=== PATIENT | male | born 1990 | race Caucasian/White ===

== ENCOUNTER 2020-01-12 17:22 | Emergency (ER) | payer BC, SELFPAY ==
--- NOTE | 2020-01-12 17:37 | ED.GENADULT ---
HPI - General Adult General Chief complaint: Upper Respiratory Infection Stated complaint: Shortness of breath/Sore throat Time Seen by Provider: 01/12/20 17:37 Source: patient Mode of arrival: ambulatory Limitations: no limitations History of Present Illness HPI narrative: 29-year-old male patient presents to the [facility] with complaints of sore throat and shortness of breath for the past 3 days. Patient denies any fevers that he is aware of. Patient denies getting a flu shot this year. Patient states that he noticed that his shortness of breath was increasing today when he was hanging some drywall. Patient denies any chest pain. Patient states he did have a cough but that has since resolved and no cough today. Patient denies any runny nose, stuffy nose or ear pain. Denies any abdominal pain, nausea, vomiting or diarrhea. Patient states he did just follow-up with his primary doctor about a month ago and states that he did not have any high blood pressure at that time and denies any history of high blood pressure. Patient denies being a smoker. Patient denies any history of lung diseases such as emphysema, asthma or COPD. Related Data Home Medications Medication Instructions Recorded Confirmed allopurinol 300 mg PO DAILY 01/12/20 01/12/20 Allergies Allergy/AdvReac Type Severity Reaction Status Date / Time No Known Allergies Allergy Unverified 12/07/16 20:02 Review of Systems Review of Systems: Narrative: CONSTITUTIONAL: Denies fever, chills, or sweats. EYES: Denies visual changes, redness, or discharge. ENT: Denies rhinorrhea, congestion, positive sore throat, denies otalgia. CARDIOVASCULAR: Denies chest pain, palpitations, or edema. RESPIRATORY: Denies cough, positive dyspnea. GASTROINTESTINAL: Denies abdominal pain, nausea, vomiting, or diarrhea. GENITOURINARY: Denies dysuria or hematuria. SKIN: Denies rash or itching. MUSCULOSKELETAL: Denies back pain, joint pain, or myalgia. NEUROLOGIC: Denies headache, numbness, or weakness. PSYCHIATRIC: Denies anxiety or depression. PMFSH Comments At the time of my signature I agree with nursing past medical history, surgical, social, and family history. There is no relevant family history pertinent to the presenting complaint. Exam Narrative: Exam Narrative: GENERAL: Well-appearing, well-nourished, and in no acute distress. HEAD: Normocephalic, atraumatic. EYES: PERRLA and EOMI. ENT: Nares with erythema and edema noted bilaterally, no rhinorrhea or epistaxis. Mucous membranes moist. Posterior pharynx with erythema and tonsillar enlargement noted on bilateral sides. Bilateral TMs are clear no erythema or foreign bodies in the canal. NECK: Supple. No lymphadenopathy CHEST: Clear to auscultation. No respiratory distress. Patient does have slight labored breathing noted during exam. No tripoding noted. HEART: Regular rate and rhythm. No murmur heard. Normal peripheral pulses. ABDOMEN: Soft, nontender, nondistended, normal active bowel sounds. EXTREMITIES: Normal range of motion. No edema. SKIN: Warm, dry, no rash. NEURO: No focal deficits. Alert and oriented x3. Course Reevaluation(s) Reevaluation #1: Reevaluated patient after his DuoNeb was completed. Patient states he is feeling much better. Patient states that shortness of breath is gone and actually states that his soreness to the throat is much better 2. Patient's lung sounds continue to be clear bilaterally to the upper lower lobes. Discussed with patient that I am concerned that this could have been some type of allergic reaction as well since patient does mention that he was doing some drywall today. Discussed with him that the powder from the drywall could have caused a reaction calling causing swelling to the throat as well as the shortness of breath. Discussed with patient plan to discharge him home today with an albuterol inhaler and if he has shortness of breath, wheezing or coughing I want him to use the in
[2020-01-12 17:40] VITALS: BP 134/100; PULSE 82; RESP 98; TEMP 36.6
--- NOTE | 2020-01-12 17:55 | ECG_ITS ---
Measurements Intervals [place] Rate: 82 P: 19 UT: 148 QRS: 39 QRSD: 92 T: 23 QT: 370 QTc: 433 Interpretive Statements SINUS RHYTHM INCOMPLETE RIGHT BUNDLE BRANCH BLOCK BORDERLINE ECG Electronically Signed On 01-13-2020 7:00:30 PERSONAL INJURY ATTORNEY by King Ontiveros D.O.
[2020-01-12] MEDS: ALBUTEROL SULFATE NEB 2.5 MG/3 ML INH INHALATION (18:11)
[2020-01-12] MEDS: IPRATROPIUM BR 0.02% INH SOLN 0.5 MG/2.5 ML VIAL INHALATION (18:11)
[2020-01-12 18:35] VITALS: PULSE 84; RESP 16; O2SAT 97
== END 2020-01-12 18:48 | disposition home or self-care (01) ==
PROVIDERS: Emergency Provider Nurse Practitioner Family
DX: J06.9 Acute upper respiratory infection, unspecified (principal); R05 Cough; J02.9 Acute pharyngitis, unspecified; R06.02 Shortness of breath; T78.40XA Allergy, unspecified, initial encounter; I45.10 Unspecified right bundle-branch block
CPT/HCPCS: 87081; 87880; 93005; 94640; 99203; G0463

== ENCOUNTER 2020-08-19 10:24 | Emergency (ER) | payer BC, SELFPAY ==
[2020-08-19 10:28] VITALS: BP 148/87; PULSE 86; RESP 26; TEMP 36.4; O2SAT 97
--- NOTE | 2020-08-19 10:56 | ED.URI ---
HPI - URI/Sore Throat General Chief Complaint: Upper Respiratory Infection Stated Complaint: sinus congestion/cough Time Seen by Provider: 08/19/20 10:56 Source: patient and RN notes reviewed Mode of arrival: ambulatory Limitations: no limitations History of Present Illness HPI Narrative: 30-year-old male who presents to [facility] care with one week duration of cough, sore throat, nasal congestion and drainage, headache and green mucous production. Patient states that he has felt a little short of breath due to cough and congestion, denies any acute dyspnea with SAO2 97%.Patient states that he has increased sore throat with swallowing, no trismus noted and patient can control oral secretions. Patient has clear lungs on auscultation with SAO2 97% on room air,patient is morbidly obese with mild tachypnea noted. Patient denies any loss of sense of taste or smell no known exposure to anyone else who is ill. MD elicited complaint: cough, sore throat, rhinorrhea, nasal congestion and sinus pain Pertinent past history: other (morbid obesity) Onset (ago): week(s) (1) Consistency: progressively worsening Severity: moderate Pain scale (0-10): 4 Description of mucous: green Able to tolerate fluids by mouth: Yes Exacerbating factors: swallowing and exertion Relieving factors: OTC cold medicine Associated symptoms: headache, rhinorrhea, nasal congestion, sore throat, cough and shortness of breath Treatments prior to arrival: cold medicine Related Data Home Medications Medication Instructions Recorded Confirmed allopurinol 300 mg PO DAILY 01/12/20 08/19/20 Allergies Allergy/AdvReac Type Severity Reaction Status Date / Time No Known Allergies Allergy Verified 08/19/20 10:42 Review of Systems Review of Systems: Narrative: CONSTITUTIONAL: Denies fever, chills, or sweats. EYES: Denies visual changes, redness, or discharge. ENT: Positive rhinorrhea, congestion, sore throat, no otalgia. CARDIOVASCULAR: Denies chest pain, palpitations, or edema. RESPIRATORY: positive cough and some exertional dyspnea. GASTROINTESTINAL: Denies abdominal pain, nausea, vomiting, or diarrhea. GENITOURINARY: Denies dysuria or hematuria. SKIN: Denies rash or itching. MUSCULOSKELETAL: Denies back pain, joint pain, or myalgia. NEUROLOGIC: positive headache,no numbness, or weakness. PSYCHIATRIC: Denies anxiety or depression. All systems reviewed & are unremarkable except as noted in HPI and below PMFSH Past Medical History Medical History (Updated 08/19/20 @ 11:47 by Leia Garsia NP) Gout Hyperlipidemia Surgical History Surgical History (Updated 08/19/20 @ 11:47 by Leia Garsia NP) No pertinent past surgical history Social History Social History (Updated 08/19/20 @ 11:13 by Leia Garsia NP) Smoking status: Never smoker Living arrangements: with family Gender identity (if verbalized by the patient): Male Comments At time of signature, agree with nursing past medical, surgical, social history. There is no relevant family history pertinent to the presenting complaint Exam Narrative: Exam Narrative: GENERAL: Well-appearing, well-nourished,morbidly obese, and in no acute distress. HEAD: Normocephalic, atraumatic. EYES: PERRLA and EOMI. ENT: Nares patent with turbinates red, clear to light greenish rhinorrhea no epistaxis. Mucous membranes moist.TM's normal with good light reflex, throat red swollen with tonsils enlarged, no lesions or exudates NECK: Supple.some tenderness on palpation, no enlarged lymph nodes noted. CHEST: Clear to auscultation. No respiratory distress.cough and some ZUNIGA stated, SAO2 97% HEART: Regular rate and rhythm. No murmur heard. Normal peripheral pulses. ABDOMEN: Soft, nontender, nondistended, normal active bowel sounds. EXTREMITIES: Normal range of motion. No edema. SKIN: Warm, dry, no rash. NEURO: No focal deficits. Alert and oriented x3. Course Vital Signs Vital signs: Vital Signs Temperature 36.4
== END 2020-08-19 11:22 | disposition home or self-care (01) ==
PROVIDERS: Emergency Provider Registered Nurse; PCP Internal Medicine
DX: J02.0 Streptococcal pharyngitis (principal); M10.9 Gout, unspecified; E78.5 Hyperlipidemia, unspecified
CPT/HCPCS: 87880; 99213; G0463

== ENCOUNTER 2021-06-26 09:58 | Emergency (ER) | payer BC, SELFPAY ==
[2021-06-26 10:02] VITALS: BP 139/80; PULSE 78; RESP 20; TEMP 36.6; O2SAT 98
--- NOTE | 2021-06-26 10:02 | ED.EAR ---
HPI - Ear Problem General Chief complaint: Ear Stated complaint: Ear pain Time Seen by Provider: 06/26/21 10:02 Source: patient and RN notes reviewed History of Present Illness HPI Narrative: Patient is a 31-year-old male who presents the urgent care with complaints of right ear pain. Patient states is been ongoing for approximately 1-1/2 days and he has not taken anything [id number] for his pain. Patient states that it feels heavy and has been popping . Patient states he was [place] in [place] 2 days ago. No other acute complaints. Denies of any fever. Denies of any other upper respiratory complaints. No acute distress noted. Patient aware of the plan of care. Some parts of this dictation were generated by voice recognition software and may contain typographical and/or grammatical inaccuracies. Related Data Allergies Allergy/AdvReac Type Severity Reaction Status Date / Time No Known Allergies Allergy Verified 08/19/20 10:42 Review of Systems Review of Systems: CONSTITUTIONAL: Denies fever, chills, or sweats. EYES: Denies visual changes, redness, or discharge. ENT: Denies rhinorrhea, congestion, sore throat. reports of right otalgia CARDIOVASCULAR: Denies chest pain, palpitations, or edema. RESPIRATORY: Denies cough or dyspnea. GASTROINTESTINAL: Denies abdominal pain, nausea, vomiting, or diarrhea. GENITOURINARY: Denies dysuria or hematuria. SKIN: Denies rash or itching. MUSCULOSKELETAL: Denies back pain, joint pain, or myalgia. NEUROLOGIC: Denies headache, numbness, or weakness. All other systems reviewed are negative, except as documented in HPI. PMFSH Past Medical History Medical History (Updated 06/26/21 @ 10:17 by BECKI Masterson) Gout Hyperlipidemia Surgical History Surgical History (Updated 08/19/20 @ 11:47 by Leia Garsia NP) No pertinent past surgical history Social History Social History (Updated 08/19/20 @ 11:13 by Leia Garsia NP) Smoking status: Never smoker Gender identity (if verbalized by the patient): Male Comments At the time of my signature, I reviewed and agree with the nursing past medical, surgical, social, and family history. There is no relevant family history pertinent to the patient complaint. Exam Narrative: GENERAL: This is a well-nourished, well-developed patient, in no apparent distress. HEAD: normocephalic, atraumatic. EYES: PERRL. Sclera clear/white. Vision is grossly intact. EARS: External ears normal, moderate erythema and edema noted to the right auditory canal with moderate drainage. Unable to visualize right TM due to drainage. Pain on assessment of the right. Left auditory canal clear and without drainage, left TM normal without perforation. Hearing grossly intact. NOSE: External nose normal with no obvious nasal discharge, nares without redness, no rhinorrhea. THROAT: Mucous membranes moist NECK: Neck supple CARDIOVASCULAR: Regular rate and rhythm without murmurs, gallops, or rubs. RESPIRATORY: Clear to auscultation. Breath sounds equal bilaterally. No wheezes, rales, or rhonchi. SKIN: warm, intact with no suspicious lesions or rash, good texture and turgor. NEURO: awake, alert, and oriented to person, place and time. There were no obvious focal neurologic abnormalities. EXTREMITIES: No clubbing, cyanosis, or edema. Course Vital Signs Vital signs: Vital Signs Temperature 97.9 F 06/26/21 10:02 Pulse Rate 78 06/26/21 10:02 Respiratory Rate 20 06/26/21 10:02 Blood Pressure 139/80 06/26/21 10:02 Pulse Oximetry 98 06/26/21 10:02 Temperature 97.9 F 06/26/21 10:11 Pulse Rate 78 06/26/21 10:11 Respiratory Rate 20 06/26/21 10:11 Blood Pressure 139/80 06/26/21 10:11 Pulse Oximetry 98 06/26/21 10:11 Reviewed Medical Decision Making MDM Narrative Medical decision making narrative: Advised the patient to use the eardrops to the affected ear as directed. Use a warm compress for comfort as wel
[2021-06-26 10:11] VITALS: BP 139/80; PULSE 78; RESP 20; TEMP 36.6; O2SAT 98
== END 2021-06-26 10:22 | disposition home or self-care (01) ==
PROVIDERS: Emergency Provider Nurse Practitioner Family; PCP Physician Assistant
DX: H60.91 Unspecified otitis externa, right ear (principal); M10.9 Gout, unspecified; E78.5 Hyperlipidemia, unspecified
CPT/HCPCS: 99213; G0463

== ENCOUNTER 2021-07-22 17:31 | Emergency (ER) | payer BC, SELFPAY ==
[2021-07-22 17:38] VITALS: BP 136/75; PULSE 91; RESP 20; TEMP 36.8; O2SAT 98
--- NOTE | 2021-07-22 17:39 | ED.NAVMDI ---
HPI - Nausea/Vomiting/Diarrhea General Chief complaint: Nausea/Vomiting/Diarrhea Stated complaint: Diarrhea, vomitting Time Seen by Provider: 07/22/21 17:39 Source: patient and RN notes reviewed Mode of arrival: ambulatory Limitations: no limitations History of Present Illness HPI Narrative: 31-year-old male presents to the [facility] with complaints of nausea and diarrhea. Patient states I just want the diarrhea to stop. Patient reports that he has had 2 days of diarrhea. States multiple diarrheal episodes per day. Denies nausea but states he has had vomited one time. Denies any abdominal pain or chest pain. Denies any fevers. Reports generalized body aches after coming in from outside mowing the grass on . Related Data Home Medications Medication Instructions Recorded Confirmed No Home Medications 07/22/21 07/22/21 Allergies Allergy/AdvReac Type Severity Reaction Status Date / Time No Known Allergies Allergy Verified 07/22/21 17:46 Review of Systems Review of Systems: All systems reviewed & are unremarkable except as noted in HPI and below Constitutional: Constitutional: Reports no additional constitutional complaints, Denies chills and Denies fever(s) Eyes: Eyes: Reports no additional eye complaints ENT: Reports system reviewed and no additional complaints, except as documented Cardiovascular: Cardiovascular: Reports no additional cardiovascular complaints Respiratory: Respiratory: Reports no additional respiratory complaints, Denies chest congestion, Denies cough, Denies dyspnea and Denies wheezing Gastrointestinal: Gastrointestinal: Reports as per HPI, Denies abdominal pain, Reports diarrhea, Reports nausea and Reports vomiting Genitourinary: Genitourinary: Reports no additional male genitourinary complaints Musculoskeletal: Musculoskeletal: Reports as per HPI, Denies back pain, Reports myalgias (), Denies arthralgias and Denies joint swelling Integumentary/Breasts: Skin/Breast: Reports system reviewed and no additional complaints, except as docu Neurologic: Reports system reviewed and no additional complaints, except as documented Psychiatric: Psychiatric: Reports no additional psychiatric complaints Allergic/Immunologic: Allergic/Immunologic: Reports no additional allergic/immunologic complaints PMFSH Past Medical History Medical History (Updated 07/23/21 @ 00:01 by Rajesh Russo) Gout Hyperlipidemia Surgical History Surgical History No pertinent past surgical history Social History Social History (Reviewed 07/22/21 @ 17:51 by Kathryn Estrada Smoking status: Never smoker Gender identity (if verbalized by the patient): Male Comments At the time of my signature, I reviewed and agree with the nursing past medical, surgical, social, and family history. There is no relevant family history pertinent to the patient complaint. Exam Const: General: healthy appearing, no acute distress, alert and ill appearing Nutritional Appearance: well nourished and obese morbidly obese Orientation/consciousness: patient oriented x3 HENMT: Head: normal to inspection Ears: external ears normal, TM's normal bilaterally and EAC's normal Eyes: Pupils: Equal, round and reactive pupils present Neck: Neck: normal visual inspection, no lymphadenopathy and no meningeal signs Chest: Chest palpation & inspection: normal inspection of the chest Resp: Effort & Inspection: normal respiratory effort and no use of accessory muscles Auscultation: clear to auscultation bilaterally, no crackles, no rales, no rhonchi and no wheezes Cardio: Rate: regular rate Rhythm: regular rhythm GI: GI Palp: Yes Soft to palpation, No Tenderness to palpation present (GI), No Palpable mass present and No Rebound tenderness present Auscultation: normal bowel sounds : General: Yes no CVA tenderness Testes: Testes normal Back/Spine/Pelvis: Back: no CVA t
== END 2021-07-22 17:50 | disposition home or self-care (01) ==
PROVIDERS: Emergency Provider Nurse Practitioner; PCP Physician Assistant
DX: K52.9 Noninfective gastroenteritis and colitis, unspecified (principal); E78.5 Hyperlipidemia, unspecified; M10.9 Gout, unspecified
CPT/HCPCS: 99211; G0463

== ENCOUNTER 2022-05-07 08:20 | Emergency (ER) | payer BC, SELFPAY ==
[2022-05-07 08:26] VITALS: BP 132/73; PULSE 89; RESP 20; TEMP 37.1; O2SAT 95
--- NOTE | 2022-05-07 09:02 | ED.GENADULT ---
HPI - General Adult General Chief complaint: Upper Respiratory Infection Stated complaint: Diarrhea/Vomiting/Cough Time Seen by Provider: 05/07/22 08:50 Source: patient, RN notes reviewed and old records reviewed Mode of arrival: ambulatory Limitations: no limitations History of Present Illness HPI narrative: 32-year-old male who presents to [facility] care with complaints of having upper respiratory congestion about 2 weeks ago and he called his PCP and his doctor ordered Amoxicillin for him but he was not tested for COVID at that time. Patient reports for the past few day he has had cough, some shortness of breath, sore throat with throat feeling swollen. Patient admits that he only took 3 days worth of the antibiotic and he has been on float trip from to Saturday. He states that his symptoms became worse on Saturday and he had one episode of emesis and he has had diarrhea stools and also diarrhea this morning. Patient reports no known fevers but reports feelings of fatigue, body aches and weakness. Patient reports that he has had COVID vaccinations. MD complaint: sore throat, fatigue, body aches,weakness, vomiting and diarrhea Treatments prior to arrival: none Related Data Home Medications Medication Instructions Recorded Confirmed allopurinol 300 mg tablet tablet 05/07/22 Allergies Allergy/AdvReac Type Severity Reaction Status Date / Time No Known Allergies Allergy Verified 05/07/22 08:48 Review of Systems Review of Systems: CONSTITUTIONAL: Denies fever, chills, or sweats. EYES: Denies visual changes, redness, or discharge. ENT: Positive for rhinorrhea, congestion,positive sore throat, no otalgia. CARDIOVASCULAR: Denies chest pain, palpitations, or edema. RESPIRATORY:Possible for cough or dyspnea with exertion GASTROINTESTINAL: Denies abdominal pain, nausea, vomiting, or diarrhea. GENITOURINARY: Denies dysuria or hematuria. SKIN: Denies rash or itching. MUSCULOSKELETAL: Denies back pain, joint pain, some body aches NEUROLOGIC: Denies headache, numbness, or weakness. PSYCHIATRIC: Denies anxiety or depression. All systems reviewed & are unremarkable except as noted in HPI and below PMFSH Past Medical History Medical History (Updated 05/07/22 @ 10:40 by Leia Garsia NP) Gout Hyperlipidemia Surgical History Surgical History (Updated 05/07/22 @ 10:40 by Leia Garsia NP) Hx of hand surgery left Social History Social History (Updated 05/07/22 @ 09:15 by Leia Garsia NP) Smoking status: Never smoker Alcohol intake: current Substance use: unknown Living arrangements: with family Gender identity (if verbalized by the patient): Male Comments At time of signature, agree with nursing past medical, surgical, social and family history. There is no relevant family history pertinent to the presenting complaint Exam Narrative: GENERAL: Well-appearing, well-nourished,morbid obesity and in no acute distress. HEAD: Normocephalic, atraumatic. EYES: PERRLA and EOMI. ENT: Nares with minimal redness scant clear rhinorrhea no epistaxis. Mucous membranes moist.TM's normal with good light reflex, throat red with lesions on tonsils with enlargement, uvula red and swollen but midline, NECK: Supple. lymphadenopathy CHEST: Clear to auscultation. No respiratory distress.SAO2 95% on room air, no tachypnea or accessory muscle use HEART: Regular rate and rhythm. No murmur heard. Normal peripheral pulses. ABDOMEN: Soft, nontender, nondistended, normal active bowel sounds.episodes of diarrhea and one episode of vomiting denies any present nausea. EXTREMITIES: Normal range of motion. No edema. SKIN: Warm, dry, no rash. NEURO: No focal deficits. Alert and oriented x3. Course Course Level of Care: Express Care Visit Vital Signs Vital signs: Vital Signs Temperature 37.1 C 05/07/22 08:26 Pulse Rate 89 05/07/22 08:26 Respiratory Rate 20 05/07/22 08:26 Blood Pressure 132/73 05/07/22 08:26
== END 2022-05-07 09:23 | disposition home or self-care (01) ==
PROVIDERS: Emergency Provider Registered Nurse; PCP Physician Assistant
DX: J03.90 Acute tonsillitis, unspecified (principal); K52.9 Noninfective gastroenteritis and colitis, unspecified; Z20.822 Contact with and (suspected) exposure to COVID-19; E78.5 Hyperlipidemia, unspecified; M10.9 Gout, unspecified
CPT/HCPCS: 87081; 87426; 87804; 87880; 99213; C9803; G0463

== ENCOUNTER 2023-01-26 12:32 | Emergency (ER) | payer OTHER, SELFPAY ==
[2023-01-26 12:38] VITALS: BP 139/67; PULSE 82; RESP 20; TEMP 36.9; O2SAT 99
--- NOTE | 2023-01-26 13:11 | ED.BACK ---
HPI - Back Pain/Injury General Chief Complaint: Back Pain/Injury Stated Complaint: Sharp pain right lower back History of Present Illness HPI Narrative: Patient presents with right lower back pain. Patient denies any injury. Patient denies any bowel or bladder problems no numbness or tingling. Patient denies any injury to his back. No new exercises no heavy lifting. Related Data Home Medications Medication Instructions Recorded Confirmed allopurinol 300 mg tablet tablet 05/07/22 montelukast 10 mg tablet mg 01/26/23 Allergies Allergy/AdvReac Type Severity Reaction Status Date / Time No Known Allergies Allergy Verified 05/07/22 08:48 Review of Systems Review of Systems: CONSTITUTIONAL: Denies fever, chills, or sweats. EYES: Denies visual changes, redness, or discharge. ENT: Denies rhinorrhea, congestion, sore throat, or otalgia. CARDIOVASCULAR: Denies chest pain, palpitations, or edema. RESPIRATORY: Denies cough or dyspnea. GASTROINTESTINAL: Denies abdominal pain, nausea, vomiting, or diarrhea. GENITOURINARY: Denies dysuria or hematuria. SKIN: Denies rash or itching. MUSCULOSKELETAL: Denies back pain, joint pain, or myalgia. NEUROLOGIC: Denies headache, numbness, or weakness. PSYCHIATRIC: Denies anxiety or depression. PMFSH Past Medical History Medical History (Updated 01/26/23 @ 13:17 by BECKI Martell) Gout Hyperlipidemia Surgical History Surgical History (Updated 05/07/22 @ 10:40 by Leia Garsia NP) Hx of hand surgery left Social History Social History (Updated 05/07/22 @ 09:15 by Leia Garsia NP) Smoking status: Never smoker Alcohol intake: current Substance use: unknown Living arrangements: with family Gender identity (if verbalized by the patient): Male Comments At time of signature, agree with nursing past medical, surgical, social and family history. There is no relevant family history pertinent to the presenting complaint Exam Narrative: GENERAL: Well-appearing, well-nourished, and in no acute distress. HEAD: Normocephalic, atraumatic. EYES: PERRLA and EOMI. ENT: Nares clear, no rhinorrhea or epistaxis. Mucous membranes moist. NECK: Supple. CHEST: Clear to auscultation. No respiratory distress. HEART: Regular rate and rhythm. No murmur heard. Normal peripheral pulses. ABDOMEN: Soft, nontender, nondistended, normal active bowel sounds. EXTREMITIES: Normal range of motion. No edema. SPINE MIDLINE. NO CURVATURE APPARENT. NO NOVERTEBRAL POINT SPECIFIC TENDERNESS. NO DEFORMITY. NO STEP-OFFS. NORMAL LE STRENGTH BILATERALLY. NORMAL LE SENSATION BILATERALLY. ABLE TO WALK ON TOES AND HEELS WITH NORMAL DORSIFLEXION AND PLANTAR FLEXION STRENGTH. NO WEAKNESS OBSERVED WITH GAIT. RIGHT PARASPINAL MUSCLE TENDERNESS. RIGHT SI JOINT TENDERNESS. FLEXION AND EXTENSION ROM NORMAL, ONLY SLIGHT LIMITATION. SKIN: Warm, dry, no rash. NEURO: No focal deficits. Alert and oriented x3. [place] Coma Scale Eye Opening: Spontaneous 4 [place] Coma Scale Motor: Obeys Commands 6 [place] Coma Scale Verbal: Oriented 5 [place] Coma Scale Total 15 Course Course Level of Care: Express Care Visit Vital Signs Vital signs: Vital Signs Temperature 36.9 C 01/26/23 12:38 Pulse Rate 82 01/26/23 12:38 Respiratory Rate 20 01/26/23 12:38 Blood Pressure 139/67 01/26/23 12:38 Pulse Oximetry 99 01/26/23 12:38 Oxygen Delivery Room Air 01/26/23 12:38 Temperature 36.9 C 01/26/23 12:38 Pulse Rate 82 01/26/23 12:38 Respiratory Rate 20 01/26/23 12:38 Blood Pressure 139/67 01/26/23 12:38 Pulse Oximetry 99 01/26/23 12:38 Oxygen Delivery Room Air 01/26/23 12:38 discussed xray at todays visit patient declined and would like to try medications as discussed patient will follow up with PCP and will have imaging if no improvement in sympotms. MDM - Back Pain/Injury Differential Diagnosis Differential diagnosis: Likely lumbar radiculopathy, sciatica, strain
== END 2023-01-26 13:24 | disposition home or self-care (01) ==
PROVIDERS: Emergency Provider Nurse Practitioner Family; PCP Physician Assistant
DX: S39.012A Strain of muscle, fascia and tendon of lower back, initial encounter (principal); X58.XXXA Exposure to other specified factors, initial encounter; M10.9 Gout, unspecified; E78.5 Hyperlipidemia, unspecified
CPT/HCPCS: 99213; G0463

== ENCOUNTER 2024-01-09 13:14 | Emergency (ER) | payer OTHER, SELFPAY ==
[2024-01-09 13:23] VITALS: BP 160/90; PULSE 81; RESP 20; TEMP 36.9; O2SAT 98
--- NOTE | 2024-01-09 13:47 | ED.GENADULT ---
HPI - General Adult General Chief complaint: Skin/Abscess/Foreign Body Stated complaint: Skin Sore/Finger Time Seen by Provider: 01/09/24 13:47 Source: patient, RN notes reviewed and old records reviewed Mode of arrival: ambulatory Limitations: no limitations History of Present Illness HPI narrative: 33-year-old male presents to the [facility] with complaints of a finger sore. 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 Currently draining a thick white drainage Has mild erythema noted without increased warmth Onset (ago): day(s) (2) Related Data Home Medications Medication Instructions Recorded Confirmed montelukast 10 mg tablet 10 mg PO DAILY 01/26/23 01/09/24 Allergies Allergy/AdvReac Type Severity Reaction Status Date / Time No Known Allergies Allergy Verified 05/07/22 08:48 Review of Systems Review of Systems: All systems reviewed & are unremarkable except as noted in HPI and below Constitutional: Constitutional: Reports no additional constitutional complaints Eyes: Eyes: Reports no additional eye complaints ENT: Reports system reviewed and no additional complaints, except as documented Cardiovascular: Cardiovascular: Reports no additional cardiovascular complaints, Denies chest pain and Denies dyspnea Respiratory: Respiratory: Reports no additional respiratory complaints, Denies chest congestion, Denies cough and Denies dyspnea Gastrointestinal: Gastrointestinal: Reports no additional gastrointestinal complaints, Denies abdominal pain, Denies nausea and Denies vomiting Musculoskeletal: Musculoskeletal: Reports no additional musculoskeletal complaints Integumentary/Breasts: Skin/Breast: Reports as per HPI Neurologic: Reports system reviewed and no additional complaints, except as documented Psychiatric: Psychiatric: Reports no additional psychiatric complaints Allergic/Immunologic: Allergic/Immunologic: Reports no additional allergic/immunologic complaints PMFSH Past Medical History Medical History Gout Hyperlipidemia Surgical History Surgical History Hx of hand surgery left Social History Social History Smoking status: Never smoker Alcohol intake: current Substance use: unknown Living arrangements: with family Gender identity (if verbalized by the patient): Male Comments At the time of my signature, I reviewed and agree with the nursing past medical, surgical, social, and family history. There is no relevant family history pertinent to the patient complaint. Exam Const: General: cooperative, healthy appearing, comfortable, no acute distress, well developed, alert and well nourished Nutritional Appearance: well nourished and obese Orientation/consciousness: patient oriented x3 Limitations: no limitations HENMT: Head: normal to inspection Ears: hearing grossly normal bilaterally and external ears normal Face/Nose/Sinus: Normal external nose present, Normal nares present, Normal nasal mucous membranes and turbinates present, normal facial exam and face symmetric Face and sinus: normal facial exam and face symmetric Eyes: General: appearance normal, both eyes and all related structures Alignment and Position: alignment normal Periorbital: periorbital findings normal Pupils: Equal, round and reactive pupils present EOM: EOMs intact bilaterally Neck: Neck: normal visual inspection, full ROM, no lymphadenopathy and no meningeal signs Chest: Chest palpation & inspection: normal inspection of the chest Resp: Effort & Inspection: normal respiratory effort and able to speak in complete sentences Cardio: Rate: regular rate Rhythm: regular rhythm Back/Spine/Pelvis: Cervical Spine: cervical ROM normal Skin: General skin exam: no
== END 2024-01-09 14:18 | disposition home or self-care (01) ==
PROVIDERS: Emergency Provider Nurse Practitioner; PCP Physician Assistant
DX: L03.011 Cellulitis of right finger (principal); E78.5 Hyperlipidemia, unspecified
CPT/HCPCS: 87070; 87075; 87077; 87147; 87186; 87205; 99213; G0463

== ENCOUNTER 2024-05-30 12:31 | Emergency (ER) | payer OTHER, SELFPAY ==
[2024-05-30 12:35] VITALS: BP 134/68; PULSE 82; RESP 20; TEMP 36.7; O2SAT 98
--- NOTE | 2024-05-30 12:43 | ED.URI ---
HPI - URI/Sore Throat General Chief Complaint: Upper Respiratory Infection Stated Complaint: Shortness of Breath/Cough Time Seen by Provider: 05/30/24 12:54 Source: patient and RN notes reviewed Mode of arrival: ambulatory Limitations: no limitations History of Present Illness HPI Narrative: 34-year-old male presents with concern for several day history of cough, shortness of breath, left ear pain since Saturday. Reports he went to his doctor, they gave him a Z-Yosef, he finished his Z-Yosef without relief of symptoms. He reports he has been taking Robitussin DM without relief. He denies history of asthma or problems breathing MD elicited complaint: cough and other (ear pain) Related Data Home Medications Medication Instructions Recorded Confirmed montelukast 10 mg tablet 10 mg PO DAILY 01/26/23 05/30/24 Allergies Allergy/AdvReac Type Severity Reaction Status Date / Time No Known Allergies Allergy Verified 05/07/22 08:48 Review of Systems Review of Systems: CONSTITUTIONAL: Denies malaise, chills, sweats, or fever. EYES: Denies visual changes, redness, or discharge. ENT: Reports rhinorrhea,otalgia and sore throat. CARDIOVASCULAR: Denies chest pain, palpitations, or edema. RESPIRATORY: Reports cough, dyspnea. GASTROINTESTINAL: Denies abdominal pain, nausea, vomiting, diarrhea SKIN: Denies rash or itching. MUSCULOSKELETAL: Denies myalgia. NEUROLOGIC: Denies headache. All systems reviewed & are unremarkable except as noted in HPI and below PMFSH Past Medical History Medical History Gout Hyperlipidemia Surgical History Surgical History Hx of hand surgery left Social History Social History Smoking status: Never smoker Alcohol intake: current Substance use: unknown Living arrangements: with family Gender identity (if verbalized by the patient): Male Comments At time of signature, agree with nursing past medical, surgical, social and family history. There is no relevant family history pertinent to the presenting complaint Exam Narrative: GENERAL: Well-appearing, well-nourished, and in no acute distress. HEAD: Normocephalic EYES: PERRLA, conjunctivae clear ENT: Nares clear. Mucous membranes moist. Right TM pearly strickland with dull light reflex, left TM erythematous and bulging; no tragal tenderness. Oropharynx erythematous without lesions. Tonsils enlarged and without exudate, no drooling, no hoarseness, no trismus, uvula midline. NECK: Supple. No lymphadenopathy CHEST: Clear to auscultation, breath sounds equal. No wheezing, rhonchi, rales, or stridor. No respiratory distress, speaks in full sentences. HEART: Regular rate and rhythm. No murmur heard. SKIN: Warm, dry, no rash. NEURO: Alert and oriented x3. PSYCH: Normal mood and affect Course Course Emergency Course: Patient is aware of diagnosis, understands and agrees to treatment plan. Anticipatory guidance given. Patient agrees to follow-up as directed and is aware of reasons to seek care at the emergency department. Portions of this record may have been created with voice recognition software Level of Care: Express Care Visit Vital Signs Vital signs: Reviewed. MDM - URI/Sore Throat MDM Narrative Medical decision making narrative: Differential diagnosis considered: Rubin virus, strep pharyngitis, allergic rhinitis, upper respiratory tract infection, sinusitis, rhinosinusitis, nasopharyngitis. viral pharyngitis, otitis media, otitis externa, pneumonia, bronchitis, viral cough syndrome, viral syndrome, and influenza. Exam findings show no acute concerns or changes; patient is non-toxic appearing and is in no distress. Patient is appropriate for outpatient treatment and follow-up. Lab Data Attestation: I reviewed the patient's lab results. Critical Care Time Critical Car
[2024-05-30 13:28] LABS: EDSTREPNEGPOS1 Presumptive Negative
== END 2024-05-30 13:15 | disposition home or self-care (01) ==
PROVIDERS: Emergency Provider Nurse Practitioner; PCP Physician Assistant
DX: H66.92 Otitis media, unspecified, left ear (principal); R05.9 Cough, unspecified; M10.9 Gout, unspecified; E78.5 Hyperlipidemia, unspecified
CPT/HCPCS: 87081; 87880; 99213; G0463

== ENCOUNTER 2024-09-21 09:32 | Emergency (ER) | payer OTHER, SELFPAY ==
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
[2024-09-21 09:50] VITALS: BP 140/74; PULSE 91; RESP 20; TEMP 36.8; O2SAT 98
== END 2024-09-21 11:05 | disposition home or self-care (01) ==
PROVIDERS: Emergency Provider Nurse Practitioner; PCP Nurse Practitioner Adult Health
DX: M25.462 Effusion, left knee (principal); E78.5 Hyperlipidemia, unspecified; M10.9 Gout, unspecified
CPT/HCPCS: 73564; 99213; G0463

== ENCOUNTER 2024-09-23 09:47 | Outpatient (CLI) | payer OTHER, SELFPAY ==
[2024-09-23 21:21] LABS: Alanine Aminotransferase 38 U/L (6-50); Albumin Level 4.5 g/dL (3.5-5.1); Alkaline Phosphatase 60 U/L (38-126); Anion Gap 6 mmol/L (4-12); Aspartate Amino Transferase 65 U/L (17-59); Bilirubin,Total 0.5 mg/dL (0.2-1.3); Blood Urea Nitrogen 12 mg/dL (9-20); Calcium 9.7 mg/dL (8.4-10.2); Carbon Dioxide 32 mmol/L (22-30); Chloride 101 mmol/L (98-107); Cholesterol 188 mg/dL (0-200); Estimated Glomerular Filt Rate > 60; Glucose 101 mg/dL (65-110); HDL Direct 45 mg/dL; Potassium 4.2 mmol/L (3.4-5.0); Sodium 139 mmol/L (137-145); Triglycerides 280 mg/dL (<150)
[2024-09-23 21:33] LABS: LDL Cholesterol Direct 103 mg/dL
== END 2024-09-23 09:48 | disposition home or self-care (01) ==
PROVIDERS: PCP Nurse Practitioner Adult Health; Visit Provider Nurse Practitioner Adult Health
DX: M17.12 Unilateral primary osteoarthritis, left knee (principal); E78.5 Hyperlipidemia, unspecified
CPT/HCPCS: 36415; 80053; 80061

== ENCOUNTER 2024-09-24 09:21 | Outpatient (CLI) | payer OTHER, SELFPAY ==
[2024-09-24 19:12] LABS: Hemoglobin 16.4 g/dL (14.0-18.0); Mean Corpuscular HGB Conc 32.8 g/dl (32-36); Mean Corpuscular Volume 94.5 fl (80-100); Mean Platelet Volume 9.4 fl (7.4-10.4); Platelet Count Result 195 k/mm3 (150-375); Red Blood Count 5.29 M/mm3 (4.6-6.20); Red Cell Distribution Width 12.6 % (11.5-14.5); White Blood Count 5.3 K/mm3 (4.5-10.0)
[2024-09-24 19:39] LABS: Prostate Specific Antigen 1.6 ng/mL (< OR = 4.0)
== END 2024-09-24 09:22 | disposition home or self-care (01) ==
LOC: ANHBWCLAB 09:22
PROVIDERS: PCP Nurse Practitioner Adult Health; Visit Provider Nurse Practitioner Adult Health
DX: Z12.5 Encounter for screening for malignant neoplasm of prostate (principal); R79.89 Other specified abnormal findings of blood chemistry
CPT/HCPCS: 36415; 84153; 84402; 84403; 85027; G0103

== ENCOUNTER 2025-01-14 07:51 | Outpatient (CLI) | payer OTHER, SELFPAY ==
--- OUTSIDE RECORDS SUMMARY | 2025-01-14 08:00 | XMS_ITS | Clinical Summary ---
Author Organization [facility] [employer] Address [address] [place] [address] Care Team Providers Care Solutions Market Consultant Name Role Phone Unavailable Primary Care Provider Unavailabl e Source Comments [facility] [employer],non-owned Affiliates and Associated Physician Practices is amultiple site organization consisting of ambulatory clinics and hospital sitesin [place], [place], [place] and [place]. This disclosure is being madepursuant to the Care Everywhere program and may not contain all information available regarding this patient. Last updated 18.[employer] Allergies No known active allergies Medications * Be aware that medications may not be up to date on this document. Alwaysverify current medications with the patient. Medication Sig Dispensed Refills Start Date End Date Status albuterol HFA (VENTOLIN HFA) 108 (90 BASE) MCG/ACT inhaler Inhale 2 puffs by mouth every 6 hours as needed for Wheezing or Cough 1 Inhaler 11/04/2017 Active predniSONE (DELTASONE) 20 MG tablet Take 1 tablet by mouth 2 times daily 14 tablet 11/04/2017 Active Active Problems No known active problems Social History Tobacco Use Types Packs/Day Years Used Date Smoking Tobacco: Never Smokeless Tobacco: Never Sex and Gender Information Value Date Recorded Sex Assigned at Not on file Gender Identity Not on file Sexual Orientation Not on file Last Filed Vital Signs Vital Sign Reading Time Taken Comments Blood Pressure 134/80 11/04/2017 8:02 AM [employer]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 Pulse 72 11/04/2017 8:02 AM [employer]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 Temperature 36.9 C (98.4 F) 11/04/2017 8:02 AM [employer]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 Respiratory Rate 17 11/04/2017 8:02 AM CAR W[employer]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 Oxygen Saturation 97% 11/04/2017 8:02 AM CAR W[employer]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 Inhaled Oxygen Concentration - - Weight 163.3 kg (360 lb) 11/04/2017 8:02 AM [employer] W[employer]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 Height 182.9 cm (6') 11/04/2017 8:02 AM [employer] W[employer]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 Body Mass Index 48.82 11/04/2017 8:02 AM [employer]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 Plan of Treatment Health Maintenance Due Date Last Done Comments HIV SCREENING 2003 HEPATITIS C SCREENING 03/04/2006 DTAP/TDAP/TD VACCINES (1 - Tdap) 2007 HEPATITIS B VACCINE (1 of 3 - 19+ 3-dose series) 2007 COVID-19 VACCINE (1 - 2023-2 5 season) 2024 INFLUENZA VACCINE (#1) 2024 DEPRESSION SCREENING 11/18/2024 ZOSTER VACCINE (1 of 2) 2038 HIB VACCINE Aged Out No longer eligi ble based on patient's age to complete this topic HPV VACCINE Aged Out No longer eligi ble based on patient's age to complete this topic MENINGOCOCCAL (Group B) VACCINE Aged Out No longer eligible based on patient's age to complete this topic MENINGOCOCCAL VACCINE Aged Out No cuong anirudh eligible based on patient's age to complete this topic PNEUMOCOCCAL VACCINE Aged Out No long er eligible based on patient's age to complete this topic
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
--- OUTSIDE RECORDS SUMMARY | 2025-01-14 08:00 | XMS_ITS ---
Author Organization [facility] Address [address] [place] [address] Phone Care Team Providers Care Assistant Clinical Nurse Manager Name Role Phone SIERRA ACOSTA PA-C Primary Care Provider [phone] Problems Includes: Active, inactive, and resolved Problems All Visits Onset Date Resolved Date Provider Condition S tatus Ganglion Right Index Finger 05/07/2022 JULES MCNEAL DO Active Last Documented On 2 10:38AM ; [facility] Pain in the Right Hand Only 04/13/2022 OSIEL Corbett Active Last Documented On 2 1:11PM ; [facility] Plan of Treatment Findings Encounter Date I had a long discussion todarien y with Harsha concerning treatment options. He would like to have this cyst removed if at all possible. He wants to be able to get back to work without difficulty. I did go over with him aspirating this cyst in clinic today. Hopefully this will dissolve the cyst. He is aware that this can return and if it does, we may need to discuss further treatment. For now, he would like to proceed with aspiration of the right palmar ganglion cyst at the head of the second metatacarpal. I have asked him to keep this area clean and dry for the next few days. I will see him back on a PRN basis FOLLOW UP with JULES MCNEAL DO 05/07/2022 Last Documented On 2 10:39AM ; [facility] I feel like this is more of a nodularity along the tendon. This does not seem to be fluid-filled based on exam. I think this is more of a solid nodule that is affixed to the flexor tendon. this is affecting him and his ability to do his job as he cannot comfortably do any lifting, gripping, pushing or pulling. I would like to further evaluate this with an MRI the right hand with special attention to the volar aspect of the distal second metacarpal. Depending on the MRI results, we may have had follow-up with Dr. Mcneal to discuss possible excision ORTHO NEW PATIENT with OSIEL Corbett 04/13/2022 Last Documented On 2 1:17PM ; [facility] Instructions to patient No reduced physical activity -release to full activities Last Documented On 2 10:34AM ; [facility] Intervention and counseling on cessation of tobacco use Last Documented On 2 10:08AM ; [facility] Education and Decision Aids were provided during visit for: Patient education about orth opedic activities Last Documented On 2 10:34AM ; [facility] Assessments Includes: Assessments for all patient encounters Findings Encounter Date Ganglion FOLLOW UP with JULES MCNEAL DO 0 05/07/2022 Last Documented On 2 10:39AM ; [facility] Ganglion of the flexor sheat h of the right index finger FOLLOW UP with JULES MCNEAL DO 05/07/2022 Last Documented On 2 10:39AM ; [facility] Ganglion of the hand FOLLOW UP with JULES MCNEAL DO 05/07/2022 Last Documented On 2 10:39AM ; [facility] Ganglion of the right hand FOLLOW UP with JULES MCNEAL DO 05/07/2022 Last Documented On 2 10:39AM ; [facility] Assessment of right hand pain ORTHO NEW PATIENT with OSIEL Corbett 04/13/2022 Last Documented On 2 1:17PM ; [facility] Discharge diagnosis of PRIMA RY CARE PROVIDER : DR DUONG PROBLEM VISIT with JORGE L PLATT INSTRUMENT OPERATOR-SUSU 08/23/2015 Last Documented On 5 6:11PM ; [facility] Instructions Includes: Instructions for all patient encounters Instructions to patient No reduced physical activity -release to full activities Last Documented On 2 10:34AM ; [facility] Intervention and counseling on cessation of tobacco use Last Documented On 2 10:08AM ; [facility] Education and Decision Aids were provided during visit for: Patient education about orth opedic activities Last Documented On 2 10:34AM ; [facility] Medical Equipment - Implanted Devices Includes: Current and historical Devices No Medical Equipment Recorded Medications Includes: Current and historical Medications Current Medications (continue as prescribed) Allopurinol 100 MG Oral Tablet 04/13/2022 Provider: Diagnosis: Last Documented On 04/13/2022 1:09PM By EMMANUELLE AQUINO LPN ; [facility] Medications Administered Includes: Administered Medications in patient's chart No Administered Medications Recorded Results Includes: Results from 01/14/2024 through 01/14/2025 No Results Recorded For Specified Dates History of Present Illness History of Present Illness not supported for this document type No History of Present Illness Recorded Social History Description Last Updated Social history unchanged 05/07/2022 Last Documented On 2 10:39AM ; [facility] Tobacco non-user 04/13/2022 Last Documented On 2 1:17PM ; [facility] Smoking status : Never smoker 08/23/2015 Last Documented On 5 6:11PM ; [facility] Medical History Includes: Medical History in patient's chart Description Last Updated Pt does not get blood pressure checked a t other facility 08/23/2015 Last Documented On 5 6:11PM ; [facility] Family History Includes: Family History in patient's chart No Family History Recorded Review of Systems Review of Systems not supported for this document type No Review of Systems Recorded Mental Status Description Oriented to time, place, and person Functional Status No Functional Status Recorded Physical Exam Physical Exam not supported for this document type No Physical Exam Recorded Allergies Includes: Active, inactive, and resolved Allergies No Known Allergies Insurance Includes: Active Insurance Policies Plan Name Member ID Group # Subscriber Relationship Effect fermin Dates 1 - [facility] [id number] HARSHA Romero Clinical Notes Includes: Signed Clinical Notes starting from 12/07/2022 No Clinical Notes Recorded
--- OUTSIDE RECORDS SUMMARY | 2025-01-14 08:00 | XMS_ITS | Encounter Summary ---
Author Organization [facility] Address [address] [place] [address] Phone Care Team Providers Care Crna Name Role Phone Seamus Valdez MD Primary Care Provider [phone] Weston Escobar Primary Care Provider [phone] Al Britt MD Unavailable Vilma Jaffe APRN, CNP Unavailable [phone] Reason for Visit * Reason Comments Medication Refill Encounter Details Date Type Department Care Team (Late st Contact Info) Description 11/03/2020 Refill [facility] Admitting [address] [place] [address] Seamus Valdez MD [address] [place] [address] Medication Refill Social History Tobacco Use Types Packs/Day Years Used Date Smoking Tobacco: Never Smokeless Tobacco: Never Alcohol Use Standard Drinks/Week Comments No 0 (1 standard drink = 0.6 oz pur e alcohol) Sex and Gender Information Value Date Recorded Sex Assigned at Not on file Legal Sex Male 9:01 PM CDT Gender Identity Not on file Sexual Orientation Not on file documented as of this encounter Miscellaneous Notes * Telephone Encounter - Brittany Conley RN - 11/03/2020 8:12 AM CST Please review and sign. 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 [address] [place] [id number] PCP - General Physician Forging Press Lever Tender 01/12/21 Al Britt MD #2 [facility] [address] [place] [address] Consulting Physician Colon and Rectal Surgery 07/30/23 Vilma Jaffe APRN, FOOD AND NUTRITION PROFESSOR #2 [facility] [address] [place] [address] Nurse Practitioner Advanced Practice Nurse 08/25/24 documented as of this encounter
--- OUTSIDE RECORDS SUMMARY | 2025-01-14 08:00 | XMS_ITS | Encounter Summary ---
Author Organization [facility] Address [address] [place] [address] Phone Care Team Providers Care Dental Services Director Name Role Phone Seamus Valdez MD Primary Care Provider [phone] Weston Escobar Primary Care Provider [phone] Al Britt MD Unavailable Vilma Jaffe APRN, CNP Unavailable [phone] Reason for Visit * Reason Comments Medication Refill Encounter Details Date Type Department Care Team (Late st Contact Info) Description 11/28/2020 Refill [facility] Admitting [address] [place] [address] Seamus Valdez MD [address] [address] Medication Refill Social History Tobacco [...] Telephone Encounter - Brittany Conley RN - 11/28/2020 7:43 AM CST Please review and sign. 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 encounter Plan of Treatment Not on file documented as of this encounter Visit Diagnoses Not on filedocumented in this encounter Care Teams Dental Services Director Relationship Specialty Start Date End Date Seamus Valdez MD [address] [address] PCP - General Internal Medicine 10/18/19 01/11/21 Weston Escobar PAC [address] [place] [id number] PCP - General Physician Component Technician 01/12/21 Al Britt MD #2 [facility] [address] [place] [address] Consulting Physician Colon and Rectal Surgery 07/30/23 Vilma Jaffe APRN, CENTRAL SUPPLY MANAGER #2 [facility] [address] [place] [address] Nurse Practitioner Advanced Practice Nurse 08/25/24 documented as of this encounter
--- OUTSIDE RECORDS SUMMARY | 2025-01-14 08:00 | XMS_ITS | Referral Summary ---
Author Organization [email or web address] Address [address] [place] [address] Care Team Providers Care Board Runner Name Role Phone Unavailable Primary Care Provider Unavailabl e Source Comments [facility],non-owned Affiliates and Associated Physician Practices is amultiple site organization consisting of ambulatory clinics and hospital sitesin [place], [place], [place] and [place]. This disclosure is being madepursuant to the Care Everywhere program and may not contain all information available regarding this patient. Last updated 18.[place] Allergies No known active allergies Medications * [...] Comments Blood Pressure 134/80 11/04/2017 8:02 AM VAMP SEAMER Pulse 72 11/04/2017 8:02 AM VAMP SEAMER Temperature 36.9 C (98.4 F) 11/04/2017 8:02 AM VAMP SEAMER Respiratory Rate 17 11/04/2017 8:02 AM VAMP SEAMER Oxygen Saturation 97% 11/04/2017 8:02 AM VAMP SEAMER Inhaled Oxygen Concentration - - Weight 163.3 kg (360 lb) 11/04/2017 8:02 AM VAMP SEAMER Height 182.9 cm (6') 11/04/2017 8:02 AM VAMP SEAMER Body Mass Index 48.82 11/04/2017 8:02 AM VAMP SEAMER Plan of Treatment Not on file
--- OUTSIDE RECORDS SUMMARY | 2025-01-14 08:00 | XMS_ITS | Clinical Summary ---
Author Organization [facility] Address [address] [place] [address] Phone Care Team Providers Care Restaurant Lead Name Role Phone SIERRA ACOSTA PA-C Primary Care Provider [phone] Reason for Visit and Chief Complaint Harsha returns today to discuss the results of his right hand MRI. He has a cystic type structure at the head of the second metacarpal of the right hand. 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, visit for: review of test results, visit for: right hand pain - The Chief Complaint is: FU TO REVIEW MRI RESULTS, RT HAND PAIN FOR 6 WKS, TENDERNESS AND UNABLE TO GAS ADJUSTER OR PULL Problems Includes: Problems addressed during this encounter and other active Problems Current Visit Onset Date Resolved Date Provider Pashao n Status Ganglion Right Index Finger 05/07/2022 JULES AZEVEDO DO Active Last Documented On 2 10:38AM ; [facility] Past Visits Onset Date Resolved Date Provider Condition Status Pain in the Right Hand Only 04/13/2022 OSIEL Corbett Active Last Documented On 2 1:11PM ; [facility] Plan of Treatment I had a long discussion today with Harsha concerning treatment options. He would [...] will see him back on a PRN basis. - Last Documented On 05/07/2022 10:39AM ; [facility] Instructions to patient No reduced physical activity -release to full activities Last Documented On 10:34AM ; [facility] Intervention and counseling on cessation of tobacco use Last Documented On 10:08AM ; [facility] Education and Decision Aids were provided during visit for: Patient education about orth opedic activities Last Documented On 10:34AM ; [facility] Assessments Includes: Assessments from this encounter Findings - Ganglion - Last Documented On 05/07/2022 10:39AM ; [facility] - Ganglion of the hand - Last Documented On 05/07/2022 10:39AM ; [facility] - [M67.441 - Ganglion, right hand] Ganglion of the right hand - Last Documented On 05/07/2022 10:39AM ; [facility] - [M67.441 - Ganglion, right hand] Ganglion of the flexor sheath of the right index finger - Last Documented On 05/07/2022 10:39AM ; [facility] Instructions Includes: Instructions from this encounter Instructions to patient No reduced physical activity -release to full activities Last Documented On 10:34AM ; [facility] Intervention and counseling on cessation of tobacco use Last Documented On 10:08AM ; [facility] Education and Decision Aids were provided during visit for: Patient education about orth opedic activities Last Documented On 10:34AM ; [facility] Medical Equipment - Implanted Devices Includes: Current Devices No Medical Equipment Recorded Medications Includes: Medications discussed during this encounter and other current Medications Current Medications (continue as prescribed) Allopurinol 100 MG Oral Tablet 04/13/2022 Provider: Diagnosis: Last Documented On 04/13/2022 1:09PM By EMMANUELLE AQUINO LPN ; [facility] Medications Administered Includes: Administered Medications from this encounter No Administered Medications Recorded Vital Signs Includes: Vital Signs from this encounter Vital Name 05/07/2022 10:08A Blood Pressure Sitting (mmHg) 138/82 Last Documented: On 05/07/2022 10:10A M ; [facility] Results Includes: Results discussed during this encounter No Results Recorded For Specified Dates History of Present Illness Includes: History of Present Illness from this encounter HPI HARSHA READ is a 32 year old male. 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 Patient would like to proceed. Using sterile technique, the palm of the right hand at the index, second metacarpal head region as steriley prepped.. Once anesthetized an 18 gauge 1-1/2 needle is used to aspirate. Approximately 1-cc's of a fluid is aspirated without difficulty. Patient tolerated the procedure well and is monitored following the procedures. Patient left in good condition Last Documented On 2 10:37AM ; [facility] Discussed benefits, risks and alternativ es to treatment Last Documented On 2 10:34AM ; [facility] intervention and counseling on cessation of toba account support specialist use 4000F Last Documented On 2 10:08AM ; [facility] use of tobacco assessment performed 1000F Last Documented On 2 10:08AM ; [facility] Informed consent obtained Ri sks and benefits of a cortical steroid injection/hyaluronic injection/aspiration are discussed in detail with the patient prior to administration. The patient was informed that an injection/aspiration consists of introducing a needle into the joint, muscle or under the skin and that the insertion of medication is for the purpose of treatment in their care. Preparation for the injection/aspiration includes cleaning the skin with an antiseptic. This may cause some skin irritation. There exists the possibility of certain complications from this injection/aspiration. These include pain, nerve damage, bleeding, swelling, allergic reaction to the medication or antiseptic, disability or even . The patient has been questioned regarding any allergies to the antiseptic or latex. The patient wishes to proceed with the injection/aspiration. The patient gave verbal consent to proceed with the cortical steroid/hyaluronic injection/aspiration in the presence of myself and my scribe Last Documented On 2 10:35AM ; [facility] The diagnostic studies were reviewed in detail with the patient with explanation and discussion of findings Last Documented On 2 10:29AM ; [facility] MRI of the right hand is rev iewed. This shows a small synovial cyst located at the head of the second metatarsal. No other abnormalities are noted Last Documented On 2 10:31AM ; [facility] Medical History Includes: Medical History addressed during this encounter Description Last Updated Pt does not get blood pressure checked a t other facility 08/23/2015 Last Documented On 2 10:07AM ; [facility] Family History Includes: Family History addressed during this encounter No Family History Recorded Review of Systems Includes: Review of Systems from this encounter Systemic: No recent weight change. Head: No headache. Neurological: No dizziness. Skin: No pruritus. Mental Status Includes: Mental Status from this encounter Description Oriented to time, place, and person Functional Status Includes: Functional Status from this encounter No Functional Status Recorded Physical Exam Includes: Physical Exam from this encounter Allergies Includes: Active Allergies No Known Allergies Encounters Encounter Provider Location Date Check-In Time Check-Out Time Diagnosis FOLLOW UP JULES AZEVEDO DO [facility] 2 9:59AM 10:30AM Ganglion,Gang lion Hand,Ganglion Right Hand,Ganglion Right Index Finger Insurance Includes: Active Insurance Policies Plan Name Member ID Group # Subscriber Relationship Effect fermin Dates 1 - [facility] PLANS [id number] HARSHA READ Self Clinical Notes Includes: Clinical Notes from this encounter No Clinical Notes Recorded
--- OUTSIDE RECORDS SUMMARY | 2025-01-14 08:01 | XMS_ITS | Patient Health Summary ---
Author Organization [facility] Address [address] [place] [address] Care Team Providers Care Product Ambassador Name Role Phone Unavailable Primary Care Provider Unavailabl e Note from [facility],non-owned Affiliates and Associated Physician Practices is amultiple site organization consisting of ambulatory clinics and hospital sitesin [place], [place], [place] and [place]. This disclosure is being madepursuant to the Care Everywhere program and may not contain all information available regarding this patient. Last updated 18.[facility] Allergies No known active allergies Medications * Be aware that medications may not be up to date on this document. Alwaysverify current medications with the patient. * albuterol HFA (VENTOLIN HFA) 108 (90 BASE) MCG/ACT inhaler(Started 11/04/2017) Inhale 2 puffs by mouth every 6 hours as needed for Wheezing or Cough * predniSONE (DELTASONE) 20 MG tablet(Started 11/04/2017) Take 1 tablet by mouth 2 times daily Active Problems No known active problems Social History Tobacco Use Types Packs/Day Years Used Date Smoking Tobacco: Never Smokeless Tobacco: Never Sex and Gender Information Value Date Recorded Sex Assigned at Not on file Gender Identity Not on file Sexual Orientation Not on file Last Filed Vital Signs Vital Sign Reading Time Taken Comments Blood Pressure 134/80 11/04/2017 8:02 AM SADDLE LINING STITCHER Pulse 72 11/04/2017 8:02 AM SADDLE LINING STITCHER Temperature 36.9 C (98.4 F) 11/04/2017 8:02 AM SADDLE LINING STITCHER Respiratory Rate 17 11/04/2017 8:02 AM SADDLE LINING STITCHER Oxygen Saturation 97% 11/04/2017 8:02 AM SADDLE LINING STITCHER Inhaled Oxygen Concentration - - Weight 163.3 kg (360 lb) 11/04/2017 8:02 AM SADDLE LINING STITCHER Height 182.9 cm (6') 11/04/2017 8:02 AM SADDLE LINING STITCHER Body Mass Index 48.82 11/04/2017 8:02 AM SADDLE LINING STITCHER
--- OUTSIDE RECORDS SUMMARY | 2025-01-14 08:01 | XMS_ITS | Clinical Summary ---
Author Organization [facility] Address [address] [place] [address] Phone Care Team Providers Care Juvenile Officer Name Role Phone SIERRA ACOSTA PA-C Primary Care Provider [phone] Reason for Visit and Chief Complaint visit for: right hand pain - The Chief Complaint is: Right Hand Ganglion Problems Includes: Problems addressed during this encounter and other active Problems Current Visit Onset Date Resolved Date Provider Annette robison Status Pain in the Right Hand Only 04/13/2022 OSIEL Corbett Active Last Documented On 2 1:11PM ; [facility] Past Visits Onset Date Resolved Date Provider Condition Status Ganglion Right Index Finger 05/07/2022 JULES MCNEAL DO Active Last Documented On 2 10:38AM ; [facility] Plan of Treatment I feel like this is more of [...] follow-up with Dr. Mcneal to discuss possible excision. - Last Documented On 04/13/2022 1:17PM ; [facility] Assessments Includes: Assessments from this encounter Findings - Right hand pain - Last Documented On 04/13/2022 1:17PM ; [facility] Medical Equipment - Implanted Devices Includes: Current Devices No Medical Equipment Recorded Medications Includes: Medications discussed during this encounter and other current Medications Current Medications (continue as prescribed) Allopurinol 100 MG Oral Tablet 04/13/2022 Provider: Diagnosis: Last Documented On 04/13/2022 1:09PM By EMMANUELLE AQUINO LPN ; [facility] Medications Administered Includes: Administered Medications from this encounter No Administered Medications Recorded Vital Signs Includes: Vital Signs from this encounter Vital Name 04/13/2022 01:08P Blood Pressure Sitting L 153/83 Pulse Rate-Sitting (bpm) 83 Respiration Rate (breaths/min) 20 Last Documented: On 04/13/2022 1:10PM ; [facility] Results Includes: Results discussed during this encounter No Results Recorded For Specified Dates History of Present Illness Includes: History of Present Illness from this encounter HPI HARSHA READ is a 32 year old male. - Allergy list reviewed - Medication list reviewed Harsha is here today with chief complaint of pain in the right hand. He knows this started about two weeks ago. 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 He notices a small area on the right palm near the head of the second metacarpal that is tender to touch. He denies any changes in size of this over the last two weeks. He with his primary care and they told him they believed it was a ganglion cyst. He denies any fever, chills or sweats. He denies any sensory changes. He is right hand dominant. 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 He states that when he is resting it does not bother him at all Social History Description Last Updated Tobacco non-user 04/13/2022 Last Documented On 2 1:17PM ; [facility] Smoking status : Never smoker 08/23/2015 Last Documented On 2 12:51PM ; [facility] Procedures and Surgical History Includes: Procedures from this encounter Procedures Code Diagnosis Performing Provider Service L ocation Service Date use of tobacco assessment performed 1000F Last Documented On 2 1:10PM ; [facility] review of medications documented 1160F Last Documented On 2 1:10PM ; [facility] Medical History Includes: Medical History addressed during this encounter Description Last Updated Pt does not get blood pressure checked a t other facility 08/23/2015 Last Documented On 2 12:51PM ; [facility] Family History Includes: Family History addressed during this encounter No Family History Recorded Review of Systems Includes: Review of Systems from this encounter Systemic: No fever, no chills, and no night sweats. Pulmonary: No cough. Hematologic: No easy bleeding and no tendency for easy bruising. Neurological: No sensory disturbances. Mental Status Includes: Mental Status from this encounter Description Oriented to time, place, and person Functional Status Includes: Functional Status from this encounter No Functional Status Recorded Physical Exam Includes: Physical Exam from this encounter Allergies Includes: Active Allergies No Known Allergies Encounters Encounter Provider Location Date Check-In Time Check-Out Time Diagnosis ORTHO NEW PATIENT OSIEL Corbett [facility] 04/13/20 22 12:58PM 1:17PM Assessment of Pain in the Right Hand Only Insurance Includes: Active Insurance Policies Plan Name Member ID Group # Subscriber Relationship Effect fermin Dates 1 - [facility] PLANS [id number] HARSHA Romero Clinical Notes Includes: Clinical Notes from this encounter No Clinical Notes Recorded
--- OUTSIDE RECORDS SUMMARY | 2025-01-14 08:01 | XMS_ITS | Clinical Summary ---
Author Organization [facility] Address [address] [place] [address] Phone Care Team Providers Care Inspector Balance Wheel Motion Name Role Phone SIERRA ACOSTA PA-C Primary Care Provider [phone] Reason for Visit and Chief Complaint REFERRAL Problems Includes: Problems addressed during this encounter and other active Problems All Visits Onset Date Resolved Date Provider Condition S tatus Ganglion Right Index Finger 05/07/2022 JULES AZEVEDO DO Active Last Documented On 2 10:38AM ; [facility] Pain in the Right Hand Only 04/13/2022 OSIEL Corbett Active Last Documented On 2 1:11PM ; [facility] Plan of Treatment No Plan of Treatment Recorded Assessments Includes: Assessments from this encounter No Assessments Recorded Medical Equipment - Implanted Devices Includes: Current Devices No Medical Equipment Recorded Medications Includes: Medications discussed during this encounter and other current Medications Current Medications (continue as prescribed) Allopurinol 100 MG Oral Tablet 04/13/2022 Provider: Diagnosis: Last Documented On 04/13/2022 1:09PM By EMMANUELLE AQUINO LPN ; [facility] Medications Administered Includes: Administered Medications from this encounter No Administered Medications Recorded Results Includes: Results discussed during this encounter No Results Recorded For Specified Dates History of Present Illness Includes: History of Present Illness from this encounter No History of Present Illness Recorded Social History Description Last Updated Tobacco non-user 04/13/2022 Last Documented On 2 8:51AM ; [facility] Smoking status : Never smoker 08/23/2015 Last Documented On 2 8:51AM ; [facility] Medical History Includes: Medical History addressed during this encounter Description Last Updated Pt does not get blood pressure checked a t other facility 08/23/2015 Last Documented On 8:51AM ; [facility] Family History Includes: Family History addressed during this encounter No Family History Recorded Review of Systems Includes: Review of Systems from this encounter No Review of Systems Recorded Mental Status Includes: Mental Status from this encounter No Mental Status Recorded Functional Status Includes: Functional Status from this encounter No Functional Status Recorded Physical Exam Includes: Physical Exam from this encounter No Physical Exam Recorded Allergies Includes: Active Allergies No Known Allergies Encounters Encounter Provider Location Date Check-In Time Check-Out Time Diagnosis REFERRAL OSIEL Corbett 04/20/2022 8:51AM 11:59PM Insurance Includes: Active Insurance Policies Plan Name Member ID Group # Subscriber Relationship Effect fermin Dates 1 - [facility] PLANS [id number] HARSHA READ Self Clinical Notes Includes: Clinical Notes from this encounter No Clinical Notes Recorded
--- OUTSIDE RECORDS SUMMARY | 2025-01-14 08:01 | XMS_ITS | Data Portability ---
Author Organization [facility] Address [address] [place] [address] Care Team Providers Care Facilities Maintenance Assistant Name Role Phone SIERRA ESCOBAR Primary Care Provider Assessment No assessment recorded. Plan of Treatment Reminders Order Date Submit Date Provider Last Modified By Organization Details Last Modified Time Details Appointments None recorded. Lab CBC 2023 [facility], [address] [place] [address] 2, [place], [address], 06:23:19 CMP, serum or plasma 2023 [facility], [address] [place] [address] 2, [place], [address], 06:23:18 lipid panel, serum 2023 [facility], [address] [place] [address] 2, [place], [address], 06:23:16 influenza virus A + B + SARS-CoV-2 (COVID19) Ag panel, rapid IA, upper respiratory specimen 2023 rose In-Office Order, Internal Use Only DO Not Attach Compendium DO Not Attach Compendium, Do Not Delete/merge, [id number] 12:45:43 Referral None recorded. Procedures None recorded. Surgeries None recorded. Imaging None recorded. Medication Orders lisinopril 20 mg tablet 2023 [facility], [address] [place], [address], 15:55:42 albuterol sulfate HFA 90 mcg/actuati on aerosol inhaler 2023 [facility], [address] [place] [address], [address], 11:11:05 Tessalon Perles 100 mg capsule 2023 [facility], [address] [place] [address], [address], 15:28:26 azithromyci n 500 mg tablet 2023 [facility], [address] [place] [address], [address], 11:33:04 cyclobenzap rine 10 mg tablet 2023 024 [facility], [address] [place] [address], [address], 16:49:51 Patient TargetsNo targets recorded. Patient Instructions Encounter Date Encounter Id Patient Instructions Last Modified By Organization Details Last Modified Time 05/11/2024 [id number] A healthy lifestyle: care instructions jnanney Not available 05/11/2024 16:49:45 05/27/2024 [id number] cough: care instructions jnanney Not available 05/27/2024 12:45:43 A healthy lifestyle: care instructions jnanney Not available 05/27/2024 12:23:47 06/11/2024 [id number] Plan of care has been discussed with patient including expected therapeutic benefits and potential side effects of prescribed medication and treatments. Patient verbalizes understanding and is in agreement with the plan of care. Patient was instructed to keep all scheduled appointments and contact the clinic for any additional problems. [email or web address] Not available 06/12/2024 16:49:58 07/02/2024 [id number] A healthy lifestyle: care instructions jnanney Not available 07/02/2024 11:10:59 08/19/2024 [id number] influenza (flu) vaccine: care instructions jnanney Not available 08/19/2024 16:05:09 A healthy lifestyle: care instructions jnanney Not available 08/19/2024 15:55:36 learning about high blood pressure jnanney Not available 08/19/2024 15:55:36 Reason for Referral None Reported. Results Created Date Observation Date Name Description Value Unit Range Abnormal Flag Note LastModifiedBy Organization Detail LastModifiedTime 05/27/20 24 05/27/2024 influ alexis virus A + B + SARS- CoV-2 (COVI D19) Ag panel , rapid IA, upper respi rator y speci men Flu A negati ve Not Available In-Office Order Internal Use Only DO Not Attach Compendium DO Not Attach Compendium, Do Not Delete/merge, [id number] 05/27/2024 12:01:13 05/27/20 24 05/27/2024 influ alexis virus A + B + SARS- CoV-2 (COVI D19) Ag panel , rapid IA, upper respi rator y speci men Flu B negati ve Not Available In-Office Order Internal Use Only DO Not Attach Compendium DO Not Attach Compendium, Do Not Delete/merge, [id number] 05/27/2024 12:01:13 05/27/20 24 05/27/2024 influ alexis virus A + B + SARS- CoV-2 (COVI D19) Ag panel , rapid IA, upper respi rator y speci men Rapid SARS CoV 2 Ag, QL IA, respiratory specimen negati ve Not Available In-Office Order Internal Use Only DO Not Attach Compendium DO Not Attach Compendium, Do Not Delete/merge, [id number] 05/27/2024 12:01:13 08/19/20 24 08/19/2024 LIPID PANEL cholesterol, total 262 mg/dL 100-19 9 above high normal Not Available [address], [address], 08/20/2024 06:23:16 08/19/20 24 08/19/2024 LIPID PANEL triglyceride s 356 mg/dL 0-149 above high normal Not Available [address], [address], 08/20/2024 06:23:16 08/19/20 24 08/19/2024 LIPID PANEL HDL cholesterol 41 mg/dL 40-999 Not Available [address], [address], 08/20/2024 06:23:16 08/19/20 24 08/19/2024 LIPID PANEL VLDL cholesterol heather 71 mg/dL 5-40 above high normal Not Available [address], [address], 08/20/2024 06:23:16 08/19/2008/19/2024 LIPID PANEL LDL chol calc ([facility]) 196 mg/dL 0-99 above high normal Not Available [address], [address], 08/20/2024 06:23:16 08/19/20 24 08/19/2024 COMP. METAB OLIC PANEL (14) glucose 83 mg/dL 70-99 Not Available [address], [address], 08/20/2024 06:23:18 08/19/20 24 08/19/2024 COMP. METAB OLIC PANEL (14) BUN 12 mg/dL 6-20 Not Available [address], [address], 08/20/2024 06:23:18 08/19/20 24 08/19/2024 COMP. METAB OLIC PANEL (14) creatinine 0.87 mg/dL 0.76-1 .27 Not Available [address], [address], 08/20/2024 06:23:18 08/19/20 24 08/19/2024 COMP. METAB OLIC PANEL (14) eGFR 115 >=60 Units for eGFR value s are mL/mi n/1.7 3 The eGFR Calcu latio n has not been valid ated for patie nts under the age of 18. If test resul ts are displ ayed for a patie nt under the age of 18, disre carlos that value . Not Available [address], [address], 08/20/2024 06:23:18 08/19/20 24 08/19/2024 COMP. METAB OLIC PANEL (14) BUN/creatini ne ratio 13 9-20 Not Available [address], [address], 08/20/2024 06:23:18 08/19/20 24 08/19/2024 COMP. METAB OLIC PANEL (14) sodium 141 mmol/ L 134-14 4 Not Available [address], [address], 08/20/2024 06:23:18 08/19/20 24 08/19/2024 COMP. METAB OLIC PANEL (14) potassium 4.4 mmol/ L 3.5-5. 2 Not Available [address], [address], 08/20/2024 06:23:18 08/19/20 24 08/19/2024 COMP. METAB OLIC PANEL (14) chloride 102 mmol/ L 96-106 Not Available [address], [address], 08/20/2024 06:23:18 08/19/20 24 08/19/2024 COMP. METAB OLIC PANEL (14) carbon dioxide, total 27 mmol/ L 20-29 Not Available [address], [address], 08/20/2024 06:23:18 08/19/20 24 08/19/2024 COMP. METAB OLIC PANEL (14) calcium 9.7 mg/dL 8.7-10 .2 Not Available [address], [address], 08/20/2024 06:23:18 08/19/20 24 08/19/2024 COMP. METAB OLIC PANEL (14) protein, total 7.0 g/dL 6.0-8. 5 Not Available [address], [address], 08/20/2024 06:23:18 08/19/20 24 08/19/2024 COMP. METAB OLIC PANEL (14) albumin 4.4 g/dL 4.1-5. 1 Not Available [address], [address], 08/20/2024 06:23:18 08/19/20 24 08/19/2024 COMP. METAB OLIC PANEL (14) globulin, total 2.6 g/dL 1.5-4. 5 Not Available [address], [address], 08/20/2024 06:23:18 08/19/20 24 08/19/2024 COMP. METAB OLIC PANEL (14) A/G ratio 2.0 1.2-2. 2 Not Available [address], [address], 08/20/2024 06:23:18 08/19/20 24 08/19/2024 COMP. METAB OLIC PANEL (14) bilirubin, total 0.3 mg/dL 0.0-1. 2 Not Available [address], [address], 08/20/2024 06:23:18 08/19/20 24 08/19/2024 COMP. METAB OLIC PANEL (14) alkaline phosphatase 55 IU/L 44-121 Not Available [address], [address], 08/20/2024 06:23:18 08/19/20 24 08/19/2024 COMP. METAB OLIC PANEL (14) AST (SGOT) 20 IU/L 0-40 Not Available [address], [address], 08/20/2024 06:23:18 08/19/20 24 08/19/2024 COMP. METAB OLIC PANEL (14) ALT (SGPT) 29 IU/L 0-44 Not Available [address], [address], 08/20/2024 06:23:18 08/19/20 24 08/19/2024 CARDI OVASC ULAR REPOR T interpretati on Note Medic al Direc tor's Note: Mady troncoso First Name has been corre cted on 2023, was ARIANE and now is SHARAD EW. Pleezekiel e dontrell w this repor t in its entir ety, since carbajal es to patie nt demog raphi cs may affec t resul t inter preta tion( s) and/o r treat ment/ follo w-up sugge stion s. Suppl ement al repor t is avail able. Not Available [address], [address], 08/20/2024 06:23:19 08/19/2008/19/2024 CARDI OVASC ULAR REPOR T pdf . Not Available [facility] & [address], [address], 08/20/2024 06:23:19 08/19/20 24 08/19/2024 CBC, PLATE LET, NO DIFFE RENTI AL WBC 6.7 x10e3 /uL 3.4-10 .8 Not Available [address], [address], 08/20/2024 06:23:19 08/19/2008/19/2024 CBC, PLATE LET, NO DIFFE RENTI AL RBC 5.14 x10e6 /uL 4.14-5 .80 Not Available [address], [address], 08/20/2024 06:23:19 08/19/2008/19/2024 CBC, PLATE LET, NO DIFFE RENTI AL hemoglobin 16.0 g/dL 13.0-1 7.7 Not Available [address], [address], 08/20/2024 06:23:19 08/19/2008/19/2024 CBC, PLATE LET, NO DIFFE RENTI AL hematocrit 46.6 % 37.5-5 1.0 Not Available [address], [address], 08/20/2024 06:23:19 08/19/2008/19/2024 CBC, PLATE LET, NO DIFFE RENTI AL MCV 91 fL 79-97 Not Available [address], [address], 08/20/2024 06:23:19 08/19/2008/19/2024 CBC, PLATE LET, NO DIFFE RENTI AL MCH 31.1 pg 26.6-3 3.0 Not Available [address], [address], 08/20/2024 06:23:19 08/19/2008/19/2024 CBC, PLATE LET, NO DIFFE RENTI AL MCHC 34.3 g/dL 31.5-3 5.7 Not Available [address], [address], 08/20/2024 06:23:19 08/19/2008/19/2024 CBC, PLATE LET, NO DIFFE RENTI AL RDW 12.1 % 11.5-1 4.5 Not Available [address], [address], 08/20/2024 06:23:19 08/19/20 24 08/19/2024 CBC, PLATE LET, NO DIFFE RENTI AL platelets 209 x10e3 /uL 150-45 0 Mean Plate let Volum e 9.5 fL 8.9-1 2.7 N Not Available [address], [address], 08/20/2024 06:23:19 08/19/2008/19/2024 CBC, PLATE LET, NO DIFFE RENTI AL NRBC 0 % 0-0 Not Available [address], [address], 08/20/2024 06:23:19 Result Notes None recorded. Problems No Known Problems Medical Equipment None Reported. Allergies No known drug allergies Medications Name Sig Start Date Stop Date Status Note LastModified by Organization Details LastModified Time cyclobenzap rine 10 mg tablet TAKE 1 TABLET BY MOUTH THREE TIMES DAILY NEEDED active Not Available Not Available No t Available amoxicillin 500 mg capsule TAKE ONE TABLET EVERY 8 HOURS (THREE TIMES A DAY) 02/12 completed Not Available Not Available Not Available metformin 500 mg tablet Take 1 tablet twice a day by oral route for 90 days. 01/09 completed Not Available Not Available Not Available promethazin e-DM 6.25 mg-15 mg/5 mL oral syrup TAKE 5 ML BY MOUTH 3 TO 4 TIMES DAILY 06/11 completed Not Available Not Available Not Available atorvastati n 20 mg tablet Take 1 tablet by mouth once daily for 90 days, active Not Available Not Available No t Available cetirizine 10 mg tablet 01/12 completed Not Available Not Available Not Available ibuprofen 800 mg tablet TAKE 1 TABLET BY MOUTH THREE TIMES A DAY FOR 10 DAYS 04/04 completed Not Available Not Available Not Available lisinopril 20 mg tablet TAKE 1 TABLET BY MOUTH ONCE DAILY FOR 90 DAYS active Not Available Not Available No t Available prednisone 20 mg tablet 01/12 completed Not Available Not Available Not Available acetaminoph en 300 mg-codeine 30 mg tablet TAKE 1 TABLET BY MOUTH EVERY 6 HOURS NEEDED FOR PAIN 04/04 completed Not Available Not Available Not Available fexofenadin e 180 mg tablet TAKE 1 TABLET BY MOUTH ONCE DAILY active Not Available Not Available No t Available sulfamethox azole 800 mg-trimetho prim 160 mg tablet TAKE 1 TABLET BY MOUTH EVERY 12 HOURS 02/13 completed Not Available Not Available Not Available ketorolac 10 mg tablet 09/12 completed Not Available Not Available Not Available Guaiatussin AC 10 mg-100 mg/5 mL oral liquid TAKE 10 MILLILITE RS BY MOUTH EVERY 4 HOURS NEEDED 06/05 completed Not Available Not Available Not Available ofloxacin 0.3 % ear drops 04/04 completed Not Available Not Available Not Available amoxicillin 875 mg tablet TAKE 1 TABLET BY MOUTH EVERY 12 HOURS UNTIL ALL ARE TAKEN 06/11 completed Not Available Not Available Not Available benzonatate 100 mg capsule TAKE 1 CAPSULE BY MOUTH THREE TIMES DAILY NEEDED FOR 7 DAYS 08/19 completed Not Available Not Available Not Available lidocaine 5 % topical patch APPLY 1 PATCH BY TOPICAL ROUTE ONCE DAILY (MAY WEAR UP TO 12HOURS.) 09/12 completed Not Available Not Available Not Available albuterol sulfate 2 mg/5 mL oral syrup TAKE 5 ML BY MOUTH 3 TIMES A DAY FOR 10 DAYS 10/09 completed Not Available Not Available Not Available indomethaci n 50 mg capsule TAKE 1 CAPSULE 3 TIMES A DAY BY ORAL ROUTE NEEDED FOR 10 DAYS. 09/12 completed Not Available Not Available Not Available gabapentin 300 mg capsule TAKE 1 CAPSULE BY MOUTH THREE TIMES DAILY 09/12 completed Not Available Not Available Not Available montelukast 10 mg tablet TAKE 1 TABLET BY MOUTH ONCE DAILY FOR 90 DAYS active Not Available Not Available No t Available allopurinol 300 mg tablet TAKE 2 TABLETS BY MOUTH ONCE DAILY 09/12 completed Not Available Not Available Not Available methylpredn isolone 4 mg tablets in a dose pack TAKE 6 TABLETS ON DAY 1 DIRECTED ON PACKAGE AND DECREASE BY 1 TAB EACH DAY FOR A TOTAL OF 6 DAYS 06/11 completed Not Available Not Available Not Available albuterol sulfate HFA 90 mcg/actuati on aerosol inhaler INHALE 2 PUFFS BY MOUTH EVERY 4 HOURS NEEDED active Not Available Not Available No t Available fluticasone propionate 110 mcg/actuati on HFA aerosol inhaler active Not Available Not Available Not Available naproxen 500 mg tablet TAKE 1 TABLET BY MOUTH TWICE DAILY NEEDED active Not Available Not Available No t Available amoxicillin 875 mg-potassiu m clavulanate 125 mg tablet TAKE 1 TABLET BY MOUTH EVERY 12 HOURS FOR 10 DAYS 02/12 completed Not Available Not Available Not Available azithromyci n 500 mg tablet TAKE 1 TABLET BY MOUTH ONCE DAILY FOR 3 DAYS 06/11 completed Not Available Not Available Not Available fenofibrate 160 mg tablet TAKE 1 TABLET BY MOUTH ONCE DAILY FOR 90 DAYS 09/12 completed Not Available Not Available Not Available Trulicity 1.5 mg/0.5 mL subcutaneou s pen injector Inject 1.5 mg every week by subcutane ous route. 02/01 completed Not Available Not Available Not Available Trulicity 0.75 mg/0.5 mL subcutaneou s pen injector INJECT 1 SYRINGE SUBCUTANE OUSLY ONCE A WEEK active Not Available Not Available No t Available Procto-Med HC 2.5 % topical cream perineal applicator APPLY A THIN LAYER TO THE AFFECTED AREA(S) BY TOPICAL ROUTE 2-4 TIMES 09/12 completed Not Available Not Available Not Available Ozempic 0.25 mg or 0.5 mg (2 mg/1.5 mL) subcutaneou s pen injector Inject by subcutane ous route for 112 days. 12/07 completed Not Available Not Available Not Available Plenity (Welcome Kit) 0.75 gram capsule Take 3 capsules twice a day by oral route as directed. 07/24 completed Not Available Not Available Not Available Paxlovid 300 mg (150 mg x 2)-100 mg tablets in a dose pack TAKE DIRECTED 11/01 completed Not Available Not Available Not Available Mounjaro 2.5 mg/0.5 mL subcutaneou s pen injector INJECT 0.5 ML SUBCUTANE OUSLY ONCE A WEEK active Not Available Not Available No t Available Vitals Date Recorded Body height Body mass index (BMI) Body weight Oxygen saturation Oxygen saturation in Arterial blood by Pulse oximetry Heart rate Respiratory rate Systolic blood pressure Diastolic blood pressure Provider Name and Address Organization Details Last Updated DateTime 4 177.8 cm 60.7 kg/m2 978520. 85 g 96 % 96 % 78 /min 16 /min 146 mm[Hg] 84 mm[Hg] Mary Bolden MA [facility] 4 16:37:04 Date Recorded Body height Body mass index (BMI) Body weight Oxygen saturation Oxygen saturation in Arterial blood by Pulse oximetry Heart rate Systolic blood pressure Diastolic blood pressure Provider Name and Address Organization Details Last Updated DateTime 4 177.8 cm 60 kg/m2 044380. 01 g 94 % 94 % 98 /min 132 mm[Hg] 84 mm[Hg] Zaynab Rosario MA [facility] 4 12:02:50 Date Recorded Body height Body mass index (BMI) Body weight Heart rate Oxygen saturation Oxygen saturation in Arterial blood by Pulse oximetry Systolic blood pressure Diastolic blood pressure Provider Name and Address Organization Details Last Updated DateTime 4 177.8 cm 60.4 kg/m2 616038. 39 g 86 /min 96 % 96 % 143 mm[Hg] 93 mm[Hg] Aliza Flores MA [facility] 4 11:32:28 Date Recorded Body height Body mass index (BMI) Body weight Oxygen saturation Oxygen saturation in Arterial blood by Pulse oximetry Heart rate Respiratory rate Body temperature Systolic blood pressure Diastolic blood pressure Provider Name and Address Organization Details Last Updated DateTime 4 177.8 cm 60.9 kg/m2 597060. 32 g 98 % 98 % 89 /min 16 /min 98.7 [degF] 132 mm[Hg] 86 mm[Hg] Mary Bolden MA [facility] 4 11:00:33 Date Recorded Body height Body mass index (BMI) Body weight Oxygen saturation Oxygen saturation in Arterial blood by Pulse oximetry Heart rate Systolic blood pressure Diastolic blood pressure Provider Name and Address Organization Details Last Updated DateTime 4 177.8 cm 60.8 kg/m2 477094. 16 g 100 % 100 % 99 /min 137 mm[Hg] 90 mm[Hg] Zaynab Rosario [place] [facility] 15:31:04 Social History Question Answer Notes LastModified by Organizat ion Details LastModified Time Tobacco Smoking Status Never Smoker Aliza Flores MA null, [place] [facility] 01/12/2021 09:57:13 Do You Have An Advance Directive? No Information not available 01/12/2021 What Is Your Level Of Alcohol Consumption? None [email or web address] Information not available 02/08/2023 Are You Blind Or Do You Have Difficulty Seeing? No Information not available 01/12/2021 What Is Your Level Of Caffeine Consumption? Occasional [email or web address] Information not available 04/04/2022 In The 14 Days Before Symptom Onset, Have You Had Close Contact With A Laboratory-confir med COVID-19 While That Case Was Ill? No Information not available 01/12/2021 In The 14 Days Before Symptom Onset, Have You Had Close Contact With A Person Who Is Under Investigation For COVID-19 While That Person Was Ill? No Information not available 01/12/2021 Have You Been To An Area Known To Be High Risk For COVID-19? No Information not available 01/12/2021 Are You Currently Employed? Yes Information not available 01/12/2021 Are You Deaf Or Do You Have Serious Difficulty Hearing? No Information not available 01/12/2021 What Type Of Diet Are You Following? 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 Yes Locked Information not available 01/12/2021 What Was The Date Of Your Most Recent Tobacco Screening? 08/19/2024 [email or web address] Information not available 08/19/2024 What Is Your Relationship Status? Single Information not available 01/12/2021 Do You Use Your Seat Belt Or Car Seat Routinely? Yes Information not available 01/12/2021 Are You Sexually Active? Yes Information not available 06/26/2023 Do You Have Smoke And Carbon Monoxide Detectors In Your Home? Yes Information not available 01/12/2021 Are You Passively Exposed To Smoke? No Information no t available 01/12/2021 Do You Feel Stressed (tense, Restless, Nervous, Or Anxious, Or Unable To Sleep At Night)? [id number] Information not available 01/12/2021 Do You Use Any Illicit Or Recreational Drugs? No Information not available 01/12/2021 Do You Use Sunscreen Routinely? No Information not available 06/26/2023 Has Tobacco Cessation Counseling Been Provided? No Information not available 04/25/2021 Do You Or Have You Ever Used Any Other Forms Of Tobacco Or Nicotine? No Information not available 01/12/2021 Sex: Male Functional Status Question Answer Note LastModified by Organizat ion Details LastModified Time Are you able to care for yourself? Yes Information not available 01/12/2021 What is your exercise level? Occasional Information not available 01/12/2021 Mental Status None recorded. Family History Relationship Description Onset Age of this Age Resolved Age Notes LastModified by Organization Details LastModified Time Mother Heart disease [email or web address] Not available 2020 09:55:19 Medical History Condition Response Coronary Artery Disease N Other N Atrial Fibrillation N High Blood Pressure N Thyroid Problems N Kidney or Bladder Problems N GI Problems N Depression N COPD N Blood Clots N Eating Disorder N Skin Problems N Anemia N Heart Attack ([place]) N Anxiety Disorder N Diabetes N Muscle, Joint, or Bone Problems Y Seizures/Epilepsy N Acid Reflux (GERD) N Cancer N Stroke N Asthma N Allergies N ADHD N Substance Abuse N High Cholesterol N Hepatitis N Liver Disease N Schizophrenia N Headaches N Heart Failure N Osteoporosis N Immunizations Vaccine Type Date Status Note Provider Nam e and Address Organization Details Recorded Time IPV 01/16/1993 completed MONY Chery, [place] [facility] 11/26/2023 11:12:51 IPV 1988 MONY [place], [place] - [facility] 11/26/2023 11:12:51 IPV 1988 MONY [place] [facility] 11/26/2023 11:12:51 IPV 1988 completed Aliza Flores [place], [place] [facility] 11/26/2023 11:12:51 IPV 09/06/1989 completed Aliza Flores [place] [facility] 11/26/2023 11:12:51 MMR 01/16/1993 completed Aliza [place] [facility] 11/26/2023 11:12:51 MMR 06/11/1989 completed Aliza [place] [facility] 11/26/2023 11:12:51 Tdap 08/11/2015 completed Aliza [place] [facility] 11/26/2023 11:12:51 Tdap 11/07/2005 completed Aliza [place] [facility] 11/26/2023 11:12:51 Hep B, adolescent or pediatric 05/07/1997 completed Aliza [place] [facility] 11/26/2023 11:12:51 Hep B, adolescent or pediatric 10/07/1996 completed Aliza [place] [facility] 11/26/2023 11:12:51 Hep B, adolescent or pediatric 11/09/1996 completed Aliza [place] [facility] 11/26/2023 11:12:51 DTaP 01/16/1993 completed Aliza [place] [facility] 11/26/2023 11:12:51 DTaP 1988 completed Aliza [place] [facility] 11/26/2023 11:12:51 DTaP 1988 completed Aliza [place] [facility] 11/26/2023 11:12:51 DTaP 1988 completed Aliza Flores [place] [facility] 11/26/2023 11:12:51 DTaP 09/08/1989 completed Aliza [place] [facility] 11/26/2023 11:12:51 COVID-19, mRNA, LNP-S, PF, 100 mcg/0.5mL dose or 50 mcg/0.25mL dose 04/19/2021 completed Ugo Lutz [place] [facility] 04/19/2021 14:12:58 COVID-19, mRNA, LNP-S, PF, 100 mcg/0.5mL dose or 50 mcg/0.25mL dose 12/12/2021 completed Aliza [place] [facility] 12/12/2021 11:09:43 Influenza, split virus, quadrivalent, PF 09/12/2023 completed Aliza [place] [facility] 09/12/2023 12:12:52 Influenza, split virus, trivalent, PF 08/19/2024 completed Sierra Escobar PA-C Attn: Accounting[address] [place], [address], [place] [facility] 08/19/2024 15:50:51 Past Encounters Encounter ID Performer Location Encounter Start Date Encounter Closed Date Diagnosis/Indication Diagnosis SNOMED-CT Code Diagnosis ICD10 Code Diagnosis Note [id number] CAMI Garcia [address] [place] [address] 01/12/2021 09:48:03 01/13/2021 07:25:41 Chronic gouty arthritis 38477679 M1A.0610 Obesity 406940025 E66.8 [id number] Sierra Escobar PA-C [facility] [address] [place] [address] 04/13/2021 10:19:52 04/13/2021 11:43:13 Lumbar radiculopathy 571270328 M54.16 Morbid obesity 372040135 E66.01 [id number] CLARISSE [place] [address] [facility] [place] [address] 04/19/2021 12:37:45 04/22/2021 13:14:58 Administration of SARS-CoV-2 antigen vaccine 448283353 Z23 [id number] CAMI Garcia [address] [place] [address] 04/25/2021 10:06:30 04/25/2021 15:33:49 Acute maxillary sinusitis 21089861 J01.01 [id number] MONY Chery [facility] [address] [place] [address] 12/12/2021 10:50:53 12/12/2021 11:26:30 Administration of SARS-CoV-2 mRNA vaccine 6882630557 Z23 [id number] Sierra Escobar PA-C [facility] [address] [place] [address] 02/12/2022 11:06:56 02/12/2022 11:45:40 Gout 64691619 M10.062 Body mass index 40+ - severely obese 131016884 Z68.43 [id number] Sierra Escobar PA-C [facility] [address] [place] [address] 04/04/2022 14:51:45 04/04/2022 15:27:40 Ganglion cyst of right hand 9340093864 25891 M67.375 [id number] Sierra Escobar PA-C [facility] [address] [place] [address] 06/05/2022 18:23:54 06/05/2022 19:00:54 Persistent cough 552147437 R05.3 Overweight 564205560 E66 .3 [id number] Sierra Escobar PA-C [facility] [facility] [address] [place] [address] 10/09/2022 18:15:17 10/10/2022 12:44:46 Body mass index 40+ - severely obese [id number] Z68.43 [id number] Sierra Escobar PA-C [facility] [address] [place] [address] 11/23/2022 10:45:49 11/23/2022 11:22:12 Acute bronchitis with bronchospasm 30632828 J20.8 [id number] Sierra Escobar PA-C [facility] [address] [place] [address] 01/09/2023 10:23:34 01/09/2023 11:46:27 Obesity 072045509 E66.8 has lost 10 pounds on his own already Acute bron chitis with bronchospasm 63416114 J20.8 [id number] [facility] [address] [place] [address] 01/28/2023 14:29:31 01/30/2023 11:24:08 Spasm of muscle of lower back 9893191804 8504245 M62.143 [id number] Sierra Escobar PA-C [facility] [address] [place] [address] 02/08/2023 16:28:02 02/11/2023 15:27:16 Morbid obesity 595609143 E66.01 Mixed hyperlipidemia 267 679790 E78.2 [id number] Sierra Escobar PA-C [facility] [address] [place] [address] 03/12/2023 17:32:35 03/14/2023 16:23:40 Cervical radiculopathy 96778040 M54.12 Strain of left trapezius muscle 0031686020 5969071 S29.012A Seasonal a llergic rhinitis 373925502 J30.2 Gout 06103644 M10.062 Overweight 745431399 E66 .3 [id number] Sierra Escobar PA-C [facility] [address] [place] [address] 04/23/2023 15:02:35 04/24/2023 08:35:37 Edema of lower extremity 849108719 R60.0 [id number] Sierra Escobar PA-C [facility] [address] [place] [address] 05/29/2023 14:35:01 05/30/2023 09:16:28 Daytime somnolence 5759830811 00 R40.0 Overweight 743500786 E66 .3 Fatigue 82556276 R53.83 [id number] Sierra Escobar PA-C [facility] [address] [place] [address] 06/26/2023 14:59:35 07/02/2023 09:38:38 Pain of left knee joint 1794496234 46157 M25.307 [id number] Sierra Escobar PA-C [facility] [address] [place] [address] 07/24/2023 16:21:20 07/30/2023 14:48:34 Viral syndrome 540877612 B34.9 Upper resp iratory infection 36776106 J00 [id number] Sierra Escobar PA-C [facility] [address] [place] [address] 09/12/2023 10:54:26 09/16/2023 15:45:19 Pain of bilateral knee joints 6337030280 72451 M25.562 Pain of le ft knee joint 4420838762 42690 M25.562 Morbid obesity 259748315 E66.01 Administra tion of influenza vaccine 63070442 Z23 [id number] Sierra Escobar PA-C [facility] [address] [place] [address] 11/01/2023 11:27:50 11/06/2023 09:20:08 Overweight 139293448 E66.3 Severe obesity 532685638 1 9104 E66.01 [id number] Zaynab Rosario MA [facility] [address] [place] [address] 02/14/2024 16:26:40 02/18/2024 09:34:56 Pain of right ankle joint 3476646472 7053154 M25.571 Morbid obesity 375936289 E66.01 Overweight 232913696 E66 .3 [id number] Sierra Escobar PA-C [facility] [address] [place] [address] 02/25/2024 17:22:54 03/10/2024 07:34:27 Pseudofolliculitis barbae 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 L73.1 Overweight 761526481 E66 .3 [id number] Sierra Escobar PA-C [facility] [address] [place] [address] 05/11/2024 16:29:42 05/14/2024 19:32:50 Strain of left trapezius muscle 3221454114 2412838 S29.012A Morbid obesity 825024530 E66.01 [id number] Sierra Escobar PA-C [facility] [address] [place] [address] 05/27/2024 11:38:01 06/01/2024 19:39:28 Cough 14374486 R05.9 Upper resp iratory infection 10583149 J00 Acute bron chitis with bronchospasm 00163296 J20.8 Morbid obesity 278207655 E66.01 [id number] BECKI GRIDER-SUSU [facility] [address] [place] [address] 06/11/2024 11:26:08 06/15/2024 06:58:14 Cough 38539363 R05.9 -Lung sounds clear on exam.-Toya ent agreeable to treatment with tessalon perles TID PRN.-CASTING ASSISTANT advised patient to follow up with PCP for annual labwork. [id number] Sierra Escobar PA-C [facility] [address] [place] [address] 07/02/2024 10:51:29 07/06/2024 15:49:43 Unexplained chronic cough 1029381149 R05.3 otc zyrtec Overweight 561106346 E66 .3 [id number] Sierra Escobar PA-C [facility] [address] [place] [address] 08/19/2024 15:13:03 08/20/2024 14:13:07 Administration of influenza vaccine 75071701 Z23 Mixed hyperlipidemia 267 644364 E78.2 Essential hypertension 20452206 I10 Morbid obesity 604872490 E66.01 Health Concerns Section Related Observation LastModified by Organization Detai ls LastModified Time None Recorded Concern Status LastModified by Organization Details LastModified Time None Recorded Advance Directives Directive N: Payers Encounter Date Sequence Insurance Name Policy Number Policy Villarreal Covered Member ID Villarreal Member ID Guarantor Name 05/11/2024 1 [facility] ON OR AFTER 05/18/21 (MEDICAID REPLACEMENT - HMO) Christiano Galvan [id number] Christiano Galvan 05/27/2024 1 [facility] - [facility] ON OR AFTER 21 (MEDICAID REPLACEMENT - HMO) Christiano Galvan [id number] Christiano Galvan 06/11/2024 1 [facility] - [facility] ON OR AFTER 21 (MEDICAID REPLACEMENT - HMO) Christiano Galvan [id number] Christiano Galvan 07/02/2024 1 [facility] - [facility] ON OR AFTER 21 (MEDICAID REPLACEMENT - HMO) Christiano Galvan [id number] Christiano Galvan 08/19/2024 1 [facility] ON OR AFTER 05/18/21 (MEDICAID REPLACEMENT - HMO) Christiano Galvan [id number] Christiano Galvan Notes Date Note Type Note Provider Name and Address Organization Details Recorded Time 05/11/2024 text/html lft neck and tra ps painful as if strained...no known injury.. Sierra Escobar PA-C Attn: [address] [place], [address], [place] 05/11/2024 16:50:12 05/27/2024 text/html coughing and tired...uri symptoms all since saturday Sierra Escobar PA-C Attn: [address] [place], [address], [place] 05/27/2024 12:23:55 06/11/2024 text/html Patient presents to the clinic with acute concerns for a cough. Patient is established with Esteban AGUAYO for primary care. Patient's past medical history includes gout, obesity, and hyperlipidemia.Cou gh-Patient was seen by PCP 05/27/24 and treated with azithromycin. He was then seen in the ED 05/30/24 and diagnosed with an ear infection and treated with amoxicillin.-Patie nt reports he has a lingering non-productive cough. Patient denies having any wheezing.-Patient reports he is not taking any medication for cough.-Patient reports all other symptoms have resolved. JULIA GRIDER Attn: [address] [place], [address], [place] 06/12/2024 16:54:25 07/02/2024 text/html wants a referral to an ENT because he doesnt know why...somebody said...coughing persists Sierra Escobar PA-C Attn: [address] [place], [address], [place] 07/02/2024 11:11:45 08/19/2024 text/html no complaints annual check up Sierra Escobar PA-C Attn: [address] [facility], [place], [address], [facility] 08/19/2024 15:56:43
--- OUTSIDE RECORDS SUMMARY | 2025-01-14 08:01 | XMS_ITS | Clinical Summary ---
Author Organization [facility] Address [address] [place] [address] Phone Care Team Providers Care Resort Host Name Role Phone Weston Escobar Primary Care Provider [phone] Al Britt MD Unavailable Vilma Jaffe APRN, HYDRAULIC PILE HAMMER OPERATOR Unavailable Allergies No known active allergies Medications Gblu-JQ-Fvgmlaw n-Petrolatum (Preparation H Rapid Relief) 5-0.25-14.4-15 % Cream 1 Applicator by Apply externally route in the morning and at bedtime. 26 g 3 Active Additional Information Patient not taking.Reported on 08/25/2024 atorvastatin (LIPITOR) 20 MG Tablet take 1 tablet by mouth once daily for 90 days 4 Active cyclobenzaprine (FLEXERIL) 10 MG Tablet take 1 tablet by mouth three times daily as needed 4 Active lisinopril (PRINIVIL, ZESTRIL) 20 MG Tablet take 1 tablet by mouth once daily for 90 days 4 Active naproxen (NAPROSYN) 500 MG Tablet Take 1 tablet twice a day by oral route as needed for 90 days. 3 Active fluticasone (Flovent HFA) 110 MCG/ACT AerosolIndicati ons:Acute cough,Dyspnea on exertion,Wheezi ng take 2 Puffs by inhalation 2 times daily. 12 g 3 4 Active fexofenadine (SANDRA) 180 MG TabletIndicatio ns:Acute cough,Wheezing Take 1 Tablet by mouth daily. 90 Tablet 3 4 Active omeprazole (PriLOSEC) 20 MG CAPSULE DELAYED RELEASE Take 1 Capsule by mouth daily. 30 Capsule 3 4 Active Active Problems Problem Noted Date Diagnosed Date Acute cough 08/25/2024 Dyspnea on exertion 08/25/2024 Wheezing 08/25/2024 Acute gout involving toe of right foot 9 Family History Medical History Relation Name Comments No Known Problems Brother 1 No Known Problems Brother 2 Cancer Father Chronic Obstructive Pulmonary Disease Father Heart Attack Mother Stroke Mother No Known Problems Sister Relation Name Status Comments Brother 1 Alive Brother 2 Alive Father Mother Alive Sister Alive Social History Tobacco Use Types Packs/Day Years Used Date Smoking Tobacco: Never Smokeless Tobacco: Never Tobacco Cessation:Counseling Given: Not Answered Alcohol Use Standard Drinks/Week Comments Not Currently 0 (1 standard drink = 0.6 oz pur e alcohol) occ Sexually Active Control Partners Comments Not Currently Female Sex and Gender Information Value Date Recorded Sex Assigned at Not on file Legal Sex Male 9:01 PM CDT Gender Identity Not on file Sexual Orientation Not on file Last Filed Vital Signs Vital Sign Reading Time Taken Comments Blood Pressure 130/90 08/25/2024 1:56 PM CDT Pulse 92 08/25/2024 1:56 PM CDT Temperature 36.2 C (97.2 F) 08/25/2024 1:56 PM CDT Respiratory Rate 20 08/25/2024 1:56 PM CDT Oxygen Saturation 93% 08/25/2024 1:56 PM CDT Inhaled Oxygen Concentration - - Weight 194 kg (427 lb 12.8 oz) 08/25/2024 1:56 P M CDT Height 180.3 cm (5' 11 ) 08/25/2024 1:56 PM CDT Body Mass Index 59.67 08/25/2024 1:56 PM CDT Plan of Treatment Health Maintenance Due Date Last Done Comments Hepatitis C Virus (HCV) Screening 1990 SARS-COV-2 Immunization ( season) 2024 12/12/2021, 04/19/2021 Respiratory Syncytial Virus (RSV) Immunization (Adult) (1 - 1-dose 75+ series) 2063 Hepatitis B Immunization Completed 997, 11/09/1996, 10/07/1996 DTaP/Tdap/Td Immunization Discontinued 2014, 11/07/2005, 01/16/1993, Additional history exists TdaP Immunization Completed 08/11/2015, 11/07/2005 Influenza Immunization Completed 08/19/2024, 2022 Meningococcal Immunization (ACWY) Aged Out No longer eligible based on patient's age to complete this topic Pneumococcal Immunization Combined Aged Out No longer eligible based on patient's age to complete this topic Rotavirus Immunization Aged Out No lo nger eligible based on patient's age to complete this topic Insurance MEDICAID [employer] Care Teams Resort Host Relationship Specialty Start Date End Date Weston Escobar PAC [address] [place] [id number] PCP - General Physician Activities Assistant 01/12/21 Al Britt MD [address] [facility] [address] [place] [address] Consulting Physician Colon and Rectal Surgery 07/30/23 Vilma Jaffe APRN, HYDRAULIC PILE HAMMER OPERATOR [address] [facility] [address] [place] [address] Nurse Practitioner Advanced Practice Nurse 08/25/24
--- OUTSIDE RECORDS SUMMARY | 2025-01-14 08:01 | XMS_ITS ---
Care Plan - [facility] Created on: January 14, 2025 HARSHA READ : 1990 Sex: Male Author Organization [facility] Address [address] [place] [address] Phone Care Team Providers Care Research & Insights Executive Name Role Phone SIERRA ACOSTA PA-C Primary Care Provider [phone]
--- NOTE | 2025-02-02 14:01 | P.SLEEP_ITS ---
Sleep Study Date of Study: 01/14/25 Ordering Provider: Dali Melissa APRN Interpreting Physician: Barbara Cote MD Sleep Study Type: Split Polysomnogram Height: 1.83 m Weight: 190.509 kg Body Mass Index: 56.9 Neck Circumference (inches): 19.5 [place]: 0 Reason for Sleep Study Difficulty falling asleep, waking during the night Sleep History Christiano Galvan is a 34-year-old man who complains of difficulty falling asleep and staying asleep. He does not awaken from sleep feeling short of breath nor does he awaken at night with heartburn, belching or coughing. He occasionally snores but this is never loud enough that others complain about it. He occasionally has difficulty sleeping when he has a cold. He does not gasp for breath at night and others do not tell in that he has breathing problems at night. Occasionally he sweats excessively at night. He does not notice his heart pounding or beating irregularly at night. He does not fall asleep during the day, does not fall asleep involuntarily nor does he fall asleep while driving. He does not have loss of muscle tone with strong emotion. He does not have daytime difficulties due to excessive sleepiness. He does not feel paralyzed on waking or falling asleep. He does not have vivid dreamlike scenes upon awakening or falling asleep. He does not feel afraid to go to sleep. He does not have nightmares. He occasionally remembers his dream content. He does not have racing thoughts, does not feel sad, depressed, or anxious. He rarely has muscular tension. He does not notice parts of his body jerking. He does not kick at night. He does not have crawling or aching feelings in his legs. He does not have any kind of leg pain at night. He does not have morning jaw pain. He does not grind his teeth at night, he does not have pain during the day nor see awakened by pain during the night. He does not wake up feeling stiff in the morning, does not wake with sore achy muscles are pain in the neck and spine. Normal bedtime is 10:00 p.m. taking an hour to fall asleep wakes up at night a few times per week not every night. His awakenings are for urination. His normal wake time during the day is between 5:00 a.m. and 6:30 a.m.. He maintains the same schedule on weekends. He does not generally take naps during the afternoon or evening however a short nap lasting 10-15 minutes may be refreshing. He feels better in the afternoon compared to other times of day. Habits: Tobacco: never smoker Caffeine: yes, amount not known Alcohol: none Recreational substances: none PMF Past Medical History Medical History (Updated 02/02/25 @ 15:03 by Barbara Cote MD) Low testosterone Hypertension Arthritis Gout Hyperlipidemia Surgical History Surgical History Hx of hand surgery left Family History Family History Mother Diabetes mellitus Hypertension Grandparent Cancer Social History Social History (Updated 09/22/24 @ 16:02 by Sophie Giron MA) Smoking status: Never smoker Alcohol intake: current Alcohol use details: 1-4 A week. Substance use: unknown Do You Feel Safe in your Home?: Yes Lack of Transportation: No Lack of Food: Never True Current Housing: I Have Housing Concerned About Future Housing: No Difficulty Paying Gas/Electric Bills: No Difficulty Paying for Meds: No Currently Unemployed: No Education: High School Diploma/GED Difficulty w/ Childcare or Family Care: No Living arrangements: with family Gender identity (if verbalized by the patient): Male Agree to blood products: No Medications Home Medications ?Medication ?Instructions ?Recorded ?Confirmed ?Type famotidine 40 mg tablet 40 mg PO DAILY 11/26/24 11/26/24 History fexofenadine 180 mg tablet 180 mg PO DAILY 11/26/24 11/26/24 History lisinopril 20 1 tablet PO DAILY #90 tabs 11/26/24 11/26/24 Rx mg-hydrochlorothiazide 25 mg tablet meloxicam 15 mg tablet 15 mg PO DAILY 11/26/24 11/26/24 History syringe with needle 3 mL 23 x 1 #100 ea 11/26/24 11/26/24 Rx ([employer] Luer Lock Syringe with needle) testosterone cypionate 200 mg/mL 200 mg IM .every other week #6 11/26/24 11/26/24 Rx intramuscular oil vials (Depo-Testosterone) atorvastatin 20 mg tablet 20 mg PO DAILY #90 tabs 11/30/24 Rx cyclobenzaprine 5 mg tablet 5 mg PO BID PRN muscle spasm #30 02/01/25 Rx tabs gabapentin 300 mg capsule 300 mg PO DAILY #30 caps 02/01/25 Rx Sleep Procedure A split night polysomnogram using the [employer] multi-channel system recorded the standard physiologic parameters including EEG, EOG, submentalis EMG, anterior tibialis EMG, EKG, body position, nasal and oral airflow using nasal pressure sensor and thermistor. Respiratory parameters of chest and abdominal movements were recorded with Respiratory Inductance Plethysmography belts. Oxygen saturation was recorded by pulse oximetry. Video monitoring was also performed. Sleep stages, periodic limb movements, and EEG arousals were scored in 30 second epochs according to the criteria of the AASM Scoring Manual. The Apnea-Hypopnea Index was calculated using [facility] guidelines for definition of hypopnea while scoring respiratory events. After the baseline portion the patient met criteria for a titration with an AHI of 97.5 and desaturation to 77%. He used a medium ResMed med F 30 I fullface mask with heated humidity initial pressure was CPAP 6 cm titrated up to 13 cm. At CPAP 13, the patient spent 33.5 minutes in bed, 17 minutes awake, 16.5 minutes in non-REM, no time in REM. The sleep efficiency was 49.3%. The residual apnea-hypopnea index was 10.9, huge improvement over the baseline 97.5. The mean saturation at this pressure was 88-89% with supine sleep. He did not have REM at 13 cm, however he had REM at CPAP 8, 10, and 12 cm. He had supine stage N3 at CPAP 13. Sleep Architecture During the diagnostic portion of the study, the total recording time was 239.9 minutes. The total sleep time was 157.5 minutes. Sleep latency was 3.9 minutes. There was no REM on the baseline. Sleep Efficiency was 65.6%. The patient had 33 awakenings for an awakening index of 12.6. Wake after sleep onset time was 78.5 minutes. The patient spent 25.0 minutes, 15.9% of total sleep time in Stage N1. The patient spent 119.5 minutes, 75.9% in Stage N2. The patient spent 13.0 minutes, 8.3% in Stage N3. The patient spent no time in Stage REM sleep. At 02:20:56 AM the patient was placed on PAP treatment and was titrated at pressures ranging from CPAP 6 cm to 13 cm water pressure. During the treatment portion of the study, the total recording time was 180.8 minutes. The total sleep time was 103.5 minutes. Sleep latency was 28.5 minutes. REM latency was 79.5 minutes. Sleep Efficiency was 57.2%. Wake after Sleep Onset time was 48.5 minutes. The patient spent 6.5 minutes, 6.3% of total sleep time in Stage N1. The patient spent 62.0 minutes, 59.9% in Stage N2. The patient spent 11.5 minutes, 11.1% in Stage N3. The patient spent 23.5 minutes, 22.7% in Stage REM. Respiratory Analysis During the diagnostic portion of the study, the patient had 249 hypopneas, 7 obstructive apneas, no mixed or central apneas for an overall Apnea Hypopnea Index of 97.5 events per hour. The REM Apnea Hypopnea Index was 0 due to not having any REM. The NREM Apnea Hypopnea Index was 97.5. The patient had a Central Apnea Hypopnea Index of 0. There were no Respiratory Effort Related Arousals. The Respiratory Disturbance Index is 98.3 events per hour. There was no evidence of Eleno-Bauer Respirations. During the treatment portion of the study, the patient had 34 hypopneas, no obstructive apneas, no mixed apneas, and no central apneas for an overall Apnea Hypopnea Index of 19.7 events per hour. The REM Apnea Hypopnea Index was 30.6. The NREM Apnea Hypopnea Index was 16.5. The patient had a Central Apnea Hypopnea Index of 0. There were no Respiratory Effort Related Arousals. The Respiratory Disturbance Index is 21.4 events per hour. There was no evidence of Eleno- Bauer Respirations. Arousals During the diagnostic portion of the study, there were a total of 131 arousals for an arousal index of 49.9. There were 62 respiratory arousals for an index of 23.6. There were no periodic limb movement arousals. There were no isolated limb movement arousals. There were 69 spontaneous arousals for an index of 26.3. During the treatment portion of the study, there were a total of 31 arousals for an index of 18.0. There were 5 respiratory arousals for an index of 2.9. There were no periodic limb movement arousals for an index of -. There were 6 isolated limb movement arousals for an index of 3.5. There were 20 spontaneous arousals for an index of 11.6. Periodic Limb Movements During the diagnostic portion of the study, the patient had no isolated limb movements or periodic limb movements. During the treatment portion of the study, the patient had 8 isolated limb movements with an index of 4.6. The patient had no periodic limb movements. The patient had a total of 8 limb movements with a total limb movement index of 4.6. Oximetry Data During the diagnostic portion of the study, the patient had an average oxygen saturation of 91% in wake with a minimum oxygen saturation of 79% and a maximum oxygen saturation of 97%. The patient had an average oxygen saturation of 88.2% in sleep with a minimum oxygen saturation of 77% and a maximum oxygen saturation of 98%. The patient had 251 oxygen desaturations resulting in an Oxygen Desaturation Index of 95.6. The patient spent 90 minutes, 38.5% of total sleep time with an oxygen saturation less than 88%. During the treatment portion of the study, the patient had an average oxygen saturation of 93.4% in wake with a minimum oxygen saturation of 84% and a maximum oxygen saturation of 99%. The patient had an average oxygen saturation of 89.9% in sleep with a minimum oxygen saturation of 83% and a maximum oxygen saturation of 96%. The patient had 38 oxygen desaturations resulting in an Oxygen Desaturation Index of 22.0. The patient spent 25.4 minutes, 14.1% of total sleep time with an oxygen saturation less than 88%. Snoring Profile Snoring was loud, and this was improved, mild and intermittent at the highest pressure, CPAP 13 cm. Cardiac Profile During the diagnostic portion of the study, the EKG showed normal sinus rhythm. The average pulse rate was 74 bpm. The minimum pulse rate was 62 bpm. The maximum pulse rate was 96 bpm. No arrhythmias noted. During the treatment portion of the study, the EKG showed normal sinus rhythm. The average pulse rate was 73.4 bpm. The minimum pulse rate was 61 bpm. The maximum pulse rate was 97 bpm. No arrhythmias noted. EEG Profile EEG was unremarkable, no evidence of seizures. Assessment and Plan Assessment and Plan (1) Obstructive sleep apnea: Code(s): G47.33 - Obstructive sleep apnea (adult) (pediatric) Status: Acute Assessment and Plan: This split night sleep study on 01/14/2025 shows extremely severe obstructive sleep apnea, the apnea-hypopnea index was 97.5 with desaturation to 77%, loud snoring, events worse in the supine position and no REM on the baseline. The patient was successfully treated using a medium ResMed AirFit F 30 I fullface ma sk with heated humidity and a final pressure of CPAP 13 cm. At this pressure, he had supine Stage N3 with a residual AHI of 10.9, and average saturation of 88%. He still had intermittent snoring but the patient was awake at 5:20 a.m. and did not feel that he could return to sleep, so the test was terminated at that point. At CPAP 13, the the patient spent 33.5 minutes in bed, 17 minutes awake, 16.5 minutes in non-REM, no time in REM. The sleep efficiency was 49.3%. The residual apnea-hypopnea index was 10.9, huge improvement over the baseline 97.5. The mean saturation at this pressure was 88-89% with supine sleep. He did not have REM at 13 cm, however he had REM at CPAP 8, 10, and 12 cm. He had supine stage N3 at CPAP 13. He may require an increase in PAP pressure to 14 or 15 cm after he starts using PAP. I recommend CPAP 13 with close follow up, increasing the pressure by 1 cm at a time as he tolerates. Overall, sleep was much better consolidated. BMI is 57. Weight management is advised. Clinical data suggests that weight loss of 10% can reduce the severity of respiratory events and snoring and improve AHI by as much as 25%. Data The data obtained during this sleep study is adequate for interpretation. Certification This sleep study has been reviewed by a board certified sleep medicine physician.
[2025-02-02 14:49] VITALS: BMI 56.9
== END 2025-01-15 08:14 | disposition home or self-care (01) ==
LOC: ANHCSM 07:53
PROVIDERS: PCP Nurse Practitioner Adult Health; Visit Provider Nurse Practitioner Adult Health
DX: G47.33 Obstructive sleep apnea (adult) (pediatric) (principal); G47.10 Hypersomnia, unspecified; I10 Essential (primary) hypertension; E66.01 Morbid (severe) obesity due to excess calories; Z68.43 Body mass index [BMI] 50.0-59.9, adult; E78.5 Hyperlipidemia, unspecified
CPT/HCPCS: 95811

== ENCOUNTER 2025-02-25 09:11 | Outpatient (CLI) | payer OTHER, SELFPAY ==
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
--- OUTSIDE RECORDS SUMMARY | 2025-02-25 09:28 | XMS_ITS | Clinical Summary ---
Author Organization [facility] Address [address] [place] [address] Phone Care Team Providers Care It Recruiter Name Role Phone SIERRA ACOSTA PA-C Primary Care Provider [phone] Reason for Visit and Chief Complaint REFERRAL Problems Includes: Problems addressed during this encounter and other active Problems All Visits Onset Date Resolved Date Provider Condition S tatus Ganglion Right Index Finger 05/07/2022 JULES AZEVEDO DO Active Last Documented On 2 10:38AM ; [facility] Pain in the Right Hand Only 04/13/2022 OSIEL Corbett Active Last Documented On 2 1:11PM ; [facility] Plan of Treatment No Plan of [...] 04/13/2022 1:09PM By EMMANUELLE AQUINO LPN ; [facility] Medications Administered Includes: Administered Medications from this encounter No Administered Medications Recorded Results Includes: Results discussed during this encounter No Results Recorded For Specified Dates History of Present Illness Includes: History of Present Illness from this encounter No History of Present Illness Recorded Social History Description Last Updated Tobacco non-user 04/13/2022 Last Documented On 2 8:51AM ; [facility] Smoking status : Never smoker 08/23/2015 Last Documented On 2 8:51AM ; [facility] Medical History Includes: Medical History addressed during this encounter Description Last Updated Pt does not get blood pressure checked a t other facility 08/23/2015 Last Documented On 8:51AM ; [facility] Family History Includes: Family [...] Subscriber Relationship Effect fermin Dates 1 - [facility] PLANS [id number] HARSHA READ Self Clinical Notes Includes: Clinical Notes from this encounter No Clinical Notes Recorded
--- OUTSIDE RECORDS SUMMARY | 2025-02-25 09:28 | XMS_ITS | Referral Summary ---
Author Organization [facility] Address formerly [facility] [place] [address] Care Team Providers Care Gate Keeper Name Role Phone Shin Dali MUSTAPHA Primary Care Provider Encounters Date Type Department Care Team Description 01/04/2025 10:30 AM SYSTEM SUPPORT ADMINISTRATOR Office Visit [facility] Sports Medicine and Primary Care at [address] [phone] Damien Canales DO Primary osteoarthritis of left knee (Primary Dx) 12/31/2024 3:36 PM SYSTEM SUPPORT ADMINISTRATOR - 12/31/2024 4:38 PM [facility] Emergency [facility] Emergency Department [address] [place] [address] Acute pain of left knee (Primary Dx) Discharge Disposition: Discharge to home or self care 12/15/2024 9:30 AM SYSTEM SUPPORT ADMINISTRATOR Office Visit [facility] Medical [facility] Sports Medicine and Primary Care at [address] [address] Damien Canales DO Primary osteoarthritis of left knee (Primary Dx) 12/09/2024 6:13 PM SYSTEM SUPPORT ADMINISTRATOR - 12/09/2024 7:10 PM SYSTEM SUPPORT ADMINISTRATOR Emergency [facility] Emergency Department [address] [place] [address] Osteoarthritis of left knee, unspecified osteoarthritis type (Primary Dx) Discharge Disposition: Discharge to home or self care 12/01/2024 10:15 AM SYSTEM SUPPORT ADMINISTRATOR Office Visit [facility] Sports Medicine and Primary Care at [address] [address] Damien Canales DO Primary osteoarthritis of left knee (Primary Dx); Left knee pain, unspecified chronicity from Last 3 Months Allergies No known active allergies Medications montelukast [...] 11/26/2023 Assessment & Plan (11/26/2023 10:08 AM SYSTEM SUPPORT ADMINISTRATOR): Given their past success the patient would [...] exercise with regards to her morbid obesity. Social History Tobacco Use Types Packs/Day Years [...] on file Legal Sex Male 12:24 AM SYSTEM SUPPORT ADMINISTRATOR Gender Identity Not on file Sexual Orientation Not on file Last Filed Vital Signs Vital Sign Reading Time Taken Comments Blood Pressure 139/81 01/04/2025 10:21 AM SYSTEM SUPPORT ADMINISTRATOR Pulse 99 01/04/2025 10:21 AM SYSTEM SUPPORT ADMINISTRATOR Temperature 36.8 C (98.2 F) 12/31/2024 3:35 PM SYSTEM SUPPORT ADMINISTRATOR Respiratory Rate 16 12/31/2024 3:35 PM SYSTEM SUPPORT ADMINISTRATOR Oxygen Saturation 96% 12/31/2024 3:35 PM SYSTEM SUPPORT ADMINISTRATOR Inhaled Oxygen Concentration - - Weight 191.9 kg (423 lb) 01/04/2025 10:21 AM SYSTEM SUPPORT ADMINISTRATOR Height 180.3 cm (5' 11 ) 01/04/2025 10:21 AM SYSTEM SUPPORT ADMINISTRATOR Body Mass Index 59 01/04/2025 10:21 AM SYSTEM SUPPORT ADMINISTRATOR Plan of Treatment Not on file Procedures Procedure Name Priority Date/Time Associated Diagnosis Comments AR ARTHROCENTESIS ASPIR&/INJ MAJOR JT/BURSA W/O US Routine 01/04/2025 10:30 AM SYSTEM SUPPORT ADMINISTRATOR Primary osteoarthritis of left knee XR KNEE LEFT 3 VIEWS ED 12/31/2024 3:53 PM SYSTEM SUPPORT ADMINISTRATOR XR KNEE LEFT 3 VIEWS ED 12/09/2024 6:06 PM SYSTEM SUPPORT ADMINISTRATOR from Last 3 Months Results * AR ARTHROCENTESIS ASPIR&/INJ MAJOR JT/BURSA W/O US (01/04/2025 10:30 AM SYSTEM SUPPORT ADMINISTRATOR) Narrative Damien Canales DO - 01/04/2025 10:30 AM SYSTEM SUPPORT ADMINISTRATOR Damien Canales DO 01/04/2025 11:15 AM Large [...] %); 80 mg methylPREDNISolone acetate 80 mg/mL us Damien Canales DO IN CLINIC/BEDSIDE AN[facility] DEWITT Final Result * XR Knee Left 3 Views (12/31/2024 3:53 PM SYSTEM SUPPORT ADMINISTRATOR) Anatomical Region Laterality Modality Lower Extremities, Knee Left Computed Radiography 12/31/2024 4:11 PM SYSTEM SUPPORT ADMINISTRATOR Narrative 12/31/2024 4:14 PM SYSTEM SUPPORT ADMINISTRATOR EXAM DESCRIPTION: XR KNEE LEFT 3 VIEWS [...] Urban Roman M.D. KN: TAMIR Report ID: [id number] Reading Location: [id number] Procedure Note Urban Roman MD - 12/31/2024 [...] 12/31/2024 4:14 PM - Electronically signed by Urbanjosue Roman M.D. KN: KN Report ID: [id number] Reading Location: [id number] Jessika Warren DEDE IMG XR PROCEDURES Final Result * XR Knee Left 3 Views (12/09/2024 6:06 PM SYSTEM SUPPORT ADMINISTRATOR) Anatomical Region Laterality Modality Lower Extremities, Knee Left Computed Radiography 12/09/2024 6:09 PM SYSTEM SUPPORT ADMINISTRATOR Narrative 12/09/2024 6:17 PM SYSTEM SUPPORT ADMINISTRATOR EXAM DESCRIPTION: XR KNEE LEFT 3 VIEWS [...] Eric Virgen M.D. AT: AT Report ID: [id number] Reading Location: [id number] Procedure Note Eric Virgen MD - 12/09/2024 [...] Eric Virgen M.D. AT: AT Report ID: [id number] Reading Location: [place] [address] Aryan AGUAYO IMG XR PROCEDURES Final Resu lt from Last 3 Months Insurance [facility] D[place]E [place] [id number] [facility] Care Teams Gate Keeper Relationship Specialty Start Date End Date Dali Melissa NP [address] [place] [id number] PCP - General Nurse Practitioner 12/31/24
--- OUTSIDE RECORDS SUMMARY | 2025-02-25 09:28 | XMS_ITS | Clinical Summary ---
Author Organization [facility] Address [address] [place] [address] Phone Care Team Providers Care Healthcare Specialist Name Role Phone SIERRA ACOSTA PA-C Primary Care Provider [phone] Reason for Visit and Chief Complaint The [...] Active Last Documented On 2 10:38AM ; [facility] Pain in the Right Hand Only 04/13/2022 OSIEL Corbett Active Last Documented On 2 1:11PM ; [facility] Plan of Treatment Left palm wound edges approximated no drainage noted area cleansed with alcohol swab 13 sutures removed. Wound care instructions given to patient. - Last Documented On 08/23/2015 6:11PM ; [facility] Assessments Includes: Assessments from this encounter Findings - Discharge diagnosis of PRIMARY CARE PROVIDER : DR DUONG - Last Documented On 08/23/2015 6:11PM ; [facility] Medical Equipment - Implanted Devices Includes: Current Devices No Medical Equipment Recorded Medications Includes: Medications discussed during this encounter and other current Medications Current Medications (continue as prescribed) Allopurinol 100 MG Oral Tablet 04/13/2022 Provider: Diagnosis: Last Documented On 04/13/2022 1:09PM By EMMANUELLE AQUINO LPN ; [facility] Medications Administered Includes: Administered Medications from this encounter No Administered Medications Recorded Vital Signs Includes: Vital Signs from this encounter Vital Name 08/23/2015 05:54P Blood Pressure Sitting R 134/82 BP Cuff Size Regular Pulse Rate-Sitting (bpm) 91 Pulse Rhythm Regular Respiration Rate (breaths/min) 20 Temp-Oral (F) 98.3 Oxygen Saturation (%) 96 Last Documented: On 08/23/2015 5:58PM ; [facility] Results Includes: Results discussed during this [...] 08/23/2015 Last Documented On 5 6:11PM ; [facility] Medical History Includes: Medical History addressed during this encounter Description Last Updated Pt does not get blood pressure checked a t other facility 08/23/2015 Last Documented On 5 6:11PM ; [facility] Family History Includes: Family History [...] Time Diagnosis PROBLEM VISIT 

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
--- OUTSIDE RECORDS SUMMARY | 2025-02-25 09:28 | XMS_ITS | Clinical Summary ---
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 Problems Includes: Problems addressed during this encounter and other active Problems Current Visit Onset Date Resolved Date Provider Pashao n Status Ganglion Right Index Finger 05/07/2022 JULES AZEVEDO DO Active Last Documented On 2 10:38AM ; [facility] Past Visits Onset Date Resolved Date Provider Condition Status Pain in the Right Hand Only 04/13/2022 OSIEL Corbett Active Last Documented On 2 1:11PM ; [facility] Plan of Treatment I had a long [...] - Last Documented On 05/07/2022 10:39AM ; [facility] Instructions to patient No reduced physical activity -release to full activities Last Documented On 10:34AM ; [facility] Intervention and counseling on cessation of tobacco use Last Documented On 10:08AM ; [facility] Education and Decision Aids were provided during visit for: Patient education about orth opedic activities Last Documented On 10:34AM ; [facility] Assessments Includes: Assessments from this encounter Findings - Ganglion - Last Documented On 05/07/2022 10:39AM ; [facility] - Ganglion of the hand - Last Documented On 05/07/2022 10:39AM ; [facility] - [M67.441 - Ganglion, right hand] Ganglion of the right hand - Last Documented On 05/07/2022 10:39AM ; [facility] - [M67.441 - Ganglion, right hand] Ganglion of the flexor sheath of the right index finger - Last Documented On 05/07/2022 10:39AM ; [facility] Instructions Includes: Instructions from this encounter Instructions to patient No reduced physical activity -release to full activities Last Documented On 10:34AM ; [facility] Intervention and counseling on cessation of tobacco use Last Documented On 10:08AM ; [facility] Education and Decision Aids were provided during visit for: Patient education about orth opedic activities Last Documented On 10:34AM ; [facility] Medical Equipment - Implanted Devices Includes: Current Devices No Medical Equipment Recorded Medications Includes: Medications discussed during this encounter and other current Medications Current Medications (continue as prescribed) Allopurinol 100 MG Oral Tablet 04/13/2022 Provider: Diagnosis: Last Documented On 04/13/2022 1:09PM By EMMANUELLE AQUINO LPN ; [facility] Medications Administered Includes: Administered Medications from this encounter No Administered Medications Recorded Vital Signs Includes: Vital Signs from this encounter Vital Name 05/07/2022 10:08A Blood Pressure Sitting (mmHg) 138/82 Last Documented: On 05/07/2022 10:10A M ; [facility] Results Includes: Results discussed during this encounter [...] wrist joint pain - 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 Social History Description Last Updated Social history unchanged 05/07/2022 Last Documented On 2 10:39AM ; [facility] Tobacco non-user 04/13/2022 Last Documented On 2 10:07AM ; [facility] Smoking status : Never smoker 08/23/2015 Last Documented On 2 10:07AM ; [facility] Procedures and Surgical History Includes: Procedures from [...] condition Last Documented On 2 10:37AM ; [facility] Discussed benefits, risks and alternativ es to treatment Last Documented On 2 10:34AM ; [facility] intervention and counseling on cessation of toba outside sales account executive use 4000F Last Documented On 2 10:08AM ; [facility] use of tobacco assessment performed 1000F Last Documented On 2 10:08AM ; [facility] Informed consent obtained Ri sks and benefits [...] scribe Last Documented On 2 10:35AM ; [facility] The diagnostic studies were reviewed in detail with the patient with explanation and discussion of findings Last Documented On 2 10:29AM ; [facility] MRI of the right hand is rev iewed. This shows a small synovial cyst located at the head of the second metatarsal. No other abnormalities are noted Last Documented On 2 10:31AM ; [facility] Medical History Includes: Medical History addressed during this encounter Description Last Updated Pt does not get blood pressure checked a t other facility 08/23/2015 Last Documented On 2 10:07AM ; [facility] Family History Includes: Family History addressed during [...] Time Diagnosis FOLLOW UP JULES AZEVEDO DO [facility] 2 9:59AM 10:30AM Ganglion,Gang lion Hand,Ganglion Right Hand,Ganglion Right Index Finger Insurance Includes: Active Insurance Policies Plan Name Member ID Group # Subscriber Relationship Effect fermin Dates 1 - [facility] [id number] HARSHA READ Self Clinical Notes Includes: Clinical Notes from this encounter No Clinical Notes Recorded
--- OUTSIDE RECORDS SUMMARY | 2025-02-25 09:28 | XMS_ITS | Encounter Summary ---
Author Organization [facility] Address [address] [place] [address] Phone Care Team Providers Care Cotton Farmer Name Role Phone Seamus Valdez MD Primary Care Provider [phone] Weston Escobar Primary Care Provider [phone] Al Britt MD Unavailable Vilma Jaffe APRN, CNP Unavailable [phone] Reason for Visit * Reason Comments Medication Refill Encounter Details Date Type Department Care Team (Late st Contact Info) Description 11/03/2020 Refill [facility] Admitting [address] [place] [address] Seamus Valdez MD [address] [place] [address] Medication Refill Social History Tobacco [...] 8:12 AM CST Please review and sign. WELDER documented in this encounter Plan of Treatment Not on file documented as of this encounter Visit Diagnoses Not on filedocumented in this encounter Care Teams Cotton Farmer Relationship Specialty Start Date End Date Seamus Valdez MD [address] [place] [place] [address] PCP - General Internal Medicine 10/18/19 01/11/[address] [facility] [address] [place] [id number] PCP - General Physician Websphere Commerce Architect 01/12/21 Al Britt MD #2 [facility] [address] [place] [address] Consulting Physician Colon and Rectal Surgery 07/30/23 Vilma Jaffe APRN, ASSEMBLY DETAILER #2 [facility] [address] [place] [address] Nurse Practitioner Advanced Practice Nurse 08/25/24 documented as of this encounter
--- OUTSIDE RECORDS SUMMARY | 2025-02-25 09:29 | XMS_ITS | Clinical Summary ---
Author Organization [facility] Address [address] [place] [address] Phone Care Team Providers Care Sales Support Associate Name Role Phone Weston Escobar Primary Care Provider [phone] Al Britt MD Unavailable Vilma Jaffe APRN, MASSAGE THERAPY INSTRUCTOR Unavailable Allergies No known active allergies Medications Vhse-OR-Rdurnpa n-Petrolatum (Preparation H Rapid Relief) 5-0.25-14.4-15 % [...] Insurance MEDICAID [facility] [employer] Care Teams Sales Support Associate Relationship Specialty Start Date End Date Weston Escobar PAC [address] [place] [id number] PCP - General Physician Hat And Cap Sewer 01/12/21 Al Britt MD #2 [facility] [address] [place] [address] Consulting Physician Colon and Rectal Surgery 07/30/23 Vilma Jaffe APRN, MASSAGE THERAPY INSTRUCTOR #2 [facility] [address] [place] [address] Nurse Practitioner Advanced Practice Nurse 08/25/24
--- OUTSIDE RECORDS SUMMARY | 2025-02-25 09:29 | XMS_ITS | Clinical Summary ---
Author Organization [facility] Address [address] [place] [address] Phone Care Team Providers Care Bottle Gauger Name Role Phone SIERRA ACOSTA PA-C Primary Care Provider [phone] Reason for Visit and Chief Complaint visit for: right hand pain - The Chief Complaint is: Right Hand Ganglion Problems Includes: Problems addressed during this encounter and other active Problems Current Visit Onset Date Resolved Date Provider Annette robison Status Pain in the Right Hand Only 04/13/2022 OSIEL Corbett Active Last Documented On 2 1:11PM ; [facility] Past Visits Onset Date Resolved Date Provider Condition Status Ganglion Right Index Finger 05/07/2022 JULES MCNEAL DO Active Last Documented On 2 10:38AM ; [facility] Plan of Treatment I feel like [...] - Last Documented On 04/13/2022 1:17PM ; [facility] Assessments Includes: Assessments from this encounter Findings - Right hand pain - Last Documented On 04/13/2022 1:17PM ; [facility] Medical Equipment - Implanted Devices Includes: Current Devices No Medical Equipment Recorded Medications Includes: Medications discussed during this encounter and other current Medications Current Medications (continue as prescribed) Allopurinol 100 MG Oral Tablet 04/13/2022 Provider: Diagnosis: Last Documented On 04/13/2022 1:09PM By EMMANUELLE AQUINO LPN ; [facility] Medications Administered Includes: Administered Medications from this encounter No Administered Medications Recorded Vital Signs Includes: Vital Signs from this encounter Vital Name 04/13/2022 01:08P Blood Pressure Sitting L 153/83 Pulse Rate-Sitting (bpm) 83 Respiration Rate (breaths/min) 20 Last Documented: On 04/13/2022 1:10PM ; [facility] Results Includes: Results discussed during [...] trauma, but states that 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 He states that when he is resting it does not bother him at all Social History Description Last Updated Tobacco non-user 04/13/2022 Last Documented On 2 1:17PM ; [facility] Smoking status : Never smoker 08/23/2015 Last Documented On 2 12:51PM ; [facility] Procedures and Surgical History Includes: Procedures from this encounter Procedures Code Diagnosis Performing Provider Service L ocation Service Date use of tobacco assessment performed 1000F Last Documented On 2 1:10PM ; [facility] review of medications documented 1160F Last Documented On 2 1:10PM ; [facility] Medical History Includes: Medical History addressed during this encounter Description Last Updated Pt does not get blood pressure checked a t other facility 08/23/2015 Last Documented On 2 12:51PM ; [facility] Family History Includes: Family History addressed during [...] Time Diagnosis ORTHO NEW PATIENT OSIEL Corbett [facility] 04/13/20 22 12:58PM 1:17PM Assessment of Pain in the Right Hand Only Insurance Includes: Active Insurance Policies Plan Name Member ID Group # Subscriber Relationship Effect fermin Dates 1 - [facility] PLANS [id number] HARSHA Romero Clinical Notes Includes: Clinical Notes from this encounter No Clinical Notes Recorded
--- OUTSIDE RECORDS SUMMARY | 2025-02-25 09:29 | XMS_ITS | Clinical Summary ---
Author Organization [facility] [employer] Address [address] [place] [address] Care Team Providers Care Hydroelectric Powerplant Supervisor Name Role Phone Unavailable Primary Care Provider Unavailabl e Source Comments [facility] [employer],non-owned Affiliates and Associated Physician Practices is amultiple site organization consisting of ambulatory clinics and hospital sitesin [place], [place], [place] and [place]. This disclosure is being madepursuant to the Care Everywhere program and may not contain all information available regarding this patient. Last updated 18.[employer] Allergies No known active allergies Medications * [...] Comments Blood Pressure 134/80 11/04/2017 8:02 AM CUSTOMER CARE VOICE CONSULTANT Pulse 72 11/04/2017 8:02 AM CUSTOMER CARE VOICE CONSULTANT Temperature 36.9 C (98.4 F) 11/04/2017 8:02 AM CUSTOMER CARE VOICE CONSULTANT Respiratory Rate 17 11/04/2017 8:02 AM CUSTOMER CARE VOICE CONSULTANT Oxygen Saturation 97% 11/04/2017 8:02 AM CUSTOMER CARE VOICE CONSULTANT Inhaled Oxygen Concentration - - Weight 163.3 kg (360 lb) 11/04/2017 8:02 AM CUSTOMER CARE VOICE CONSULTANT Height 182.9 cm (6') 11/04/2017 8:02 AM CUSTOMER CARE VOICE CONSULTANT Body Mass Index 48.82 11/04/2017 8:02 AM CUSTOMER CARE VOICE CONSULTANT Plan of Treatment Health Maintenance Due Date Last Done Comments HIV SCREENING 2003 HEPATITIS C SCREENING 03/04/2006 DTAP/TDAP/TD VACCINES (1 - Tdap) 2007 HEPATITIS B VACCINE (1 of 3 - 19+ 3-dose series) 2007 COVID-19 VACCINE (1 - 2023-2 5 season) 2024 DEPRESSION SCREENING 11/18/2024 INFLUENZA VACCINE (Season Ended) 2025 ZOSTER VACCINE (1 of 2) 2038 HIB VACCINE Aged Out No longer eligi ble based on patient's age to complete this topic HPV VACCINE Aged Out No longer eligi ble based on patient's age to complete this topic MENINGOCOCCAL (Group B) VACC INE SHARED DECISION-MAKING Aged Out No longer eligibl e based on patient's age to complete this topic MENINGOCOCCAL GROUPS A/C/Y/W VACCINE Aged Out No longer eligible b ased on patient's age to complete this topic PNEUMOCOCCAL VACCINE Aged Out No long er eligible based on patient's age to complete this topic
--- OUTSIDE RECORDS SUMMARY | 2025-02-25 09:29 | XMS_ITS ---
Author Organization [facility] Address [address] [place] [address] Phone Care Team Providers Care Plating Tank Operator Apprentice Name Role Phone SIERRA ACOSTA PA-C Primary Care Provider [phone] Problems Includes: Active, inactive, and resolved Problems All Visits Onset Date Resolved Date Provider Condition S tatus Ganglion Right Index Finger 05/07/2022 JULES MCNEAL DO Active Last Documented On 2 10:38AM ; [facility] Pain in the Right Hand Only 04/13/2022 OSIEL Corbett Active Last Documented On 2 1:11PM ; [facility] Plan of Treatment Findings Encounter Date I [...] 05/07/2022 Last Documented On 2 10:39AM ; [facility] I feel like this is more of [...] 04/13/2022 Last Documented On 2 1:17PM ; [facility] Instructions to patient No reduced physical activity -release to full activities Last Documented On 2 10:34AM ; [facility] Intervention and counseling on cessation of tobacco use Last Documented On 2 10:08AM ; [facility] Education and Decision Aids were provided during visit for: Patient education about orth opedic activities Last Documented On 2 10:34AM ; [facility] Assessments Includes: Assessments for all patient encounters Findings Encounter Date Ganglion FOLLOW UP with JULES MCNEAL DO 0 05/07/2022 Last Documented On 2 10:39AM ; [facility] Ganglion of the flexor sheat h of the right index finger FOLLOW UP with JULES MCNEAL DO 05/07/2022 Last Documented On 2 10:39AM ; [facility] Ganglion of the hand FOLLOW UP with JULES MCNEAL DO 05/07/2022 Last Documented On 2 10:39AM ; [facility] Ganglion of the right hand FOLLOW UP with JULES MCNEAL DO 05/07/2022 Last Documented On 2 10:39AM ; [facility] Assessment of right hand pain ORTHO NEW PATIENT with OSIEL Corbett 04/13/2022 Last Documented On 2 1:17PM ; [facility] Discharge diagnosis of PRIMA RY CARE PROVIDER : DR DUONG PROBLEM VISIT with JORGE L PLATT SERVICE CONSULTANT-SUSU 08/23/2015 Last Documented On 5 6:11PM ; [facility] Instructions Includes: Instructions for all patient encounters Instructions to patient No reduced physical activity -release to full activities Last Documented On 2 10:34AM ; [facility] Intervention and counseling on cessation of tobacco use Last Documented On 2 10:08AM ; [facility] Education and Decision Aids were provided during visit for: Patient education about orth opedic activities Last Documented On 2 10:34AM ; [facility] Medical Equipment - Implanted Devices Includes: Current and historical Devices No Medical Equipment Recorded Medications Includes: Current and historical Medications Current Medications (continue as prescribed) Allopurinol 100 MG Oral Tablet 04/13/2022 Provider: Diagnosis: Last Documented On 04/13/2022 1:09PM By EMMANUELLE AQUINO LPN ; [facility] Medications Administered Includes: Administered Medications in patient's chart No Administered Medications Recorded Results Includes: Results from 02/26/2024 through 02/25/2025 No Results Recorded For Specified Dates History of Present Illness History of Present Illness not supported for this document type No History of Present Illness Recorded Social History Description Last Updated Social history unchanged 05/07/2022 Last Documented On 2 10:39AM ; [facility] Tobacco non-user 04/13/2022 Last Documented On 2 1:17PM ; [facility] Smoking status : Never smoker 08/23/2015 Last Documented On 5 6:11PM ; [facility] Medical History Includes: Medical History in patient's chart Description Last Updated Pt does not get blood pressure checked a t other facility 08/23/2015 Last Documented On 5 6:11PM ; [facility] Family History Includes: Family History in patient's [...] Subscriber Relationship Effect fermin Dates 1 - [facility] [id number] HARSHA Romero Clinical Notes Includes: Signed Clinical Notes starting from 12/07/2022 No Clinical Notes Recorded
--- OUTSIDE RECORDS SUMMARY | 2025-02-25 09:29 | XMS_ITS ---
Care Plan - [facility] Created on: February 25, 2025 HARSHA READ : 1990 Sex: Male Author Organization [facility] Address [address] [place] [address] Phone Care Team Providers Care Typer Name Role Phone SIERRA ACOSTA PA-C Primary Care Provider [phone]
[2025-02-25 19:02] LABS: Hemoglobin 15.3 g/dL (14.0-18.0); Immature Platelet Fraction Pct 4.9 % (0.9-11.2); Mean Corpuscular HGB Conc 33.3 g/dl (32-36); Mean Corpuscular Hemoglobin 31.9 pg (26-34); Mean Corpuscular Volume 95.8 fl (80-100); Mean Platelet Volume 10.7 fl (7.4-10.4); Platelet Count Result 91 k/mm3 (150-375); Red Cell Distribution Width 13.1 % (11.5-14.5); White Blood Count 2.6 K/mm3 (4.5-10.0)
[2025-02-25 19:27] LABS: Cortisol Baseline 9.82 ug/dL
[2025-02-25 19:44] LABS: Alanine Aminotransferase 162 U/L (6-50); Albumin Level 4.1 g/dL (3.5-5.1); Alkaline Phosphatase 89 U/L (38-126); Anion Gap 7 mmol/L (4-12); Aspartate Amino Transferase 159 U/L (17-59); Bilirubin,Total 0.5 mg/dL (0.2-1.3); Blood Urea Nitrogen 16 mg/dL (9-20); Calcium 9.1 mg/dL (8.4-10.2); Carbon Dioxide 35 mmol/L (22-30); Chloride 98 mmol/L (98-107); Cholesterol 112 mg/dL (0-200); Estimated Glomerular Filt Rate > 60; Glucose 112 mg/dL (65-110); HDL Direct 25 mg/dL; Sodium 140 mmol/L (137-145); Triglycerides 339 mg/dL (<150)
[2025-02-25 19:56] LABS: LDL Cholesterol Direct 42 mg/dL
[2025-02-25 20:18] LABS: Prostate Specific Antigen 2.1 ng/mL (< OR = 4.0)
[2025-02-25 20:21] LABS: Hemoglobin A1C 5.9 % (<5.7)
== END 2025-02-25 09:12 | disposition home or self-care (01) ==
LOC: ANHBWCLAB 09:12
PROVIDERS: PCP Nurse Practitioner Adult Health; Visit Provider Nurse Practitioner Adult Health
DX: R79.89 Other specified abnormal findings of blood chemistry (principal); I10 Essential (primary) hypertension; E66.01 Morbid (severe) obesity due to excess calories; Z68.43 Body mass index [BMI] 50.0-59.9, adult; E78.5 Hyperlipidemia, unspecified; Z12.5 Encounter for screening for malignant neoplasm of prostate
CPT/HCPCS: 36415; 80053; 80061; 82533; 83036; 84153; 84402; 84403; 84443; 85027; 85055; G0103

== ENCOUNTER 2025-03-01 10:14 | Outpatient (CLI) | payer OTHER, SELFPAY ==
--- OUTSIDE RECORDS SUMMARY | 2025-03-01 11:23 | XMS_ITS | Encounter Summary ---
Author Organization [facility] Address [address] [place] [address] Phone Care Team Providers Care Fixed Capital Clerk Name Role Phone Seamus Valdez MD Primary Care Provider [phone] Weston Escobar Primary Care Provider [phone] Al Britt MD Unavailable Vilma Jaffe APRN, CNP Unavailable [phone] Reason for Visit * Reason Comments Medication Refill Encounter Details Date Type Department Care Team (Late st Contact Info) Description 11/03/2020 Refill [facility] Admitting [address] [place] [address] Seamus Valdez MD [address] [place] [address] Medication Refill Social History Tobacco [...] 8:12 AM CST Please review and sign. SCREEN WORKER documented in this encounter Plan of Treatment Not on file documented as of this encounter Visit Diagnoses Not on filedocumented in this encounter Care Teams Fixed Capital Clerk Relationship Specialty Start Date End Date Seamus Valdez MD [address] [place] [address] PCP - General Internal Medicine 10/18/19 01/11/[address] [facility] [address] [place] [address] PCP - General Physician Tester Waste Disposal Leakage 01/12/21 Al Britt MD #2 [facility] [address] [place] [address] Consulting Physician Colon and Rectal Surgery 07/30/23 Vilma Jaffe APRN, ADULT PROTECTIVE CASEWORKER #2 [facility] [address] [place] [address] Nurse Practitioner Advanced Practice Nurse 08/25/24 documented as of this encounter
--- OUTSIDE RECORDS SUMMARY | 2025-03-01 11:23 | XMS_ITS | Clinical Summary ---
Author Organization [facility] Address [address] [place] [address] Phone Care Team Providers Care Facility Practice Specialist Name Role Phone SIERRA ACOSTA PA-C Primary Care Provider [phone] Reason for Visit and Chief Complaint The [...] Active Last Documented On 2 10:38AM ; [facility] Pain in the Right Hand Only 04/13/2022 OSIEL Corbett Active Last Documented On 2 1:11PM ; [facility] Plan of Treatment Left palm wound edges approximated no drainage noted area cleansed with alcohol swab 13 sutures removed. Wound care instructions given to patient. - Last Documented On 08/23/2015 6:11PM ; [facility] Assessments Includes: Assessments from this encounter Findings - Discharge diagnosis of PRIMARY CARE PROVIDER : DR DUONG - Last Documented On 08/23/2015 6:11PM ; [facility] Medical Equipment - Implanted Devices Includes: Current Devices No Medical Equipment Recorded Medications Includes: Medications discussed during this encounter and other current Medications Current Medications (continue as prescribed) Allopurinol 100 MG Oral Tablet 04/13/2022 Provider: Diagnosis: Last Documented On 04/13/2022 1:09PM By EMMANUELLE AQUINO LPN ; [facility] Medications Administered Includes: Administered Medications from this encounter No Administered Medications Recorded Vital Signs Includes: Vital Signs from this encounter Vital Name 08/23/2015 05:54P Blood Pressure Sitting R 134/82 BP Cuff Size Regular Pulse Rate-Sitting (bpm) 91 Pulse Rhythm Regular Respiration Rate (breaths/min) 20 Temp-Oral (F) 98.3 Oxygen Saturation (%) 96 Last Documented: On 08/23/2015 5:58PM ; [facility] Results Includes: Results discussed during this [...] 08/23/2015 Last Documented On 5 6:11PM ; [facility] Medical History Includes: Medical History addressed during this encounter Description Last Updated Pt does not get blood pressure checked a t other facility 08/23/2015 Last Documented On 5 6:11PM ; [facility] Family History Includes: Family [...] Time Diagnosis PROBLEM VISIT JORGE L PLATT CHILD WELFARE DIRECTOR-BC [facility] 08/23/20 15 5:42PM 6:08PM Discharge Diagnosis of Primary Care Provider Insurance Includes: Active Insurance Policies Plan Name Member ID Group # Subscriber Relationship Effect fermin Dates 1 - [facility] PLANS [id number] HARSHA READ Self Clinical Notes Includes: Clinical Notes from this encounter No Clinical Notes Recorded
--- OUTSIDE RECORDS SUMMARY | 2025-03-01 11:23 | XMS_ITS | Clinical Summary ---
Author Organization [facility] Address [address] [place] [address] Care Team Providers Care Fat Purification Worker Name Role Phone Shin Dali MUSTAPHA Primary Care Provider [phone] Allergies No known active allergies Medications montelukast [...] 11/26/2023 Assessment & Plan (11/26/2023 10:08 AM USED CAR MAKE READ[employer] MECHANIC): Given their past success the patient would [...] Department Care Team Description 01/04/2025 10:30 AM USED CAR [employer] MECHANIC Office Visit [facility] Sports Medicine and Primary Care at [address] [place] [address] Damien Canales DO Primary osteoarthritis of left knee (Primary Dx) 12/31/2024 3:36 PM USED CAR MAKE READY MECHANIC - 12/31/2024 4:38 PM USED CAR MAKE READY MECHANIC Emergency [facility] Emergency Department [address] [place] [address] Acute pain of left knee (Primary Dx) Discharge Disposition: Discharge to home or self care 12/15/2024 9:30 AM USED CAR MAKE READ[employer] MECHANIC Office Visit [facility] Sports Medicine and Primary Care at [address] [address] Damien Canales, DO Primary osteoarthritis of left knee (Primary Dx) 12/09/2024 6:13 PM USED CAR MAKE READY MECHANIC - 12/09/2024 7:10 PM USED CAR MAKE READY MECHANIC Emergency [facility] Emergency Department [address] [place] [address] Osteoarthritis of left knee, unspecified osteoarthritis type (Primary Dx) Discharge Disposition: Discharge to home or self care 12/01/2024 10:15 AM USED CAR MAKE READY MECHANIC Office Visit [facility] Sports Medicine and Primary Care at [address] [address] Damien Canales, Primary osteoarthritis of left knee [...] on file Legal Sex Male 12:24 AM USED CAR MAKE [employer] MECHANIC Gender Identity Not on file Sexual Orientation Not on file Obstetrics History Last Filed Vital Signs Vital Sign Reading Time Taken Comments Blood Pressure 139/81 01/04/2025 10:21 AM USED [employer] MECHANIC Pulse 99 01/04/2025 10:21 AM USED CAR MAKE [employer] MECHANIC Temperature 36.8 C (98.2 F) 12/31/2024 3:35 PM USED CAR MAKE [employer] MECHANIC Respiratory Rate 16 12/31/2024 3:35 PM USED CAR MAKE READY MECHANIC Oxygen Saturation 96% 12/31/2024 3:35 PM USED CAR MAKE READY MECHANIC Inhaled Oxygen Concentration - - Weight 191.9 kg (423 lb) 01/04/2025 10:21 AM USED CAR MAKE READ[employer] MECHANIC Height 180.3 cm (5' 11 ) 01/04/2025 10:21 AM USED CAR MAKE [employer] MECHANIC Body Mass Index 59 01/04/2025 10:21 AM USED CAR MAKE READY MECHANIC Plan of Treatment Health Maintenance Due Date [...] Procedure Name Priority Date/Time Associated Diagnosis Comments ME ARTHROCENTESIS ASPIR&/INJ MAJOR JT/BURSA W/O US Routine 01/04/2025 10:30 AM USED CAR [employer] MECHANIC Primary osteoarthritis of left knee XR KNEE LEFT 3 VIEWS ED 12/31/2024 3:53 PM USED CAR [employer] READ[employer] MECHANIC XR KNEE LEFT 3 VIEWS ED 12/09/2024 6:06 PM USED CAR MAKE READY MECHANIC from Last 3 Months Results * ME ARTHROCENTESIS ASPIR&/INJ MAJOR JT/BURSA W/O US (01/04/2025 10:30 AM USED CAR MAKE READY MECHANIC) Narrative Damien Canales DO - 01/04/2025 10:30 AM USED CAR MAKE READY MECHANIC Damien Canales DO 01/04/2025 11:15 AM Large [...] Knee Left 3 Views (12/31/2024 3:53 PM USED CAR MAKE READY MECHANIC) Anatomical Region Laterality Modality Lower Extremities, Knee Left Computed Radiography 12/31/2024 4:11 PM USED CAR MAKE READY MECHANIC Narrative 12/31/2024 4:14 PM USED CAR MAKE READY MECHANIC EXAM DESCRIPTION: XR KNEE LEFT 3 VIEWS [...] Urban Roman M.D. KN: TAMIR Report ID: [id number] Reading Location: [id number] Procedure Note Urban Roman MD - 12/31/2024 [...] signed by Urban GARNETT: TAMIR Report ID: [id number] Reading Location: [id number] Jessika AGUAYO IMJena XR PROCEDURES Final Result * XR Knee Left 3 Views (12/09/2024 6:06 PM USED CAR MAKE READY MECHANIC) Anatomical Region Laterality Modality Lower Extremities, Knee Left Computed Radiography 12/09/2024 6:09 PM USED CAR MAKE READY MECHANIC Narrative 12/09/2024 6:17 PM USED CAR MAKE READY MECHANIC EXAM DESCRIPTION: XR KNEE LEFT 3 VIEWS [...] Eric Virgen M.D. AT: AT Report ID: [id number] Reading Location: [id number] Procedure Note Eric Virgen MD - 12/09/2024 [...] Eric Virgen M.D. AT: AT Report ID: [id number] Reading Location: [id number] Aryan AGUAYO IMG XR PROCEDURES Final Resu lt from Last 3 Months Insurance [employer] [facility] Care Teams Fat Purification Worker Relationship Specialty Start Date End Date Dali Melissa NP [address] [place] [address] PCP - General Nurse Practitioner 12/31/24
--- OUTSIDE RECORDS SUMMARY | 2025-03-01 11:23 | XMS_ITS | Encounter Summary ---
Author Organization [facility] Address [address] [place] [address] Phone Care Team Providers Care Typing Section Chief Name Role Phone Seamus Valdez MD Primary Care Provider [phone] Weston Escobar Primary Care Provider [phone] Al Britt MD Unavailable Vilma Jaffe APRN, CNP Unavailable [phone] Reason for Visit * Reason Comments Medication Refill Encounter Details Date Type Department Care Team (Late st Contact Info) Description 11/28/2020 Refill [facility] Admitting [address] [place] [address] Seamus Valdez MD [address] [place] [address] Medication Refill Social History Tobacco [...] 7:43 AM CST Please review and sign. NEERING PSYCHOLOGIST documented in this encounter Plan of Treatment Not on file documented as of this encounter Visit Diagnoses Not on filedocumented in this encounter Care Teams Typing Section Chief Relationship Specialty Start Date End Date Seamus Valdez MD [address] [place] [address] PCP - General Internal Medicine 10/18/19 01/11/21 Weston Escobar PAC [address] [place] [address] PCP - General Physician Supervisor Locomotive 01/12/21 Al Britt MD #[address] [facility] [address] [place] [address] Consulting Physician Colon and Rectal Surgery 07/30/23 Vilma Jaffe APRN, ED TRANSPORTER #2 [facility] [address] [place] [address] Nurse Practitioner Advanced Practice Nurse 08/25/24 documented as of this encounter
--- OUTSIDE RECORDS SUMMARY | 2025-03-01 11:24 | XMS_ITS ---
Author Organization [facility] Address [address] [place] [address] Phone Care Team Providers Care Prosthetic Aide Name Role Phone SIERRA ACOSTA PA-C Primary Care Provider [phone] Problems Includes: Active, inactive, and resolved Problems All Visits Onset Date Resolved Date Provider Condition S tatus Ganglion Right Index Finger 05/07/2022 JULES MCNEAL DO Active Last Documented On 2 10:38AM ; [facility] Pain in the Right Hand Only 04/13/2022 OSIEL Corbett Active Last Documented On 2 1:11PM ; [facility] Plan of Treatment Findings Encounter Date [...] 05/07/2022 Last Documented On 2 10:39AM ; [facility] I feel like this is more [...] 04/13/2022 Last Documented On 2 1:17PM ; [facility] Instructions to patient No reduced physical activity -release to full activities Last Documented On 2 10:34AM ; [facility] Intervention and counseling on cessation of tobacco use Last Documented On 2 10:08AM ; [facility] Education and Decision Aids were provided during visit for: Patient education about orth opedic activities Last Documented On 2 10:34AM ; [facility] Assessments Includes: Assessments for all patient encounters Findings Encounter Date Ganglion FOLLOW UP with JULES MCNEAL DO 0 05/07/2022 Last Documented On 2 10:39AM ; [facility] Ganglion of the flexor sheat h of the right index finger FOLLOW UP with JULES MCNEAL DO 05/07/2022 Last Documented On 2 10:39AM ; [facility] Ganglion of the hand FOLLOW UP with JULES MCNEAL DO 05/07/2022 Last Documented On 2 10:39AM ; [facility] Ganglion of the right hand FOLLOW UP with JULES MCNEAL DO 05/07/2022 Last Documented On 2 10:39AM ; [facility] Assessment of right hand pain ORTHO NEW PATIENT with OSIEL Corbett 04/13/2022 Last Documented On 2 1:17PM ; [facility] Discharge diagnosis of PRIMA RY CARE PROVIDER : DR DUONG PROBLEM VISIT with JORGE L PLATT JURY CONSULTANT-SUSU 08/23/2015 Last Documented On 5 6:11PM ; [facility] Instructions Includes: Instructions for all patient encounters Instructions to patient No reduced physical activity -release to full activities Last Documented On 2 10:34AM ; [facility] Intervention and counseling on cessation of tobacco use Last Documented On 2 10:08AM ; [facility] Education and Decision Aids were provided during visit for: Patient education about orth opedic activities Last Documented On 2 10:34AM ; [facility] Medical Equipment - Implanted Devices Includes: Current and historical Devices No Medical Equipment Recorded Medications Includes: Current and historical Medications Current Medications (continue as prescribed) Allopurinol 100 MG Oral Tablet 04/13/2022 Provider: Diagnosis: Last Documented On 04/13/2022 1:09PM By EMMANUELLE AQUINO LPN ; [facility] Medications Administered Includes: Administered Medications in patient's chart No Administered Medications Recorded Results Includes: Results from 03/01/2024 through 03/01/2025 No Results Recorded For Specified Dates History of Present Illness History of Present Illness not supported for this document type No History of Present Illness Recorded Social History Description Last Updated Social history unchanged 05/07/2022 Last Documented On 2 10:39AM ; [facility] Tobacco non-user 04/13/2022 Last Documented On 2 1:17PM ; [facility] Smoking status : Never smoker 08/23/2015 Last Documented On 5 6:11PM ; [facility] Medical History Includes: Medical History in patient's chart Description Last Updated Pt does not get blood pressure checked a t other facility 08/23/2015 Last Documented On 5 6:11PM ; [facility] Family History Includes: Family History in [...] Subscriber Relationship Effect fermin Dates 1 - [facility] [id number] HARSHA Romero Clinical Notes Includes: Signed Clinical Notes starting from 12/07/2022 No Clinical Notes Recorded
--- OUTSIDE RECORDS SUMMARY | 2025-03-01 11:24 | XMS_ITS | Data Portability ---
[facility] [address] [place] [address] Care Team Providers Care Cellulose Insulation Helper Name Role Phone SIERRA ESCOBAR Primary Care Provider [phone] Assessment No assessment recorded. Plan of Treatment Reminders Order Date Submit Date Provider Last Modified By Organization Details Last Modified Time Details Appointments None recorded. Lab CBC 2023 [facility], [address] [place] [address] 2, [place], [address], 06:23:19 CMP, serum or plasma 2023 [facility], [address] [place] [address] 2, [place], [address], 06:23:18 lipid panel, serum 2023 [facility], [address] [place] [address] 2, [place], [address], 06:23:16 influenza virus A + B + SARS-CoV-2 (COVID19) Ag panel, rapid IA, upper respiratory specimen 2023 rose In-Office Order, Internal Use Only DO Not Attach Compendium DO Not Attach Compendium, Do Not Delete/merge, 132[address] 12:45:43 Referral None recorded. Procedures None recorded. Surgeries None recorded. Imaging None recorded. Medication Orders lisinopril 20 mg tablet 2023 [facility], [address] [place], [address], 15:55:42 albuterol sulfate HFA 90 mcg/actuati on aerosol inhaler 2023 [facility], [address] [place] [address], [address], 11:11:05 Tessalon Perles [address] [facility], [address] [place] [address], [address], 15:28:26 azithromyci n 500 mg tablet 2023 [facility], [address] [place] [address], [address], 11:33:04 cyclobenzap rine 10 mg tablet 2023 024 [facility], [address] [place] [address], [address], 16:49:51 Patient TargetsNo targets recorded. Patient Instructions Encounter Date Encounter Id Patient Instructions Last Modified By Organization Details Last Modified Time 05/11/2024 [id number] A healthy lifestyle: care instructions jnanney Not available 05/11/2024 16:49:45 05/27/2024 [id number] cough: care instructions jnanney Not available 05/27/2024 12:45:43 A healthy lifestyle: care instructions jnanney Not available 05/27/2024 12:23:47 06/11/2024 [id number] Plan of care has been discussed with patient including expected therapeutic benefits and potential side effects of prescribed medication and treatments. Patient verbalizes understanding and is in agreement with the plan of care. Patient was instructed to keep all scheduled appointments and contact the clinic for any additional problems. Not available 06/12/2024 16:49:58 07/02/2024 [id number] A healthy lifestyle: care instructions jnanney Not available 07/02/2024 11:10:59 08/19/2024 [id number] influenza (flu) vaccine: care instructions jnanney Not [...] DO Not Attach Compendium, Do Not Delete/merge, [id number] 05/27/2024 12:01:13 05/27/20 24 05/27/2024 influ alexis virus A + B + SARS- CoV-2 (COVI D19) Ag panel , rapid IA, upper respi rator y speci men Flu B negati ve Not Available In-Office Order Internal Use Only DO Not Attach Compendium DO Not Attach Compendium, Do Not Delete/merge, [id number] 05/27/2024 12:01:13 05/27/20 24 05/27/2024 influ alexis virus A + B + SARS- CoV-2 (COVI D19) Ag panel , rapid IA, upper respi rator y speci men Rapid SARS CoV 2 Ag, QL IA, respiratory specimen negati ve Not Available In-Office Order Internal Use Only DO Not Attach Compendium DO Not Attach Compendium, Do Not Delete/merge, [id number] 05/27/2024 12:01:13 08/19/20 24 08/19/2024 LIPID PANEL cholesterol, total 262 mg/dL 100-19 9 above high normal Not Available [address], [address], 08/20/2024 06:23:16 08/19/20 24 08/19/2024 LIPID PANEL triglyceride s 356 mg/dL 0-149 above high normal Not Available [address], [address], 08/20/2024 06:23:16 08/19/20 24 08/19/2024 LIPID PANEL HDL cholesterol 41 mg/dL 40-999 Not Available [address], [address], 08/20/2024 06:23:16 08/19/20 24 08/19/2024 LIPID PANEL VLDL cholesterol heather 71 mg/dL 5-40 above high normal Not Available [address], [address], 08/20/2024 06:23:16 08/19/2008/19/2024 LIPID PANEL LDL chol calc ([facility]) 196 mg/dL 0-99 above high normal Not Available [address], [address], 08/20/2024 06:23:16 08/19/20 24 08/19/2024 COMP. METAB OLIC PANEL (14) glucose 83 mg/dL 70-99 Not Available [address], [address], 08/20/2024 06:23:18 08/19/20 24 08/19/2024 COMP. METAB OLIC PANEL (14) BUN 12 mg/dL 6-20 Not Available [address], [address], 08/20/2024 06:23:18 08/19/20 24 08/19/2024 COMP. METAB OLIC PANEL (14) creatinine 0.87 mg/dL 0.76-1 .27 Not Available [address], [address], 08/20/2024 06:23:18 08/19/20 24 08/19/2024 COMP. METAB OLIC PANEL (14) eGFR 115 >=60 Units for eGFR value s are mL/mi n/1.7 3 The eGFR Calcu latio n has not been valid ated for patie nts under the age of 18. If test resul ts are displ ayed for a patie nt under the age of 18, disre carlos that value . Not Available [address], [address], 08/20/2024 06:23:18 08/19/20 24 08/19/2024 COMP. METAB OLIC PANEL (14) BUN/creatini ne ratio 13 9-20 Not Available [address], [address], 08/20/2024 06:23:18 08/19/20 24 08/19/2024 COMP. METAB OLIC PANEL (14) sodium 141 mmol/ L 134-14 4 Not Available [address], [address], 08/20/2024 06:23:18 08/19/20 24 08/19/2024 COMP. METAB OLIC PANEL (14) potassium 4.4 mmol/ L 3.5-5. 2 Not Available [address], [address], 08/20/2024 06:23:18 08/19/20 24 08/19/2024 COMP. METAB OLIC PANEL (14) chloride 102 mmol/ L 96-106 Not Available [address], [address], 08/20/2024 06:23:18 08/19/20 24 08/19/2024 COMP. METAB OLIC PANEL (14) carbon dioxide, total 27 mmol/ L 20-29 Not Available [address], [address], 08/20/2024 06:23:18 08/19/20 24 08/19/2024 COMP. METAB OLIC PANEL (14) calcium 9.7 mg/dL 8.7-10 .2 Not Available [address], [address], 08/20/2024 06:23:18 08/19/20 24 08/19/2024 COMP. METAB OLIC PANEL (14) protein, total 7.0 g/dL 6.0-8. 5 Not Available [address], [address], 08/20/2024 06:23:18 08/19/20 24 08/19/2024 COMP. METAB OLIC PANEL (14) albumin 4.4 g/dL 4.1-5. 1 Not Available [address], [address], 08/20/2024 06:23:18 08/19/20 24 08/19/2024 COMP. METAB OLIC PANEL (14) globulin, total 2.6 g/dL 1.5-4. 5 Not Available [address], [address], 08/20/2024 06:23:18 08/19/20 24 08/19/2024 COMP. METAB OLIC PANEL (14) A/G ratio 2.0 1.2-2. 2 Not Available [address], [address], 08/20/2024 06:23:18 08/19/20 24 08/19/2024 COMP. METAB OLIC PANEL (14) bilirubin, total 0.3 mg/dL 0.0-1. 2 Not Available [address], [address], 08/20/2024 06:23:18 08/19/20 24 08/19/2024 COMP. METAB OLIC PANEL (14) alkaline phosphatase 55 IU/L 44-121 Not Available [address], [address], 08/20/2024 06:23:18 08/19/20 24 08/19/2024 COMP. METAB OLIC PANEL (14) AST (SGOT) 20 IU/L 0-40 Not Available [address], [address], 08/20/2024 06:23:18 08/19/20 24 08/19/2024 COMP. METAB OLIC PANEL (14) ALT (SGPT) 29 IU/L 0-44 Not Available [address], [address], 08/20/2024 06:23:18 08/19/20 24 08/19/2024 CARDI OVASC [...] repor t is avail able. Not Available [address], [address], 08/20/2024 06:23:19 08/19/2008/19/2024 CARDI OVASC ULAR REPOR T pdf . Not Available [facility] & [address], [address], 08/20/2024 06:23:19 08/19/20 24 08/19/2024 CBC, PLATE LET, NO DIFFE RENTI AL WBC 6.7 x10e3 /uL 3.4-10 .8 Not Available [address], [address], 08/20/2024 06:23:19 08/19/2008/19/2024 CBC, PLATE LET, NO DIFFE RENTI AL RBC 5.14 x10e6 /uL 4.14-5 .80 Not Available [address], [address], 08/20/2024 06:23:19 08/19/2008/19/2024 CBC, PLATE LET, NO DIFFE RENTI AL hemoglobin 16.0 g/dL 13.0-1 7.7 Not Available [address], [address], 08/20/2024 06:23:19 08/19/2008/19/2024 CBC, PLATE LET, NO DIFFE RENTI AL hematocrit 46.6 % 37.5-5 1.0 Not Available [address], [address], 08/20/2024 06:23:19 08/19/2008/19/2024 CBC, PLATE LET, NO DIFFE RENTI AL MCV 91 fL 79-97 Not Available [address], [address], 08/20/2024 06:23:19 08/19/2008/19/2024 CBC, PLATE LET, NO DIFFE RENTI AL MCH 31.1 pg 26.6-3 3.0 Not Available [address], [address], 08/20/2024 06:23:19 08/19/2008/19/2024 CBC, PLATE LET, NO DIFFE RENTI AL MCHC 34.3 g/dL 31.5-3 5.7 Not Available [address], [address], 08/20/2024 06:23:19 08/19/2008/19/2024 CBC, PLATE LET, NO DIFFE RENTI AL RDW 12.1 % 11.5-1 4.5 Not Available [address], [address], 08/20/2024 06:23:19 08/19/20 24 08/19/2024 CBC, PLATE LET, NO DIFFE RENTI AL platelets 209 x10e3 /uL 150-45 0 Mean Plate let Volum e 9.5 fL 8.9-1 2.7 N Not Available [address], [address], 08/20/2024 06:23:19 08/19/2008/19/2024 CBC, PLATE LET, NO DIFFE RENTI AL NRBC 0 % 0-0 Not Available [address], [address], 08/20/2024 06:23:19 Result Notes None recorded. Problems [...] by mouth once daily for 90 days active Not Available Not Available No t [...] Updated DateTime 4 177.8 cm 60.7 kg/m2 823330. 85 g 96 % 96 % 78 /min 16 /min 146 mm[Hg] 84 mm[Hg] Mary Bolden MA [facility] 4 16:37:04 Date Recorded Body height Body mass index (BMI) Body weight Oxygen saturation Oxygen saturation in Arterial blood by Pulse oximetry Heart rate Systolic blood pressure Diastolic blood pressure Provider Name and Address Organization Details Last Updated DateTime 4 177.8 cm 60 kg/m2 363351. 01 g 94 % 94 % 98 /min 132 mm[Hg] 84 mm[Hg] Zaynab Rosario MA [facility] 4 12:02:50 Date Recorded Body height Body mass index (BMI) Body weight Heart rate Oxygen saturation Oxygen saturation in Arterial blood by Pulse oximetry Systolic blood pressure Diastolic blood pressure Provider Name and Address Organization Details Last Updated DateTime 4 177.8 cm 60.4 kg/m2 592943. 39 g 86 /min 96 % 96 % 143 mm[Hg] 93 mm[Hg] Aliza Flores MA [facility] 4 11:32:28 Date Recorded Body height Body mass index (BMI) Body weight Oxygen saturation Oxygen saturation in Arterial blood by Pulse oximetry Heart rate Respiratory rate Body temperature Systolic blood pressure Diastolic blood pressure Provider Name and Address Organization Details Last Updated DateTime 4 177.8 cm 60.9 kg/m2 223821. 32 g 98 % 98 % 89 /min 16 /min 98.7 [degF] 132 mm[Hg] 86 mm[Hg] Mary Bolden MA [facility] 4 11:00:33 Date Recorded Body height Body mass index (BMI) Body weight Oxygen saturation Oxygen saturation in Arterial blood by Pulse oximetry Heart rate Systolic blood pressure Diastolic blood pressure Provider Name and Address Organization Details Last Updated DateTime 4 177.8 cm 60.8 kg/m2 662482. 16 g 100 % 100 % 99 /min 137 mm[Hg] 90 mm[Hg] Zaynab Rosario MA [place] - [facility] 15:31:04 Social History Question Answer [...] Anxious, Or Unable To Sleep At Night)? [id number] Information not available 01/12/2021 Do You Use [...] Response Coronary Artery Disease N Other N High Blood Pressure N Atrial Fibrillation N Thyroid Problems N Kidney or Bladder Problems N GI Problems N Depression N COPD N Blood Clots N Skin Problems N Eating Disorder N Anemia N Heart Attack ([place]) N Anxiety Disorder N Diabetes N Muscle, [...] 11:12:51 IPV 1988 [place], [place] - [place] 11/26/2023 11:12:51 IPV 1988 completed Aliza Flores [...] completed Sierra Escobar PA-C Attn: [address] [place], [address], [place] - [place] 08/19/2024 15:50:51 Past Encounters Encounter ID Performer Location Encounter Start Date Encounter Closed Date Diagnosis/Indication Diagnosis SNOMED-CT Code Diagnosis ICD10 Code Diagnosis Note [id number] CAMI Garcia [address] [place] [address] 01/12/2021 09:48:03 01/13/2021 07:25:41 Chronic gouty arthritis 76072165 M1A.0610 Obesity 539025441 E66.8 [id number] Sierra Escobar PA-C [facility] [address] [place] [address] 04/13/2021 10:19:52 04/13/2021 11:43:13 Lumbar radiculopathy 804998610 M54.16 Morbid obesity 601125426 E66.01 [id number] CLARISSE Jackson [address] [facility] [address] 04/19/2021 12:37:45 04/22/2021 13:14:58 Administration of SARS-CoV-2 antigen vaccine 002123885 Z23 [id number] CAMI Garcia [address] [place] [address] 04/25/2021 10:06:30 04/25/2021 15:33:49 Acute maxillary sinusitis 81422838 J01.01 [id number] MONY Chery [address] [place] [address] 12/12/2021 10:50:53 12/12/2021 11:26:30 Administration of SARS-CoV-2 mRNA vaccine 4461437279 Z23 [id number] Sierra Escobar PA-C [facility] [address] [place] [address] 02/12/2022 11:06:56 02/12/2022 11:45:40 Gout 34166438 M10.062 Body mass index 40+ - severely obese 959553486 Z68.43 [id number] Sierra Escobar PA-C [facility] [address] [place] [address] 04/04/2022 14:51:45 04/04/2022 15:27:40 Ganglion cyst of right hand 5222840987 65922 M67.850 [id number] Sierra Escobar PA-C [facility] [address] [place] [address] 06/05/2022 18:23:54 06/05/2022 19:00:54 Persistent cough 992164774 R05.3 Overweight 918430483 E66 .3 [id number] Sierra Escobar PA-C [facility] [address] [place] [address] 10/09/2022 18:15:17 10/10/2022 12:44:46 Body mass index 40+ - severely obese 168406974 Z68.43 [id number] Sierra Escobar PA-C [facility] [address] [place] [address] 11/23/2022 10:45:49 11/23/2022 11:22:12 Acute bronchitis with bronchospasm 00681554 J20.8 [id number] Sierra Escobar PA-C [facility] [address] [place] [address] 01/09/2023 10:23:34 01/09/2023 11:46:27 Obesity 228982983 E66.8 has lost 10 pounds on his own already Acute bron chitis with bronchospasm 37388575 J20.8 [id number] [facility] [address] [place] [address] 01/28/2023 14:29:31 01/30/2023 11:24:08 Spasm of muscle of lower back 9867201092 0940832 M62.371 [id number] iSerra Escobar PA-C [facility] [address] [place] [address] 02/08/2023 16:28:02 02/11/2023 15:27:16 Morbid obesity 093718255 E66.01 Mixed hyperlipidemia 267 101311 E78.2 [id number] Sierra Escobar PA-C [facility] [address] [place] [address] 03/12/2023 17:32:35 03/14/2023 16:23:40 Cervical radiculopathy 91661905 M54.12 Strain of left trapezius muscle 2303751818 5267113 S29.012A Seasonal a llergic rhinitis 576016194 J30.2 Gout 56973303 M10.062 Overweight 988199251 E66 .3 [id number] Sierra Escobar PA-C [facility] [address] [place] [address] 04/23/2023 15:02:35 04/24/2023 08:35:37 Edema of lower extremity 043417160 R60.0 [id number] Sierra Escobar PA-C [facility] [address] [place] [address] 05/29/2023 14:35:01 05/30/2023 09:16:28 Daytime somnolence 3117261252 00 R40.0 Overweight 475230018 E66 .3 Fatigue 42710821 R53.83 [id number] Sierra Escobar PA-C [facility] [address] [place] [address] 06/26/2023 14:59:35 07/02/2023 09:38:38 Pain of left knee joint 3331179424 74172 M25.758 [id number] Sierra Escobar PA-C [facility] [address] [place] [address] 07/24/2023 16:21:20 07/30/2023 14:48:34 Viral syndrome 451832023 B34.9 Upper resp iratory infection 03257302 J00 [id number] Sierra Escobar PA-C [facility] [address] [place] [address] 09/12/2023 10:54:26 09/16/2023 15:45:19 Pain of bilateral knee joints 4634822809 71356 M25.562 Pain of le ft knee joint 3263155398 97085 M25.562 Morbid obesity 883551373 E66.01 Administra tion of influenza vaccine 67641906 Z23 [id number] Sierra Escobar PA-C [facility] [address] [place] [address] 11/01/2023 11:27:50 11/06/2023 09:20:08 Overweight 179534758 E66.3 Severe obesity 034025834 1 9104 E66.01 [id number] Zaynab Rosario MA [facility] [address] [place] [address] 02/14/2024 16:26:40 02/18/2024 09:34:56 Pain of right ankle joint 2463557991 1982307 M25.571 Morbid obesity 053334700 E66.01 Overweight 764508228 E66 .3 [id number] Sierra Escobar PA-C 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 [address] [place] [address] 05/11/2024 16:29:42 05/14/2024 19:32:50 Strain of left trapezius muscle 6321615216 1660315 S29.012A Morbid obesity 368939650 E66.01 [id number] iSerra Escobar PA-C [facility] [address] [place] [address] 05/27/2024 11:38:01 06/01/2024 19:39:28 Cough 49418803 R05.9 Upper resp iratory infection 38257504 J00 Acute bron chitis with bronchospasm 17172277 J20.8 Morbid obesity 885106830 E66.01 [id number] BECKI GRIDER-SUSU [facility] [address] [place] [address] 06/11/2024 11:26:08 06/15/2024 06:58:14 Cough 88727499 R05.9 -Lung sounds clear on exam.-Toya ent agreeable to treatment with tessalon perles TID PRN.-RUBBER ROLLER GRINDER advised patient to follow up with PCP for annual labwork. [id number] Sierra Escobar PA-C [facility] [address] [place] [address] 07/02/2024 10:51:29 07/06/2024 15:49:43 Unexplained chronic cough 2814641543 R05.3 otc zyrtec Overweight 198193136 E66 .3 [id number] Sierra Escobar PA-C [facility] [address] [place] [address] 08/19/2024 15:13:03 08/20/2024 14:13:07 Administration of influenza vaccine 88728547 Z23 Mixed hyperlipidemia 267 791454 E78.2 Essential hypertension 98973341 I10 Morbid obesity 088486184 E66.01 Health Concerns Section Related Observation LastModified by Organization Detai ls LastModified Time None Recorded Concern Status LastModified by Organization Details LastModified Time None Recorded Advance Directives Directive N: Payers Encounter Date Sequence Insurance Name Policy Number Policy Villarreal Covered Member ID Villarreal Member ID Guarantor Name 05/11/2024 1 [facility] ON OR AFTER 05/18/21 (MEDICAID REPLACEMENT - HMO) Christiano Galvan [id number] Christiano Galvan 05/27/2024 1 [facility] - [facility] ON OR AFTER 21 (MEDICAID REPLACEMENT - HMO) Christiano Galvan [id number] Christiano Galvan 06/11/2024 1 [facility] - DOS ON OR AFTER 21 (MEDICAID REPLACEMENT - HMO) Christiano Galvan [id number] Christiano Galvan 07/02/2024 1 [facility] ON OR AFTER 05/18/21 (MEDICAID REPLACEMENT - HMO) Christiano Galvan [id number] Christiano Galvan 08/19/2024 1 [facility] ON OR AFTER 05/18/21 (MEDICAID REPLACEMENT - HMO) Christiano Galvan [id number] Christiano Galvan Notes Date Note Type Note Provider Name and Address Organization Details Recorded Time 05/11/2024 text/html lft neck and tra ps painful as if strained...no known injury.. Sierra sEcobar PA-C Attn: [address] [facility], [place], [address], [facility] - [place] 05/11/2024 16:50:12 05/27/2024 text/html coughing and tired...uri symptoms all since saturday Sierra Escobar PA-C Attn: [address] [place], [address], [place] 05/27/2024 12:23:55 06/11/2024 text/html [...] have resolved. JULIA GRIDER Attn: [address] [facility], [place], [address], [place] 06/12/2024 16:54:25 07/02/2024 text/html wants a referral to an ENT because he doesnt know why...somebody said...coughing persists Sierra Escobar PA-C Attn: [address] [place], [address], [place] 07/02/2024 11:11:45 08/19/2024 text/html no complaints annual check up Sierra Escobar PA-C Attn: [address] [facility], [place], [address], [facility] - SI 08/19/2024 15:56:43
--- OUTSIDE RECORDS SUMMARY | 2025-03-01 11:24 | XMS_ITS | Clinical Summary ---
Author Organization [facility] Address [address] [place] [address] Phone Care Team Providers Care Military Science Instructor Name Role Phone SIERRA ACOSTA PA-C Primary Care Provider [phone] Reason for Visit and Chief Complaint REFERRAL Problems Includes: Problems addressed during this encounter and other active Problems All Visits Onset Date Resolved Date Provider Condition S tatus Ganglion Right Index Finger 05/07/2022 JULES AZEVEDO DO Active Last Documented On 2 10:38AM ; [facility] Pain in the Right Hand Only 04/13/2022 OSIEL Corbett Active Last Documented On 2 1:11PM ; [facility] Plan of Treatment No Plan of Treatment Recorded Assessments Includes: Assessments from this encounter No Assessments Recorded Medical Equipment - Implanted Devices Includes: Current Devices No Medical Equipment Recorded Medications Includes: Medications discussed during this encounter and other current Medications Current Medications (continue as prescribed) Allopurinol 100 MG Oral Tablet 04/13/2022 Provider: Diagnosis: Last Documented On 04/13/2022 1:09PM By EMMANUELLE AQUINO LPN ; [facility] Medications Administered Includes: Administered Medications from this encounter No Administered Medications Recorded Results Includes: Results discussed during this encounter No Results Recorded For Specified Dates History of Present Illness Includes: History of Present Illness from this encounter No History of Present Illness Recorded Social History Description Last Updated Tobacco non-user 04/13/2022 Last Documented On 2 8:51AM ; [facility] Smoking status : Never smoker 08/23/2015 Last Documented On 2 8:51AM ; [facility] Medical History Includes: Medical History addressed during this encounter Description Last Updated Pt does not get blood pressure checked a t other facility 08/23/2015 Last Documented On 8:51AM ; [facility] Family History Includes: Family History [...] Member ID Group # Subscriber Relationship Effect efrmin Dates 1 - [facility] PLANS [id number] HARSHA READ Self Clinical Notes Includes: Clinical Notes from this encounter No Clinical Notes Recorded
--- OUTSIDE RECORDS SUMMARY | 2025-03-01 11:24 | XMS_ITS | Referral Summary ---
Author Organization [facility] Address [facility] [place] [address] Care Team Providers Care Track Laying Equipment Operator Name Role Phone Shin Dali MUSTAPHA Primary Care Provider [phone] Encounters Date Type Department Care Team Description 01/04/2025 10:30 AM INDUCTION FURNACE OPERATOR Office Visit [facility] Medical Group Sports Medicine and Primary Care at [address] [address] Damien Canales DO Primary osteoarthritis of left knee (Primary Dx) 12/31/2024 3:36 PM INDUCTION FURNACE OPERATOR - 12/31/2024 4:38 PM [facility] Emergency [facility] [address] [place] [address] Acute pain of left knee (Primary Dx) Discharge Disposition: Discharge to home or self care 12/15/2024 9:30 AM INDUCTION FURNACE OPERATOR Office Visit [facility] Medical [facility] Sports Medicine and Primary Care at [address] [address] Damien Canales DO Primary osteoarthritis of left knee (Primary Dx) 12/09/2024 6:13 PM INDUCTION FURNACE OPERATOR - 12/09/2024 7:10 PM INDUCTION FURNACE OPERATOR Emergency [facility] [address] [place] [address] Osteoarthritis of left knee, unspecified osteoarthritis type (Primary Dx) Discharge Disposition: Discharge to home or self care 12/01/2024 10:15 AM INDUCTION FURNACE OPERATOR Office Visit [facility] Medical Group Sports Medicine and Primary Care at [address] [address] Damien Canales DO Primary osteoarthritis of left [...] 11/26/2023 Assessment & Plan (11/26/2023 10:08 AM INDUCTION FURNACE OPERATOR): Given their past success the patient would [...] on file Legal Sex Male 12:24 AM INDUCTION FURNACE OPERATOR Gender Identity Not on file Sexual Orientation Not on file Last Filed Vital Signs Vital Sign Reading Time Taken Comments Blood Pressure 139/81 01/04/2025 10:21 AM INDUCTION FURNACE OPERATOR Pulse 99 01/04/2025 10:21 AM INDUCTION FURNACE OPERATOR Temperature 36.8 C (98.2 F) 12/31/2024 3:35 PM INDUCTION FURNACE OPERATOR Respiratory Rate 16 12/31/2024 3:35 PM INDUCTION FURNACE OPERATOR Oxygen Saturation 96% 12/31/2024 3:35 PM INDUCTION FURNACE OPERATOR Inhaled Oxygen Concentration - - Weight 191.9 kg (423 lb) 01/04/2025 10:21 AM INDUCTION FURNACE OPERATOR Height 180.3 cm (5' 11 ) 01/04/2025 10:21 AM INDUCTION FURNACE OPERATOR Body Mass Index 59 01/04/2025 10:21 AM INDUCTION FURNACE OPERATOR Plan of Treatment Not on file Procedures Procedure Name Priority Date/Time Associated Diagnosis Comments MD ARTHROCENTESIS ASPIR&/INJ MAJOR JT/BURSA W/O US Routine 01/04/2025 10:30 AM INDUCTION FURNACE OPERATOR Primary osteoarthritis of left knee XR KNEE LEFT 3 VIEWS ED 12/31/2024 3:53 PM INDUCTION FURNACE OPERATOR XR KNEE LEFT 3 VIEWS ED 12/09/2024 6:06 PM INDUCTION FURNACE OPERATOR from Last 3 Months Results * MD ARTHROCENTESIS ASPIR&/INJ MAJOR JT/BURSA W/O US (01/04/2025 10:30 AM INDUCTION FURNACE OPERATOR) Narrative Damien Canales DO - 01/04/2025 10:30 AM INDUCTION FURNACE OPERATOR Damien Canales DO 01/04/2025 11:15 AM Large [...] Knee Left 3 Views (12/31/2024 3:53 PM INDUCTION FURNACE OPERATOR) Anatomical Region Laterality Modality Lower Extremities, Knee Left Computed Radiography 12/31/2024 4:11 PM INDUCTION FURNACE OPERATOR Narrative 12/31/2024 4:14 PM INDUCTION FURNACE OPERATOR EXAM DESCRIPTION: XR KNEE LEFT 3 VIEWS [...] Urban Roman M.D. KN: TAMIR Report ID: [id number] Reading Location: [id number] Procedure Note Urban Roman MD - 12/31/2024 [...] Urbanjosue Roman M.D. KN: KN Report ID: [id number] Reading Location: [id number] Jessika Warren DEDE IMG XR PROCEDURES Final Result * XR Knee Left 3 Views (12/09/2024 6:06 PM INDUCTION FURNACE OPERATOR) Anatomical Region Laterality Modality Lower Extremities, Knee Left Computed Radiography 12/09/2024 6:09 PM INDUCTION FURNACE OPERATOR Narrative 12/09/2024 6:17 PM INDUCTION FURNACE OPERATOR EXAM DESCRIPTION: XR KNEE LEFT 3 VIEWS [...] Eric Virgen M.D. AT: AT Report ID: [id number] Reading Location: [id number] Procedure Note Eric Virgen MD - 12/09/2024 [...] Eric Virgen M.D. AT: AT Report ID: [id number] Reading Location: [place] [address] Aryan AGUAYO IMG XR PROCEDURES Final Resu lt from Last 3 Months Insurance [facility] DEDE [place] [id number] [facility] Care Teams Track Laying Equipment Operator Relationship Specialty Start Date End Date Dali Melissa NP [address] [place] [address] PCP - General Nurse Practitioner 12/31/24
--- OUTSIDE RECORDS SUMMARY | 2025-03-01 11:24 | XMS_ITS | Clinical Summary ---
Author Organization [facility] [employer] Address [address] [place] [address] Care Team Providers Care Customer Pricing Manager Name Role Phone Unavailable Primary Care Provider Unavailabl e Source Comments [facility] [employer],non-owned Affiliates and Associated Physician Practices is amultiple site organization consisting of ambulatory clinics and hospital sitesin [place], [place], [place] and [place]. This disclosure is being madepursuant to the Care Everywhere program and may not contain all information available regarding this patient. Last updated 18.Strap Allergies No known active allergies Medications * Be aware that medications may not be up to date on this document. Alwaysverify current medications with the patient. albuterol HFA (VENTOLIN HFA) 108 (90 BASE) [...] at Not on file Legal Sex Male 4:28 PM TRANSPLANT NURSE Gender Identity Not on file Sexual Orientation Not on file Last Filed Vital Signs Vital Sign Reading Time Taken Comments Blood Pressure 134/80 11/04/2017 8:02 AM TRANSPLANT NURSE Pulse 72 11/04/2017 8:02 AM TRANSPLANT NURSE Temperature 36.9 C (98.4 F) 11/04/2017 8:02 AM TRANSPLANT NURSE Respiratory Rate 17 11/04/2017 8:02 AM TRANSPLANT NURSE Oxygen Saturation 97% 11/04/2017 8:02 AM TRANSPLANT NURSE Inhaled Oxygen Concentration - - Weight 163.3 kg (360 lb) 11/04/2017 8:02 AM TRANSPLANT NURSE Height 182.9 cm (6') 11/04/2017 8:02 AM TRANSPLANT NURSE Body Mass Index 48.82 11/04/2017 8:02 AM TRANSPLANT NURSE Plan of Treatment Health Maintenance Due Date [...] patient's age to complete this topic Insurance [employer] [address] [id number]
--- OUTSIDE RECORDS SUMMARY | 2025-03-01 11:24 | XMS_ITS | Clinical Summary ---
Author Organization [facility] Address [address] [place] [address] Phone Care Team Providers Care Corrective Therapy Aide Name Role Phone SIERRA ACOSTA PA-C Primary Care Provider [phone] Reason for Visit and Chief Complaint Harsha [...] FOR 6 WKS, TENDERNESS AND UNABLE TO MASTER OCEAN OR PULL Problems Includes: Problems addressed during this encounter and other active Problems Current Visit Onset Date Resolved Date Provider Pashao n Status Ganglion Right Index Finger 05/07/2022 JULES AZEVDEO DO Active Last Documented On 2 10:38AM ; [facility] Past Visits Onset Date Resolved Date Provider Condition Status Pain in the Right Hand Only 04/13/2022 OSIEL Corbett Active Last Documented On 2 1:11PM ; [facility] Plan of Treatment I had a [...] - Last Documented On 05/07/2022 10:39AM ; [facility] Instructions to patient No reduced physical activity -release to full activities Last Documented On 10:34AM ; [facility] Intervention and counseling on cessation of tobacco use Last Documented On 10:08AM ; [facility] Education and Decision Aids were provided during visit for: Patient education about orth opedic activities Last Documented On 10:34AM ; [facility] Assessments Includes: Assessments from this encounter Findings - Ganglion - Last Documented On 05/07/2022 10:39AM ; [facility] - Ganglion of the hand - Last Documented On 05/07/2022 10:39AM ; [facility] - [M67.441 - Ganglion, right hand] Ganglion of the right hand - Last Documented On 05/07/2022 10:39AM ; [facility] - [M67.441 - Ganglion, right hand] Ganglion of the flexor sheath of the right index finger - Last Documented On 05/07/2022 10:39AM ; [facility] Instructions Includes: Instructions from this encounter Instructions to patient No reduced physical activity -release to full activities Last Documented On 10:34AM ; [facility] Intervention and counseling on cessation of tobacco use Last Documented On 10:08AM ; [facility] Education and Decision Aids were provided during visit for: Patient education about orth opedic activities Last Documented On 10:34AM ; [facility] Medical Equipment - Implanted Devices Includes: Current Devices No Medical Equipment Recorded Medications Includes: Medications discussed during this encounter and other current Medications Current Medications (continue as prescribed) Allopurinol 100 MG Oral Tablet 04/13/2022 Provider: Diagnosis: Last Documented On 04/13/2022 1:09PM By EMMANUELLE AQUINO LPN ; [facility] Medications Administered Includes: Administered Medications from this encounter No Administered Medications Recorded Vital Signs Includes: Vital Signs from this encounter Vital Name 05/07/2022 10:08A Blood Pressure Sitting (mmHg) 138/82 Last Documented: On 05/07/2022 10:10A M ; [facility] Results Includes: Results discussed during this [...] wrist joint pain - 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 Social History Description Last Updated Social history unchanged 05/07/2022 Last Documented On 2 10:39AM ; [facility] Tobacco non-user 04/13/2022 Last Documented On 2 10:07AM ; [facility] Smoking status : Never smoker 08/23/2015 Last Documented On 2 10:07AM ; [facility] Procedures and Surgical History Includes: Procedures [...] condition Last Documented On 2 10:37AM ; [facility] Discussed benefits, risks and alternativ es to treatment Last Documented On 2 10:34AM ; [facility] intervention and counseling on cessation of toba sales account leader use 4000F Last Documented On 2 10:08AM ; [facility] use of tobacco assessment performed 1000F Last Documented On 2 10:08AM ; [facility] Informed consent obtained Ri sks and [...] scribe Last Documented On 2 10:35AM ; [facility] The diagnostic studies were reviewed in detail with the patient with explanation and discussion of findings Last Documented On 2 10:29AM ; [facility] MRI of the right hand is rev iewed. This shows a small synovial cyst located at the head of the second metatarsal. No other abnormalities are noted Last Documented On 2 10:31AM ; [facility] Medical History Includes: Medical History addressed during this encounter Description Last Updated Pt does not get blood pressure checked a t other facility 08/23/2015 Last Documented On 2 10:07AM ; [facility] Family History Includes: Family History addressed [...] Time Diagnosis FOLLOW UP JULES AZEVEDO DO [facility] 2 9:59AM 10:30AM Ganglion,Gang lion Hand,Ganglion Right Hand,Ganglion Right Index Finger Insurance Includes: Active Insurance Policies Plan Name Member ID Group # Subscriber Relationship Effect fermin Dates 1 - [facility] PLANS [id number] HARSHA READ Self Clinical Notes Includes: Clinical Notes from this encounter No Clinical Notes Recorded
--- OUTSIDE RECORDS SUMMARY | 2025-03-01 11:25 | XMS_ITS ---
Care Plan - [facility] Created on: March 01, 2025 HARSHA READ : 1990 Sex: Male Author Organization [facility] Address [address] [place] [address] Phone Care Team Providers Care Facial Operator Name Role Phone SIERRA ACOSTA PA-C Primary Care Provider [phone]
--- OUTSIDE RECORDS SUMMARY | 2025-03-01 11:25 | XMS_ITS | Clinical Summary ---
Author Organization [facility] Address [address] [place] [address] Phone Care Team Providers Care Materials Planning Manager Name Role Phone SIERRA ACOSTA PA-C Primary Care Provider [phone] Reason for Visit and Chief Complaint visit for: right hand pain - The Chief Complaint is: Right Hand Ganglion Problems Includes: Problems addressed during this encounter and other active Problems Current Visit Onset Date Resolved Date Provider Annette robison Status Pain in the Right Hand Only 04/13/2022 OSIEL Corbett Active Last Documented On 2 1:11PM ; [facility] Past Visits Onset Date Resolved Date Provider Condition Status Ganglion Right Index Finger 05/07/2022 JULES MCNEAL DO Active Last Documented On 2 10:38AM ; [facility] Plan of Treatment I feel [...] - Last Documented On 04/13/2022 1:17PM ; [facility] Assessments Includes: Assessments from this encounter Findings - Right hand pain - Last Documented On 04/13/2022 1:17PM ; [facility] Medical Equipment - Implanted Devices Includes: Current Devices No Medical Equipment Recorded Medications Includes: Medications discussed during this encounter and other current Medications Current Medications (continue as prescribed) Allopurinol 100 MG Oral Tablet 04/13/2022 Provider: Diagnosis: Last Documented On 04/13/2022 1:09PM By EMMANUELLE AQUINO LPN ; [facility] Medications Administered Includes: Administered Medications from this encounter No Administered Medications Recorded Vital Signs Includes: Vital Signs from this encounter Vital Name 04/13/2022 01:08P Blood Pressure Sitting L 153/83 Pulse Rate-Sitting (bpm) 83 Respiration Rate (breaths/min) 20 Last Documented: On 04/13/2022 1:10PM ; 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 He states that when he is resting it does not bother him at all Social History Description Last Updated Tobacco non-user 04/13/2022 Last Documented On 2 1:17PM ; [facility] Smoking status : Never smoker 08/23/2015 Last Documented On 2 12:51PM ; [facility] Procedures and Surgical History Includes: Procedures from this encounter Procedures Code Diagnosis Performing Provider Service L ocation Service Date use of tobacco assessment performed 1000F Last Documented On 2 1:10PM ; [facility] review of medications documented 1160F Last Documented On 2 1:10PM ; [facility] Medical History Includes: Medical History addressed during this encounter Description Last Updated Pt does not get blood pressure checked a t other facility 08/23/2015 Last Documented On 2 12:51PM ; [facility] Family History Includes: Family History addressed [...] Time Diagnosis ORTHO NEW PATIENT OSIEL Corbett [facility] 04/13/20 22 12:58PM 1:17PM Assessment of Pain in the Right Hand Only Insurance Includes: Active Insurance Policies Plan Name Member ID Group # Subscriber Relationship Effect fermin Dates 1 - [facility] PLANS [id number] HARSHA Romero Clinical Notes Includes: Clinical Notes from this encounter No Clinical Notes Recorded
--- OUTSIDE RECORDS SUMMARY | 2025-03-01 11:25 | XMS_ITS | Clinical Summary ---
Author Organization [facility] Address [address] [place] [address] Phone Care Team Providers Care Hold Worker Name Role Phone Weston Escobar Primary Care Provider [phone] Al Britt MD Unavailable Vilma Jaffe APRN, OPERATING ROOM SURGICAL TECHNICIAN Unavailable Allergies No known active allergies Medications Kjgx-UT-Bpezmnm n-Petrolatum (Preparation H Rapid Relief) 5-0.25-14.4-15 % [...] Insurance MEDICAID [facility] [employer] Care Teams Hold Worker Relationship Specialty Start Date End Date Weston Escobar PAC [address] [place] [id number] PCP - General Physician Investigator Utility Bill Complaints 01/12/21 Al Britt MD #2 [facility] [address] [place] [address] Consulting Physician Colon and Rectal Surgery 07/30/23 Vilma Jaffe APRN, OPERATING ROOM SURGICAL TECHNICIAN #2 [facility] [address] [place] [address] Nurse Practitioner Advanced Practice Nurse 08/25/24
[2025-03-01 18:50] LABS: Basophils Absolute Auto 0.1 K/mm3 (0.0-0.1); Basophils Percent Auto 0.8 % (0.2-1.2); Eosinophils Absolute Auto 0.1 K/mm3 (0-0.3); Hematocrit 46.2 % (42.0-52.0); Hemoglobin 15.3 g/dL (14.0-18.0); Immature Granulocyte Absolute 0.19 K/mm3 (0.00-0.031); Lymphocytes Absolute Auto 2.19 K/mm3 (0.9-3.2); Lymphocytes Percent Auto 34.8 % (18.3-44.2); Mean Corpuscular HGB Conc 33.1 g/dl (32-36); Mean Corpuscular Hemoglobin 31.6 pg (26-34); Mean Corpuscular Volume 95.5 fl (80-100); Mean Platelet Volume 9.5 fl (7.4-10.4); Monocytes Absolute Auto 0.6 K/mm3 (0.1-0.6); Monocytes Percent Auto 8.7 % (2.6-8.5); Neutrophils Absolute Auto 3.3 K/mm3 (1.3-6.7); Neutrophils Percent Auto 51.7 % (45.5-73.1); Platelet Count Result 201 k/mm3 (150-375); Red Blood Count 4.84 M/mm3 (4.6-6.20); Red Cell Distribution Width 13.2 % (11.5-14.5); White Blood Count 6.3 K/mm3 (4.5-10.0)
[2025-03-01 20:25] LABS: Alanine Aminotransferase 144 U/L (6-50); Albumin Level 4.4 g/dL (3.5-5.1); Alkaline Phosphatase 68 U/L (38-126); Aspartate Amino Transferase 118 U/L (17-59); Bilirubin,Total 0.4 mg/dL (0.2-1.3)
== END 2025-03-01 10:15 | disposition home or self-care (01) ==
LOC: ANHBWCLAB 10:15
PROVIDERS: PCP Nurse Practitioner Adult Health; Visit Provider Nurse Practitioner Adult Health
DX: R74.8 Abnormal levels of other serum enzymes (principal); D69.6 Thrombocytopenia, unspecified
CPT/HCPCS: 36415; 80076; 85025

== ENCOUNTER 2025-03-12 08:22 | Emergency (ER) | payer OTHER, SELFPAY ==
[2025-03-12 08:26] VITALS: BP 129/74; PULSE 88; RESP 16; TEMP 36.3; O2SAT 97
--- OUTSIDE RECORDS SUMMARY | 2025-03-12 08:29 | XMS_ITS | Encounter Summary ---
Author Organization [facility] Address [address] [place] [address] Phone Care Team Providers Care Binding Cutter Synthetic Cloth Name Role Phone Seamus Valdez MD Primary Care Provider [phone] Weston Escobar Primary Care Provider [phone] Al Britt MD Unavailable Vilma Jaffe APRN, CNP Unavailable [phone] Reason for Visit * Reason Comments Medication Refill Encounter Details Date Type Department Care Team (Late st Contact Info) Description 11/28/2020 Refill [facility] Admitting [address] [place] [address] Seamus Valdez MD [address] [place] [address] Medication Refill Social History Tobacco [...] 7:43 AM CST Please review and sign. F RESPIRATORY THERAPIST documented in this encounter Plan of Treatment Not on file documented as of this encounter Visit Diagnoses Not on filedocumented in this encounter Care Teams Binding Cutter Synthetic Cloth Relationship Specialty Start Date End Date Seamus Valdez MD [address] [place] [address] PCP - General Internal Medicine 10/18/19 01/11/21 Weston Escobar PAC [address] [place] [address] PCP - General Physician Blade Bender Furnace Tender 01/12/21 Al Britt MD #2 [facility] [address] [place] [address] Consulting Physician Colon and Rectal Surgery 07/30/23 Vilma Jaffe APRN, GREEN MARKETING SPECIALIST #2 [facility] [address] [place] [address] Nurse Practitioner Advanced Practice Nurse 08/25/24 documented as of this encounter
--- OUTSIDE RECORDS SUMMARY | 2025-03-12 08:29 | XMS_ITS | Encounter Summary ---
Author Organization [facility] Address [address] [place] [address] Phone Care Team Providers Care Machine Deburrer Name Role Phone Seamus Valdez MD Primary Care Provider [phone] Weston Escobar Primary Care Provider [phone] Al Britt MD Unavailable Vilma Jaffe APRN, CNP Unavailable [phone] Reason for Visit * Reason Comments Medication Refill Encounter Details Date Type Department Care Team (Late st Contact Info) Description 11/03/2020 Refill [facility] Admitting [address] [place] [address] Seamus Valdez MD [address] [place] [address] Medication Refill Social History Tobacco [...] 8:12 AM CST Please review and sign. PROGRAMMER documented in this encounter Plan of Treatment Not on file documented as of this encounter Visit Diagnoses Not on filedocumented in this encounter Care Teams Machine Deburrer Relationship Specialty Start Date End Date Seamus Valdez MD [address] [place] [address] PCP - General Internal Medicine 10/18/19 01/11/21 Weston Escobar [facility] [address] [place] [address] PCP - General Physician Line Dancer 01/12/21 Al Britt MD #2 [facility] [address] [place] [address] Consulting Physician Colon and Rectal Surgery 07/30/23 Vilma Jaffe APRN, DESIGN LEADER #2 [facility] [address] [place] [address] Nurse Practitioner Advanced Practice Nurse 08/25/24 documented as of this encounter
--- OUTSIDE RECORDS SUMMARY | 2025-03-12 08:29 | XMS_ITS | Referral Summary ---
Author Organization [facility] Address [facility] [address] Care Team Providers Care Manager Mortgage Name Role Phone Dali Melissa NP Primary Care Provider [phone] Encounters Date Type Department Care Team Description 01/04/2025 10:30 AM CHERRY PITTER Office Visit [facility] Medical Group Sports Medicine and Primary Care at [address] [address] Damien Canales DO Primary osteoarthritis of left knee (Primary Dx) 12/31/2024 3:36 PM CHERRY PITTER - 12/31/2024 4:38 PM [facility] Emergency [facility] Emergency Department [address] [place], [place] [id number] Acute pain of left knee (Primary Dx) Discharge Disposition: Discharge to home or self care 12/15/2024 9:30 AM CHERRY PITTER Office Visit [facility] Medical [facility] Sports Medicine and Primary Care at [address] [address] Damien Canales DO Primary osteoarthritis of left knee (Primary Dx) from Last 3 Months Allergies No known [...] each dose. Take with food. Collaborating physician Hiar Mayen MD 20 tablet 12/09/19 25 Active [...] 11/26/2023 Assessment & Plan (11/26/2023 10:08 AM [facility]): Given their past success the patient would [...] on file Legal Sex Male 12:24 AM CHERRY PITTER Gender Identity Not on file Sexual Orientation Not on file Last Filed Vital Signs Vital Sign Reading Time Taken Comments Blood Pressure 139/81 01/04/2025 10:21 AM CHERRY PITTER Pulse 99 01/04/2025 10:21 AM CHERRY PITTER Temperature 36.8 C (98.2 F) 12/31/2024 3:35 PM CHERRY PITTER Respiratory Rate 16 12/31/2024 3:35 PM CHERRY PITTER Oxygen Saturation 96% 12/31/2024 3:35 PM CHERRY PITTER Inhaled Oxygen Concentration - - Weight 191.9 kg (423 lb) 01/04/2025 10:21 AM CHERRY PITTER Height 180.3 cm (5' 11 ) 01/04/2025 10:21 AM CHERRY PITTER Body Mass Index 59 01/04/2025 10:21 AM CHERRY PITTER Plan of Treatment Not on file Procedures Procedure Name Priority Date/Time Associated Diagnosis Comments [place] ARTHROCENTESIS ASPIR&/INJ MAJOR JT/BURSA W/O US Routine 01/04/2025 10:30 AM CHERRY PITTER Primary osteoarthritis of left knee XR KNEE LEFT 3 VIEWS ED 12/31/2024 3:53 PM CHERRY PITTER from Last 3 Months Results * [place] ARTHROCENTESIS ASPIR&/INJ MAJOR JT/BURSA W/O US (01/04/2025 10:30 AM CHERRY PITTER) Narrative Damien Canales DO - 01/04/2025 10:30 AM CHERRY PITTER Damien Canales DO 01/04/2025 11:15 AM Large [...] mg/mL Damien Canales DO IN CLINIC/BEDSIDE ANSHUL DEWTIT Final Result * XR Knee Left 3 Views (12/31/2024 3:53 PM CHERRY PITTER) Anatomical Region Laterality Modality Lower Extremities, Knee Left Computed Radiography 12/31/2024 4:11 PM CHERRY PITTER Narrative 12/31/2024 4:14 PM CHERRY PITTER EXAM DESCRIPTION: XR KNEE LEFT 3 VIEWS [...] signed by Urban GARNETT: TAMIR Report ID: [id number] Reading Location: [id number] Procedure Note Urban Roman MD - 12/31/2024 [...] signed by Urban GARNETT: TAMIR Report ID: [id number] Reading Location: [id number] Jessika AGUAYO IMG XR PROCEDURES Final Result from Last 3 Months Insurance [facility]AN [facility] Care Teams Manager Mortgage Relationship Specialty Start Date End Date Dali Melissa NP [address] [place] [place] [address] PCP - General Nurse Practitioner 12/31/24
--- NOTE | 2025-03-12 08:30 | ED_ITS ---
HPI - Ear Problem General Stated complaint: right ear pain Time Seen by Provider: 03/12/25 08:30 Source: patient Mode of arrival: ambulatory Limitations: no limitations History of Present Illness HPI Narrative: Christiano is a 35-year-old male patient presenting to the clinic today with complaints of right ear pain times 2 days. He reports he was outside doing yd work and wearing headphones and noticed some discomfort in his ear and put his finger in the ear pulled out a large chunk of wax however he feels as though he shoved wax further back in his ear. Is having mild discomfort. Related Data Home Medications ?Medication ?Instructions ?Recorded ?Confirmed ?Last Taken ?Type famotidine 40 mg tablet 40 mg PO DAILY 11/26/24 03/09/25 Unknown History Allergies Allergy/AdvReac Type Severity Reaction Status Date / Time No Known Allergies Allergy Verified 03/09/25 09:12 Review of Systems Review of Systems: Pertinent positives per HPI. Patient denies any fever, chills, rash, headache, visual changes, dizziness, cough, shortness of breath, chest pain, palpitations, nausea, vomiting, diarrhea, constipation, abdominal pain, or any urinary issues. [facility] Past Medical History Medical History Low testosterone Hypertension Arthritis Gout Hyperlipidemia Surgical History Surgical History Hx of hand surgery left Family History Family History Mother Diabetes mellitus Hypertension Grandparent Cancer Social History Social History Smoking status: Never smoker Alcohol intake: current Alcohol use details: 1-4 A week. Substance use: unknown Do You Feel Safe in your Home?: Yes Lack of Transportation: No Lack of Food: Never True Current Housing: I Have Housing Concerned About Future Housing: No Difficulty Paying Gas/Electric Bills: No Difficulty Paying for Meds: No Currently Unemployed: No Education: High School Diploma/GED Difficulty w/ Childcare or Family Care: No Living arrangements: with family Gender identity (if verbalized by the patient): Male Agree to blood products: No Comments At the time of my signature, I reviewed and agree with the nursing past medical, surgical, social, and family history. There is no relevant family history pertinent to the patient complaint. Exam Narrative: General: Well-developed, morbidly obese, in no apparent distress Head: Normocephalic, atraumatic Eyes: Pupils equally round and reactive to light bilaterally, EOM intact, sclera and conjunctive clear, no discharge, lids normal Ears: Left TMs intact and clear, right TM obscured by hard cerumen, left ear canals ceruminous, right ear canal with hard cerumen impaction, no drainage, grossly hearing normal. Nose: Nares patent, no discharge, no inflammation, no sinus tenderness. Mouth: Oral pharynx without lesions or masses, good dentition, MMM. Neck: Supple, trachea midline, no enlargement of anterior or posterior cervical nodes, no thyroid masses or goiter palpable. Cardio: Regular rate and rhythm, s1 and s2 normal, no murmur appreciated. Resp: Clear to auscultation bilaterally, no rhonchi, rales, wheezing or rubs Course Course Emergency Course: Portions of this record may have been created with voice recognition software. Level of Care: Express Care Visit Vital Signs Vital signs: Vital signs reviewed Medical Decision Making MDM Narrative Medical decision making narrative: At the time of visit patient is resting comfortably on the exam table. Patient appears to be nontoxic. Plan: Patient has cerumen impaction to the right ear canal that is pushed up against the ear drum. Recommend using Debrox ear drops to emulsify the wax. Supportive measures were discussed with the patient and they voiced understanding discharge instructions and agrees to treatment plan. Return precautions reviewed Differential Diagnosis Differential Diagnosis: Otitis media, otitis externa, eustachian tube dysfunction, cerumen impaction, upper respiratory infection, serous otitis Discharge Plan Discharge Clinical Impression: Otalgia of right ear Cerumen impaction Qualifiers: Laterality: right Qualified Code(s): H61.21 - Impacted cerumen, right ear Patient Disposition: Home Condition: Stable Instructions: Antibiotic Form, Earache (ED) Additional Instructions: You have a cerumen impaction of the right ear canal. Recommend using OTC Debrox ear drops in the ear-4 drops in the right ear nightly for 1 week been may use for 3 consecutive nights once a month. May irrigate the ear using half warm water half peroxide mixture and flush using a bulb syringe. May take Tylenol/Motrin as needed for pain Follow-up with your doctor in 1 week if symptoms persist Patient Language: Montserratian Prescriptions: No Action famotidine 40 mg tablet 40 mg PO DAILY lisinopril-hydrochlorothiazide 20-25 mg tablet 1 tablet PO DAILY Qty: 90 3RF (DME) Namely Luer Lock Syr-needle 3 mL 23 x 1 syringe See Rx Instructions .Route Qty: 100 0RF Rx Instructions: As directed with testosterone every other week IM fexofenadine 180 mg tablet 180 mg PO DAILY Qty: 90 0RF gabapentin 300 mg capsule 300 mg PO DAILY Qty: 30 0RF testosterone cypionate 200 mg/mL oil 200 mg IM .every other week Qty: 10 1RF atorvastatin 20 mg tablet 20 mg PO DAILY Qty: 90 0RF Follow-up/Referrals: Dali Melissa APRN [Primary Care Provider] - Time of Disposition: 08:35 Quality NIHSS Nursing Documentation ED NIHSS nursing documentation: reviewed/agree
--- OUTSIDE RECORDS SUMMARY | 2025-03-12 08:30 | XMS_ITS | Clinical Summary ---
Author Organization [facility] Address [address] [place] [address] Care Team Providers Care Computer Mechanic Name Role Phone Shin Dali MUSTAPHA Primary Care Provider [phone] Allergies No known active allergies Medications montelukast [...] 11/26/2023 Assessment & Plan (11/26/2023 10:08 AM RAGS LABORER): Given their past success the patient would [...] Department Care Team Description 01/04/2025 10:30 AM RAGS LABORER Office Visit [facility] at [address] [place] [address] Damien Canales DO Primary osteoarthritis of left knee (Primary Dx) 12/31/2024 3:36 PM RAGS LABORER - 12/31/2024 4:38 PM RAGS LABORER Emergency [facility] Emergency Department [address] [place] [address] Acute pain of left knee (Primary Dx) Discharge Disposition: Discharge to home or self care 12/15/2024 9:30 AM RAGS LABORER Office Visit [facility] at [address] [place] [address] Damien Canales, Primary osteoarthritis of left knee (Primary Dx) from Last 3 Months Medical History Medical [...] on file Legal Sex Male 12:24 AM RAGS LABORER Gender Identity Not on file Sexual Orientation Not on file Obstetrics History Last Filed Vital Signs Vital Sign Reading Time Taken Comments Blood Pressure 139/81 01/04/2025 10:21 AM RAGS LABORER Pulse 99 01/04/2025 10:21 AM RAGS LABORER Temperature 36.8 C (98.2 F) 12/31/2024 3:35 PM RAGS LABORER Respiratory Rate 16 12/31/2024 3:35 PM RAGS LABORER Oxygen Saturation 96% 12/31/2024 3:35 PM RAGS LABORER Inhaled Oxygen Concentration - - Weight 191.9 kg (423 lb) 01/04/2025 10:21 AM RAGS LABORER Height 180.3 cm (5' 11 ) 01/04/2025 10:21 AM RAGS LABORER Body Mass Index 59 01/04/2025 10:21 AM RAGS LABORER Plan of Treatment Health Maintenance Due Date Last Done Comments Depression Screening 1988 Hepatitis C Screening 1988 Varicella Vaccines (1 of 2 - 13+ 2-dose series) 2001 Regular Well Visit/Exam 18-64 2006 Covid-19 Vaccine ( - season) 2024 12/12/2021, 04/19/2021 DTaP/Tdap/Td Vaccine (8 [...] Procedure Name Priority Date/Time Associated Diagnosis Comments MA ARTHROCENTESIS ASPIR&/INJ MAJOR JT/BURSA W/O US Routine 01/04/2025 10:30 AM RAGS LABORER Primary osteoarthritis of left knee XR KNEE LEFT 3 VIEWS ED 12/31/2024 3:53 PM RAGS LABORER from Last 3 Months Results * MA ARTHROCENTESIS ASPIR&/INJ MAJOR JT/BURSA W/O US (01/04/2025 10:30 AM RAGS LABORER) Narrative Damien Canales DO - 01/04/2025 10:30 AM RAGS LABORER Damien Canales DO 01/04/2025 11:15 AM Large [...] methylPREDNISolone acetate 80 mg/mL us Damien Canales IN CLINIC[facility]BEDSIDE [facility] Final Result * XR Knee Left 3 Views (12/31/2024 3:53 PM RAGS LABORER) Anatomical Region Laterality Modality Lower Extremities, Knee Left Computed Radiography 12/31/2024 4:11 PM RAGS LABORER Narrative 12/31/2024 4:14 PM RAGS LABORER EXAM DESCRIPTION: XR KNEE LEFT 3 VIEWS [...] Urban Roman M.D. KN: TAMIR Report ID: [id number] Reading Location: [id number] Procedure Note Urban Roman MD - 12/31/2024 [...] Urban Roman M.D. KN: TAMIR Report ID: [id number] Reading Location: [id number] Jessika AGUAYO IMG XR PROCEDURES Final Result from Last 3 Months Insurance [facility] [place], [place] [facility] Care Teams Computer Mechanic Relationship Specialty Start Date End Date Dali Melissa NP [address] [place] [id number] PCP - General Nurse Practitioner 12/31/24
--- OUTSIDE RECORDS SUMMARY | 2025-03-12 08:30 | XMS_ITS | Clinical Summary ---
Author Organization [facility] Address [address] [place] [address] Phone Care Team Providers Care Bailiff Name Role Phone Weston Escobar Primary Care Provider [phone] Al Britt MD Unavailable Vimla Jaffe APRN, [employer] Unavailable Allergies No known active allergies Medications [id number] n-Petrolatum (Preparation H Rapid Relief) 5-0.25-14.4-15 % [...] Insurance MEDICAID [employer] Care Teams Bailiff Relationship Specialty Start Date End Date Weston Escobar PAC [address] [place] [id number] PCP - General Physician Gauge Maker Apprentice 01/12/21 Al Britt MD [address] [facility] [address] [place] [address] Consulting Physician Colon and Rectal Surgery 07/30/23 Vilma Jaffe APRN, [employer] [address] [facility] [address] [place] [address] Nurse Practitioner Advanced Practice Nurse 08/25/24
--- OUTSIDE RECORDS SUMMARY | 2025-03-12 08:30 | XMS_ITS | Data Portability ---
[facility] Organization [facility] Address [address] [place] [address] Care Team Providers Care Research And Development Technician Name Role Phone SIERRA ESCOBAR Primary Care Provider Assessment No assessment recorded. Plan of Treatment Reminders Order Date Submit Date Provider Last Modified By Organization Details Last Modified Time Details Appointments None recorded. Lab CBC 2023 [facility], [address] [place] [address] 2, [place], [address], 06:23:19 CMP, serum or plasma 2023 [facility], [address] [place] [address] 2, [place], [address], 06:23:18 lipid panel, serum 2023 [facility], [address] [place] [address] 2, [place], [address], 06:23:16 influenza virus A + B + SARS-CoV-2 (COVID19) Ag panel, rapid IA, upper respiratory specimen 2023 rose In-Office Order, Internal Use Only DO Not Attach Compendium DO Not Attach Compendium, Do Not Delete/merge, [id number] 12:45:43 Referral None recorded. Procedures None recorded. Surgeries None recorded. Imaging None recorded. Medication Orders lisinopril 20 mg tablet 2023 [facility], [address] [place], [address], 15:55:42 albuterol sulfate HFA 90 mcg/actuati on aerosol inhaler 2023 [facility], [address] [place] [address], [address], 11:11:05 Tessalon Perles 100 mg capsule 2023 [facility], [address] [place] [address], [address], 15:28:26 azithromyci n 500 mg tablet 2023 [facility], [address] [place] [address], [address], 11:33:04 cyclobenzap rine 10 mg tablet 2023 024 [facility], [address] [place] [address], [address], 16:49:51 Patient TargetsNo targets recorded. Patient Instructions Encounter Date Encounter Id Patient Instructions Last Modified By Organization Details Last Modified Time 05/11/2024 [id number] A healthy lifestyle: care instructions [email or web address] Not available 05/11/2024 16:49:45 05/27/2024 [id number] cough: care instructions [email or web address] Not available 05/27/2024 12:45:43 A healthy lifestyle: care instructions jnanney Not available 05/27/2024 12:23:47 06/11/2024 [id number] Plan of care has been discussed with patient including expected therapeutic benefits and potential side effects of prescribed medication and treatments. Patient verbalizes understanding and is in agreement with the plan of care. Patient was instructed to keep all scheduled appointments and contact the clinic for any additional problems. [email or web address] Not available 06/12/2024 16:49:58 07/02/2024 [id number] A healthy lifestyle: care instructions [email or web address] Not available 07/02/2024 11:10:59 08/19/2024 [id number] influenza (flu) vaccine: care instructions [email or web address] Not [...] DO Not Attach Compendium, Do Not Delete/merge, [id number] 05/27/2024 12:01:13 05/27/20 24 05/27/2024 influ alexis virus A + B + SARS- CoV-2 (COVI D19) Ag panel , rapid IA, upper respi rator y speci men Flu B negati ve Not Available In-Office Order Internal Use Only DO Not Attach Compendium DO Not Attach Compendium, Do Not Delete/merge, [id number] 05/27/2024 12:01:13 05/27/20 24 05/27/2024 influ alexis virus A + B + SARS- CoV-2 (COVI D19) Ag panel , rapid IA, upper respi rator y speci men Rapid SARS CoV 2 Ag, QL IA, respiratory specimen negati ve Not Available In-Office Order Internal Use Only DO Not Attach Compendium DO Not Attach Compendium, Do Not Delete/merge, [id number] 05/27/2024 12:01:13 08/19/20 24 08/19/2024 LIPID PANEL cholesterol, total 262 mg/dL 100-19 9 above high normal Not Available [address], [address], 08/20/2024 06:23:16 08/19/20 24 08/19/2024 LIPID PANEL triglyceride s 356 mg/dL 0-149 above high normal Not Available [address], [address], 08/20/2024 06:23:16 08/19/20 24 08/19/2024 LIPID PANEL HDL cholesterol 41 mg/dL 40-999 Not Available [address], [address], 08/20/2024 06:23:16 08/19/20 24 08/19/2024 LIPID PANEL VLDL cholesterol heather 71 mg/dL 5-40 above high normal Not Available [address], [address], 08/20/2024 06:23:16 08/19/2008/19/2024 LIPID PANEL LDL chol calc ([facility]) 196 mg/dL 0-99 above high normal Not Available [address], [address], 08/20/2024 06:23:16 08/19/20 24 08/19/2024 COMP. METAB OLIC PANEL (14) glucose 83 mg/dL 70-99 Not Available [address], [address], 08/20/2024 06:23:18 08/19/20 24 08/19/2024 COMP. METAB OLIC PANEL (14) BUN 12 mg/dL 6-20 Not Available [address], [address], 08/20/2024 06:23:18 08/19/20 24 08/19/2024 COMP. METAB OLIC PANEL (14) creatinine 0.87 mg/dL 0.76-1 .27 Not Available [address], [address], 08/20/2024 06:23:18 08/19/20 24 08/19/2024 COMP. METAB OLIC PANEL (14) eGFR 115 >=60 Units for eGFR value s are mL/mi n/1.7 3 The eGFR Calcu latio n has not been valid ated for patie nts under the age of 18. If test resul ts are displ ayed for a patie nt under the age of 18, disre carlos that value . Not Available [address], [address], 08/20/2024 06:23:18 08/19/20 24 08/19/2024 COMP. METAB OLIC PANEL (14) BUN/creatini ne ratio 13 9-20 Not Available [address], [address], 08/20/2024 06:23:18 08/19/20 24 08/19/2024 COMP. METAB OLIC PANEL (14) sodium 141 mmol/ L 134-14 4 Not Available [address], [address], 08/20/2024 06:23:18 08/19/20 24 08/19/2024 COMP. METAB OLIC PANEL (14) potassium 4.4 mmol/ L 3.5-5. 2 Not Available [address], [address], 08/20/2024 06:23:18 08/19/20 24 08/19/2024 COMP. METAB OLIC PANEL (14) chloride 102 mmol/ L 96-106 Not Available [address], [address], 08/20/2024 06:23:18 08/19/20 24 08/19/2024 COMP. METAB OLIC PANEL (14) carbon dioxide, total 27 mmol/ L 20-29 Not Available [address], [address], 08/20/2024 06:23:18 08/19/20 24 08/19/2024 COMP. METAB OLIC PANEL (14) calcium 9.7 mg/dL 8.7-10 .2 Not Available [address], [address], 08/20/2024 06:23:18 08/19/20 24 08/19/2024 COMP. METAB OLIC PANEL (14) protein, total 7.0 g/dL 6.0-8. 5 Not Available [address], [address], 08/20/2024 06:23:18 08/19/20 24 08/19/2024 COMP. METAB OLIC PANEL (14) albumin 4.4 g/dL 4.1-5. 1 Not Available [address], [address], 08/20/2024 06:23:18 08/19/20 24 08/19/2024 COMP. METAB OLIC PANEL (14) globulin, total 2.6 g/dL 1.5-4. 5 Not Available [address], [address], 08/20/2024 06:23:18 08/19/20 24 08/19/2024 COMP. METAB OLIC PANEL (14) A/G ratio 2.0 1.2-2. 2 Not Available [address], [address], 08/20/2024 06:23:18 08/19/20 24 08/19/2024 COMP. METAB OLIC PANEL (14) bilirubin, total 0.3 mg/dL 0.0-1. 2 Not Available [address], [address], 08/20/2024 06:23:18 08/19/20 24 08/19/2024 COMP. METAB OLIC PANEL (14) alkaline phosphatase 55 IU/L 44-121 Not Available [address], [address], 08/20/2024 06:23:18 08/19/20 24 08/19/2024 COMP. METAB OLIC PANEL (14) AST (SGOT) 20 IU/L 0-40 Not Available [address], [address], 08/20/2024 06:23:18 08/19/20 24 08/19/2024 COMP. METAB OLIC PANEL (14) ALT (SGPT) 29 IU/L 0-44 Not Available [address], [address], 08/20/2024 06:23:18 08/19/20 24 08/19/2024 CARDI OVASC [...] repor t is avail able. Not Available [address], [address], 08/20/2024 06:23:19 08/19/2008/19/2024 CARDI OVASC ULAR REPOR T pdf . Not Available [facility] & [address], [address], 08/20/2024 06:23:19 08/19/20 24 08/19/2024 CBC, PLATE LET, NO DIFFE RENTI AL WBC 6.7 x10e3 /uL 3.4-10 .8 Not Available [address], [address], 08/20/2024 06:23:19 08/19/2008/19/2024 CBC, PLATE LET, NO DIFFE RENTI AL RBC 5.14 x10e6 /uL 4.14-5 .80 Not Available [address], [address], 08/20/2024 06:23:19 08/19/2008/19/2024 CBC, PLATE LET, NO DIFFE RENTI AL hemoglobin 16.0 g/dL 13.0-1 7.7 Not Available [address], [address], 08/20/2024 06:23:19 08/19/2008/19/2024 CBC, PLATE LET, NO DIFFE RENTI AL hematocrit 46.6 % 37.5-5 1.0 Not Available [address], [address], 08/20/2024 06:23:19 08/19/2008/19/2024 CBC, PLATE LET, NO DIFFE RENTI AL MCV 91 fL 79-97 Not Available [address], [address], 08/20/2024 06:23:19 08/19/2008/19/2024 CBC, PLATE LET, NO DIFFE RENTI AL MCH 31.1 pg 26.6-3 3.0 Not Available [address], [address], 08/20/2024 06:23:19 08/19/2008/19/2024 CBC, PLATE LET, NO DIFFE RENTI AL MCHC 34.3 g/dL 31.5-3 5.7 Not Available [address], [address], 08/20/2024 06:23:19 08/19/2008/19/2024 CBC, PLATE LET, NO DIFFE RENTI AL RDW 12.1 % 11.5-1 4.5 Not Available [address], [address], 08/20/2024 06:23:19 08/19/20 24 08/19/2024 CBC, PLATE LET, NO DIFFE RENTI AL platelets 209 x10e3 /uL 150-45 0 Mean Plate let Volum e 9.5 fL 8.9-1 2.7 N Not Available [address], [address], 08/20/2024 06:23:19 08/19/2008/19/2024 CBC, PLATE LET, NO DIFFE RENTI AL NRBC 0 % 0-0 Not Available [address], [address], 08/20/2024 06:23:19 Result Notes None recorded. Problems [...] Updated DateTime 4 177.8 cm 60.7 kg/m2 205159. 85 g 96 % 96 % 78 /min 16 /min 146 mm[Hg] 84 mm[Hg] Mary Bolden MA [facility] 4 16:37:04 Date Recorded Body height Body mass index (BMI) Body weight Oxygen saturation Oxygen saturation in Arterial blood by Pulse oximetry Heart rate Systolic blood pressure Diastolic blood pressure Provider Name and Address Organization Details Last Updated DateTime 4 177.8 cm 60 kg/m2 564085. 01 g 94 % 94 % 98 /min 132 mm[Hg] 84 mm[Hg] Zaynab Rosario MA [facility] 4 12:02:50 Date Recorded Body height Body mass index (BMI) Body weight Heart rate Oxygen saturation Oxygen saturation in Arterial blood by Pulse oximetry Systolic blood pressure Diastolic blood pressure Provider Name and Address Organization Details Last Updated DateTime 4 177.8 cm 60.4 kg/m2 155100. 39 g 86 /min 96 % 96 % 143 mm[Hg] 93 mm[Hg] Aliza Flores MA [facility] 4 11:32:28 Date Recorded Body height Body mass index (BMI) Body weight Oxygen saturation Oxygen saturation in Arterial blood by Pulse oximetry Heart rate Respiratory rate Body temperature Systolic blood pressure Diastolic blood pressure Provider Name and Address Organization Details Last Updated DateTime 4 177.8 cm 60.9 kg/m2 891279. 32 g 98 % 98 % 89 /min 16 /min 98.7 [degF] 132 mm[Hg] 86 mm[Hg] Mary Bolden MA [facility] 4 11:00:33 Date Recorded Body height Body mass index (BMI) Body weight Oxygen saturation Oxygen saturation in Arterial blood by Pulse oximetry Heart rate Systolic blood pressure Diastolic blood pressure Provider Name and Address Organization Details Last Updated DateTime 4 177.8 cm 60.8 kg/m2 628413. 16 g 100 % 100 % 99 /min 137 mm[Hg] 90 mm[Hg] Zaynab Rosario [place] [facility] 15:31:04 Social History Question Answer [...] Anxious, Or Unable To Sleep At Night)? [id number] Information not available 01/12/2021 Do You Use [...] Skin Problems N Anemia N Heart Attack (IA) N Anxiety Disorder N Diabetes N Muscle, [...] completed Sierra Escobar PA-C Attn: [address] [place], [address], [place] 08/19/2024 15:50:51 Past Encounters Encounter ID Performer Location Encounter Start Date Encounter Closed Date Diagnosis/Indication Diagnosis SNOMED-CT Code Diagnosis ICD10 Code Diagnosis Note [id number] CAMI Garcia [address] [place] [address] 01/12/2021 09:48:03 01/13/2021 07:25:41 Chronic gouty arthritis 90495068 M1A.0610 Obesity 392430885 E66.8 [id number] Sierra Escobar PA-C [facility] [address] [place] [address] 04/13/2021 10:19:52 04/13/2021 11:43:13 Lumbar radiculopathy 259122189 M54.16 Morbid obesity 284346583 E66.01 [id number] CLARISSE Jackson [address] [facility] [place] [place] [address] 04/19/2021 12:37:45 04/22/2021 13:14:58 Administration of SARS-CoV-2 antigen vaccine 284083188 Z23 [id number] CAMI Garcia [address] [place] [address] 04/25/2021 10:06:30 04/25/2021 15:33:49 Acute maxillary sinusitis 70188860 J01.01 [id number] MONY Chery [address] [place] [address] 12/12/2021 10:50:53 12/12/2021 11:26:30 Administration of SARS-CoV-2 mRNA vaccine 4505952919 Z23 [id number] Sierra Escobar PA-C [facility] [address] [place] [address] 02/12/2022 11:06:56 02/12/2022 11:45:40 Gout 86912239 M10.062 Body mass index 40+ - severely obese 423384666 Z68.43 [id number] Sierra Escobar PA-C [facility] [address] [place] [address] 04/04/2022 14:51:45 04/04/2022 15:27:40 Ganglion cyst of right hand 0550817894 01110 M67.434 [id number] Sierra Escobar PA-C [facility] [address] [place] [address] 06/05/2022 18:23:54 06/05/2022 19:00:54 Persistent cough 529823082 R05.3 Overweight 258243923 E66 .3 [id number] Sierra Escobar PA-C [facility] [address] [place] [address] 10/09/2022 18:15:17 10/10/2022 12:44:46 Body mass index 40+ - severely obese 519976017 Z68.43 [id number] Sierra Escobar PA-C [facility] [address] [place] [address] 11/23/2022 10:45:49 11/23/2022 11:22:12 Acute bronchitis with bronchospasm 29361231 J20.8 [id number] Sierra Escobar PA-C [facility] [address] [place] [address] 01/09/2023 10:23:34 01/09/2023 11:46:27 Obesity 581155516 E66.8 has lost 10 pounds on his own already Acute bron chitis with bronchospasm 92694651 J20.8 [id number] [facility] [address] [place] [address] 01/28/2023 14:29:31 01/30/2023 11:24:08 Spasm of muscle of lower back 5549970112 [id number] M62.059 [id number] Sierra Escobar PA-C [facility] [address] [place] [address] 02/08/2023 16:28:02 02/11/2023 15:27:16 Morbid obesity 094056182 E66.01 Mixed hyperlipidemia 267 022057 E78.2 [id number] Sierra Escobar PA-C [facility] [address] [place] [address] 03/12/2023 17:32:35 03/14/2023 16:23:40 Cervical radiculopathy 17329313 M54.12 Strain of left trapezius muscle 8856424654 6872971 S29.012A Seasonal a llergic rhinitis 885504657 J30.2 Gout 17685101 M10.062 Overweight 616472728 E66 .3 [id number] Sierra Escobar PA-C [facility] [address] [place] [address] 04/23/2023 15:02:35 04/24/2023 08:35:37 Edema of lower extremity 648711942 R60.0 [id number] Sierra Escobar PA-C [facility] [address] [place] [address] 05/29/2023 14:35:01 05/30/2023 09:16:28 Daytime somnolence 1139014332 00 R40.0 Overweight 522765151 E66 .3 Fatigue 26091963 R53.83 [id number] Sierra Escobar PA-C [facility] [address] [place] [address] 06/26/2023 14:59:35 07/02/2023 09:38:38 Pain of left knee joint 2007732853 41636 M25.616 [id number] Sierra Escobar PA-C [facility] [address] [place] [address] 07/24/2023 16:21:20 07/30/2023 14:48:34 Viral syndrome 689286437 B34.9 Upper resp iratory infection 57831205 J00 [id number] Sierra Escobar PA-C [facility] [address] [place] [address] 09/12/2023 10:54:26 09/16/2023 15:45:19 Pain of bilateral knee joints 0410908940 11569 M25.562 Pain of le ft knee joint 1255343824 42915 M25.562 Morbid obesity 739744638 E66.01 Administra tion of influenza vaccine 67128093 Z23 [id number] Sierra Escobar PA-C [facility] [address] [place] [address] 11/01/2023 11:27:50 11/06/2023 09:20:08 Overweight 628876254 E66.3 Severe obesity 475467646 1 9104 E66.01 [id number] Zaynab Rosario MA [facility] [address] [place] [address] 02/14/2024 16:26:40 02/18/2024 09:34:56 Pain of right ankle joint 5674383769 7283745 M25.571 Morbid obesity 382521915 E66.01 Overweight 479653546 E66 .3 [id number] Sierra Escobar PA-C [facility] [address] [place] [address] 02/25/2024 17:22:54 03/10/2024 07:34:27 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 Overweight 136589982 E66 .3 [id number] Sierra Escobar PA-C [facility] [address] [place] [address] 05/11/2024 16:29:42 05/14/2024 19:32:50 Strain of left trapezius muscle 1159838095 7757635 S29.012A Morbid obesity 647081537 E66.01 [id number] Sierra Escobar PA-C [facility] [address] [place] [address] 05/27/2024 11:38:01 06/01/2024 19:39:28 Cough 47398869 R05.9 Upper resp iratory infection 87227456 J00 Acute bron chitis with bronchospasm 87454720 J20.8 Morbid obesity 992513479 E66.01 [id number] BECKI GRIDER-SUSU [facility] [address] [place] [address] 06/11/2024 11:26:08 06/15/2024 06:58:14 Cough 62065374 R05.9 -Lung sounds clear on exam.-Toya ent agreeable to treatment with tessalon perles TID PRN.-SOILS TECHNICIAN advised patient to follow up with PCP for annual labwork. [id number] Sierra Escobar PA-C [facility] [address] [place] [address] 07/02/2024 10:51:29 07/06/2024 15:49:43 Unexplained chronic cough 8209528935 R05.3 otc zyrtec Overweight 970662289 E66 .3 [id number] Sierra Escobar PA-C [facility] [address] [place] [address] 08/19/2024 15:13:03 08/20/2024 14:13:07 Administration of influenza vaccine 14747977 Z23 Mixed hyperlipidemia 267 355109 E78.2 Essential hypertension 46071247 I10 Morbid obesity 197779125 E66.01 Health Concerns Section Related Observation LastModified by Organization Detai ls LastModified Time None Recorded Concern Status LastModified by Organization Details LastModified Time None Recorded Advance Directives Directive N: Payers Encounter Date Sequence Insurance Name Policy Number Policy Villarreal Covered Member ID Villrareal Member ID Guarantor Name 05/11/2024 1 [facility] ON OR AFTER 05/18/21 (MEDICAID REPLACEMENT - HMO) Christiano Galvan [id number] Christiano Galvan 05/27/2024 1 [facility] - DOS ON OR AFTER 21 (MEDICAID REPLACEMENT - HMO) Christiano Galvan [id number] Christiano Galvan 06/11/2024 1 [facility] - DOS ON OR AFTER 21 (MEDICAID REPLACEMENT - HMO) Christiano Galvan [id number] Christiano Galvan 07/02/2024 1 [facility] ON OR AFTER 05/18/21 (MEDICAID REPLACEMENT - HMO) Christiano Galvan [id number] Christiano Galvan 08/19/2024 1 [facility] ON OR AFTER 05/18/21 (MEDICAID REPLACEMENT - HMO) Christiano Galvan [id number] Christiano Galvan Notes Date Note Type Note Provider Name and Address Organization Details Recorded Time 05/11/2024 text/html lft neck and tra ps painful as if strained...no known injury.. Sierra Escobar PA-C Attn: Accounting,[address] [facility], [place], [address], [facility] - [facility] 05/11/2024 16:50:12 05/27/2024 text/html coughing and tired...uri symptoms all since saturday Sierra Escobar PA-C Attn: Accounting[address] [place], [address], [place] 05/27/2024 12:23:55 06/11/2024 text/html [...] have resolved. JULIA GRIDER Attn: Accounting,[address] [facility], [place], [address], [place] 06/12/2024 16:54:25 07/02/2024 text/html wants a referral to an ENT because he doesnt know why...somebody said...coughing persists Sierra Escobar PA-C Attn: Accounting[address] [place], [address], [place] 07/02/2024 11:11:45 08/19/2024 text/html no complaints annual check up Sierra Escobar PA-C Attn: Accounting,[address] [facility], [place], [address], [facility] - SI 08/19/2024 15:56:43
--- OUTSIDE RECORDS SUMMARY | 2025-03-12 08:30 | XMS_ITS | Clinical Summary ---
Author Organization [facility] Address [address] [place] [address] Care Team Providers Care Chair Installer Name Role Phone Unavailable Primary Care Provider Unavailabl e Source Comments [facility],non-owned Affiliates and Associated Physician Practices is amultiple site organization consisting of ambulatory clinics and hospital sitesin [place], [place], [place] and [place]. This disclosure is being madepursuant to the Care Everywhere program and may not contain all information available regarding this patient. Last updated 18.Pansieve Allergies No known active allergies Medications * [...] on file Legal Sex Male 4:28 PM FIELD HAND Gender Identity Not on file Sexual Orientation Not on file Last Filed Vital Signs Vital Sign Reading Time Taken Comments Blood Pressure 134/80 11/04/2017 8:02 AM FIELD HAND Pulse 72 11/04/2017 8:02 AM FIELD HAND Temperature 36.9 C (98.4 F) 11/04/2017 8:02 AM FIELD HAND Respiratory Rate 17 11/04/2017 8:02 AM FIELD HAND Oxygen Saturation 97% 11/04/2017 8:02 AM FIELD HAND Inhaled Oxygen Concentration - - Weight 163.3 kg (360 lb) 11/04/2017 8:02 AM FIELD HAND Height 182.9 cm (6') 11/04/2017 8:02 AM FIELD HAND Body Mass Index 48.82 11/04/2017 8:02 AM FIELD HAND Plan of Treatment Health Maintenance Due Date [...] to complete this topic Insurance [address] [place] [id number]
== END 2025-03-12 08:45 | disposition home or self-care (01) ==
PROVIDERS: Emergency Provider Nurse Practitioner Family; PCP Nurse Practitioner Adult Health
DX: H61.21 Impacted cerumen, right ear (principal); I10 Essential (primary) hypertension; E78.5 Hyperlipidemia, unspecified
CPT/HCPCS: 99211; G0463

== ENCOUNTER 2025-03-16 07:08 | Outpatient (CLI) | payer OTHER, SELFPAY ==
--- NOTE | ~2025-03-16 | US_ITS ---
EXAMINATION: US abdomen limited DATE: 03/16/2025 07:58 INDICATION: Abnormal levels of other serum enzymes TECHNIQUE: Multiple grayscale and Doppler ultrasound images of the abdomen were obtained. COMPARISON: None FINDINGS: The pancreatic head and body are normal in appearance. The pancreatic tail is not visualized. Liver has normal contour, with a smooth surface. There is increased parenchymal echogenicity and coarsened echotexture consistent with diffuse hepatic steatosis. Small geographic regions of more hypoechoic fo heather fatty sparing in typical location along the gallbladder fossa. No other liver lesions identified. No intrahepatic biliary duct dilation suspected. Portal venous flow was seen in the hepatopetal, nor mal direction and has normal Doppler waveform. The gallbladder is normal in appearance. There is no cholelithiasis. The common bile duct measures 4 mm, which is normal. Sonographic Bullock sign was repo rted as negative by the earth science faculty member.Visualized portion of the right kidney demonstrates normal echoge nicity and contour with no hydronephrosis. IMPRESSION: 1. Diffuse hepatic steatosis. Reviewed, dictated and finalized at location B.
--- OUTSIDE RECORDS SUMMARY | 2025-03-16 07:13 | XMS_ITS | Encounter Summary ---
Author Organization [facility] Address [address] [place] [address] Phone Care Team Providers Care Eyelet Row Marker Name Role Phone Seamus Valdez MD Primary Care Provider [phone] Weston Escobar Primary Care Provider [phone] Al Britt MD Unavailable Vilma Jaffe APRN, CNP Unavailable [phone] Reason for Visit * Reason Comments Medication Refill Encounter Details Date Type Department Care Team (Late st Contact Info) Description 11/28/2020 Refill [facility] [place] [facility] Admitting [address] [place] [address] Seamus Valdez MD [address] [place] [address] Medication Refill Social History Tobacco [...] 7:43 AM CST Please review and sign. L OR MOTEL RECEPTIONIST documented in this encounter Plan of Treatment Not on file documented as of this encounter Visit Diagnoses Not on filedocumented in this encounter Care Teams Eyelet Row Marker Relationship Specialty Start Date End Date Seamus Valdez MD [address] [place] [address] PCP - General Internal Medicine 10/18/19 01/11/21 Weston Escobar PAC [address] [place] [address] PCP - General Physician Spring Encaser 01/12/21 Al Britt MD #[address] [facility] [address] [place] [address] Consulting Physician Colon and Rectal Surgery 07/30/23 Vilma Jaffe APRN, FITNESS PROFESSIONAL #2 [facility] [address] [place] [address] Nurse Practitioner Advanced Practice Nurse 08/25/24 documented as of this encounter
--- OUTSIDE RECORDS SUMMARY | 2025-03-16 07:13 | XMS_ITS | Referral Summary ---
Author Organization [facility] Address [facility] [place] [address] Care Team Providers Care Pbx Wire Chief Name Role Phone Shin Dali MUSTAPHA Primary Care Provider [phone] Encounters Date Type Department Care Team Description 01/04/2025 10:30 AM ARTIFICIAL STONE SETTER Office Visit [facility] Sports Medicine and Primary Care at [address] [place] [id number] Damien Canales DO Primary osteoarthritis of left knee (Primary Dx) 12/31/2024 3:36 PM ARTIFICIAL STONE SETTER - 12/31/2024 4:38 PM [facility] Emergency Department [address] [place] [address] Acute pain of left knee (Primary Dx) Discharge Disposition: Discharge to home or self care from Last 3 Months Allergies No known [...] 11/26/2023 Assessment & Plan (11/26/2023 10:08 AM ARTIFICIAL STONE SETTER): Given their past success the patient would [...] on file Legal Sex Male 12:24 AM ARTIFICIAL STONE SETTER Gender Identity Not on file Sexual Orientation Not on file Last Filed Vital Signs Vital Sign Reading Time Taken Comments Blood Pressure 139/81 01/04/2025 10:21 AM ARTIFICIAL STONE SETTER Pulse 99 01/04/2025 10:21 AM ARTIFICIAL STONE SETTER Temperature 36.8 C (98.2 F) 12/31/2024 3:35 PM ARTIFICIAL STONE SETTER Respiratory Rate 16 12/31/2024 3:35 PM ARTIFICIAL STONE SETTER Oxygen Saturation 96% 12/31/2024 3:35 PM ARTIFICIAL STONE SETTER Inhaled Oxygen Concentration - - Weight 191.9 kg (423 lb) 01/04/2025 10:21 AM ARTIFICIAL STONE SETTER Height 180.3 cm (5' 11 ) 01/04/2025 10:21 AM ARTIFICIAL STONE SETTER Body Mass Index 59 01/04/2025 10:21 AM ARTIFICIAL STONE SETTER Plan of Treatment Not on file Procedures Procedure Name Priority Date/Time Associated Diagnosis Comments NE ARTHROCENTESIS ASPIR&/INJ MAJOR JT/BURSA W/O US Routine 01/04/2025 10:30 AM ARTIFICIAL STONE SETTER Primary osteoarthritis of left knee XR KNEE LEFT 3 VIEWS ED 12/31/2024 3:53 PM ARTIFICIAL STONE SETTER from Last 3 Months Results * NE ARTHROCENTESIS ASPIR&/INJ MAJOR JT/BURSA W/O US (01/04/2025 10:30 AM ARTIFICIAL STONE SETTER) Narrative Damien Canales DO - 01/04/2025 10:30 AM ARTIFICIAL STONE SETTER Damien Canales DO 01/04/2025 11:15 AM Large [...] Knee Left 3 Views (12/31/2024 3:53 PM ARTIFICIAL STONE SETTER) Anatomical Region Laterality Modality Lower Extremities, Knee Left Computed Radiography 12/31/2024 4:11 PM ARTIFICIAL STONE SETTER Narrative 12/31/2024 4:14 PM ARTIFICIAL STONE SETTER EXAM DESCRIPTION: XR KNEE LEFT 3 VIEWS [...] 4:14 PM - Electronically signed by Urban Lees.D. KN: TAMIR Report ID: [id number] Reading Location: [id number] Procedure Note Urban Roman MD - 12/31/2024 [...] Urban Roman M.D. KN: TAMIR Report ID: [id number] Reading Location: [id number] Jessika AGUAYO IMG XR PROCEDURES Final Result from Last 3 Months Insurance [facility] Care Teams Pbx Wire Chief Relationship Specialty Start Date End Date Dali Melissa NP [address] [place] [address] PCP - General Nurse Practitioner 12/31/24
--- OUTSIDE RECORDS SUMMARY | 2025-03-16 07:13 | XMS_ITS | Encounter Summary ---
Author Organization [facility] Address [address] [place] [address] Phone Care Team Providers Care Bank Advisor Name Role Phone Seamus Valdez MD Primary Care Provider [phone] Weston Escobar Primary Care Provider [phone] Al Britt MD Unavailable Vilma Jaffe APRN, CNP Unavailable [phone] Reason for Visit * Reason Comments Medication Refill Encounter Details Date Type Department Care Team (Late st Contact Info) Description 11/03/2020 Refill [facility] Admitting [address] [place] [address] Seamus Valdez MD [address] [place] [address] Medication Refill Social History [...] 8:12 AM CST Please review and sign. 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 documented in this encounter Plan of Treatment Not on file documented as of this encounter Visit Diagnoses Not on filedocumented in this encounter Care Teams Bank Advisor Relationship Specialty Start Date End Date Seamus Valdez MD [address] [place] [address] PCP - General Internal Medicine 10/18/19 01/11/21 Weston Escobar [facility] [address] [place] [id number] PCP - General Physician Necktie Maker 01/12/21 Al Britt MD #2 [facility] [address] [place] [address] Consulting Physician Colon and Rectal Surgery 07/30/23 Vilma Jaffe APRN, RECREATION THERAPY DIRECTOR #2 [facility] [address] [place] [address] Nurse Practitioner Advanced Practice Nurse 08/25/24 documented as of this encounter
--- OUTSIDE RECORDS SUMMARY | 2025-03-16 07:14 | XMS_ITS | Clinical Summary ---
Author Organization [facility] Address [address] [place] [address] Phone Care Team Providers Care Comedian Name Role Phone Weston Escobar Primary Care Provider [phone] Al Britt MD Unavailable Vilma Jaffe APRN, INTRAOPERATIVE NEURO TECH Unavailable [phone] Allergies No known active allergies Medications Sply-ZX-Hrtkzmk n-Petrolatum (Preparation H Rapid Relief) 5-0.25-14.4-15 % [...] Insurance [employer]ICA[employer] Care Teams Comedian Relationship Specialty Start Date End Date Weston Escobar PAC [address] [place] [id number] PCP - General Physician Logistic Manager 01/12/21 Al Britt MD #2 [facility] [address] [place] [address] Consulting Physician Colon and Rectal Surgery 07/30/23 Vilma Jaffe APRN, INTRAOPERATIVE NEURO TECH [address] [facility] [address] [place] [address] Nurse Practitioner Advanced Practice Nurse 08/25/24
--- OUTSIDE RECORDS SUMMARY | 2025-03-16 07:14 | XMS_ITS | Data Portability ---
Author Organization [facility] Address [address] [facility] [place] [address] Care Team Providers Care Health Safety Instructor Name Role Phone SIERRA ESCOBAR Primary Care Provider [phone] Assessment No assessment recorded. Plan of Treatment Reminders Order Date Submit Date Provider Last Modified By Organization Details Last Modified Time Details Appointments None recorded. Lab CBC 2023 [facility], [address] [place] [address] 2, [place], [address], 06:23:19 CMP, serum or plasma 2023 [facility], [address] [place] [address] 2, [place], [address], 06:23:18 lipid panel, serum 2023 [facility], [address] [place] [address] 2, [place], [address], 06:23:16 influenza virus A + B + SARS-CoV-2 (COVID19) Ag panel, rapid IA, upper respiratory specimen 2023 rose In-Office Order, Internal Use Only DO Not Attach Compendium DO Not Attach Compendium, Do Not Delete/merge, [address] 12:45:43 Referral None recorded. Procedures None recorded. Surgeries None recorded. Imaging None recorded. Medication Orders lisinopril 20 mg tablet 2023 [facility], [address] [place], [address], 15:55:42 albuterol sulfate HFA 90 mcg/actuati on aerosol inhaler 2023 [facility], [address] [place] [address], [address], 11:11:05 Tessalon Perles 100 mg capsule 2023 [facility], [address] [place] [address], [address], 15:28:26 azithromyci n 500 mg tablet 2023 [facility], [address] [place] [address], [address], 11:33:04 cyclobenzap rine 10 mg tablet 2023 024 [facility], [address] [place] [address], [address], 16:49:51 Patient TargetsNo targets recorded. Patient Instructions Encounter Date Encounter Id Patient Instructions Last Modified By Organization Details Last Modified Time 05/11/2024 [id number] A healthy lifestyle: care instructions jnanney Not available 05/11/2024 16:49:45 05/27/2024 [id number] cough: care instructions jnanney Not available 05/27/2024 12:45:43 A healthy lifestyle: care instructions jnanney Not available 05/27/2024 12:23:47 06/11/2024 [id number] Plan of care has been discussed with patient including expected therapeutic benefits and potential side effects of prescribed medication and treatments. Patient verbalizes understanding and is in agreement with the plan of care. Patient was instructed to keep all scheduled appointments and contact the clinic for any additional problems. Not available 06/12/2024 16:49:58 07/02/2024 [id number] A healthy lifestyle: care instructions jnanney Not available 07/02/2024 11:10:59 08/19/2024 [id number] influenza (flu) vaccine: care instructions jnanney Not [...] DO Not Attach Compendium, Do Not Delete/merge, [id number] 05/27/2024 12:01:13 05/27/20 24 05/27/2024 influ alexis virus A + B + SARS- CoV-2 (COVI D19) Ag panel , rapid IA, upper respi rator y speci men Flu B negati ve Not Available In-Office Order Internal Use Only DO Not Attach Compendium DO Not Attach Compendium, Do Not Delete/merge, [id number] 05/27/2024 12:01:13 05/27/20 24 05/27/2024 influ alexis virus A + B + SARS- CoV-2 (COVI D19) Ag panel , rapid IA, upper respi rator y speci men Rapid SARS CoV 2 Ag, QL IA, respiratory specimen negati ve Not Available In-Office Order Internal Use Only DO Not Attach Compendium DO Not Attach Compendium, Do Not Delete/merge, [id number] 05/27/2024 12:01:13 08/19/20 24 08/19/2024 LIPID PANEL cholesterol, total 262 mg/dL 100-19 9 above high normal Not Available [address], [address], 08/20/2024 06:23:16 08/19/20 24 08/19/2024 LIPID PANEL triglyceride s 356 mg/dL 0-149 above high normal Not Available [address], [address], 08/20/2024 06:23:16 08/19/20 24 08/19/2024 LIPID PANEL HDL cholesterol 41 mg/dL 40-999 Not Available [address], [address], 08/20/2024 06:23:16 08/19/20 24 08/19/2024 LIPID PANEL VLDL cholesterol heather 71 mg/dL 5-40 above high normal Not Available [address], [address], 08/20/2024 06:23:16 08/19/2008/19/2024 LIPID PANEL LDL chol calc ([facility]) 196 mg/dL 0-99 above high normal Not Available [address], [address], 08/20/2024 06:23:16 08/19/20 24 08/19/2024 COMP. METAB OLIC PANEL (14) glucose 83 mg/dL 70-99 Not Available [address], [address], 08/20/2024 06:23:18 08/19/20 24 08/19/2024 COMP. METAB OLIC PANEL (14) BUN 12 mg/dL 6-20 Not Available [address], [address], 08/20/2024 06:23:18 08/19/20 24 08/19/2024 COMP. METAB OLIC PANEL (14) creatinine 0.87 mg/dL 0.76-1 .27 Not Available [address], [address], 08/20/2024 06:23:18 08/19/20 24 08/19/2024 COMP. METAB OLIC PANEL (14) eGFR 115 >=60 Units for eGFR value s are mL/mi n/1.7 3 The eGFR Calcu latio n has not been valid ated for patie nts under the age of 18. If test resul ts are displ ayed for a patie nt under the age of 18, disre carlos that value . Not Available [address], [address], 08/20/2024 06:23:18 08/19/20 24 08/19/2024 COMP. METAB OLIC PANEL (14) BUN/creatini ne ratio 13 9-20 Not Available [address], [address], 08/20/2024 06:23:18 08/19/20 24 08/19/2024 COMP. METAB OLIC PANEL (14) sodium 141 mmol/ L 134-14 4 Not Available [address], [address], 08/20/2024 06:23:18 08/19/20 24 08/19/2024 COMP. METAB OLIC PANEL (14) potassium 4.4 mmol/ L 3.5-5. 2 Not Available [address], [address], 08/20/2024 06:23:18 08/19/20 24 08/19/2024 COMP. METAB OLIC PANEL (14) chloride 102 mmol/ L 96-106 Not Available [address], [address], 08/20/2024 06:23:18 08/19/20 24 08/19/2024 COMP. METAB OLIC PANEL (14) carbon dioxide, total 27 mmol/ L 20-29 Not Available [address], [address], 08/20/2024 06:23:18 08/19/20 24 08/19/2024 COMP. METAB OLIC PANEL (14) calcium 9.7 mg/dL 8.7-10 .2 Not Available [address], [address], 08/20/2024 06:23:18 08/19/20 24 08/19/2024 COMP. METAB OLIC PANEL (14) protein, total 7.0 g/dL 6.0-8. 5 Not Available [address], [address], 08/20/2024 06:23:18 08/19/20 24 08/19/2024 COMP. METAB OLIC PANEL (14) albumin 4.4 g/dL 4.1-5. 1 Not Available [address], [address], 08/20/2024 06:23:18 08/19/20 24 08/19/2024 COMP. METAB OLIC PANEL (14) globulin, total 2.6 g/dL 1.5-4. 5 Not Available [address], [address], 08/20/2024 06:23:18 08/19/20 24 08/19/2024 COMP. METAB OLIC PANEL (14) A/G ratio 2.0 1.2-2. 2 Not Available [address], [address], 08/20/2024 06:23:18 08/19/20 24 08/19/2024 COMP. METAB OLIC PANEL (14) bilirubin, total 0.3 mg/dL 0.0-1. 2 Not Available [address], [address], 08/20/2024 06:23:18 08/19/20 24 08/19/2024 COMP. METAB OLIC PANEL (14) alkaline phosphatase 55 IU/L 44-121 Not Available [address], [address], 08/20/2024 06:23:18 08/19/20 24 08/19/2024 COMP. METAB OLIC PANEL (14) AST (SGOT) 20 IU/L 0-40 Not Available [address], [address], 08/20/2024 06:23:18 08/19/20 24 08/19/2024 COMP. METAB OLIC PANEL (14) ALT (SGPT) 29 IU/L 0-44 Not Available [address], [address], 08/20/2024 06:23:18 08/19/20 24 08/19/2024 CARDI OVASC [...] repor t is avail able. Not Available [address], [address], 08/20/2024 06:23:19 08/19/2008/19/2024 CARDI OVASC ULAR REPOR T pdf . Not Available [facility] & [address], [address], 08/20/2024 06:23:19 08/19/20 24 08/19/2024 CBC, PLATE LET, NO DIFFE RENTI AL WBC 6.7 x10e3 /uL 3.4-10 .8 Not Available [address], [address], 08/20/2024 06:23:19 08/19/2008/19/2024 CBC, PLATE LET, NO DIFFE RENTI AL RBC 5.14 x10e6 /uL 4.14-5 .80 Not Available [address], [address], 08/20/2024 06:23:19 08/19/2008/19/2024 CBC, PLATE LET, NO DIFFE RENTI AL hemoglobin 16.0 g/dL 13.0-1 7.7 Not Available [address], [address], 08/20/2024 06:23:19 08/19/2008/19/2024 CBC, PLATE LET, NO DIFFE RENTI AL hematocrit 46.6 % 37.5-5 1.0 Not Available [address], [address], 08/20/2024 06:23:19 08/19/2008/19/2024 CBC, PLATE LET, NO DIFFE RENTI AL MCV 91 fL 79-97 Not Available [address], [address], 08/20/2024 06:23:19 08/19/2008/19/2024 CBC, PLATE LET, NO DIFFE RENTI AL MCH 31.1 pg 26.6-3 3.0 Not Available [address], [address], 08/20/2024 06:23:19 08/19/2008/19/2024 CBC, PLATE LET, NO DIFFE RENTI AL MCHC 34.3 g/dL 31.5-3 5.7 Not Available [address], [address], 08/20/2024 06:23:19 08/19/2008/19/2024 CBC, PLATE LET, NO DIFFE RENTI AL RDW 12.1 % 11.5-1 4.5 Not Available [address], [address], 08/20/2024 06:23:19 08/19/20 24 08/19/2024 CBC, PLATE LET, NO DIFFE RENTI AL platelets 209 x10e3 /uL 150-45 0 Mean Plate let Volum e 9.5 fL 8.9-1 2.7 N Not Available [address], [address], 08/20/2024 06:23:19 08/19/2008/19/2024 CBC, PLATE LET, NO DIFFE RENTI AL NRBC 0 % 0-0 Not Available [address], [address], 08/20/2024 06:23:19 Result Notes None recorded. Problems [...] Updated DateTime 4 177.8 cm 60.7 kg/m2 569589. 85 g 96 % 96 % 78 /min 16 /min 146 mm[Hg] 84 mm[Hg] Mary Bolden MA [facility] 4 16:37:04 Date Recorded Body height Body mass index (BMI) Body weight Oxygen saturation Oxygen saturation in Arterial blood by Pulse oximetry Heart rate Systolic blood pressure Diastolic blood pressure Provider Name and Address Organization Details Last Updated DateTime 4 177.8 cm 60 kg/m2 162726. 01 g 94 % 94 % 98 /min 132 mm[Hg] 84 mm[Hg] Zaynab Rosario MA [facility] SI 4 12:02:50 Date Recorded Body height Body mass index (BMI) Body weight Heart rate Oxygen saturation Oxygen saturation in Arterial blood by Pulse oximetry Systolic blood pressure Diastolic blood pressure Provider Name and Address Organization Details Last Updated DateTime 4 177.8 cm 60.4 kg/m2 364063. 39 g 86 /min 96 % 96 % 143 mm[Hg] 93 mm[Hg] Aliza Flores MA [facility] SI 4 11:32:28 Date Recorded Body height Body mass index (BMI) Body weight Oxygen saturation Oxygen saturation in Arterial blood by Pulse oximetry Heart rate Respiratory rate Body temperature Systolic blood pressure Diastolic blood pressure Provider Name and Address Organization Details Last Updated DateTime 4 177.8 cm 60.9 kg/m2 186858. 32 g 98 % 98 % 89 /min 16 /min 98.7 [degF] 132 mm[Hg] 86 mm[Hg] Mary Bolden MA [facility] SI 4 11:00:33 Date Recorded Body height Body mass index (BMI) Body weight Oxygen saturation Oxygen saturation in Arterial blood by Pulse oximetry Heart rate Systolic blood pressure Diastolic blood pressure Provider Name and Address Organization Details Last Updated DateTime 4 177.8 cm 60.8 kg/m2 359797. 16 g 100 % 100 % 99 [...] Anxious, Or Unable To Sleep At Night)? [id number] Information not available 01/12/2021 Do You Use [...] Eating Disorder N Anemia N Heart Attack (NV) N Anxiety Disorder N Diabetes N Muscle, [...] completed Sierra Escobar PA-C Attn: [address] [place], [address], [place] 08/19/2024 15:50:51 Past Encounters Encounter ID Performer Location Encounter Start Date Encounter Closed Date Diagnosis/Indication Diagnosis SNOMED-CT Code Diagnosis ICD10 Code Diagnosis Note [id number] CAMI Garcia [address] [place] [address] 01/12/2021 09:48:03 01/13/2021 07:25:41 Chronic gouty arthritis 12172409 M1A.0610 Obesity 468363231 E66.8 [id number] Sierra Escobar PA-C [facility] [address] [place] [address] 04/13/2021 10:19:52 04/13/2021 11:43:13 Lumbar radiculopathy 303788535 M54.16 Morbid obesity 927326161 E66.01 [id number] CLARISSE Jackson [address] [facility] [place] [address] 04/19/2021 12:37:45 04/22/2021 13:14:58 Administration of SARS-CoV-2 antigen vaccine 442520945 Z23 [id number] CAMI Garcia [address] [place] [address] 04/25/2021 10:06:30 04/25/2021 15:33:49 Acute maxillary sinusitis 30185818 J01.01 [id number] MONY Chery [address] [place] [address] 12/12/2021 10:50:53 12/12/2021 11:26:30 Administration of SARS-CoV-2 mRNA vaccine 9407471627 Z23 [id number] Sierra Escobar PA-C [facility] [address] [place] [address] 02/12/2022 11:06:56 02/12/2022 11:45:40 Gout 39326762 M10.062 Body mass index 40+ - severely obese 390927586 Z68.43 [id number] Sierra Escobar PA-C [facility] [address] [place] [address] 04/04/2022 14:51:45 04/04/2022 15:27:40 Ganglion cyst of right hand 8652866933 05249 M67.515 [id number] Sierra Escobar PA-C [facility] [address] [place] [address] 06/05/2022 18:23:54 06/05/2022 19:00:54 Persistent cough 124245917 R05.3 Overweight 565598219 E66 .3 [id number] Sierra Escobar PA-C [facility] [address] [place] [address] 10/09/2022 18:15:17 10/10/2022 12:44:46 Body mass index 40+ - severely obese 671941052 Z68.43 [id number] Sierra Escobar PA-C [facility] [address] [place] [address] 11/23/2022 10:45:49 11/23/2022 11:22:12 Acute bronchitis with bronchospasm 09793238 J20.8 [id number] Sierra Escobar PA-C [facility] [address] [place] [address] 01/09/2023 10:23:34 01/09/2023 11:46:27 Obesity 111432087 E66.8 has lost 10 pounds on his own already Acute bron chitis with bronchospasm 05817214 J20.8 [id number] [facility] [address] [place] [address] 01/28/2023 14:29:31 01/30/2023 11:24:08 Spasm of muscle of lower back 2874505177 0407451 M62.032 [id number] Sierra Escobar PA-C [facility] [address] [place] [address] 02/08/2023 16:28:02 02/11/2023 15:27:16 Morbid obesity 437626468 E66.01 Mixed hyperlipidemia 267 248729 E78.2 [id number] Sierra Escobar PA-C [facility] [address] [place] [address] 03/12/2023 17:32:35 03/14/2023 16:23:40 Cervical radiculopathy 62826453 M54.12 Strain of left trapezius muscle 5609931112 5880050 S29.012A Seasonal a llergic rhinitis 435058859 J30.2 Gout 09518385 M10.062 Overweight 733474788 E66 .3 [id number] Sierra Escobar PA-C [facility] [address] [place] [address] 04/23/2023 15:02:35 04/24/2023 08:35:37 Edema of lower extremity 549407488 R60.0 [id number] Sierra Escobar PA-C [facility] [address] [place] [address] 05/29/2023 14:35:01 05/30/2023 09:16:28 Daytime somnolence 1538093862 00 R40.0 Overweight 823145416 E66 .3 Fatigue 03704889 R53.83 [id number] Sierra Escobar PA-C [facility] [address] [place] [address] 06/26/2023 14:59:35 07/02/2023 09:38:38 Pain of left knee joint 4625337067 26037 M25.005 [id number] Sierra Escobar PA-C [facility] [address] [place] [address] 07/24/2023 16:21:20 07/30/2023 14:48:34 Viral syndrome 371286615 B34.9 Upper resp iratory infection 01870273 J00 [id number] Sierra Escobar PA-C [facility] [address] [place] [address] 09/12/2023 10:54:26 09/16/2023 15:45:19 Pain of bilateral knee joints 3104493075 11557 M25.562 Pain of le ft knee joint 2389805695 46123 M25.562 Morbid obesity 027117483 E66.01 Administra tion of influenza vaccine 47956863 Z23 [id number] Sierra Escobar PA-C [facility] [address] [place] [address] 11/01/2023 11:27:50 11/06/2023 09:20:08 Overweight 363993976 E66.3 Severe obesity 702357352 1 9104 E66.01 [id number] Zaynab Rosario MA [facility] [address] [place] [address] 02/14/2024 16:26:40 02/18/2024 09:34:56 Pain of right ankle joint 8965240414 1404605 M25.571 Morbid obesity 067502163 E66.01 Overweight 248324549 E66 .3 [id number] Sierra Escobar PA-C [facility] [address] [place] [address] 02/25/2024 17:22:54 03/10/2024 07:34:27 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 Overweight 137407999 E66 .3 [id number] Sierra Escobar PA-C [facility] [address] [place] [address] 05/11/2024 16:29:42 05/14/2024 19:32:50 Strain of left trapezius muscle 1562889766 8002509 S29.012A Morbid obesity 756655225 E66.01 [id number] Sierra Escobar PA-C [facility] [address] [place] [address] 05/27/2024 11:38:01 06/01/2024 19:39:28 Cough 69237204 R05.9 Upper resp iratory infection 33256042 J00 Acute bron chitis with bronchospasm 68596550 J20.8 Morbid obesity 566089970 E66.01 [id number] BECKI GRIDER-SUSU [facility] [address] [place] [address] 06/11/2024 11:26:08 06/15/2024 06:58:14 Cough 77116474 R05.9 -Lung sounds clear on exam.-Toya ent agreeable to treatment with tessalon perles TID PRN.-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 [id number] Sierra Escobar PA-C [facility] [address] [place] [address] 07/02/2024 10:51:29 07/06/2024 15:49:43 Unexplained chronic cough 2758024584 R05.3 otc zyrtec Overweight 169556633 E66 .3 [id number] Sierra Escobar PA-C [facility] [address] [place] [address] 08/19/2024 15:13:03 08/20/2024 14:13:07 Administration of influenza vaccine 69637955 Z23 Mixed hyperlipidemia 267 908942 E78.2 Essential hypertension 73053612 I10 Morbid obesity 562270232 E66.01 Health Concerns Section Related Observation LastModified by Organization Detai ls LastModified Time None Recorded Concern Status LastModified by Organization Details LastModified Time None Recorded Advance Directives Directive N: Payers Encounter Date Sequence Insurance Name Policy Number Policy Villarreal Covered Member ID Villarreal Member ID Guarantor Name 05/11/2024 1 [facility] ON OR AFTER 05/18/21 (MEDICAID REPLACEMENT - HMO) Christiano Galvan [id number] Christiano Galvan 05/27/2024 1 [facility] - DOS ON OR AFTER 21 (MEDICAID REPLACEMENT - HMO) Christiano Galvan [id number] Christiano Galvan 06/11/2024 1 [facility] - DOS ON OR AFTER 21 (MEDICAID REPLACEMENT - HMO) Christiano Galvan [id number] Christiano Galvan 07/02/2024 1 [facility] ON OR AFTER 05/18/21 (MEDICAID REPLACEMENT - HMO) Christiano Galvan [id number] Christiano Galvan 08/19/2024 1 [facility] ON OR AFTER 05/18/21 (MEDICAID REPLACEMENT - HMO) Christiano Galvan [id number] Christiano Galvan Notes Date Note Type Note Provider Name and Address Organization Details Recorded Time 05/11/2024 text/html lft neck and tra ps painful as if strained...no known injury.. Sierra Escobar PA-C Attn: [address] [facility], [place], [address], [facility] - [place] 05/11/2024 16:50:12 05/27/2024 text/html coughing and tired...uri symptoms all since saturday Sierra Escobar PA-C Attn: [address]ing[address] [place], [address], [place] 05/27/2024 12:23:55 06/11/2024 text/html [...] have resolved. JULIA GRIDER Attn: Accounting[address] [facility], [place], [address], [place] 06/12/2024 16:54:25 07/02/2024 text/html wants a referral to an ENT because he doesnt know why...somebody said...coughing persists Sierra Escobar PA-C Attn: Accounting[address] [place], [address], [place] 07/02/2024 11:11:45 08/19/2024 text/html no complaints annual check up Sierra Escobar PA-C Attn: Accounting[address] [facility], [place], [address], [facility] - SI 08/19/2024 15:56:43
--- OUTSIDE RECORDS SUMMARY | 2025-03-16 07:14 | XMS_ITS | Clinical Summary ---
Author Organization [facility] Address [address] [place] [address] Care Team Providers Care Senior Medical Transcriptionist Name Role Phone Shin Dali MUSTAPHA Primary Care Provider [phone] Allergies No known active allergies Medications montelukast [...] 11/26/2023 Assessment & Plan (11/26/2023 10:08 AM BLAST HOLE DRILLER): Given their past success the patient would [...] Department Care Team Description 01/04/2025 10:30 AM BLAST HOLE DRILLER Office Visit [facility] Primary Care at [address] [place] [address] Damien Canales DO Primary osteoarthritis of left knee (Primary Dx) 12/31/2024 3:36 PM BLAST HOLE DRILLER - 12/31/2024 4:38 PM BLAST HOLE DRILLER [facility] Department [address] [place] [address] Acute pain of left knee (Primary Dx) Discharge Disposition: Discharge to home or self care from Last 3 Months Medical History Medical [...] on file Legal Sex Male 12:24 AM BLAST HOLE DRILLER Gender Identity Not on file Sexual Orientation Not on file Obstetrics History Last Filed Vital Signs Vital Sign Reading Time Taken Comments Blood Pressure 139/81 01/04/2025 10:21 AM BLAST HOLE DRILLER Pulse 99 01/04/2025 10:21 AM BLAST HOLE DRILLER Temperature 36.8 C (98.2 F) 12/31/2024 3:35 PM BLAST HOLE DRILLER Respiratory Rate 16 12/31/2024 3:35 PM BLAST HOLE DRILLER Oxygen Saturation 96% 12/31/2024 3:35 PM BLAST HOLE DRILLER Inhaled Oxygen Concentration - - Weight 191.9 kg (423 lb) 01/04/2025 10:21 AM BLAST HOLE DRILLER Height 180.3 cm (5' 11 ) 01/04/2025 10:21 AM BLAST HOLE DRILLER Body Mass Index 59 01/04/2025 10:21 AM BLAST HOLE DRILLER Plan of Treatment Health Maintenance Due Date [...] Procedure Name Priority Date/Time Associated Diagnosis Comments SD ARTHROCENTESIS ASPIR&/INJ MAJOR JT/BURSA W/O US Routine 01/04/2025 10:30 AM BLAST HOLE DRILLER Primary osteoarthritis of left knee XR KNEE LEFT 3 VIEWS ED 12/31/2024 3:53 PM BLAST HOLE DRILLER from Last 3 Months Results * SD ARTHROCENTESIS ASPIR&/INJ MAJOR JT/BURSA W/O US (01/04/2025 10:30 AM BLAST HOLE DRILLER) Narrative Damien Canales DO - 01/04/2025 10:30 AM BLAST HOLE DRILLER Damien Canales DO 01/04/2025 11:15 AM Large [...] Knee Left 3 Views (12/31/2024 3:53 PM BLAST HOLE DRILLER) Anatomical Region Laterality Modality Lower Extremities, Knee Left Computed Radiography 12/31/2024 4:11 PM BLAST HOLE DRILLER Narrative 12/31/2024 4:14 PM BLAST HOLE DRILLER EXAM DESCRIPTION: XR KNEE LEFT 3 VIEWS [...] Urban Roman M.D. KN: TAMIR Report ID: [id number] Reading Location: [id number] Procedure Note Urban Roman MD - 12/31/2024 [...] Urban Roman M.D. KN: TAMIR Report ID: [id number] Reading Location: [id number] Jessika AGUAYO IMG XR PROCEDURES Final Result from Last 3 Months Insurance [facility] Care Teams Senior Medical Transcriptionist Relationship Specialty Start Date End Date Dali Melissa NP [address] [place] [address] PCP - General Nurse Practitioner 12/31/24
--- OUTSIDE RECORDS SUMMARY | 2025-03-16 07:14 | XMS_ITS | Clinical Summary ---
Author Organization [facility] [employer] Address [address] [place] [address] Care Team Providers Care Outpatient Clerk Name Role Phone Unavailable Primary Care Provider Unavailabl e Source Comments [facility] [employer],non-owned Affiliates and Associated Physician Practices is amultiple site organization consisting of ambulatory clinics and hospital sitesin [place], [place]. This disclosure is being madepursuant to the Care Everywhere program and may not contain all information available regarding this patient. 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 Gender Identity Not on file Sexual Orientation Not on file Last Filed Vital Signs Vital Sign Reading Time Taken Comments Blood Pressure 134/80 11/04/2017 8:02 AM FISHING INSTRUCTOR Pulse 72 11/04/2017 8:02 AM FISHING INSTRUCTOR Temperature 36.9 C (98.4 F) 11/04/2017 8:02 AM FISHING INSTRUCTOR Respiratory Rate 17 11/04/2017 8:02 AM FISHING INSTRUCTOR Oxygen Saturation 97% 11/04/2017 8:02 AM FISHING INSTRUCTOR Inhaled Oxygen Concentration - - Weight 163.3 kg (360 lb) 11/04/2017 8:02 AM FISHING INSTRUCTOR Height 182.9 cm (6') 11/04/2017 8:02 AM FISHING INSTRUCTOR Body Mass Index 48.82 11/04/2017 8:02 AM FISHING INSTRUCTOR Plan of Treatment Health Maintenance Due Date [...] to complete this topic Insurance [employer] [address] [id number]
== END 2025-03-16 07:09 | disposition home or self-care (01) ==
PROVIDERS: PCP Nurse Practitioner Adult Health; Visit Provider Nurse Practitioner Adult Health
DX: K76.0 Fatty (change of) liver, not elsewhere classified (principal); R74.8 Abnormal levels of other serum enzymes
CPT/HCPCS: 76705

== ENCOUNTER 2025-03-25 18:36 | Emergency (ER) | payer OTHER, SELFPAY ==
--- OUTSIDE RECORDS SUMMARY | 2025-03-25 18:38 | XMS_ITS | Clinical Summary ---
Author Organization [facility] Address [address] [place] [address] Phone Care Team Providers Care Dry Drug Worker Name Role Phone Weston Escobar Primary Care Provider [phone] Al Britt MD Unavailable Vilma Jaffe APRN, APPLICATION SECURITY CONSULTANT Unavailable Allergies No known active allergies Medications Psyt-FY-Oqrkius n-Petrolatum (Preparation H Rapid Relief) 5-0.25-14.4-15 % [...] Insurance MEDICAID [employer] Care Teams Dry Drug Worker Relationship Specialty Start Date End Date Westno Escobar PAC [address] [place] [id number] PCP - General Physician Environmental Intern 01/12/21 Al Britt MD #2 [facility] [address] [place] [address] Consulting Physician Colon and Rectal Surgery 07/30/23 Vilma Jaffe APRN, APPLICATION SECURITY CONSULTANT #[address] [facility] [address] [place] [address] Nurse Practitioner Advanced Practice Nurse 08/25/24
--- OUTSIDE RECORDS SUMMARY | 2025-03-25 18:38 | XMS_ITS | Continuity of Care Document ---
Author Organization [facility] Address [address] [place] [address] [place] [id number] Phone Care Team Providers Care Application Security Engineer Name Role Phone Charisse Blair OT Unavailable Unavailable Procedures Procedure Date Neuromuscular Re-Ed Therapeutic Exercise Ultrasound Therapeutic Exercise OT Evaluation Therapeutic Exercise Therapeutic Activities Neuromuscular Re-Ed Manual Therapy DKSA Therapeutic Exercise Therapeutic Activities Neuromuscular Re-Ed Manual Therapy Therapeutic Exercise Therapeutic Activities Neuromuscular Re-Ed Manual Therapy Therapeutic Exercise Therapeutic Activities Neuromuscular Re-Ed Manual Therapy Therapeutic Exercise Therapeutic Activities Neuromuscular Re-Ed Manual Therapy Hot or Cold Pack Therapeutic Exercise Therapeutic Activities Neuromuscular Re-Ed Manual Therapy Therapeutic Exercise Therapeutic Activities Neuromuscular Re-Ed Manual Therapy Therapeutic Exercise Therapeutic Activities Neuromuscular Re-Ed Manual Therapy Therapeutic Exercise Therapeutic Activities Neuromuscular Re-Ed Manual Therapy Therapeutic Exercise Neuromuscular Re-Ed Manual Therapy Therapeutic Exercise Neuromuscular Re-Ed Manual Therapy Hot or Cold Pack Therapeutic Exercise Neuromuscular Re-Ed Manual Therapy Hot or Cold Pack Therapeutic Exercise Neuromuscular Re-Ed Manual Therapy Hot or Cold Pack Therapeutic Exercise Neuromuscular Re-Ed Manual Therapy Hot or Cold Pack Electrical Stimulation PT Evaluation Therapeutic Exercise Advance Directives Directive Yes / No Effective Date File Name No Information Encounters Encounter Description Practice Location Reason(s) For Visit Diagnoses Date Provider Providers Copied on Encounter [facility], [address], [id number], tel:[phone] [place] No Information 5 Rossy Mcqueen. . [facility], [address], [id number], tel:[phone] [place] No Information 0 4 Rossy Mcqueen. . [facility], [address], [id number], tel:[phone] [place] Distal Biceps Tendon TearSprain of other specified sites of shoulder and upper arm 8 4 Rossy Mcqueen. . [facility], [address], [id number], tel:[phone] [employer] [employer] No Information 5 4 No Information [facility], [address] [employer] [address] [place] [address], [id number], tel:[phone] [employer] [employer] [facility] No Information 4 No Information [facility], [address] [employer] [address] [place] [address], [id number], tel:[phone] [employer] [employer] No Information 4 No Information [facility], [address], [place], [place], [id number], [place] tel:[phone] [facility] Back Pain (chief complaint) Elbow Pain (chief complaint) No Information 4 No Information [facility], [address], [place], [place], [id number], [place] tel:[phone] [facility] Back Pain (chief complaint) Elbow Pain (chief complaint) No Information 4 No Information [facility], [address], [place], [place], [id number], [place] tel:[phone] [facility] Back Pain (chief complaint) Elbow Pain (chief complaint) No Information 4 No Information [facility], [address] [address], [place], [place], [id number], [place] tel:[phone] [facility] Back Pain (chief complaint) Elbow Pain (chief complaint) No Information 4 No Information [facility], [address], [place], [place], [id number], [place] tel:[phone] [facility] Back Pain (chief complaint) Elbow Pain (chief complaint) No Information 4 No Information [facility], [address], [place], [place], [id number], [place] tel:[phone] [facility] Back Pain (chief complaint) Elbow Pain (chief complaint) No Information 4 No Information [facility], [address], [place], [place], [id number], [place] tel:[phone] [facility] Back Pain (chief complaint) Elbow Pain (chief complaint) No Information 4 No Information [facility], [address], [place], [place], [id number], [place] tel:[phone] [facility] Back Pain (chief complaint) Elbow Pain (chief complaint) No Information 4 No Information [facility], [address] [employer] [address] [place] [address], [id number], tel:[phone] [facility] Back Pain (chief complaint) Elbow Pain (chief complaint) No Information 4 No Information [facility], [address] [employer] [address] [place] [address], [id number], tel:[phone] [facility] Back Pain (chief complaint) Elbow Pain (chief complaint) No Information 4 No Information [facility], [address] [employer] [address] [place] [address], [id number], tel:[phone] [facility] Back Pain (chief complaint) Elbow Pain (chief complaint) No Information 4 No Information [facility], [address] [employer] [address], [id number], tel:[phone] [facility] Back Pain (chief complaint) Elbow Pain (chief complaint) Lower Back PainShoulder Biceps TendonitisLumbago Bicipital tenosynovitis 4 No Information Family History Family Member Type Diagnosis Age At Onset No Information Payers Payer name Insurance type Covered green party ID Authorsepideh espinosa(s) [facility] [id number] Social History Type Description Quantity Date Captured Comments Alcohol Use Details Unknown Caffeine Use Details Unknown Tobacco Use Status No Information Smoking Status No Information Sex Male Chief Complaint And Reason For Visit No Information Reason For Referral Reason For Referral No Information History Of Present Illness Encounter Date Complaint History Of Prese nt Illness No Information Functional Status Date Functional Assessmen t No Information Instructions Date Instruction Additional Infor mation No Information Assessments Type Assessment Date No Information Patient Care Teams Name Effective Dates (start - stop) Status Members No Information
--- OUTSIDE RECORDS SUMMARY | 2025-03-25 18:38 | XMS_ITS | Data Portability ---
Author Organization [facility] Address [address] [place] [address] Care Team Providers Care Facility Environmental Technician Name Role Phone SIERRA ESCOBAR Primary Care Provider Assessment No assessment recorded. Plan of Treatment Reminders Order Date Submit Date Provider Last Modified By Organization Details Last Modified Time Details Appointments None recorded. Lab CBC 2023 [facility], [address] [place] [address] 2, [place], [address], 06:23:19 CMP, serum or plasma 2023 [facility], [address] [place] [address] 2, [place], [address], 06:23:18 lipid panel, serum 2023 [facility], [address] [place] [address] 2, [place], [address], 06:23:16 influenza virus A + B + SARS-CoV-2 (COVID19) Ag panel, rapid IA, upper respiratory specimen 2023 rose In-Office Order, Internal Use Only DO Not Attach Compendium DO Not Attach Compendium, Do Not Delete/merge, [id number] 12:45:43 Referral None recorded. Procedures None recorded. Surgeries None recorded. Imaging None recorded. Medication Orders lisinopril 20 mg tablet 2023 [facility], [address] [place], [address], 15:55:42 albuterol sulfate HFA 90 mcg/actuati on aerosol inhaler 2023 [facility], [address] [place] [address], [address], 11:11:05 Tessalon Perles 100 mg capsule 2023 [facility], [address] [place] [address], [address], 15:28:26 azithromyci n 500 mg tablet 2023 [facility], [address] [place] [address], [address], 11:33:04 cyclobenzap rine 10 mg tablet 2023 024 [facility], [address] [place] [address], [address], 16:49:51 Patient TargetsNo targets recorded. Patient Instructions Encounter Date Encounter Id Patient Instructions Last Modified By Organization Details Last Modified Time 05/11/2024 [id number] A healthy lifestyle: care instructions jnanney Not available 05/11/2024 16:49:45 05/27/2024 [id number] cough: care instructions jnanney Not available 05/27/2024 12:45:43 A healthy lifestyle: care instructions jnanney Not available 05/27/2024 12:23:47 06/11/2024 [id number] Plan of care has been discussed with patient including expected therapeutic benefits and potential side effects of prescribed medication and treatments. Patient verbalizes understanding and is in agreement with the plan of care. Patient was instructed to keep all scheduled appointments and contact the clinic for any additional problems. Not available 06/12/2024 16:49:58 07/02/2024 [id number] A healthy lifestyle: care instructions jnanney Not available 07/02/2024 11:10:59 08/19/2024 [id number] influenza (flu) vaccine: care instructions jnanney Not [...] DO Not Attach Compendium, Do Not Delete/merge, [id number] 05/27/2024 12:01:13 05/27/20 24 05/27/2024 influ alexis virus A + B + SARS- CoV-2 (COVI D19) Ag panel , rapid IA, upper respi rator y speci men Flu B negati ve Not Available In-Office Order Internal Use Only DO Not Attach Compendium DO Not Attach Compendium, Do Not Delete/merge, [id number] 05/27/2024 12:01:13 05/27/20 24 05/27/2024 influ alexis virus A + B + SARS- CoV-2 (COVI D19) Ag panel , rapid IA, upper respi rator y speci men Rapid SARS CoV 2 Ag, QL IA, respiratory specimen negati ve Not Available In-Office Order Internal Use Only DO Not Attach Compendium DO Not Attach Compendium, Do Not Delete/merge, [id number] 05/27/2024 12:01:13 08/19/20 24 08/19/2024 LIPID PANEL cholesterol, total 262 mg/dL 100-19 9 above high normal Not Available [address], [address], 08/20/2024 06:23:16 08/19/20 24 08/19/2024 LIPID PANEL triglyceride s 356 mg/dL 0-149 above high normal Not Available [address], [address], 08/20/2024 06:23:16 08/19/20 24 08/19/2024 LIPID PANEL HDL cholesterol 41 mg/dL 40-999 Not Available [address], [address], 08/20/2024 06:23:16 08/19/20 24 08/19/2024 LIPID PANEL VLDL cholesterol heather 71 mg/dL 5-40 above high normal Not Available [address], [address], 08/20/2024 06:23:16 08/19/2008/19/2024 LIPID PANEL LDL chol calc ([facility]) 196 mg/dL 0-99 above high normal Not Available [address], [address], 08/20/2024 06:23:16 08/19/20 24 08/19/2024 COMP. METAB OLIC PANEL (14) glucose 83 mg/dL 70-99 Not Available [address], [address], 08/20/2024 06:23:18 08/19/20 24 08/19/2024 COMP. METAB OLIC PANEL (14) BUN 12 mg/dL 6-20 Not Available [address], [address], 08/20/2024 06:23:18 08/19/20 24 08/19/2024 COMP. METAB OLIC PANEL (14) creatinine 0.87 mg/dL 0.76-1 .27 Not Available [address], [address], 08/20/2024 06:23:18 08/19/20 24 08/19/2024 COMP. METAB OLIC PANEL (14) eGFR 115 >=60 Units for eGFR value s are mL/mi n/1.7 3 The eGFR Calcu latio n has not been valid ated for patie nts under the age of 18. If test resul ts are displ ayed for a patie nt under the age of 18, disre carlos that value . Not Available [address], [address], 08/20/2024 06:23:18 08/19/20 24 08/19/2024 COMP. METAB OLIC PANEL (14) BUN/creatini ne ratio 13 9-20 Not Available [address], [address], 08/20/2024 06:23:18 08/19/20 24 08/19/2024 COMP. METAB OLIC PANEL (14) sodium 141 mmol/ L 134-14 4 Not Available [address], [address], 08/20/2024 06:23:18 08/19/20 24 08/19/2024 COMP. METAB OLIC PANEL (14) potassium 4.4 mmol/ L 3.5-5. 2 Not Available [address], [address], 08/20/2024 06:23:18 08/19/20 24 08/19/2024 COMP. METAB OLIC PANEL (14) chloride 102 mmol/ L 96-106 Not Available [address], [address], 08/20/2024 06:23:18 08/19/20 24 08/19/2024 COMP. METAB OLIC PANEL (14) carbon dioxide, total 27 mmol/ L 20-29 Not Available [address], [address], 08/20/2024 06:23:18 08/19/20 24 08/19/2024 COMP. METAB OLIC PANEL (14) calcium 9.7 mg/dL 8.7-10 .2 Not Available [address], [address], 08/20/2024 06:23:18 08/19/20 24 08/19/2024 COMP. METAB OLIC PANEL (14) protein, total 7.0 g/dL 6.0-8. 5 Not Available [address], [address], 08/20/2024 06:23:18 08/19/20 24 08/19/2024 COMP. METAB OLIC PANEL (14) albumin 4.4 g/dL 4.1-5. 1 Not Available [address], [address], 08/20/2024 06:23:18 08/19/20 24 08/19/2024 COMP. METAB OLIC PANEL (14) globulin, total 2.6 g/dL 1.5-4. 5 Not Available [address], [address], 08/20/2024 06:23:18 08/19/20 24 08/19/2024 COMP. METAB OLIC PANEL (14) A/G ratio 2.0 1.2-2. 2 Not Available [address], [address], 08/20/2024 06:23:18 08/19/20 24 08/19/2024 COMP. METAB OLIC PANEL (14) bilirubin, total 0.3 mg/dL 0.0-1. 2 Not Available [address], [address], 08/20/2024 06:23:18 08/19/20 24 08/19/2024 COMP. METAB OLIC PANEL (14) alkaline phosphatase 55 IU/L 44-121 Not Available [address], [address], 08/20/2024 06:23:18 08/19/20 24 08/19/2024 COMP. METAB OLIC PANEL (14) AST (SGOT) 20 IU/L 0-40 Not Available [address], [address], 08/20/2024 06:23:18 08/19/20 24 08/19/2024 COMP. METAB OLIC PANEL (14) ALT (SGPT) 29 IU/L 0-44 Not Available [address], [address], 08/20/2024 06:23:18 08/19/20 24 08/19/2024 CARDI OVASC [...] repor t is avail able. Not Available [address], [address], 08/20/2024 06:23:19 08/19/2008/19/2024 CARDI OVASC ULAR REPOR T pdf . Not Available [facility] & [address], [address], 08/20/2024 06:23:19 08/19/20 24 08/19/2024 CBC, PLATE LET, NO DIFFE RENTI AL WBC 6.7 x10e3 /uL 3.4-10 .8 Not Available [address], [address], 08/20/2024 06:23:19 08/19/2008/19/2024 CBC, PLATE LET, NO DIFFE RENTI AL RBC 5.14 x10e6 /uL 4.14-5 .80 Not Available [address], [address], 08/20/2024 06:23:19 08/19/2008/19/2024 CBC, PLATE LET, NO DIFFE RENTI AL hemoglobin 16.0 g/dL 13.0-1 7.7 Not Available [address], [address], 08/20/2024 06:23:19 08/19/2008/19/2024 CBC, PLATE LET, NO DIFFE RENTI AL hematocrit 46.6 % 37.5-5 1.0 Not Available [address], [address], 08/20/2024 06:23:19 08/19/2008/19/2024 CBC, PLATE LET, NO DIFFE RENTI AL MCV 91 fL 79-97 Not Available [address], [address], 08/20/2024 06:23:19 08/19/2008/19/2024 CBC, PLATE LET, NO DIFFE RENTI AL MCH 31.1 pg 26.6-3 3.0 Not Available [address], [address], 08/20/2024 06:23:19 08/19/2008/19/2024 CBC, PLATE LET, NO DIFFE RENTI AL MCHC 34.3 g/dL 31.5-3 5.7 Not Available [address], [address], 08/20/2024 06:23:19 08/19/2008/19/2024 CBC, PLATE LET, NO DIFFE RENTI AL RDW 12.1 % 11.5-1 4.5 Not Available [address], [address], 08/20/2024 06:23:19 08/19/20 24 08/19/2024 CBC, PLATE LET, NO DIFFE RENTI AL platelets 209 x10e3 /uL 150-45 0 Mean Plate let Volum e 9.5 fL 8.9-1 2.7 N Not Available [address], [address], 08/20/2024 06:23:19 08/19/2008/19/2024 CBC, PLATE LET, NO DIFFE RENTI AL NRBC 0 % 0-0 Not Available [address], [address], 08/20/2024 06:23:19 Result Notes None recorded. Problems [...] Updated DateTime 4 177.8 cm 60.7 kg/m2 920757. 85 g 96 % 96 % 78 /min 16 /min 146 mm[Hg] 84 mm[Hg] Mary Bolden MA [facility] SI 4 16:37:04 Date Recorded Body height Body mass index (BMI) Body weight Oxygen saturation Oxygen saturation in Arterial blood by Pulse oximetry Heart rate Systolic blood pressure Diastolic blood pressure Provider Name and Address Organization Details Last Updated DateTime 4 177.8 cm 60 kg/m2 157130. 01 g 94 % 94 % 98 /min 132 mm[Hg] 84 mm[Hg] Zaynab Rosario MA [facility] SI 4 12:02:50 Date Recorded Body height Body mass index (BMI) Body weight Heart rate Oxygen saturation Oxygen saturation in Arterial blood by Pulse oximetry Systolic blood pressure Diastolic blood pressure Provider Name and Address Organization Details Last Updated DateTime 4 177.8 cm 60.4 kg/m2 025022. 39 g 86 /min 96 % 96 % 143 mm[Hg] 93 mm[Hg] Aliza Flores MA [facility] SI 4 11:32:28 Date Recorded Body height Body mass index (BMI) Body weight Oxygen saturation Oxygen saturation in Arterial blood by Pulse oximetry Heart rate Respiratory rate Body temperature Systolic blood pressure Diastolic blood pressure Provider Name and Address Organization Details Last Updated DateTime 4 177.8 cm 60.9 kg/m2 009761. 32 g 98 % 98 % 89 /min 16 /min 98.7 [degF] 132 mm[Hg] 86 mm[Hg] Mary Bolden MA [facility] SI 4 11:00:33 Date Recorded Body height Body mass index (BMI) Body weight Oxygen saturation Oxygen saturation in Arterial blood by Pulse oximetry Heart rate Systolic blood pressure Diastolic blood pressure Provider Name and Address Organization Details Last Updated DateTime 4 177.8 cm 60.8 kg/m2 820429. 16 g 100 % 100 % 99 /min 137 mm[Hg] 90 mm[Hg] Zaynab Rosario [place] 15:31:04 Social History Question Answer [...] Anxious, Or Unable To Sleep At Night)? [id number] Information not available 01/12/2021 Do You Use [...] High Blood Pressure N Atrial Fibrillation N Kidney or Bladder Problems N Thyroid Problems N GI Problems N Depression N COPD N Blood Clots N Skin Problems N Eating Disorder N Anemia N Heart Attack (VA) N Anxiety Disorder N Diabetes N Muscle, Joint, or Bone Problems Y Seizures/Epilepsy N Acid Reflux (GERD) N Cancer N Stroke N Asthma N Allergies N ADHD N Substance Abuse N High Cholesterol N Hepatitis N Liver Disease N Schizophrenia N Headaches N Osteoporosis N Heart Failure N Immunizations Vaccine Type Date Status Note [...] completed Sierra Escobar PA-C Attn: [address] [place], [address], [place] 08/19/2024 15:50:51 Past Encounters Encounter ID Performer Location Encounter Start Date Encounter Closed Date Diagnosis/Indication Diagnosis SNOMED-CT Code Diagnosis ICD10 Code Diagnosis Note [id number] CAMI Garcia [address] [place] [address] 01/12/2021 09:48:03 01/13/2021 07:25:41 Chronic gouty arthritis 15449017 M1A.0610 Obesity 502847589 E66.8 [id number] Wojciech Cutler MD [facility] [address] [place] [address] 04/13/2021 10:19:52 04/13/2021 11:43:13 Lumbar radiculopathy 638212391 M54.16 Morbid obesity 574402543 E66.01 [id number] MD Iam Cook [address] [facility] [place] [address] 04/19/2021 12:37:45 04/22/2021 13:14:58 Administration of SARS-CoV-2 antigen vaccine 478018307 Z23 [id number] MD Andreas Ramey [facility] [address] [place] [address] 04/25/2021 10:06:30 04/25/2021 15:33:49 Acute maxillary sinusitis 64563935 J01.01 [id number] CAMI Garcia [address] [place] [address] 12/12/2021 10:50:53 12/12/2021 11:26:30 Administration of SARS-CoV-2 mRNA vaccine 3105901862 Z23 [id number] Wojciech Cutler MD [facility] [address] [place] [address] 02/12/2022 11:06:56 02/12/2022 11:45:40 Gout 32621315 M10.062 Body mass index 40+ - severely obese 345334247 Z68.43 [id number] Sierra Escobar PA-C [facility] [address] [place] [address] 04/04/2022 14:51:45 04/04/2022 15:27:40 Ganglion cyst of right hand 8736039374 56384 M67.082 [id number] Sierra Escobar PA-C [facility] [address] [place] [address] 06/05/2022 18:23:54 06/05/2022 19:00:54 Persistent cough 059789219 R05.3 Overweight 167465190 E66 .3 [id number] Sierra Escobar PA-C [facility] [address] [place] [address] 10/09/2022 18:15:17 10/10/2022 12:44:46 Body mass index 40+ - severely obese 572787638 Z68.43 [id number] Sierra Escobar PA-C [facility] [address] [place] [address] 11/23/2022 10:45:49 11/23/2022 11:22:12 Acute bronchitis with bronchospasm 12372268 J20.8 [id number] Sierra Escobar PA-C [facility] [address] [place] [address] 01/09/2023 10:23:34 01/09/2023 11:46:27 Obesity 856890734 E66.8 has lost 10 pounds on his own already Acute bron chitis with bronchospasm 48795489 J20.8 [id number] Sierra Escobar PA-C [facility] [address] [place] [address] 01/28/2023 14:29:31 01/30/2023 11:24:08 Spasm of muscle of lower back 0106701933 [id number] M62.419 [id number] Sierra Escobar PA-C [facility] [address] [place] [address] 02/08/2023 16:28:02 02/11/2023 15:27:16 Morbid obesity 976259127 E66.01 Mixed hyperlipidemia 267 560966 E78.2 [id number] Sierra Escobar PA-C [facility] [address] [place] [address] 03/12/2023 17:32:35 03/14/2023 16:23:40 Cervical radiculopathy 12831169 M54.12 Strain of left trapezius muscle 5014917980 4051126 S29.012A Seasonal a llergic rhinitis 213331760 J30.2 Gout 56413402 M10.062 Overweight 177009931 E66 .3 [id number] Sierra Escobar PA-C [facility] [address] [place] [address] 04/23/2023 15:02:35 04/24/2023 08:35:37 Edema of lower extremity 088551571 R60.0 [id number] Wojciech Cutler MD [facility] [address] [place] [address] 05/29/2023 14:35:01 05/30/2023 09:16:28 Daytime somnolence 0429155129 00 R40.0 Overweight 089299547 E66 .3 Fatigue 66864406 R53.83 [id number] Wojciech Cutler MD [facility] [address] [place] [address] 06/26/2023 14:59:35 07/02/2023 09:38:38 Pain of left knee joint 6929837551 01288 M25.513 [id number] Wojciech Cutler MD [facility] [address] [place] [address] 07/24/2023 16:21:20 07/30/2023 14:48:34 Viral syndrome 786389172 B34.9 Upper resp iratory infection 37306504 J00 [id number] Sierra Escobar PA-C [facility] [address] [place] [address] 09/12/2023 10:54:26 09/16/2023 15:45:19 Pain of bilateral knee joints 8786269416 20734 M25.562 Pain of le ft knee joint 4253198229 79969 M25.562 Morbid obesity 375455572 E66.01 Administra tion of influenza vaccine 21131123 Z23 [id number] Sierra Escobar PA-C [facility] [address] [place] [address] 11/01/2023 11:27:50 11/06/2023 09:20:08 Overweight 032945266 E66.3 Severe obesity 293863070 1 9104 E66.01 [id number] Sierra Escobar PA-C [facility] [address] [place] [address] 02/14/2024 16:26:40 02/18/2024 09:34:56 Pain of right ankle joint 1640525543 8715214 M25.571 Morbid obesity 440558051 E66.01 Overweight 518323973 E66 .3 [id number] Sierra Escobar PA-C [facility] [address] [place] [address] 02/25/2024 17:22:54 03/10/2024 07:34:27 Pseudofolliculitis barbae 033995548 L73.1 Overweight 590138023 E66 .3 [id number] Wojciech Cutler MD [facility] [address] [place] [address] 05/11/2024 16:29:42 05/14/2024 19:32:50 Strain of left trapezius muscle 6917741575 9625132 S29.012A Morbid obesity 989780297 E66.01 [id number] Wojciech Cutler MD [facility] [address] [place] [address] 05/27/2024 11:38:01 06/01/2024 19:39:28 Cough 22683340 R05.9 Upper resp iratory infection 26671098 J00 Acute bron chitis with bronchospasm 64772226 J20.8 Morbid obesity 397362630 E66.01 [id number] Wojciech Cutler MD [facility] [address] [place] [address] 06/11/2024 11:26:08 06/15/2024 06:58:14 Cough 60168268 R05.9 -Lung sounds clear on exam.-Toya ent agreeable to treatment with tessalon perles TID PRN.-[employer] advised patient to follow up with PCP for annual labwork. [id number] Sierra Escobar PA-C [facility] [address] [place] [address] 07/02/2024 10:51:29 07/06/2024 15:49:43 Unexplained chronic cough 1221834672 R05.3 otc zyrtec Overweight 809592729 E66 .3 [id number] Sierra Escobar PA-C [facility] [address] [place] [address] 08/19/2024 15:13:03 08/20/2024 14:13:07 Administration of influenza vaccine 42197976 Z23 Mixed hyperlipidemia 267 733309 E78.2 Essential hypertension 15156741 I10 Morbid obesity 793957145 E66.01 Health Concerns Section Related Observation LastModified by Organization Detai ls LastModified Time None Recorded Concern Status LastModified by Organization Details LastModified Time None Recorded Advance Directives Directive N: Payers Encounter Date Sequence Insurance Name Policy Number Policy Villarreal Covered Member ID Villarreal Member ID Guarantor Name 05/11/2024 1 [facility] ON OR AFTER 05/18/21 (MEDICAID REPLACEMENT - HMO) Christiano Galvan [id number] Christiano Galvan 05/27/2024 1 [facility] ON OR AFTER 05/18/21 (MEDICAID REPLACEMENT - HMO) Christiano Galvan [id number] Christiano Galvan 06/11/2024 1 [facility] - DOS ON OR AFTER 21 (MEDICAID REPLACEMENT - HMO) Christiano Galvan [id number] Christiano Galvan 07/02/2024 1 [facility] ON OR AFTER 05/18/21 (MEDICAID REPLACEMENT - HMO) Christiano Galvan [id number] Christiano Galvan 08/19/2024 1 [facility] - DOS ON OR AFTER 21 (MEDICAID REPLACEMENT - HMO) Christiano Galvan [id number] Christiano Galvan Notes Date Note Type Note Provider Name and Address Organization Details Recorded Time 05/11/2024 text/html lft neck and tra ps painful as if strained...no known injury.. Sierra Escobar PA-C Attn: [address] [facility], [place], [address], [place] 05/11/2024 16:50:12 05/27/2024 text/html coughing and tired...uri symptoms all since saturday Sierra Escobar PA-C Attn: Accounting[address] [facility], [place], [address], [place] 05/27/2024 12:23:55 06/11/2024 text/html [...] reports all other symptoms have resolved. JULIA GRIDRE Attn: Accounting,[address] [facility], [place], [address], [place] 06/12/2024 16:54:25 07/02/2024 text/html wants a referral to an ENT because he doesnt know why...somebody said...coughing persists Sierra Escobar PA-C Attn: Accounting[address] [place], [address], [place] 07/02/2024 11:11:45 08/19/2024 text/html no complaints annual check up Sierra Escobar PA-C Attn: Accounting[address] [facility], [place], [address], [facility] - [place] 08/19/2024 15:56:43
--- OUTSIDE RECORDS SUMMARY | 2025-03-25 18:38 | XMS_ITS | Referral Summary ---
Author Organization [facility] Address [facility] [place] [address] Care Team Providers Care Teacher Physically Impaired Name Role Phone Shin Dali MUSTAPHA Primary Care Provider [phone] Encounters Date Type Department Care Team Description 01/04/2025 10:30 AM CERTIFIED MASTER SAFECRACKER Office Visit [facility] Medical [facility] Sports Medicine and Primary Care at [address] [place] [id number] Damien Canales DO Primary osteoarthritis of left knee (Primary Dx) 12/31/2024 3:36 PM CERTIFIED MASTER SAFECRACKER - 12/31/2024 4:38 PM [facility] Emergency [facility] Emergency Department [address] [place] [address] Acute pain of left knee [...] 11/26/2023 Assessment & Plan (11/26/2023 10:08 AM CERTIFIED MASTER SAFECRACKER): Given their past success the patient would [...] on file Legal Sex Male 12:24 AM CERTIFIED MASTER SAFECRACKER Gender Identity Not on file Sexual Orientation Not on file Last Filed Vital Signs Vital Sign Reading Time Taken Comments Blood Pressure 139/81 01/04/2025 10:21 AM CERTIFIED MASTER SAFECRACKER Pulse 99 01/04/2025 10:21 AM CERTIFIED MASTER SAFECRACKER Temperature 36.8 C (98.2 F) 12/31/2024 3:35 PM CERTIFIED MASTER SAFECRACKER Respiratory Rate 16 12/31/2024 3:35 PM CERTIFIED MASTER SAFECRACKER Oxygen Saturation 96% 12/31/2024 3:35 PM CERTIFIED MASTER SAFECRACKER Inhaled Oxygen Concentration - - Weight 191.9 kg (423 lb) 01/04/2025 10:21 AM CERTIFIED MASTER SAFECRACKER Height 180.3 cm (5' 11 ) 01/04/2025 10:21 AM CERTIFIED MASTER SAFECRACKER Body Mass Index 59 01/04/2025 10:21 AM CERTIFIED MASTER SAFECRACKER Plan of Treatment Not on file Procedures Procedure Name Priority Date/Time Associated Diagnosis Comments [place] ARTHROCENTESIS ASPIR&/INJ MAJOR JT/BURSA W/O US Routine 01/04/2025 10:30 AM CERTIFIED MASTER SAFECRACKER Primary osteoarthritis of left knee XR KNEE LEFT 3 VIEWS ED 12/31/2024 3:53 PM CERTIFIED MASTER SAFECRACKER from Last 3 Months Results * VT ARTHROCENTESIS ASPIR&/INJ MAJOR JT/BURSA W/O US (01/04/2025 10:30 AM CERTIFIED MASTER SAFECRACKER) Narrative Damien Canlaes DO - 01/04/2025 10:30 AM CERTIFIED MASTER SAFECRACKER Damien Canales DO 01/04/2025 11:15 AM Large [...] Knee Left 3 Views (12/31/2024 3:53 PM CERTIFIED MASTER SAFECRACKER) Anatomical Region Laterality Modality Lower Extremities, Knee Left Computed Radiography 12/31/2024 4:11 PM CERTIFIED MASTER SAFECRACKER Narrative 12/31/2024 4:14 PM CERTIFIED MASTER SAFECRACKER EXAM DESCRIPTION: XR KNEE LEFT 3 VIEWS [...] by Urban Lees.D. KN: TAMIR Report ID: [id number] Reading Location: [id number] Procedure Note Urban Roman MD - 12/31/2024 [...] Urban Roman M.D. KN: TAMIR Report ID: [id number] Reading Location: [id number] Jessika AGUAYO IMG XR PROCEDURES Final Result from Last 3 Months Insurance [facility] Care Teams Teacher Physically Impaired Relationship Specialty Start Date End Date Dali Melissa NP [address] [place] [address] PCP - General Nurse Practitioner 12/31/24
--- OUTSIDE RECORDS SUMMARY | 2025-03-25 18:38 | XMS_ITS | Clinical Summary ---
Author Organization [facility] [employer] Address [address] [place] [address] Care Team Providers Care Sealant Mixer Name Role Phone Unavailable Primary Care Provider Unavailabl e Source Comments [facility] [employer],non-owned Affiliates and Associated Physician Practices is amultiple site organization consisting of ambulatory clinics and hospital sitesin [place], [place], [place] and [place]. This disclosure is being madepursuant to the Care Everywhere program and may not contain all information available regarding this patient. Last updated 18.AisleFinder Allergies No known active allergies Medications * [...] on file Legal Sex Male 4:28 PM PALLIATIVE CARE PHYSICIAN Gender Identity Not on file Sexual Orientation Not on file Last Filed Vital Signs Vital Sign Reading Time Taken Comments Blood Pressure 134/80 11/04/2017 8:02 AM PALLIATIVE CARE PHYSICIAN Pulse 72 11/04/2017 8:02 AM PALLIATIVE CARE PHYSICIAN Temperature 36.9 C (98.4 F) 11/04/2017 8:02 AM PALLIATIVE CARE PHYSICIAN Respiratory Rate 17 11/04/2017 8:02 AM PALLIATIVE CARE PHYSICIAN Oxygen Saturation 97% 11/04/2017 8:02 AM PALLIATIVE CARE PHYSICIAN Inhaled Oxygen Concentration - - Weight 163.3 kg (360 lb) 11/04/2017 8:02 AM PALLIATIVE CARE PHYSICIAN Height 182.9 cm (6') 11/04/2017 8:02 AM PALLIATIVE CARE PHYSICIAN Body Mass Index 48.82 11/04/2017 8:02 AM PALLIATIVE CARE PHYSICIAN Plan of Treatment Health Maintenance Due Date [...] age to complete this topic Insurance [facility] Address: [facility] [id number] [place] [address] [address] [id number]
--- OUTSIDE RECORDS SUMMARY | 2025-03-25 18:38 | XMS_ITS | Encounter Summary ---
Author Organization [facility] Address [address] [place] [address] Phone Care Team Providers Care Public Speaking Instructor Name Role Phone Seamus Valdez MD Primary Care Provider [phone] Weston Escobar Primary Care Provider [phone] Al Britt MD Unavailable Vilma Jaffe APRN, CNP Unavailable [phone] Reason for Visit * Reason Comments Medication Refill Encounter Details Date Type Department Care Team (Late st Contact Info) Description 11/03/2020 Refill [facility] Admitting [address] [place] [address] Seamus Valdez MD [address] [place] [address] Medication Refill Social History Tobacco [...] 8:12 AM CST Please review and sign. E SUPERINTENDENT documented in this encounter Plan of Treatment Not on file documented as of this encounter Visit Diagnoses Not on filedocumented in this encounter Care Teams Public Speaking Instructor Relationship Specialty Start Date End Date Seamus Valdez MD [address] [place] [address] PCP - General Internal Medicine 10/18/19 01/11/21 Weston Escobar [facility] [address] [place] [address] PCP - General Physician Stave Bolt Equalizer 01/12/21 Al Britt MD #2 [facility] [address] [place] [address] Consulting Physician Colon and Rectal Surgery 07/30/23 Vilma Jaffe APRN, LPC #2 [facility] [address] [place] [address] Nurse Practitioner Advanced Practice Nurse 08/25/24 documented as of this encounter
--- OUTSIDE RECORDS SUMMARY | 2025-03-25 18:38 | XMS_ITS | Clinical Summary ---
Author Organization [facility] Address [address] [place] [address] Care Team Providers Care Press Operator Name Role Phone Shin Dali MUSTAPHA Primary Care Provider [phone] Allergies No known active allergies Medications montelukast [...] 11/26/2023 Assessment & Plan (11/26/2023 10:08 AM SENIOR HEALTH CONSULTANT): Given their past success the patient would [...] Department Care Team Description 01/04/2025 10:30 AM SENIOR HEALTH CONSULTANT Office Visit [facility] Sports Medicine and Primary Care at [address] [place] [address] Damien Canales DO Primary osteoarthritis of left knee (Primary Dx) 12/31/2024 3:36 PM SENIOR HEALTH CONSULTANT - 12/31/2024 4:38 PM SENIOR HEALTH CONSULTANT Emergency [facility] Emergency Department [address] [place] [address] Acute pain of left knee (Primary Dx) [...] on file Legal Sex Male 12:24 AM SENIOR HEALTH CONSULTANT Gender Identity Not on file Sexual Orientation Not on file Obstetrics History Last Filed Vital Signs Vital Sign Reading Time Taken Comments Blood Pressure 139/81 01/04/2025 10:21 AM SENIOR HEALTH CONSULTANT Pulse 99 01/04/2025 10:21 AM SENIOR HEALTH CONSULTANT Temperature 36.8 C (98.2 F) 12/31/2024 3:35 PM SENIOR HEALTH CONSULTANT Respiratory Rate 16 12/31/2024 3:35 PM SENIOR HEALTH CONSULTANT Oxygen Saturation 96% 12/31/2024 3:35 PM SENIOR HEALTH CONSULTANT Inhaled Oxygen Concentration - - Weight 191.9 kg (423 lb) 01/04/2025 10:21 AM SENIOR HEALTH CONSULTANT Height 180.3 cm (5' 11 ) 01/04/2025 10:21 AM SENIOR HEALTH CONSULTANT Body Mass Index 59 01/04/2025 10:21 AM SENIOR HEALTH CONSULTANT Plan of Treatment Health Maintenance Due [...] Procedure Name Priority Date/Time Associated Diagnosis Comments PA ARTHROCENTESIS ASPIR&/INJ MAJOR JT/BURSA W/O US Routine 01/04/2025 10:30 AM SENIOR HEALTH CONSULTANT Primary osteoarthritis of left knee XR KNEE LEFT 3 VIEWS ED 12/31/2024 3:53 PM SENIOR HEALTH CONSULTANT from Last 3 Months Results * PA ARTHROCENTESIS ASPIR&/INJ MAJOR JT/BURSA W/O US (01/04/2025 10:30 AM SENIOR HEALTH CONSULTANT) Narrative Damien Canales DO - 01/04/2025 10:30 AM SENIOR HEALTH CONSULTANT Damien Canales DO 01/04/2025 11:15 AM Large [...] Knee Left 3 Views (12/31/2024 3:53 PM SENIOR HEALTH CONSULTANT) Anatomical Region Laterality Modality Lower Extremities, Knee Left Computed Radiography 12/31/2024 4:11 PM SENIOR HEALTH CONSULTANT Narrative 12/31/2024 4:14 PM SENIOR HEALTH CONSULTANT EXAM DESCRIPTION: XR KNEE LEFT 3 VIEWS [...] Urban Roman M.D. KN: TAMIR Report ID: [id number] Reading Location: [id number] Procedure Note Urban Roman MD - 12/31/2024 [...] Urban Roman M.D. KN: TAMIR Report ID: [id number] Reading Location: [id number] Jessika AGUAYO IMG XR PROCEDURES Final Result from Last 3 Months Insurance [facility] Care Teams Press Operator Relationship Specialty Start Date End Date Dali Melissa NP [address] [place] [address] PCP - General Nurse Practitioner 12/31/24
--- OUTSIDE RECORDS SUMMARY | 2025-03-25 18:38 | XMS_ITS | Encounter Summary ---
Author Organization [facility] Address [address] [place] [address] Phone Care Team Providers Care Experimental Psychologist Name Role Phone Seamus Valdez MD Primary Care Provider [phone] Weston Escobar Primary Care Provider [phone] Al Britt MD Unavailable Vilma Jaffe APRN, CNP Unavailable [phone] Reason for Visit * Reason Comments Medication Refill Encounter Details Date Type Department Care Team (Late st Contact Info) Description 11/28/2020 Refill [facility] Admitting 1 [place] [address] Seamus Valdez MD [address] [place] [address] Medication Refill Social History Tobacco [...] 7:43 AM CST Please review and sign. CELL TESTER documented in this encounter Plan of Treatment Not on file documented as of this encounter Visit Diagnoses Not on filedocumented in this encounter Care Teams Experimental Psychologist Relationship Specialty Start Date End Date Seamus Valdez MD [address] [place] [address] PCP - General Internal Medicine 10/18/19 01/11/21 Weston Escobar PAC [address] [place] [address] PCP - General Physician Port Traffic Manager 01/12/21 Al Britt MD #2 [facility] [address] [place] [address] Consulting Physician Colon and Rectal Surgery 07/30/23 Vilma Jaffe APRN, MACHINE LEARNING INTERN #2 [facility] [address] [place] [address] Nurse Practitioner Advanced Practice Nurse 08/25/24 documented as of this encounter
--- OUTSIDE RECORDS SUMMARY | 2025-03-25 18:40 | XMS_ITS | Continuity of Care Document ---
Author Organization [facility] Address [address] [place] [address] [place] [address] Phone Care Team Providers Care Car Varnisher Name Role Phone Charisse Blair OT Unavailable [...] Diagnoses Date Provider Providers Copied on Encounter [facility], [address], [id number], tel:[phone] [place] No Information 5 Rossy Mcqueen. . [facility], [address], [id number], tel:[phone] [place] No Information 0 4 Rossy Mcqueen. . [facility], [address], [id number], tel:[phone] [place] Distal Biceps Tendon TearSprain of other specified sites of shoulder and upper arm 8 4 Rossy Mcqueen. . [facility], [address], [id number], tel:[phone] [place] [employer] No Information 5 4 No Information [facility], [address] [employer] [address] [place] [address], [id number], tel:[phone] [place] [employer] [facility] No Information 4 No Information [facility], [address] [employer] [address] [place] [address], [id number], tel:[phone] [place] [employer] No Information 4 No Information [facility], [address], [place], [place], [id number], [place] tel:[phone] [facility] Back Pain (chief complaint) Elbow Pain (chief complaint) No Information 4 No Information [facility], [address], [place], [place], [id number], [place] tel:[phone] [facility] Back Pain (chief complaint) Elbow Pain (chief complaint) No Information 4 No Information [facility], [address], [place], [place], [id number], [place] tel:[phone] [facility] Back Pain (chief complaint) Elbow Pain (chief complaint) No Information 4 No Information [facility], [address], [place], [place], [id number], [place] tel:[phone] [facility] Back Pain (chief complaint) Elbow Pain (chief complaint) No Information 4 No Information [facility], [address], [place], [place], [id number], [place] tel:[phone] [facility] Back Pain (chief complaint) Elbow Pain (chief complaint) No Information 4 No Information [facility], [address], [place], [place], [id number], [place] tel:[phone] [facility] Back Pain (chief complaint) Elbow Pain (chief complaint) No Information 4 No Information [facility], [address], [place], [place], [id number], [place] tel:[phone] [facility] Back Pain (chief complaint) Elbow Pain (chief complaint) No Information 4 No Information [facility], [address], [place], [place], [id number], [place] tel:[phone] [facility] Back Pain (chief complaint) Elbow Pain (chief complaint) No Information 4 No Information [facility], [address] [employer] [address] [place] [address], [id number], tel:[phone] [facility] Back Pain (chief complaint) Elbow Pain (chief complaint) No Information 4 No Information [facility], [address] [employer] [address] [place] [address], [id number], tel:[phone] [facility] Back Pain (chief complaint) Elbow Pain (chief complaint) No Information 4 No Information [facility], [address] [employer] [address] [place] [address], [id number], tel:[phone] [facility] Back Pain (chief complaint) Elbow Pain (chief complaint) No Information 4 No Information [facility], [address], [id number], tel:[phone] [facility] Back Pain (chief complaint) Elbow Pain (chief complaint) Lower Back PainShoulder Biceps TendonitisLumbago Bicipital tenosynovitis 4 No Information Family History Family Member Type Diagnosis Age At Onset No Information Payers Payer name Insurance type Covered democrat ID Authorsepideh espinosa(s) [facility] [id number] Social History Type Description Quantity Date Captured [...]
[2025-03-25 19:03] VITALS: BP 115/69; PULSE 90; RESP 20; TEMP 36.6; O2SAT 97
--- NOTE | 2025-03-25 20:40 | ED_ITS ---
HPI - Ear Problem General Chief complaint: Ear Stated complaint: Right Ear Pain Time Seen by Provider: 03/25/25 20:30 Source: patient, RN notes reviewed and old records reviewed Mode of arrival: ambulatory Limitations: no limitations History of Present Illness HPI Narrative: 35 year old male presents to [facility] with complaints of right ear pain for the past 2 weeks. Patient states that he was seen in the clinic on the 12 of March and was told to put Debrox in his ear and he has been doing that nightly with no improvement noted. Patient denies any fevers, chills or any sore throat, denies any nasal congestion or drainage. He reports that he has taken Tylenol and Ibuprofen for his discomfort. MD Complaint: ear pain and decreased hearing Location: right ear Duration: intermittent Discharge from ear: Reports no Treatment prior to arrival: oral analgesic (Tylenol and Ibuprofen) and other (debrox) Related Data Home Medications ?Medication ?Instructions ?Recorded ?Confirmed ?Last Taken ?Type famotidine 40 mg tablet 40 mg PO DAILY 11/26/24 03/09/25 Unknown History Allergies Allergy/AdvReac Type Severity Reaction Status Date / Time No Known Allergies Allergy Verified 03/25/25 19:01 Review of Systems Review of Systems: CONSTITUTIONAL: Denies malaise, chills, sweats, or fever. EYES: Denies visual changes, redness, or discharge. ENT: Reports no rhinorrhea, congestion, sinus pain,states right otalgia and no sore throat. CARDIOVASCULAR: Denies chest pain, palpitations, or edema. RESPIRATORY: Reports no cough.? Denies dyspnea. GASTROINTESTINAL: Denies abdominal pain, nausea, vomiting, diarrhea SKIN: Denies rash or itching. MUSCULOSKELETAL: Denies myalgia. NEUROLOGIC: Denies headache. All systems reviewed & are unremarkable except as noted in HPI and below PMFSH Past Medical History Medical History Low testosterone Hypertension Arthritis Gout Hyperlipidemia Surgical History Surgical History Hx of hand surgery left Family History Family History Mother Diabetes mellitus Hypertension Grandparent Cancer Social History Social History Smoking status: Never smoker Alcohol intake: current Alcohol use details: 1-4 A week. Substance use: unknown Do You Feel Safe in your Home?: Yes Lack of Transportation: No Lack of Food: Never True Current Housing: I Have Housing Concerned About Future Housing: No Difficulty Paying Gas/Electric Bills: No Difficulty Paying for Meds: No Currently Unemployed: No Education: High School Diploma/GED Difficulty w/ Childcare or Family Care: No Living arrangements: with family Gender identity (if verbalized by the patient): Male Agree to blood products: No Comments At time of signature, agree with nursing past medical, surgical, social and family history. There is no relevant family history pertinent to the presenting complaint Exam Narrative: GENERAL: Well-appearing, well-nourished, and in no acute distress. HEAD: Normocephalic EYES: PERRLA, conjunctivae clear ENT: Nares clear, turbinates edematous and erythematous, clear discharge. Mucous membranes moist. TM pearly strickland with dull light reflex bilaterally; right tragal tenderness.some wax noted to bilateral ears but able to visual TM;s right ear canal red and excoriated Oropharynx erythematous without lesions. Tonsils not enlarged and without exudate, no drooling, no hoarseness, no trismus, uvula midline. NECK: Supple. No lymphadenopathy CHEST: Clear to auscultation, breath sounds equal. No wheezing, rhonchi, rales, or stridor. No respiratory distress, speaks in full sentences.SAO2 97% on room air HEART: Regular rate and rhythm. No murmur heard. SKIN: Warm, dry, no rash. NEURO: Alert and oriented x3. PSYCH: Normal mood and affect Course Course Emergency Course: Patient is aware of diagnosis, understands and agrees to treatment plan.? Anticipatory guidance given.? Patient agrees to follow-up as directed and is aware of reasons to seek care at the emergency department. Portions of this record may have been created with voice recognition software Level of Care: Express Care Visit Vital Signs Vital signs: Vital Signs Temperature 36.6 C 03/25/25 19:03 Pulse Rate 90 03/25/25 19:03 Respiratory Rate 20 03/25/25 19:03 Blood Pressure 115/69 03/25/25 19:03 Pulse Oximetry 97 03/25/25 19:03 Oxygen Delivery Room Air 03/25/25 19:03 Temperature 36.6 C 03/25/25 19:03 Pulse Rate 90 03/25/25 19:03 Respiratory Rate 20 03/25/25 19:03 Blood Pressure 115/69 03/25/25 19:03 Pulse Oximetry 97 03/25/25 19:03 Oxygen Delivery Room Air 03/25/25 19:03 Reviewed Medical Decision Making Differential Diagnosis Differential Diagnosis: right ear otalgia, decreased hearing, otitis externa, otitis media, cerumen impaction Medical Records Medical records reviewed: Yes I reviewed the external patient's medical records. Vital Signs Vital Signs: Vital Signs Temperature 36.6 C 03/25/25 19:03 Pulse Rate 90 03/25/25 19:03 Respiratory Rate 20 03/25/25 19:03 Blood Pressure 115/69 03/25/25 19:03 Pulse Oximetry 97 03/25/25 19:03 Oxygen Delivery Room Air 03/25/25 19:03 Temperature 36.6 C 03/25/25 19:03 Pulse Rate 90 03/25/25 19:03 Respiratory Rate 20 03/25/25 19:03 Blood Pressure 115/69 03/25/25 19:03 Pulse Oximetry 97 03/25/25 19:03 Oxygen Delivery Room Air 03/25/25 19:03 reviewed Critical Care Time Critical Care Time Critical Care Time: No Discharge Plan Discharge Clinical Impression: Otitis externa Qualifiers: Otitis externa type: diffuse Chronicity: acute Laterality: right Qualified Code(s): H60.311 - Diffuse otitis externa, right ear Patient Disposition: Home Condition: Stable Instructions: Antibiotic Form, Barotitis Media (ED) Additional Instructions: Increase fluids especially juices and water [id number] cough and cold medicine of your choice for your symptoms Continue Katy daily or Zyrtec or Claritin Tylenol or Ibuprofen for any fever or pain heat to the face 20-30 minutes 4-6 times a day for pain Salt water gargles, throat lozenges or throat sprays as desired Antibiotic ear drops as directed--finished the medication Follow up in ED if increased pain or any increased symptoms. Patient Language: Pakistani Prescriptions: New ofloxacin 0.3 % drops 5 drp EACH EAR BID 7 Days Qty: 10 0RF No Action famotidine 40 mg tablet 40 mg PO DAILY lisinopril-hydrochlorothiazide 20-25 mg tablet 1 tablet PO DAILY Qty: 90 3RF (DME) Carepoint Luer Lock Syr-needle 3 mL 23 x 1 syringe See Rx Instructions .Route Qty: 100 0RF Rx Instructions: As directed with testosterone every other week IM fexofenadine 180 mg tablet 180 mg PO DAILY Qty: 90 0RF gabapentin 300 mg capsule 300 mg PO DAILY Qty: 30 0RF testosterone cypionate 200 mg/mL oil 200 mg IM .every other week Qty: 10 1RF atorvastatin 20 mg tablet 20 mg PO DAILY Qty: 90 0RF Follow-up/Referrals: Dali Melissa APRN [Primary Care Provider] - Time of Disposition: 20:52 Quality [place] Coma Scale Eyes: Open Verbal: Oriented and Alert Motor: Follows Commands [place] Coma Total Score: 15
== END 2025-03-25 20:55 | disposition home or self-care (01) ==
PROVIDERS: Emergency Provider Registered Nurse; PCP Nurse Practitioner Adult Health
DX: H60.311 Diffuse otitis externa, right ear (principal); I10 Essential (primary) hypertension; E78.5 Hyperlipidemia, unspecified; M10.9 Gout, unspecified; M19.90 Unspecified osteoarthritis, unspecified site
CPT/HCPCS: 99213; G0463

== ENCOUNTER 2025-05-26 16:42 | Emergency (ER) | payer OTHER, SELFPAY ==
[2025-05-26 16:45] VITALS: BP 141/66; PULSE 93; RESP 18; TEMP 36.4; O2SAT 98
--- OUTSIDE RECORDS SUMMARY | 2025-05-26 16:45 | XMS_ITS | Referral Summary ---
Author Organization [facility] Address [address] [place] [address] Care Team Providers Care Food Checkers And Cashiers Supervisor Name Role Phone Shin Dali MUSTAPHA Primary Care Provider [phone] Allergies No known active allergies Medications montelukast [...] 11/26/2023 Assessment & Plan (11/26/2023 10:08 AM DOLL WIG MAKER ROOTED HAIR): Given their past success the patient would [...] on file Legal Sex Male 12:24 AM DOLL WIG MAKER ROOTED HAIR Gender Identity Not on file Sexual Orientation Not on file Last Filed Vital Signs Vital Sign Reading Time Taken Comments Blood Pressure 139/81 01/04/2025 10:21 AM DOLL WIG MAKER ROOTED HAIR Pulse 99 01/04/2025 10:21 AM DOLL WIG MAKER ROOTED HAIR Temperature 36.8 C (98.2 F) 12/31/2024 3:35 PM DOLL WIG MAKER ROOTED HAIR Respiratory Rate 16 12/31/2024 3:35 PM DOLL WIG MAKER ROOTED HAIR Oxygen Saturation 96% 12/31/2024 3:35 PM DOLL WIG MAKER ROOTED HAIR Inhaled Oxygen Concentration - - Weight 191.9 kg (423 lb) 01/04/2025 10:21 AM DOLL WIG MAKER ROOTED HAIR Height 180.3 cm (5' 11) 01/04/2025 10:21 AM DOLL WIG MAKER ROOTED HAIR Body Mass Index 59 01/04/2025 10:21 AM DOLL WIG MAKER ROOTED HAIR Plan of Treatment Not on file Insurance [facility] Care Teams Food Checkers And Cashiers Supervisor Relationship Specialty Start Date End Date Dali Melissa NP [address] [place] [id number] PCP - General Nurse Practitioner 12/31/24
--- OUTSIDE RECORDS SUMMARY | 2025-05-26 16:45 | XMS_ITS | Encounter Summary ---
Author Organization [facility] Address [address] [place] [address] Phone Care Team Providers Care Sanitation Tank Washer Name Role Phone Seamus Valdez MD Primary Care Provider [phone] Weston Escobar Primary Care Provider [phone] Al Britt MD Unavailable Vilma Jaffe APRN, CNP Unavailable [phone] Reason for Visit * Reason Comments Medication Refill Encounter Details Date Type Department Care Team (Late st Contact Info) Description 11/03/2020 Refill [facility] Admitting [address] [place] [address] Seamus Valdez MD [address] [place] [address] Medication Refill Social History Tobacco [...] 8:12 AM CST Please review and sign. OISOTOPE TECHNOLOGIST documented in this encounter Plan of Treatment Not on file documented as of this encounter Visit Diagnoses Not on filedocumented in this encounter Care Teams Sanitation Tank Washer Relationship Specialty Start Date End Date Seamus Valdez MD [address] [place] [address] PCP - General Internal Medicine 10/18/19 01/11/21 Weston Escobar [facility] [address] [place] [address] PCP - General Physician Art Coordinator 01/12/21 Al Britt MD #2 [facility] [address] [place] [address] Consulting Physician Colon and Rectal Surgery 07/30/23 Vilma Jaffe APRN, DISTILLER #2 [facility] [address] [place] [address] Nurse Practitioner Advanced Practice Nurse 08/25/24 documented as of this encounter
--- OUTSIDE RECORDS SUMMARY | 2025-05-26 16:46 | XMS_ITS | Clinical Summary ---
Author Organization [facility] [employer] Address [address] [place] [address] Care Team Providers Care Denture Contour Wire Specialist Name Role Phone Unavailable Primary Care Provider Unavailabl e Source Comments [facility] [employer],non-owned Affiliates and Associated Physician Practices is amultiple site organization consisting of ambulatory clinics and hospital sitesin [place], [place], [place] and [place]. This disclosure is being madepursuant to the Care Everywhere program and may not contain all information available regarding this patient. Last updated 18.[employer] Allergies No known active allergies Medications * [...] on file Legal Sex Male 4:28 PM CYTOTECHNOLOGIST SUPERVISOR Gender Identity Not on file Sexual Orientation Not on file Last Filed Vital Signs Vital Sign Reading Time Taken Comments Blood Pressure 134/80 11/04/2017 8:02 AM CYTOTECHNOLOGIST SUPERVISOR Pulse 72 11/04/2017 8:02 AM CYTOTECHNOLOGIST SUPERVISOR Temperature 36.9 C (98.4 F) 11/04/2017 8:02 AM CYTOTECHNOLOGIST SUPERVISOR Respiratory Rate 17 11/04/2017 8:02 AM CYTOTECHNOLOGIST SUPERVISOR Oxygen Saturation 97% 11/04/2017 8:02 AM CYTOTECHNOLOGIST SUPERVISOR Inhaled Oxygen Concentration - - Weight 163.3 kg (360 lb) 11/04/2017 8:02 AM CYTOTECHNOLOGIST SUPERVISOR Height 182.9 cm (6') 11/04/2017 8:02 AM CYTOTECHNOLOGIST SUPERVISOR Body Mass Index 48.82 11/04/2017 8:02 AM CYTOTECHNOLOGIST SUPERVISOR Plan of Treatment Health Maintenance Due Date [...] to complete this topic Insurance [facility] [address] [id number]
--- OUTSIDE RECORDS SUMMARY | 2025-05-26 16:46 | XMS_ITS | Clinical Summary ---
Author Organization [facility] Address [address] [place] [address] Phone Care Team Providers Care Customer Account Coordinator Name Role Phone Weston Escobar Primary Care Provider [phone] Al Britt MD Unavailable Vilma Jaffe APRN, STABILIZING MACHINE OPERATOR Unavailable Allergies No known active allergies Medications Surt-JQ-Emmfyam n-Petrolatum (Preparation H Rapid Relief) 5-0.25-14.4-15 % [...] P M CDT Height 180.3 cm (5' 11) 08/25/2024 1:56 PM CDT Body Mass Index 59.67 08/25/2024 1:56 PM CDT Plan of Treatment Health Maintenance Due Date Last Done Comments Hepatitis C Virus (HCV) Screening 1988 Human Papillomavirus (HPV) Immunization (1 - Male 3-dose series) 2003 SARS-COV-2 Immunization ( - season) 2024 12/12/2021, 04/19/2021 Influenza Immunization (#1) 2025 08/19/2024, 1 Respiratory Syncytial Virus (RSV) Immunization (Adult) (1 - 1-dose 75+ series) 2063 Hepatitis B Immunization Completed 997, 11/09/1996, 10/07/1996 DTaP/Tdap/Td Immunization Discontinued 2014, 11/07/2005, 01/16/1993, Additional history exists TdaP Immunization Completed 08/11/2015, 11/07/2005 Meningococcal Immunization (ACWY) Aged Out No longer eligible based on patient's age to complete this topic Pneumococcal Immunization Combined Aged Out No longer eligible based on patient's age to complete this topic Rotavirus Immunization Aged Out No lo nger eligible based on patient's age to complete this topic Insurance MEDICAID [employer] Care Teams Customer Account Coordinator Relationship Specialty Start Date End Date Weston Escobar PAC [address] [place] [id number] PCP - General Physician Websphere Architect 01/12/21 Al Britt MD #2 [facility] [address] [place] [address] Consulting Physician Colon and Rectal Surgery 07/30/23 Vilma Jaffe APRN, STABILIZING MACHINE OPERATOR #2 [facility] [address] [place] [address] Nurse Practitioner Advanced Practice Nurse 08/25/24
--- OUTSIDE RECORDS SUMMARY | 2025-05-26 16:46 | XMS_ITS | Encounter Summary ---
Author Organization [facility] Address [address] [place] [address] Phone Care Team Providers Care Salesperson Men'S Hats Name Role Phone Seamus Valdez MD Primary Care Provider [phone] Weston Escobar Primary Care Provider [phone] Al Britt MD Unavailable Vilma Jaffe APRN, CNP Unavailable [phone] Reason for Visit * Reason Comments Medication Refill Encounter Details Date Type Department Care Team (Late st Contact Info) Description 11/28/2020 Refill [facility] Admitting [address] [place] [address] Seamus Valdez MD [address] [place] [address] Medication Refill Social History Tobacco [...] 7:43 AM CST Please review and sign. JOINER HELPER documented in this encounter Plan of Treatment Not on file documented as of this encounter Visit Diagnoses Not on filedocumented in this encounter Care Teams Salesperson Men'S Hats Relationship Specialty Start Date End Date Seamus Valdez MD [address] [place] [address] PCP - General Internal Medicine 10/18/19 01/11/21 Weston Escobar PAC [address] [place] [id number] PCP - General Physician Service Coordinator Elderly Facility 01/12/21 Al Britt MD #2 [facility] [address] [place] [address] Consulting Physician Colon and Rectal Surgery 07/30/23 Vilma Jaffe APRN, DRY KILN WORKER #2 [facility] [address] [place] [address] Nurse Practitioner Advanced Practice Nurse 08/25/24 documented as of this encounter
--- OUTSIDE RECORDS SUMMARY | 2025-05-26 16:46 | XMS_ITS | Data Portability ---
Author Organization [facility] Address [address] [place] [address] Care Team Providers Care Fixed Route Bus Operator Name Role Phone SIERRA ESCOBAR Primary Care Provider Assessment No assessment recorded. Plan of Treatment Reminders Order Date Submit Date Provider Last Modified By Organization Details Last Modified Time Details Appointments None recorded. Lab CBC 2023 [facility], [address] [place] [address], [address], 4 06:23:19 CMP, serum or plasma 2023 [facility], [address] [place] [address], [address], 4 06:23:18 lipid panel, serum 2023 [facility], [address] [place] [address], [address], 4 06:23:16 influenza virus A + B + SARS-CoV-2 (COVID19) Ag panel, rapid IA, upper respiratory specimen 2023 rose In-Office Order, Internal Use Only DO Not Attach Compendium DO Not Attach Compendium, Do Not Delete/merge, [id number] 12:45:43 Referral None recorded. Procedures None recorded. Surgeries None recorded. Imaging None recorded. Medication Orders lisinopril 20 mg tablet 2023 [facility], [address] [place], [address], 15:55:42 albuterol sulfate HFA 90 mcg/actuati on aerosol inhaler 2023 [facility], [address] [place], [address], 11:11:05 Tessalon Perles 100 mg capsule 2023 [facility], [address] [place], [address], 15:28:26 azithromyci n 500 mg tablet 2023 [facility], [address] [place] [address], [address], 11:33:04 cyclobenzap rine 10 mg tablet 2023 [facility], [address] [place] [address], [address], 16:49:51 Patient TargetsNo targets recorded. Patient Instructions Encounter Date Encounter Id Patient Instructions Last Modified By Organization Details Last Modified Time 05/11/2024 [id number] A healthy lifestyle: care instructions jnanney Not available 05/11/2024 16:49:45 05/27/2024 [id number] cough: care instructions jnanney Not available 05/27/2024 12:45:43 A healthy lifestyle: care instructions jnanney Not available 05/27/2024 12:23:47 06/11/2024 [id number] Plan of care has been discussed with patient including expected therapeutic benefits and potential side effects of prescribed medication and treatments. Patient verbalizes understanding and is in agreement with the plan of care. Patient was instructed to keep all scheduled appointments and contact the clinic for any additional problems. Not available 06/12/2024 16:49:58 07/02/2024 [id number] A healthy lifestyle: care instructions jnanney Not available 07/02/2024 11:10:59 08/19/2024 [id number] influenza (flu) vaccine: care instructions jnanney Not [...] DO Not Attach Compendium, Do Not Delete/merge, [id number] 05/27/2024 12:01:13 05/27/20 24 05/27/2024 influ alexis virus A + B + SARS- CoV-2 (COVI D19) Ag panel , rapid IA, upper respi rator y speci men Flu B negati ve Not Available In-Office Order Internal Use Only DO Not Attach Compendium DO Not Attach Compendium, Do Not Delete/merge, [id number] 05/27/2024 12:01:13 05/27/20 24 05/27/2024 influ alexis virus A + B + SARS- CoV-2 (COVI D19) Ag panel , rapid IA, upper respi rator y speci men Rapid SARS CoV 2 Ag, QL IA, respiratory specimen negati ve Not Available In-Office Order Internal Use Only DO Not Attach Compendium DO Not Attach Compendium, Do Not Delete/merge, [id number] 05/27/2024 12:01:13 08/19/20 24 08/19/2024 LIPID PANEL cholesterol, total 262 mg/dL 100-19 9 above high normal Not Available [address], [address], 08/20/2024 06:23:16 08/19/20 24 08/19/2024 LIPID PANEL triglyceride s 356 mg/dL 0-149 above high normal Not Available [address], [address], 08/20/2024 06:23:16 08/19/20 24 08/19/2024 LIPID PANEL HDL cholesterol 41 mg/dL 40-999 Not Available [address], [address], 08/20/2024 06:23:16 08/19/20 24 08/19/2024 LIPID PANEL VLDL cholesterol heather 71 mg/dL 5-40 above high normal Not Available [address], [address], 08/20/2024 06:23:16 08/19/2008/19/2024 LIPID PANEL LDL chol calc (nih) 196 mg/dL 0-99 above high normal Not Available [address], [address], 08/20/2024 06:23:16 08/19/20 24 08/19/2024 COMP. METAB OLIC PANEL (14) glucose 83 mg/dL 70-99 Not Available [address], [address], 08/20/2024 06:23:18 08/19/20 24 08/19/2024 COMP. METAB OLIC PANEL (14) BUN 12 mg/dL 6-20 Not Available [address], [address], 08/20/2024 06:23:18 08/19/20 24 08/19/2024 COMP. METAB OLIC PANEL (14) creatinine 0.87 mg/dL 0.76-1 .27 Not Available [address], [address], 08/20/2024 06:23:18 08/19/20 24 08/19/2024 COMP. METAB OLIC PANEL (14) eGFR 115 >=60 Units for eGFR value s are mL/mi n/1.7 3 The eGFR Calcu latio n has not been valid ated for patie nts under the age of 18. If test resul ts are displ ayed for a patie nt under the age of 18, disre carlos that value . Not Available [address], [address], 08/20/2024 06:23:18 08/19/20 24 08/19/2024 COMP. METAB OLIC PANEL (14) BUN/creatini ne ratio 13 9-20 Not Available [address], [address], 08/20/2024 06:23:18 08/19/20 24 08/19/2024 COMP. METAB OLIC PANEL (14) sodium 141 mmol/ L 134-14 4 Not Available [address], [address], 08/20/2024 06:23:18 08/19/20 24 08/19/2024 COMP. METAB OLIC PANEL (14) potassium 4.4 mmol/ L 3.5-5. 2 Not Available [address], [address], 08/20/2024 06:23:18 08/19/20 24 08/19/2024 COMP. METAB OLIC PANEL (14) chloride 102 mmol/ L 96-106 Not Available [address], [address], 08/20/2024 06:23:18 08/19/20 24 08/19/2024 COMP. METAB OLIC PANEL (14) carbon dioxide, total 27 mmol/ L 20-29 Not Available [address], [address], 08/20/2024 06:23:18 08/19/20 24 08/19/2024 COMP. METAB OLIC PANEL (14) calcium 9.7 mg/dL 8.7-10 .2 Not Available [address], [address], 08/20/2024 06:23:18 08/19/20 24 08/19/2024 COMP. METAB OLIC PANEL (14) protein, total 7.0 g/dL 6.0-8. 5 Not Available [address], [address], 08/20/2024 06:23:18 08/19/20 24 08/19/2024 COMP. METAB OLIC PANEL (14) albumin 4.4 g/dL 4.1-5. 1 Not Available [address], [address], 08/20/2024 06:23:18 08/19/20 24 08/19/2024 COMP. METAB OLIC PANEL (14) globulin, total 2.6 g/dL 1.5-4. 5 Not Available [address], [address], 08/20/2024 06:23:18 08/19/20 24 08/19/2024 COMP. METAB OLIC PANEL (14) A/G ratio 2.0 1.2-2. 2 Not Available [address], [address], 08/20/2024 06:23:18 08/19/20 24 08/19/2024 COMP. METAB OLIC PANEL (14) bilirubin, total 0.3 mg/dL 0.0-1. 2 Not Available [address], [address], 08/20/2024 06:23:18 08/19/20 24 08/19/2024 COMP. METAB OLIC PANEL (14) alkaline phosphatase 55 IU/L 44-121 Not Available [address] [place], [address], 08/20/2024 06:23:18 08/19/20 24 08/19/2024 COMP. METAB OLIC PANEL (14) AST (SGOT) 20 IU/L 0-40 Not Available [address], [address], 08/20/2024 06:23:18 08/19/20 24 08/19/2024 COMP. METAB OLIC PANEL (14) ALT (SGPT) 29 IU/L 0-44 Not Available [address], [address], 08/20/2024 06:23:18 08/19/20 24 08/19/2024 CARDI OVASC ULAR REPOR T interpretati on Note Medic al Direc tor's Note: Mady karyna First Name has been corre cted on 2023, was ARIANE and now is SHARAD EW. Pleas e revie w this repor t in its entir ety, since carbajal es to patiwillis nt demog raphi cs may affec t resul t inter preta tion( s) and/o r treat ment/ follo w-up sugge stion s. Suppl ement al repor t is avail able. Not Available [address], [address], 08/20/2024 06:23:19 08/19/2008/19/2024 CARDI OVASC ULAR REPOR T pdf . Not Available [place] [facility] [address], [address], 08/20/2024 06:23:19 08/19/2008/19/2024 CBC, PLATE LET, NO DIFFE RENTI AL WBC 6.7 x10e3 /uL 3.4-10 .8 Not Available [address], [address], 08/20/2024 06:23:19 08/19/2008/19/2024 CBC, PLATE LET, NO DIFFE RENTI AL RBC 5.14 x10e6 /uL 4.14-5 .80 Not Available [address], [address], 08/20/2024 06:23:19 08/19/2008/19/2024 CBC, PLATE LET, NO DIFFE RENTI AL hemoglobin 16.0 g/dL 13.0-1 7.7 Not Available [address], [address], 08/20/2024 06:23:19 08/19/2008/19/2024 CBC, PLATE LET, NO DIFFE RENTI AL hematocrit 46.6 % 37.5-5 1.0 Not Available [address], [address], 08/20/2024 06:23:19 08/19/2008/19/2024 CBC, PLATE LET, NO DIFFE RENTI AL MCV 91 fL 79-97 Not Available [address], [address], 08/20/2024 06:23:19 08/19/2008/19/2024 CBC, PLATE LET, NO DIFFE RENTI AL MCH 31.1 pg 26.6-3 3.0 Not Available [address], [address], 08/20/2024 06:23:19 08/19/2008/19/2024 CBC, PLATE LET, NO DIFFE RENTI AL MCHC 34.3 g/dL 31.5-3 5.7 Not Available [address], [address], 08/20/2024 06:23:19 08/19/20 24 08/19/2024 CBC, PLATE LET, NO DIFFE RENTI AL RDW 12.1 % 11.5-1 4.5 Not Available [address], [address], 08/20/2024 06:23:19 08/19/20 24 08/19/2024 CBC, PLATE LET, NO DIFFE RENTI AL platelets 209 x10e3 /uL 150-45 0 Mean Plate let Volum e 9.5 fL 8.9-1 2.7 N Not Available [address], [address], 08/20/2024 06:23:19 08/19/20 24 08/19/2024 CBC, PLATE LET, NO DIFFE RENTI AL NRBC 0 % 0-0 Not Available [address], [address], 08/20/2024 06:23:19 Result Notes None recorded. Problems [...] Not Available Not Available Not Available benzonatate 200 mg capsule Take 1 capsule 3 times a day by oral route for 30 days. 06/05 completed Not Available Not Available Not [...] Pulse oximetry Heart rate Respiratory rate Systolic And Diastolic Provider Name and Address Organization Details Last Updated DateTime 4 177.8 cm 60.7 kg/m2 476386. 85 g 96 % 96 % 78 /min 16 /min 146/84 mm[Hg] Mary Bolden MA [facility] 4 16:37:04 Date Recorded Body height Body mass index (BMI) Body weight Oxygen saturation Oxygen saturation in Arterial blood by Pulse oximetry Heart rate Systolic And Diastolic Provider Name and Address Organization Details Last Updated DateTime 4 177.8 cm 60 kg/m2 788842. 01 g 94 % 94 % 98 /min 132/84 mm[Hg] Zaynab Rosario MA [facility] 4 12:02:50 Date Recorded Body height Body mass index (BMI) Body weight Heart rate Oxygen saturation Oxygen saturation in Arterial blood by Pulse oximetry Systolic And Diastolic Provider Name and Address Organization Details Last Updated DateTime 4 177.8 cm 60.4 kg/m2 733765. 39 g 86 /min 96 % 96 % 143/93 mm[Hg] Aliza Flores MA [facility] 4 11:32:28 Date Recorded Body height Body mass index (BMI) Body weight Oxygen saturation Oxygen saturation in Arterial blood by Pulse oximetry Heart rate Respiratory rate Body temperature Systolic And Diastolic Provider Name and Address Organization Details Last Updated DateTime 4 177.8 cm 60.9 kg/m2 515611. 32 g 98 % 98 % 89 /min 16 /min 98.7 [degF] 132/86 mm[Hg] Mary Bolden MA [facility] 4 11:00:33 Date Recorded Body height Body mass index (BMI) Body weight Oxygen saturation Oxygen saturation in Arterial blood by Pulse oximetry Heart rate Systolic And Diastolic Provider Name and Address Organization Details Last Updated DateTime 4 177.8 cm 60.8 kg/m2 196546. 16 g 100 % 100 % 99 /min 137/90 mm[Hg] Zaynab Rosario MA [place] - [facility] 4 15:31:04 Social History Question Answer Notes LastModified by Organizat ion Details LastModified Time Tobacco Smoking Status Never Smoker Aliza Flores MA null, [place] - [facility] 01/12/2021 09:57:13 Do You Have An Advance Directive? No Information not available 01/12/2021 Are You Blind Or Do You Have [...] No Information not available 01/12/2021 Are You Deaf Or Do You Have Serious Difficulty Hearing? No Information not available 01/12/2021 What Type Of Diet Are You Following? REGULAR Information not available 01/12/2021 Are There Any [...] Information no t available 01/12/2021 Do You Use Sunscreen Routinely? No Information not available 06/26/2023 Has Tobacco Cessation Counseling Been Provided? No Information not available 04/25/2021 Sex: Male Functional Status Question Answer Note LastModified by Organizat ion Details LastModified Time Do you use any illicit or recreational drugs? No Information not available 01/12/2021 Do you or have you ever used any other forms of tobacco or nicotine? No Information not available 01/12/2021 What is your level of alcohol consumption? None [email or web address] Information not available 02/08/2023 Are you currently employed? Yes Information not available 01/12/2021 Are you able to care for yourself? 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 Occasional Information not available 01/12/2021 Mental Status Question Answer Note LastModified by Organization D etails LastModified Time Do you feel stressed (tense, restless, nervous, or anxious, or unable to sleep at night)? FO0188-6 Information not available 01/12/2021 Family History Relationship Description Onset Age of [...] Eating Disorder N Anemia N Heart Attack ([place]) N Anxiety Disorder N Diabetes N Muscle, [...] Details Recorded Time IPV 01/16/1993 completed MONY Chery [place] - [facility] 11/26/2023 11:12:51 IPV 1988 completed MONY Chery, [place] - [facility] 11/26/2023 11:12:51 IPV 1988 completed Aliza Flores [place] null, [place] [facility] 11/26/2023 11:12:51 IPV 1988 [...] or 50 mcg/0.25mL dose 04/19/2021 completed Ugo uLtz [place], [place] [facility] 04/19/2021 14:12:58 COVID-19, mRNA, LNP-S, PF, 100 mcg/0.5mL dose or 50 mcg/0.25mL dose 12/12/2021 completed Aliza Flores [place] [facility] 12/12/2021 11:09:43 Influenza, split virus, quadrivalent, PF 09/12/2023 completed Aliza Flores [place] [facility] 09/12/2023 12:12:52 Influenza, split virus, trivalent, PF 08/19/2024 completed Sierra Escobar PA-C Attn: Accounting[address] [place], [address], [place] [facility] 08/19/2024 15:50:51 Past Encounters Encounter ID Performer Location Encounter Start Date Encounter Closed Date Diagnosis/Indication Diagnosis SNOMED-CT Code Diagnosis ICD10 Code Diagnosis Note [id number] Sierra Escobar PA-C [facility] [address] [place] [address] 01/12/2021 09:48:03 01/13/2021 07:25:41 Chronic gouty arthritis 83259394 M1A.0610 Obesity 203786660 E66.8 [id number] Wojciech Cutler MD [facility] [address] [place] [address] 04/13/2021 10:19:52 04/13/2021 11:43:13 Lumbar radiculopathy 060395213 M54.16 Morbid obesity 225446495 E66.01 [id number] MD Iam Cook 14 IM [address] [facility] [place] [address] 04/19/2021 12:37:45 04/22/2021 13:14:58 Administration of SARS-CoV-2 antigen vaccine 152407695 Z23 [id number] Wojciech Cutler MD [facility] [address] [place] [address] 04/25/2021 10:06:30 04/25/2021 15:33:49 Acute maxillary sinusitis 54674370 J01.01 [id number] Sierra Escobar PA-C [facility] [address] [place] [address] 12/12/2021 10:50:53 12/12/2021 11:26:30 Administration of SARS-CoV-2 mRNA vaccine 4512284607 Z23 [id number] Wojciech Cutler MD [facility] [address] [place] [address] 02/12/2022 11:06:56 02/12/2022 11:45:40 Gout 00788932 M10.062 Body mass index 40+ - severely obese 138777397 Z68.43 [id number] Sierra Escobar PA-C [facility] [address] [place] [address] 04/04/2022 14:51:45 04/04/2022 15:27:40 Ganglion cyst of right hand 6826257228 28116 M67.442 [id number] Sierra Escobar PA-C [facility] [address] [place] [address] 06/05/2022 18:23:54 06/05/2022 19:00:54 Persistent cough 979344551 R05.3 Overweight 753518557 E66 .3 [id number] Sierra Escobar PA-C [facility] [address] [place] [address] 10/09/2022 18:15:17 10/10/2022 12:44:46 Body mass index 40+ - severely obese 976267182 Z68.43 [id number] Sierra Escobar PA-C [facility] [address] [place] [address] 11/23/2022 10:45:49 11/23/2022 11:22:12 Acute bronchitis with bronchospasm 80287490 J20.8 [id number] Sierra Escobar PA-C [facility] [address] [place] [address] 01/09/2023 10:23:34 01/09/2023 11:46:27 Obesity 447626309 E66.8 has lost 10 pounds on his own already Acute bron chitis with bronchospasm 53916563 J20.8 [id number] Sierra Escobar PA-C [facility] [address] [place] [address] 01/28/2023 14:29:31 01/30/2023 11:24:08 Spasm of muscle of lower back 6280989606 7105700 M62.773 [id number] Sierra Escobar PA-C [facility] [address] [place] [address] 02/08/2023 16:28:02 02/11/2023 15:27:16 Morbid obesity 937894785 E66.01 Mixed hyperlipidemia 267 969002 E78.2 [id number] Sierra Escobar PA-C [facility] [address] [place] [address] 03/12/2023 17:32:35 03/14/2023 16:23:40 Cervical radiculopathy 20949781 M54.12 Strain of left trapezius muscle 3739704406 1251365 S29.012A Seasonal a llergic rhinitis 551386838 J30.2 Gout 01720285 M10.062 Overweight 235200155 E66 .3 [id number] Sierra Escobar PA-C [facility] [address] [place] [address] 04/23/2023 15:02:35 04/24/2023 08:35:37 Edema of lower extremity 271925444 R60.0 [id number] Wojciech Cutler MD [facility] [address] [place] [address] 05/29/2023 14:35:01 05/30/2023 09:16:28 Daytime somnolence 2631209154 00 R40.0 Overweight 278984511 E66 .3 Fatigue 09276957 R53.83 [id number] Wojciech Cutler MD [facility] [address] [place] [address] 06/26/2023 14:59:35 07/02/2023 09:38:38 Pain of left knee joint 4491384177 45266 M25.629 [id number] Wojciech Cutler MD [facility] [address] [place] [address] 07/24/2023 16:21:20 07/30/2023 14:48:34 Viral syndrome 893561195 B34.9 Upper resp iratory infection 05143909 J00 [id number] Sierra Escobar PA-C [facility] [address] [place] [address] 09/12/2023 10:54:26 09/16/2023 15:45:19 Pain of bilateral knee joints 5261981000 84654 M25.562 Pain of le ft knee joint 4162843532 73205 M25.562 Morbid obesity 446888181 E66.01 Administra tion of influenza vaccine 80812014 Z23 [id number] Sierra Escobar PA-C [facility] [address] [place] [address] 11/01/2023 11:27:50 11/06/2023 09:20:08 Overweight 363802832 E66.3 Severe obesity 744523296 1 9104 E66.01 [id number] Sierra Escobar PA-C [facility] [address] [place] [address] 02/14/2024 16:26:40 02/18/2024 09:34:56 Pain of right ankle joint 6752197197 3670818 M25.571 Morbid obesity 735706959 E66.01 Overweight 006585209 E66 .3 [id number] Sierra Escobar PA-C [facility] [address] [place] [address] 02/25/2024 17:22:54 03/10/2024 07:34:27 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 Overweight 989636032 E66 .3 [id number] Wojciech Cutler MD [facility] [address] [place] [address] 05/11/2024 16:29:42 05/14/2024 19:32:50 Strain of left trapezius muscle 5702260974 7041180 S29.012A Morbid obesity 831754924 E66.01 [id number] Wojciech Cutler MD [facility] [address] [place] [address] 05/27/2024 11:38:01 06/01/2024 19:39:28 Cough 74882688 R05.9 Upper resp iratory infection 67396310 J00 Acute bron chitis with bronchospasm 80356393 J20.8 Morbid obesity 253506088 E66.01 [id number] Wojciech Cutler MD [facility] [address] [place] [address] 06/11/2024 11:26:08 06/15/2024 06:58:14 Cough 28913920 R05.9 -Lung sounds clear on exam.-Toya ent agreeable to treatment with tessalon perles TID PRN.-BONDERIZER OPERATOR advised patient to follow up with PCP for annual labwork. [id number] Sierra Escobar PA-C [facility] [address] [place] [address] 07/02/2024 10:51:29 07/06/2024 15:49:43 Unexplained chronic cough 2722674824 R05.3 otc zyrtec Overweight 541665831 E66 .3 [id number] Sierra Escobar PA-C [facility] [address] [place] [address] 08/19/2024 15:13:03 08/20/2024 14:13:07 Administration of influenza vaccine 98059399 Z23 Mixed hyperlipidemia 267 071989 E78.2 Essential hypertension 41591822 I10 Morbid obesity 201846910 E66.01 Health Concerns Section Related Observation LastModified by Organization Detai ls LastModified Time None Recorded Concern Status LastModified by Organization Details LastModified Time None Recorded Advance Directives Directive N: Payers Insurance Date Sequence Insurance Name Policy Number Policy Villarreal Covered Member ID Villarreal Member ID Guarantor Name 05/11/2024 1 [facility] [id number] Christiano Galvan [id number] Christiano Galvan 05/11/2024 2 [facility] (MEDICAID REPLACEMENT - HMO) [id number] Ariane Galvan [id number] Christiano Galvan 08/10/2024 1 [facility] - DOS ON OR AFTER 21 (MEDICAID REPLACEMENT - HMO) Christiano Galvan [id number] Christiano Galvan 05/11/2024 1 [place] Christiano Galvan [id number] Christiano Galvan 05/11/2024 1 [employer] [facility] [place] [facility] ON OR AFTER 10/18/2020 (MEDICAID REPLACEMENT - HMO) Christiano Galvan [id number] Christiano Galvan 07/24/2023 1 *SELF PAY* Mony tthew [facility] 09/12/2023 SLIDING FEE SCHEDULE - DISCOUNT Christiano Galvan 05/29/2023 SLIDING FEE SCHEDULE - DISCOUNT Christiano Galvan Notes Date Note Type Note Provider Name and Address Organization Details Recorded Time 05/11/2024 text/html lft neck and tra ps painful as if strained...no known injury.. Sierra Escobar PA-C Attn: Accounting, [address] [place], [address], [facility] 05/11/2024 16:50:12 05/27/2024 text/html coughing and tired...uri symptoms all since saturday Sierra Escobar PA-C Attn: Accounting, [address] [place], [address], [facility] 05/27/2024 12:23:55 06/11/2024 text/html Patient presents to [...] other symptoms have resolved. JULIA GRIDER Attn: Accounting, [address] [place], [address], [facility] 06/12/2024 16:54:25 07/02/2024 text/html wants a referral to an ENT because he doesnt know why...somebody said...coughing persists Sierra Escobar PA-C Attn: Accounting,[address] [facility], [place], [address], [facility] 07/02/2024 11:11:45 08/19/2024 text/html no complaints annual check up Sierra Escobar PA-C Attn: Accounting[address] , [place], [address], [facility] 08/19/2024 15:56:43
--- OUTSIDE RECORDS SUMMARY | 2025-05-26 16:46 | XMS_ITS | Clinical Summary ---
Author Organization [facility] Address [address] [place] [address] Care Team Providers Care Artisan Plasterer Name Role Phone Shin Dali MUSTAPHA Primary Care Provider Allergies No known active allergies Medications montelukast [...] 11/26/2023 Assessment & Plan (11/26/2023 10:08 AM FUNERAL PROFESSIONAL): Given their past success the patient would [...] exercise with regards to her morbid obesity. Medical History Medical History Date Comments Morbid [...] on file Legal Sex Male 12:24 AM FUNERAL PROFESSIONAL Gender Identity Not on file Sexual Orientation Not on file Obstetrics History Last Filed Vital Signs Vital Sign Reading Time Taken Comments Blood Pressure 139/81 01/04/2025 10:21 AM FUNERAL PROFESSIONAL Pulse 99 01/04/2025 10:21 AM FUNERAL PROFESSIONAL Temperature 36.8 C (98.2 F) 12/31/2024 3:35 PM FUNERAL PROFESSIONAL Respiratory Rate 16 12/31/2024 3:35 PM FUNERAL PROFESSIONAL Oxygen Saturation 96% 12/31/2024 3:35 PM FUNERAL PROFESSIONAL Inhaled Oxygen Concentration - - Weight 191.9 kg (423 lb) 01/04/2025 10:21 AM FUNERAL PROFESSIONAL Height 180.3 cm (5' 11) 01/04/2025 10:21 AM FUNERAL PROFESSIONAL Body Mass Index 59 01/04/2025 10:21 AM FUNERAL PROFESSIONAL Plan of Treatment Health Maintenance Due Date [...] patient's age to complete this topic Insurance [facility] PLAN [facility] Care Teams Artisan Plasterer Relationship Specialty Start Date End Date Dali Melissa NP [address] [place] [address] PCP - General Nurse Practitioner 12/31/24
--- NOTE | 2025-05-26 17:09 | ED_ITS ---
HPI - Chest Pain General Chief Complaint: Chest Pain Stated Complaint: Chest Pain Time Seen by Provider: 05/26/25 17:10 Mode of arrival: ambulatory Limitations: no limitations History of Present Illness HPI narrative: 35-year-old male presents with concern for chest pain. Reports he woke up today with intermittent left-sided chest pain. Reports it is a 3/10 when it is present. He denies shortness of breath, cough, diaphoresis, nausea, vomiting, injury, trauma, rash, redness, warmth, bruising. He reports the pain is not made worse when he moves his left arm, deep breathes, coughs. He denies any other relieving or exacerbating factors. He has not taken any [id number] medications for his symptoms. MD complaint: chest discomfort Related Data Home Medications ?Medication ?Instructions ?Recorded ?Confirmed ?Last Taken ?Type famotidine 40 mg tablet 40 mg PO DAILY 11/26/24 04/13/25 Unknown History Allergies Allergy/AdvReac Type Severity Reaction Status Date / Time No Known Allergies Allergy Verified 05/26/25 16:53 Review of Systems Review of Systems: CONSTITUTIONAL: Denies malaise, chills, sweats, or fever. CARDIOVASCULAR: Reports mild intermittent chest pain. Denies palpitations or edema. RESPIRATORY: Denies cough or dyspnea. GASTROINTESTINAL: Denies abdominal pain, nausea, vomiting SKIN: Denies bruising, redness, rash or itching. MUSCULOSKELETAL: Denies back pain, joint pain, or myalgia. NEUROLOGIC: Denies numbness, weakness, or headache. PSYCHIATRIC: Denies anxiety or depression. All systems reviewed & are unremarkable except as noted in HPI and below [facility] Past Medical History Medical History Low testosterone Hypertension Arthritis Gout Hyperlipidemia Surgical History Surgical History Hx of hand surgery left Family History Family History Mother Diabetes mellitus Hypertension Grandparent Cancer Social History Social History Smoking status: Never smoker Alcohol intake: current Alcohol use details: 1-4 A week. Substance use: unknown Do You Feel Safe in your Home?: Yes Lack of Transportation: No Lack of Food: Never True Current Housing: I Have Housing Concerned About Future Housing: No Difficulty Paying Gas/Electric Bills: No Difficulty Paying for Meds: No Currently Unemployed: No Education: High School Diploma/GED Difficulty w/ Childcare or Family Care: No Living arrangements: with family Gender identity (if verbalized by the patient): Male Agree to blood products: No Comments At time of signature, agree with nursing past medical, surgical, social and family history. There is no relevant family history pertinent to the presenting complaint Exam Narrative: GENERAL: Well-appearing, well-nourished, and in no acute distress. HEAD: Normocephalic, atraumatic. EYES: PERRLA, sclera clear ENT: Nares clear. Mucous membranes moist. NECK: Supple. No lymphadenopathy. No jugular venous distension, thyromegaly, or carotid bruits. Carotids were easily palpable bilaterally. CHEST: No respiratory distress. Clear to auscultation. No bony deformities, no asymmetry. Speaks in full sentences. HEART: Regular rate and rhythm. No murmur heard. Normal peripheral pulses. EXTREMITIES: Normal range of motion. No edema. Normal strength and sensation. SKIN: Warm, dry, no visible rash, erythema, edema, open skin, ecchymosis. NEURO: Alert and oriented x3. PSYCH: Normal mood and affect Course Course Emergency Course: Patient is aware of diagnosis, understands and agrees to treatment plan. Anticipatory guidance given. Patient agrees to follow-up as directed and is aware of reasons to seek care at the emergency department. Portions of this record may have been created with voice recognition software Level of Care: Express Care Visit Vital Signs Vital signs: Vital Signs Temperature 97.5 F L 05/26/25 16:45 Pulse Rate 93 05/26/25 16:45 Respiratory Rate 18 05/26/25 16:45 Blood Pressure 141/66 H 05/26/25 16:45 Pulse Oximetry 98 05/26/25 16:45 Oxygen Delivery Room Air 05/26/25 16:45 Temperature 97.5 F L 05/26/25 16:45 Pulse Rate 93 05/26/25 16:45 Respiratory Rate 18 05/26/25 16:45 Blood Pressure 141/66 H 05/26/25 16:45 Pulse Oximetry 98 05/26/25 16:45 Oxygen Delivery Room Air 05/26/25 16:45 Reviewed. MDM - Chest Pain MDM Narrative Medical decision making narrative: I evaluated this patient in the [facility]. History is obtained from patient who is an independent historian and physical exam was performed.? Available medical records were reviewed. ? Exam findings and relevant testing show no acute concerns or changes; patient is non-toxic appearing and is in no distress. Patient's pain is reproducible upon palpation. EKG shows sinus rhythm. No other symptoms consistent with cardiac etiology. Discussed with patient limited diagnostic capability at the [facility] and possible transfer to emergency room for further evaluation. Based on patient's current symptoms and history of symptoms that started today, through shared decision-making, patient will be discharged home with strict instructions of when to go to the emergency room if symptoms get worse or change ? Differential diagnosis and treatment plan were discussed with the patient. Patient agrees with discussion and after shared medical decision making agrees with plan of care. All questions were answered to the patient's satisfaction. Patient is appropriate for outpatient treatment and follow-up. Differential Diagnosis Differential diagnosis: Likely fracture of rib, pneumothorax, stable angina, atypical chest pain, st elevation myocardial infarction and costochondritis ECG Data EKG #1: ECG completion date: 05/26/25 ECG completion time: 16:50 Prior ECG tracings: available for review Interpretation: Rate 89, NH interval 149, QRS duration 93 EKG Interpretation: normal rate and sinus rhythm Critical Care Time Critical Care Time Critical Care Time: No Discharge Plan Discharge Clinical Impression: Chest wall pain Patient Disposition: Home Condition: Stable Instructions: Chest Wall Pain (ED) Additional Instructions: If your chest pain worsens, you develop shortness of breath, sweating, nausea, back pain you need to call 911 or go to the emergency room. Take Tylenol as needed for pain, apply ice to the painful area 1) Please follow-up with your primary care doctor in the next 1-2 days. 2) If you have any worsening of symptoms or any other urgent concerns please go to the ER. 3) Please take medications as prescribed and continue taking your home medications as usual. 4) Please read and follow information included in discharge instructions. Patient Language: Urugu[place] Prescriptions: No Action famotidine 40 mg tablet 40 mg PO DAILY lisinopril-hydrochlorothiazide 20-25 mg tablet 1 tablet PO DAILY Qty: 90 3RF (DME) [facility] Luer Lock Syr-needle 3 mL 23 x 1 syringe See Rx Instructions .Route Qty: 100 0RF Rx Instructions: As directed with testosterone every other week IM fexofenadine 180 mg tablet 180 mg PO DAILY Qty: 90 0RF Zepbound 2.5 mg/0.5 mL pen injector 2.5 mg subcut WEEKLY Qty: 2 0RF Rx Instructions: for 4 weeks atorvastatin 20 mg tablet See Rx Instructions .ROUTE .COMPLEX Qty: 90 3RF Dose Instruction: Take 1 tablet by mouth once daily Rx Instructions: Take 1 tablet by mouth once daily Follow-up/Referrals: Dali Melissa APRN [Primary Care Provider] - Time of Disposition: 17:18
--- NOTE | 2025-05-26 17:19 | ECG_ITS ---
Test Date: 2025-05-26 16:50:45 Measurements Intervals [place] Rate: 89 P: 18 NE: 149 QRS: 25 QRSD: 93 T: 18 QT: 350 QTc: 427 Interpretive Statements SINUS RHYTHM No previous ECG available for comparison Electronically Signed On 05-27-2025 11:42:32 CDT by Uli Fisher M.D.
== END 2025-05-26 17:25 | disposition home or self-care (01) ==
PROVIDERS: Emergency Provider Nurse Practitioner; PCP Nurse Practitioner Adult Health
DX: R07.89 Other chest pain (principal); I10 Essential (primary) hypertension; E78.5 Hyperlipidemia, unspecified; M19.90 Unspecified osteoarthritis, unspecified site; M10.9 Gout, unspecified
CPT/HCPCS: 93005; 99213; G0463

== ENCOUNTER 2025-06-08 09:11 | Outpatient (CLI) | payer OTHER, SELFPAY ==
--- OUTSIDE RECORDS SUMMARY | 2025-06-08 09:15 | XMS_ITS | Encounter Summary ---
Author Organization [facility] Address [facility] [place] [address] Care Team Providers Care Grocery Store Manager Name Role Phone Unavailable Primary Care Provider Unavailabl e Encounter Details Date Type Department Care Team (Late st Contact Info) Description 06/01/2025 Office Visit External [facility] Weight Management Services [address] [place] [address] Nimo Lopez MD [address] [place] [address] Social History Tobacco Use Types Packs/Day Years Used Date Smoking Tobacco: Never Smokeless Tobacco: Never Sex and Gender Information Value Date Recorded Sex Assigned at Not on file Legal Sex Male 4:[address] ENGINEER Gender Identity Not on file Sexual Orientation Not on file documented as of this encounter Plan of Treatment Not on file documented as of this encounter Visit Diagnoses Not on filedocumented in this encounter
--- OUTSIDE RECORDS SUMMARY | 2025-06-08 09:15 | XMS_ITS | Encounter Summary ---
Author Organization [facility] Address [address] [place] [address] Phone Care Team Providers Care Toolroom Checker Name Role Phone Seamus Valdez MD Primary Care Provider [phone] Weston Escobar Primary Care Provider [phone] Al Britt MD Unavailable Vilma Jaffe APRN, CNP Unavailable [phone] Reason for Visit * Reason Comments Medication Refill Encounter Details Date Type Department Care Team (Late st Contact Info) Description 11/28/2020 Refill [facility] Admitting [address] [place] [address] Seamus Valdez MD [address] [place] [address] Medication Refill Social History Tobacco [...] 7:43 AM CST Please review and sign. HUNTER documented in this encounter Plan of Treatment Not on file documented as of this encounter Visit Diagnoses Not on filedocumented in this encounter Care Teams Toolroom Checker Relationship Specialty Start Date End Date Seamus Valdez MD [address] [place] [address] PCP - General Internal Medicine 10/18/19 01/11/21 Weston Escobar PAC [address] [place] [id number] PCP - General Physician Oven Tender Bagels 01/12/21 Al Britt MD [address] [facility] [address] [place] [address] Consulting Physician Colon and Rectal Surgery 07/30/23 Vilma Jaffe APRN, POLICY VALUE CALCULATOR [address] [facility] [address] [place] [address] Nurse Practitioner Advanced Practice Nurse 08/25/24 documented as of this encounter
--- OUTSIDE RECORDS SUMMARY | 2025-06-08 09:15 | XMS_ITS | Clinical Summary ---
Author Organization [facility] Address [address] [place] [address] Care Team Providers Care Wastewater Design Engineer Name Role Phone Unavailable Primary Care Provider Unavailabl e Source Comments [facility],non-owned Affiliates and Associated Physician Practices is amultiple site organization consisting of ambulatory clinics and hospital sitesin [place], [place], [place] and [place]. This disclosure is being madepursuant to the Care Everywhere program and may not contain all information available regarding this patient. Last updated 18.[facility] Allergies No known active allergies Medications * [...] Active Active Problems No known active problems Encounters Date Type Department Care Team Description 06/01/2025 Office Visit External [facility] Management Services [address] [place] [address] Nimo Lopez MD from Last 3 Months Social History Tobacco Use Types Packs/Day Years Used Date Smoking Tobacco: Never Smokeless Tobacco: Never Sex and Gender Information Value Date Recorded Sex Assigned at Not on file Legal Sex Male 4:28 PM TITLE SEARCHER Gender Identity Not on file Sexual Orientation Not on file Last Filed Vital Signs Vital Sign Reading Time Taken Comments Blood Pressure 134/80 11/04/2017 8:02 AM TITLE SEARCHER Pulse 72 11/04/2017 8:02 AM TITLE SEARCHER Temperature 36.9 C (98.4 F) 11/04/2017 8:02 AM TITLE SEARCHER Respiratory Rate 17 11/04/2017 8:02 AM TITLE SEARCHER Oxygen Saturation 97% 11/04/2017 8:02 AM TITLE SEARCHER Inhaled Oxygen Concentration - - Weight 163.3 kg (360 lb) 11/04/2017 8:02 AM TITLE SEARCHER Height 182.9 cm (6') 11/04/2017 8:02 AM TITLE SEARCHER Body Mass Index 48.82 11/04/2017 8:02 AM TITLE SEARCHER Plan of Treatment Health Maintenance Due Date Last Done Comments HIV SCREENING 2003 HEPATITIS C SCREENING 03/04/2006 DTAP/TDAP/TD VACCINES (1 - Tdap) 2007 HEPATITIS B VACCINE (1 of 3 - 19+ 3-dose series) 2007 HPV VACCINE (1 - 3-dose SCDM series) 2015 COVID-19 VACCINE ( - 2023-2 5 season) 2024 DEPRESSION SCREENING 11/18/2024 INFLUENZA VACCINE (#1) 2025 ZOSTER VACCINE (1 of 2) 2038 [...] patient's age to complete this topic Insurance [facility]
--- OUTSIDE RECORDS SUMMARY | 2025-06-08 09:15 | XMS_ITS | Referral Summary ---
Author Organization [facility] Address [address] [place] [address] Care Team Providers Care Welding Technician Name Role Phone Shin Dali MUSTAPHA Primary Care Provider [phone] Encounters Date Type Department Care Team Description 05/26/2025 10:14 PM CDT - 05/26/2025 11:43 PM CDT Emergency [facility] Emergency Department [address] [place] [address] Shannan Betts MD Chest wall pain (Primary Dx) Discharge Disposition: Discharge to home [...] 11/26/2023 Assessment & Plan (11/26/2023 10:08 AM VEHICLE ASSEMBLER): Given their past success the patient would [...] making you feel afraid or unsafe? Denies 05/26/2025 Sex and Gender Information Value Date Recorded Sex Assigned at Not on file Legal Sex Male 12:24 AM VEHICLE ASSEMBLER Gender Identity Not on file Sexual Orientation Not on file Last Filed Vital Signs Vital Sign Reading Time Taken Comments Blood Pressure 127/64 05/26/2025 11:05 PM CDT Pulse 87 05/26/2025 11:05 PM CDT Temperature 36.1 C (96.9 F) 05/26/2025 7:15 PM CDT Respiratory Rate 16 05/26/2025 11:05 PM CDT Oxygen Saturation 98% 05/26/2025 11:05 PM CDT Inhaled Oxygen Concentration - - Weight 188.2 kg (415 lb) 05/26/2025 7:15 PM CDT Height 180.3 cm (5' 11) 05/26/2025 7:15 PM CDT Body Mass Index 57.88 05/26/2025 7:15 PM CDT Plan of Treatment Not on file Procedures Procedure Name Priority Date/Time Associated Diagnosis Comments TROPONIN T HIGH-SENSITIVITY 2-HOUR Timed 05/26/2025 10:10 PM CDT EGFR STAT 05/26/2025 8:01 PM CDT DIFFERENTIAL AUTO STAT 05/26/2025 8:0 1 PM CDT TROPONIN T HIGH-SENSITIVITY SERIES (BASELINE, 2HR, 4HR, 6HR) STAT 05/26/2025 8:01 PM CDT COMPREHENSIVE METABOLIC PANEL STAT 05/26/2025 8:01 PM CDT CBC WITH AUTO DIFFERENTIAL STAT 05/26/2025 8:01 PM CDT XR CHEST PA LATERAL 2 VIEWS ED 05/26/2025 7:41 PM CDT ECG 12-LEAD STAT 05/26/2025 7:21 PM CDT from Last 3 Months Results * Troponin T high-sensitivity 2-hour (05/26/2025 10:10 PM CDT) Trop T hs 6 <=22 ng/L Comment: Interpretive Data For further hscTnT resources including the diagnostic algorithm and an aid in interpretation, copy and paste this link: https://nrl.Webmedx.org/show/hsTrop Current Interpretive Data last revised 2020. Trop T hs delta -2 ng/L [facility] ([place]) Trop T hs interp Insignificant [facility] ([place]) Blood 05/26/2025 10:1 0 PM CDT 05/26/2025 10:16 PM CDT us Jb Evans MD LAB BLOOD ORDERABLES Final Result [facility] ([place]) 1 [facility] [place] [address] * Troponin T high-sensitivity series (baseline, 2hr, 4hr, 6hr) (05/26/2025 8:01 PM CDT) Trop T hs 8 <=22 ng/L Comment: Interpretive Data For further hscTnT resources including the diagnostic algorithm and an aid in interpretation, copy and paste this link: https://nrl.Webmedx.org/show/hsTrop Current Interpretive Data last revised 2020. Blood 05/26/2025 8:01 PM CDT 05/26/2025 8:06 PM CDT Shannan Betts MD LAB BLOOD ORDERABLES Pattie l Result Performing Organization Address City/[facility]/ZIP Co de Phone Number [facility] ([place]) 1 [facility] [place] [address] * eGFR (05/26/2025 8:01 PM CDT) Pathologist [facility] eGFR >90 >=60 mL/min/1. 73 m2 Comment: Interpretive Data Reference Interval Normal >/= 90 mL/min/1.73m2 Mildly decreased* 60 - 89 mL/min/1.73m2 Mildly to moderately decreased 45 - 59 mL/min/1.73m2 Moderately to severely decreased 30 - 44 mL/min/1.73m2 Severely decreased 15 - 29 mL/min/1.73m2 Kidney Failure < 15 mL/min/1.73m2 *Relative to young adult level Estimated glomerular filtration rate is determined by the 2020 CKD-EPI equation recommended by the National Kidney Foundation (A Unifying Approach to GFR Estimation: Recommendations of the NKF-ASK Task Force on Reassessing the Inclusion of Race in Diagnosing Kidney Disease, JASN 2020). The CKD-EPI equation should not be used for patients with unstable renal function and has not been validated in children and those over 70. Current interpretive data was last reviewed 2021. Blood 05/26/2025 8:01 PM CDT 05/26/2025 8:06 PM CDT Shannan Betts MD LAB BLOOD ORDERABLES Pattie l Result [facility] ([place]) 1 [facility] Department [place] [address] * Differential, auto (05/26/2025 8:01 PM CDT) Pathologist [facility] Neutrophil abs 4.56 1.50 - 6.50 K/cumm Imm gran abs 0.03 0.00 - 0.10 K/cumm [facility] ([place]) Lymphocyte abs 2.47 0.80 - 3.30 K/cumm [facility] ([place]) Monocyte abs 0.63 0.20 - 0.80 K/cumm [facility] ([place]) Eosinophil abs 0.07 0.00 - 0.50 K/cumm [facility] ([place]) Basophil abs 0.04 0.00 - 0.10 K/cumm [facility] ([place]) Neutrophil pct 58.4 % [facility] ([place]) Comment: Interpretive Data Percent cell count reference ranges are not reported, since discordance with absolute values may lead to misinterpretation of CBC data. Current Interpretive Data was last revised on 2018. Imm gran pct 0.4 % [facility] ([place]) Comment: Interpretive Data Percent cell count reference ranges are not reported, since discordance with absolute values may lead to misinterpretation of CBC data. Current Interpretive Data was last revised on 2018. Lymphocyte pct 31.7 % [facility] ([place]) Comment: Interpretive Data Percent cell count reference ranges are not reported, since discordance with absolute values may lead to misinterpretation of CBC data. Current Interpretive Data was last revised on 2018. Monocyte pct 8.1 % [facility] ([place]) Comment: Interpretive Data Percent cell count reference ranges are not reported, since discordance with absolute values may lead to misinterpretation of CBC data. Current Interpretive Data was last revised on 2018. Eosinophil pct 0.9 % [facility] ([place]) Comment: Interpretive Data Percent cell count reference ranges are not reported, since discordance with absolute values may lead to misinterpretation of CBC data. Current Interpretive Data was last revised on 2018. Basophil pct 0.5 % [facility] ([place]) Comment: Interpretive Data Percent cell count reference ranges are not reported, since discordance with absolute values may lead to misinterpretation of CBC data. Current Interpretive Data was last revised on 2018. Blood 05/26/2025 8:01 PM CDT 05/26/2025 8:06 PM CDT us Shannan Betts MD LAB BLOOD ORDERABLES Pattie reinaldo Result [facility] ([place]) 1 [facility] [place] [address] * (ABNORMAL) CBC with auto differential (05/26/2025 8:01 PM CDT) [facility] WBC 7.80 3.80 - 9.90 K/cumm Hgb 15.3 13.0 - 17.5 g/dL [facility] ([place]) Hct 43.9 38.9 - 50.3 % [facility] ([place]) Plt 202 150 - 400 K/cumm [facility] ([place]) MPV 8.9(L) 9.1 - 12.3 fL [facility] ([place]) RBC 4.80 4.30 - 5.80 M/cumm [facility] ([place]) MCV 91.5 81.3 - 96.4 fL [facility] ([place]) MCH 31.9 27.1 - 33.3 pg [facility] ([place]) MCHC 34.9 32.3 - 35.7 g/dL [facility] ([place]) RDW CV 12.5 11.1 - 14.9 % [facility] ([place]) RDW SD 41.5 35.7 - 48.1 fL [facility] ([place]) NRBC abs 0.00 0.00 - 0.01 K/cumm [facility] ([place]) Blood Venous blood specimen / Unknown 05/26/2025 8:01 PM CDT 05/26/2025 8:06 PM CDT Shannan Betts MD LAB BLOOD ORDERABLES Pattie l Result [facility] ([place]) 1 [facility] Department [place] [address] * Comprehensive metabolic panel (05/26/2025 8:01 PM CDT) [facility] Sodium 136 135 - 145 mmol/L Potassium, pl 4.0 3.3 - 4.9 mmol/L [facility] ([place]) Chloride 97 97 - 110 mmol/L [facility] ([place]) CO2 24 22 - 32 mmol/L [facility] ([place]) Anion gap 15 2 - 15 mmol/L [facility] ([place]) BUN 14 6 - 25 mg/dL [facility] ([place]) Creatinine 0.98 0.80 - 1.30 mg/dL [facility] ([place]) Glucose 188 70 - 199 mg/dL [facility] ([place]) Comment: Interpretive Data Fasting glucose >/= 126 mg/dl is diagnostic for diabetes. Fasting is defined as no caloric intake for at least 8 hours. Fasting glucose between 100 mg/dl to 125 mg/dl is diagnostic of prediabetes. In a patient with classic symptoms of hyperglycemia or hyperglycemic crisis, a random glucose >/= 200 mg/dl is diagnostic for diabetes. In the absence of unequivocal hyperglycemia, results should be confirmed by repeat testing. The classification and Diagnosis of Diabetes Diabetes Care 2021; 46: S19-S40. Current interpretive data was last revised 2022. Calcium 9.4 8.5 - 10.3 mg/dL [facility] ([place]) Bilirubin, total 0.2 0.1 - 1.2 mg/dL [facility] ([place]) Protein, pl 6.9 6.5 - 8.5 g/dL [facility] ([place]) Albumin 4.3 3.5 - 5.0 g/dL [facility] ([place]) Alk phos 86 40 - 130 Units/L [facility] ([place]) ALT 38 7 - 55 Units/L [facility] ([place]) AST 30 10 - 50 Units/L [facility] ([place]) Comment: Hemolysis present. Results may be affected. Slightly Hemolyzed Specimen Blood 05/26/2025 8:01 PM CDT 05/26/2025 8:06 PM CDT us Shannan Betts MD LAB BLOOD ORDERABLES Pattie najera Result [facility] ([place]) 1 [facility] Department of Laboratories [place], [place] [id number] * XR Chest PA Lateral 2 Views (If patient hemodynamically stable and ambulatory) (05/26/2025 7:41 PM CDT) Anatomical Region Laterality Modality Body, Chest N/A Computed Radiogr aphy 05/26/2025 8:00 PM CDT Narrative 05/26/2025 8:01 PM CDT EXAM DESCRIPTION: XR CHEST PA LATERAL 2 VIEWS REASON FOR STUDY: chest pain C/o left sided chest pain that started today. Hx of HTN No surgical hx Non smoker TECHNIQUE: Frontal and lateral radiographic view(s) of the chest. COMPARISON: None available. FINDINGS: LUNGS: No focal opacity, pleural effusion, or pneumothorax. HEART/MEDIASTINUM: Cardiac silhouette normal in size. Mediastinal and hilar contours appear normal. LINES/TUBES: None. BONES: No acute osseous abnormality. IMPRESSION: No acute cardiopulmonary abnormality. THIS IS AN ELECTRONICALLY VERIFIED FINAL REPORT 05/26/2025 8:01 PM - Electronically signed by Damien Wood M.D. MF: BRANDON Report ID: [id number] Reading Location: [id number] Procedure Note Damien Wood, DO - 05/26/2025 EXAM DESCRIPTION: XR CHEST PA LATERAL 2 VIEWS REASON FOR STUDY: chest pain C/o left sided chest pain that started today. Hx of HTN No surgical hxNon smoker TECHNIQUE: Frontal and lateral radiographic view(s) of the chest. COMPARISON: None available. FINDINGS: LUNGS: No focal opacity, pleural effusion, or pneumothorax. HEART/MEDIASTINUM: Cardiac silhouette normal in size. Mediastinal andhilar contours appear normal. LINES/TUBES: None. BONES: No acute osseous abnormality. IMPRESSION: No acute cardiopulmonary abnormality. THIS IS AN ELECTRONICALLY VERIFIED FINAL REPORT 05/26/2025 8:01 PM - Electronically signed by Damien Wood M.D. MF: BRANDON Report ID: [id number] Reading Location: [id number] us Shannan Betts MD IMG XR PROCEDURES Final R esult * ECG 12 lead (05/26/2025 7:21 PM CDT) 05/26/2025 7:21 PM CDT Narrative [facility] - 05/27/2025 6:48 AM CDT Vent Rate: 95 bpm RR Interval: 627 msec [place] Interval: 104 msec QRS Duration: 91 msec QT Interval: 335 msec QTC Interval: 388 msec P-R-T [place]: -27 - -5 - -4 degrees IMPRESSION: SINUS RHYTHM WITH SHORT [place] INTERVAL LOW QRS VOLTAGE IN PRECORDIAL LEADS [QRS DEFLECTION < 1.0 mV IN CHEST LEADS] BORDERLINE ECG Electronically Signed By: Stan Arora MD us Shannan Betts MD ECG ORDERABLES Final Res ult [facility] from Last 3 Months Insurance [facility] [employer] Care Teams Welding Technician Relationship Specialty Start Date End Date Dali Melissa NP [address] [place] [id number] PCP - General Nurse Practitioner 12/31/24
--- OUTSIDE RECORDS SUMMARY | 2025-06-08 09:15 | XMS_ITS | Encounter Summary ---
Author Organization [facility] Address [address] [place] [address] Phone Care Team Providers Care Public Health Internship Name Role Phone Seamus Valdez MD Primary Care Provider [phone] Weston Escobar Primary Care Provider [phone] Al Britt MD Unavailable Vilma Jaffe APRN, CNP Unavailable [phone] Reason for Visit * Reason Comments Medication Refill Encounter Details Date Type Department Care Team (Late st Contact Info) Description 11/03/2020 Refill [facility] Admitting [address] [place] [address] Seamus Valdez MD [address] [place] [address] Medication Refill Social History Tobacco [...] 8:12 AM CST Please review and sign. BILITY EXAMINER documented in this encounter Plan of Treatment Not on file documented as of this encounter Visit Diagnoses Not on filedocumented in this encounter Care Teams Public Health Internship Relationship Specialty Start Date End Date Seamus Valdez MD [address] [place] [place] [address] PCP - General Internal Medicine 10/18/19 01/11/21 Weston Escobar [facility] [address] [place] [id number] PCP - General Physician Radius Corner Machine Operator 01/12/21 Al Britt MD #2 [facility] [address] [place] [address] Consulting Physician Colon and Rectal Surgery 07/30/23 Vilma Jaffe APRN, VARIOUS EXCEPTIONALITIES TEACHER #2 [facility] [address] [place] [address] Nurse Practitioner Advanced Practice Nurse 08/25/24 documented as of this encounter
--- OUTSIDE RECORDS SUMMARY | 2025-06-08 09:15 | XMS_ITS | Clinical Summary ---
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 ENGINEER): Given their past success the patient would [...] CDT - 05/26/2025 11:43 PM CDT Emergency [facility] Emergency Department [address] [place] [address] Shannan Betts MD Chest wall pain (Primary [...] on file Legal Sex Male 12:24 AM PRINCIPAL AUTOMATION ENGINEER Gender Identity Not on file Sexual [...] 05/26/2025 7:15 PM CDT Plan of Treatment Health Maintenance Due Date Last Done Comments Depression Screening 1988 Hepatitis C Screening 1988 Varicella Vaccines (1 of 2 - 13+ 2-dose series) 2001 Regular Well Visit/Exam 18-64 2006 Covid-19 Vaccine ( season) 2024 12/12/2021, 04/19/2021 Influenza Vaccine (#1) 2025 08/19/2024, 2022 DTaP/Tdap/Td Vaccine (8 - Td or Tdap) 08/11/2025 08/11/2015, 11/07/2005, 01/16/1993, Additional history exists Hepatitis B Screening Completed 05/07/1997 , 11/09/1996, 10/07/1996 HPV Vaccines Aged Out No longer eligi [...] in interpretation, copy and paste this link: https://nrl.testcatalog.org/show/hsTrop Current Interpretive Data last revised 2020. Trop T hs delta -2 ng/L [facility] ([place]) Trop T hs interp Insignificant [facility] ([place]) Blood 05/26/2025 10:1 0 PM CDT 05/26/2025 10:16 PM CDT us Jb Evans MD LAB BLOOD ORDERABLES Final Result Performing Organization Address [facility] Co de Phone Number [facility]) [address] [place] [address] [place] [address] * Troponin T high-sensitivity series (baseline, 2hr, 4hr, 6hr) (05/26/2025 8:01 PM CDT) Trop T hs 8 <=22 ng/L Comment: Interpretive Data For further hscTnT resources including the diagnostic algorithm and an aid in interpretation, copy and paste this link: https://nrl.testcatalog.org/show/hsTrop Current Interpretive Data last revised 2020. Blood 05/26/2025 8:01 PM CDT 05/26/2025 8:06 PM CDT us Shannan Betts MD LAB BLOOD ORDERABLES Pattie l Result Performing Organization Address City/[facility]/ZIP Co de Phone Number [facility] [place]) [address] [place] [address] [place] [address] * eGFR (05/26/2025 8:01 PM CDT) eGFR >90 >=60 mL/min/1. 73 m2 Comment: [...] MD LAB BLOOD ORDERABLES Pattie l Result [facility] ([place]) 1 [facility] [place] [address] * Differential, auto (05/26/2025 8:01 PM CDT) Neutrophil abs 4.56 1.50 - 6.50 K/cumm [...] MD LAB BLOOD ORDERABLES Pattie najera Result [facility] ([place]) 1 [facility] [place] [address] * (ABNORMAL) CBC with auto differential (05/26/2025 8:01 PM CDT) WBC 7.80 3.80 - 9.90 K/cumm Hgb [...] RDW SD 41.5 35.7 - 48.1 fL [facility] ([place]) NRBC abs 0.00 0.00 - 0.01 K/cumm [facility] ([place]) Blood Venous blood specimen / Unknown 05/26/2025 8:01 PM CDT 05/26/2025 8:06 PM CDT Shannan Betts MD LAB BLOOD ORDERABLES Pattie najera Result [facility] ([place]) 1 [facility] [place] [address] * Comprehensive metabolic panel (05/26/2025 8:01 PM CDT) Sodium 136 135 - 145 mmol/L Potassium, pl 4.0 3.3 - 4.9 mmol/L [facility]) Chloride 97 97 - 110 mmol/L [facility] ([place]) CO2 24 22 - 32 mmol/L [facility] ([place]) Anion gap 15 2 - 15 mmol/L [facility] ([place]) BUN 14 6 - 25 mg/dL [facility]) Creatinine 0.98 0.80 - 1.30 mg/dL [facility] ([place]) Glucose 188 70 - 199 mg/dL [facility] ([place]) Comment: Interpretive Data Fasting glucose [...] Bilirubin, total 0.2 0.1 - 1.2 mg/dL [facility] ([place]) Protein, pl 6.9 6.5 - [...] LAB BLOOD ORDERABLES Pattie najera Result [facility] ([place]) 1 [facility] [place] [address] * XR Chest PA Lateral 2 Views [...] Damien Wood M.D. MF: BRANDON Report ID: [id number] Reading Location: [id number] Procedure Note Damien Wood, DO - 05/26/2025 [...] Damien Wood M.D. MF: BRANDON Report ID: [id number] Reading Location: [place] [address] Shannan Betts MD IMG XR PROCEDURES Final R esult * ECG 12 lead (05/26/2025 7:21 PM CDT) 05/26/2025 7:21 PM CDT Narrative [facility] - 05/27/2025 6:48 AM CDT Vent Rate: 95 bpm RR Interval: 627 msec [place] Interval: 104 msec QRS Duration: 91 msec QT Interval: 335 msec QTC Interval: 388 msec P-R-T [place]: -27 - -5 - -4 degrees IMPRESSION: SINUS RHYTHM WITH SHORT [place] INTERVAL LOW QRS VOLTAGE IN PRECORDIAL LEADS [QRS DEFLECTION < 1.0 mV IN CHEST LEADS] BORDERLINE ECG Electronically Signed By: Stan Arora MD Shannan Betts MD ECG ORDERABLES Final Res ult [facility] from Last 3 Months Insurance [id number] [employer] Care Teams Die Sinker Relationship Specialty Start Date End Date Dali Melissa NP [address] [place] [address] PCP - General Nurse Practitioner 12/31/24
--- OUTSIDE RECORDS SUMMARY | 2025-06-08 09:15 | XMS_ITS | Clinical Summary ---
Author Organization [facility] Address [address] [place] [address] Phone Care Team Providers Care Er Registrar Name Role Phone Weston Escobar Primary Care Provider [phone] Al Britt MD Unavailable Vilma Jaffe APRN, INFORMATION TECHNOLOGY PROFESSOR Unavailable Allergies No known active allergies Medications Pgok-II-Zsqqoyn n-Petrolatum (Preparation H Rapid Relief) 5-0.25-14.4-15 % [...] Insurance [employer]ICA[employer] Care Teams Er Registrar Relationship Specialty Start Date End Date Weston Escobar PAC [address] [place] [phone] PCP - General Physician Corporate Meeting Planner 01/12/21 Al Britt MD #2 [facility] [address] [place] [address] Consulting Physician Colon and Rectal Surgery 07/30/23 Vilma Jaffe APRN, INFORMATION TECHNOLOGY PROFESSOR #2 [facility] [address] [place] [address] Nurse Practitioner Advanced Practice Nurse 08/25/24
[2025-06-08 19:23] LABS: Alanine Aminotransferase 41 U/L (6-50); Albumin Level 4.4 g/dL (3.5-5.1); Alkaline Phosphatase 58 U/L (38-126); Anion Gap 10 mmol/L (4-12); Aspartate Amino Transferase 67 U/L (17-59); Bilirubin,Total 0.4 mg/dL (0.2-1.3); Blood Urea Nitrogen 14 mg/dL (9-20); Calcium 9.3 mg/dL (8.4-10.2); Carbon Dioxide 28 mmol/L (22-30); Chloride 100 mmol/L (98-107); Cholesterol 167 mg/dL (0-200); Estimated Glomerular Filt Rate > 60; Glucose 161 mg/dL (65-110); HDL Direct 35 mg/dL; Potassium 3.8 mmol/L (3.4-5.0); Sodium 138 mmol/L (137-145); Total Protein 7.4 g/dL (6.3-8.2); Triglycerides 211 mg/dL (<150)
[2025-06-08 20:40] LABS: Hemoglobin A1C 5.9 % (<5.7)
== END 2025-06-08 09:12 | disposition home or self-care (01) ==
LOC: ANHBWCLAB 09:12
PROVIDERS: PCP Nurse Practitioner Adult Health; Visit Provider Nurse Practitioner Adult Health
DX: E78.5 Hyperlipidemia, unspecified (principal); R73.9 Hyperglycemia, unspecified
CPT/HCPCS: 36415; 80053; 80061; 83036

== ENCOUNTER 2025-09-20 06:32 | Outpatient (CLI) | payer OTHER, SELFPAY ==
--- OUTSIDE RECORDS SUMMARY | 2025-09-20 06:53 | XMS_ITS | Encounter Summary ---
Author Organization [facility] Address [address] [place] [address] Phone Care Team Providers Care Aerodynamics Professor Name Role Phone Seamus Valedz MD Primary Care Provider [phone] Weston Escobar Primary Care Provider [phone] Al Britt MD Unavailable Vilma Jaffe APRN, CNP Unavailable [phone] Reason for Visit * Reason Comments Medication Refill Encounter Details Date Type Department Care Team (Late st Contact Info) Description 11/28/2020 Refill [facility] Admitting [address] [place] [address] Seamus Valdez MD [address] [place] [address] Medication Refill Social History Tobacco Use Types [...] 7:43 AM CST Please review and sign. RTISING CLERK documented in this encounter Plan of Treatment Not on file documented as of this encounter Visit Diagnoses Not on filedocumented in this encounter Care Teams Aerodynamics Professor Relationship Specialty Start Date End Date Seamus Valdez MD PCP - General Internal Medicine 10/18/19 01/11/21 Weston Escobar [facility] [address] [place] [address] PCP - General Physician Rvda Master Certified Rv Technician 01/12/21 Al Britt MD #2 [facility] [address] [place] [address] Consulting Physician Colon and Rectal Surgery 07/30/23 Vilma Jaffe APRN, GENERAL OFFICE DISPATCHER #2 [facility] [address] [place] [address] Nurse Practitioner Advanced Practice Nurse 08/25/24 documented as of this encounter
--- OUTSIDE RECORDS SUMMARY | 2025-09-20 06:53 | XMS_ITS | Encounter Summary ---
Author Organization [facility] Address [address] [place] [address] Phone Care Team Providers Care Chemistry Laboratory Technician Name Role Phone Seamus Valdez MD Primary Care Provider [phone] Weston Escobar Primary Care Provider [phone] Al Britt MD Unavailable Vilma Jaffe APRN, CNP Unavailable [phone] Reason for Visit * Reason Comments Medication Refill Encounter Details Date Type Department Care Team (Late st Contact Info) Description 11/03/2020 Refill [facility] Admitting [address] [place] [address] Seamus Valdez MD [address] [place] [address] Medication Refill Social History Tobacco [...] 8:12 AM CST Please review and sign. [employer] USW SUPERVISOR documented in this encounter Plan of Treatment Not on file documented as of this encounter Visit Diagnoses Not on filedocumented in this encounter Care Teams Chemistry Laboratory Technician Relationship Specialty Start Date End Date Seamus Valdez MD PCP - General Internal Medicine 10/18/19 01/11/21 Weston Escobar [facility] [address] [place] [address] PCP - General Physician Veterinary Nurse 01/12/21 Al Britt MD #2 [facility] [address] [place] [address] Consulting Physician Colon and Rectal Surgery 07/30/23 Vilma Jaffe APRN, LEAD DEVELOPER #2 [facility] [address] [place] [address] Nurse Practitioner Advanced Practice Nurse 08/25/24 documented as of this encounter
--- OUTSIDE RECORDS SUMMARY | 2025-09-20 06:53 | XMS_ITS | Clinical Summary ---
Author Organization [facility] [employer] Address [address] [place] [address] Care Team Providers Care Medical Laboratory Technician Name Role Phone Dali Melissa [facility] Primary Care Provider + Source Comments [facility] [employer],non-owned Affiliates and Associated Physician Practices is amultiple site organization consisting of ambulatory clinics and hospital sitesin [place], [place], [place] and [place]. This disclosure is being madepursuant to the Care Everywhere program and may not contain all information available regarding this patient. Last updated 18.[employer] Allergies No known active allergies Medications * Be aware that medications may not be up to date on this document. Alwaysverify current medications with the patient. albuterol HFA (VENTOLIN HFA) 108 (90 BASE) MCG/ACT inhaler Inhale 2 puffs by mouth every 6 hours as needed for Wheezing or Cough 1 Inhaler 11/04/20 17 Active Additional Information Patient not taking.Reported on 08/30/2025 atorvastatin (Lipitor) 20 MG tablet Take 1 (one) tablet by mouth once daily Active Trulicity 0.75 MG/0.5ML injection Inject 0.75 (three-quarters) mg subcutaneously every 7 days (once a week) 07/04/20 25 Active fexofenadine (Katy) 180 MG tablet Take 1 (one) tablet by mouth once daily 08/25/20 24 Active lisinopril-hyd roCHLOROthiazi de (Prinzide; Zestoretic) 20-25 MG tablet Take 1 (one) tablet by mouth once daily 08/20/20 25 Active metFORMIN ER 24hr (Glucophage XR) 500 MG tablet 06/09/20 25 Active predniSONE (DELTASONE) 20 MG tablet Take 1 tablet by mouth 2 times daily 14 tablet 11/04/20 17 025 Discontin ued(List Clean-Up) Active Problems No known active problems Resolved Problems Problem Noted Date Diagnosed Date Resolved Date Osteoarthritis of left knee 12/09/2024 08/27/2025 Dyspnea on exertion 08/25/2024 08/27/20 25 Wheezing 08/25/2024 08/27/2025 Severe obesity 11/26/2023 08/27/2025 Acute gout involving toe of right foot 01/02/2019 08/27/2025 Encounters Date Type Department Care Team Description 08/30/2025 10:30 AM CDT Office Visit [facility] [address] [place] [address] Naomi Wesley, BOW MAKER MACHINE TENDER[employer] Morbid obesity with BMI of 50.0-59.9, adult (HCC) (Primary Dx); Type 2 diabetes mellitus without complications, unspecified whether long-term insulin use (HCC); Obstructive sleep apnea; Hypertension, unspecified type; Hyperlipidemia, unspecified hyperlipidemia type from Last 3 Months Family History Medical History Relation Name Comments Cancer Father Cancer Maternal Grandmother Heart Failure Mother Relation Name Status Comments Father Maternal Grandmother Mother Social History Tobacco Use Types Packs/Day Years Used Date Smoking Tobacco: Never Smokeless Tobacco: Never Alcohol Use Standard Drinks/Week Comments Yes 0 (1 standard drink = 0.6 oz pur e alcohol) occ PHQ-2 Answer Date Recorded Patient Health Questionnaire-2 Score 0 08/30/2025 Sex and Gender Information Value Date Recorded Sex Assigned at Not on file Legal Sex Male 4:28 PM BAR HOST Gender Identity Not on file Sexual Orientation Not on file Last Filed Vital Signs Vital Sign Reading Time Taken Comments Blood Pressure 128/74 08/30/2025 10:00 AM CDT Pulse 84 08/30/2025 10:00 AM CDT Temperature 36.2 C (97.1 F) 08/30/2025 10:00 AM CDT Respiratory Rate 18 08/30/2025 10:0 0 AM CDT Oxygen Saturation 96% 08/30/2025 10: 00 AM CDT Inhaled Oxygen Concentration - - Weight 189.3 kg (417 lb 4.8 oz) 025 10:00 AM CDT Height 178.4 cm (5' 10.25) 08/30/2025 10:00 AM CDT Body Mass Index 59.45 08/30/2025 10:00 AM CDT Plan of Treatment Upcoming Encounters Date Type Department Care Team (Late st Contact Info) Description 11/01/2025 3:30 PM BAR HOST Office Visit [facility] [address] [place] [phone] Naomi Wesley, BOW MAKER MACHINE TENDER-[employer] [address] [place] [phone] Health Maintenance Due Date Last Done Comments HIV SCREENING 2003 HEPATITIS C SCREENING 03/04/2006 DTAP/TDAP/TD VACCINES (1 - Tdap) 2007 HEPATITIS B VACCINE (1 of 3 - 19+ 3-dose series) 2007 PNEUMOCOCCAL VACCINE (1 of 2 - PCV) 2007 HPV VACCINE (1 - 3-dose SCDM series) 2015 COVID-19 VACCINE (1 - 2023-2 5 season) 2025 INFLUENZA VACCINE (#1) 2025 ZOSTER VACCINE (1 of 2) 2038 DEPRESSION SCREENING Completed 08/30/2025 HIB VACCINE Aged Out No longer eligi ble based on patient's age to complete this topic MENINGOCOCCAL (Group B) VACC INE SHARED DECISION-MAKING Aged Out No longer eligibl e based on patient's age to complete this topic MENINGOCOCCAL GROUPS A/C/Y/W VACCINE Aged Out No longer eligible b ased on patient's age to complete this topic Insurance [facility] Care Teams Medical Laboratory Technician Relationship Specialty Start Date End Date Dali Melissa APRN-[facility] [address] [address] PCP - General 09/01/25
--- OUTSIDE RECORDS SUMMARY | 2025-09-20 06:53 | XMS_ITS | Clinical Summary ---
Author Organization [facility] Address [address] [place] [address] Care Team Providers Care Product Transfer Pumper Name Role Phone Dali Melissa NP Primary Care Provider [phone] Allergies No known active allergies Medications montelukast [...] 11/26/2023 Assessment & Plan (11/26/2023 10:08 AM ELECTRONIC PUBLICATIONS SPECIALIST): Given their past success the patient would [...] on file Legal Sex Male 12:24 AM ELECTRONIC PUBLICATIONS SPECIALIST Gender Identity Not on file Sexual Orientation [...] series) 2001 Regular Well Visit/Exam 18-64 2006 HPV Vaccines (1 - 3-dose SCDM series) 2015 Covid-19 Vaccine ( season) 2025 12/12/2021, 04/19/2021 Influenza Vaccine (#1) 2025 08/19/2024, 2022 DTaP/Tdap/Td Vaccine (8 - Td or Tdap) 08/11/2025 08/11/2015, 11/07/2005, 01/16/1993, Additional history exists Hepatitis B Screening Completed 05/07/1997 , 11/09/1996, 10/07/1996 Pneumococcal vaccine <65 Aged Out No longer eligible based on patient's age to complete this topic Insurance [facility] Care Teams Product Transfer Pumper Relationship Specialty Start Date End Date Dali Melissa NP [address] [place] [address] PCP - General Nurse Practitioner 12/31/24
--- OUTSIDE RECORDS SUMMARY | 2025-09-20 06:56 | XMS_ITS | Clinical Summary ---
Author Organization [facility] Address [address] [place] [address] Phone Care Team Providers Care Booking Manager Name Role Phone Weston Escobar Primary Care Provider [phone] Al Britt MD Unavailable Vilma Jaffe APRN, AUT[employer]IC [employer] Unavailable Allergies No known active allergies Medications Zemt-RE-Xkhzneb n-Petrolatum (Preparation H Rapid Relief) 5-0.25-14.4-15 % [...] 1988 Human Papillomavirus (HPV) Immunization (1 - 3-dose SCDM series) 2015 Influenza Immunization (#1) 2025 08/19/2024, 1 SARS-COV-2 Immunization ( season) 2025 12/12/2021, 04/19/2021 Respiratory Syncytial Virus (RSV) Immunization [...] Insurance MEDICAID [facility] Care Teams Booking Manager Relationship Specialty Start Date End Date Weston Esocbar PAC [address] [place] [id number] PCP - General Physician Spine Specialist 01/12/21 Al Britt MD [address] [facility] [address] [place] [address] Consulting Physician Colon and Rectal Surgery 07/30/23 Vilma Jaffe APRN, AUTOMATIC LOG CUT [employer]ER [address] [facility] [address] [address] Nurse Practitioner Advanced Practice Nurse 08/25/24
[2025-09-20 19:32] LABS: Cholesterol 163 mg/dL (0-200); HDL Direct 36 mg/dL; Magnesium 1.7 mg/dL (1.6-2.3); Triglycerides 201 mg/dL (<150)
[2025-09-20 19:49] LABS: Transferrin 204 mg/dL (206-381)
[2025-09-20 19:57] LABS: Iron 77 ug/dL (49-181)
[2025-09-20 20:10] LABS: Thyroid Stimulating Hormone 1.150 uIU/mL (0.465-4.680)
[2025-09-20 20:33] LABS: Hemoglobin A1C 5.4 % (<5.7)
[2025-09-20 20:43] LABS: Ferritin 400.00 ng/mL (17.9-464)
[2025-09-20 20:46] LABS: Vitamin B12 530.0 pg/mL (239-931)
[2025-09-24 19:08] LABS: Vit. B1, Whole Blood 165.2 nmol/L (66.5-200.0)
== END 2025-09-20 06:33 | disposition home or self-care (01) ==
PROVIDERS: PCP Nurse Practitioner Adult Health
DX: E66.01 Morbid (severe) obesity due to excess calories (principal); Z68.43 Body mass index [BMI] 50.0-59.9, adult
CPT/HCPCS: 36415; 80061; 82306; 82607; 82728; 82746; 83036; 83540; 83735; 84425; 84443; 84466

== ENCOUNTER 2025-11-01 12:19 | Emergency (ER) | payer OTHER, SELFPAY ==
[2025-11-01 12:28] VITALS: BP 115/64; PULSE 75; RESP 20; TEMP 36.7; O2SAT 97
--- NOTE | 2025-11-01 12:44 | ED_ITS ---
HPI - URI/Sore Throat General Chief Complaint: Upper Respiratory Infection Stated Complaint: flu/covid test Time Seen by Provider: 11/01/25 12:45 Source: patient, RN notes reviewed and old records reviewed Mode of arrival: ambulatory Limitations: no limitations History of Present Illness HPI Narrative: 35 year old male presents to [facility] care with scratchy throat cough and some some runny nose with his symptoms starting on Saturday night. Patient reports that his mother has COVID and he wants tested today. Patient reports that he has taken some cough medication and does take take daily Cindi, has not had recent fevers. MD elicited complaint: cough, sore throat, rhinorrhea and nasal congestion Pertinent past history: other (hypertension, gout hyperlipidemia and is on diabetic medication) Onset (ago): day(s) (4) Severity: mild Treatments prior to arrival: other (cough medication and takes daily cindi) Related Data Home Medications ?Medication ?Instructions ?Recorded ?Confirmed ?Last Taken ?Type famotidine 40 mg tablet 40 mg PO DAILY 11/26/2410/18 Unknown History Allergies Allergy/AdvReac Type Severity Reaction Status Date / Time No Known Allergies Allergy Verified 10/27/25 07:28 Review of Systems Review of Systems: CONSTITUTIONAL: reports some malaise, no chills, sweats, or fever.reports fatigue EYES: Denies visual changes, redness, or discharge. ENT: Reports rhinorrhea, congestion, sinus pain, no otalgia and no sore throat. CARDIOVASCULAR: Denies chest pain, palpitations, or edema. RESPIRATORY: Reports cough.? Denies dyspnea. GASTROINTESTINAL: Denies abdominal pain, nausea, vomiting, diarrhea SKIN: Denies rash or itching. MUSCULOSKELETAL: Denies myalgia. NEUROLOGIC: Denies headache. All systems reviewed & are unremarkable except as noted in HPI and below PMFSH Past Medical History Medical History (Updated 11/03/25 @ 10:05 by Leia Garsia APRN) Chronic nonallergic rhinitis Hyperglycemia Low testosterone Hypertension Arthritis Gout Hyperlipidemia Surgical History Surgical History Hx of hand surgery left Family History Family History Mother Diabetes mellitus Hypertension Grandparent Cancer Social History Social History (Reviewed 04/15/25 @ 07:31 by April Maharaj [facility]) Smoking status: Never smoker Alcohol intake: current Alcohol use details: 1-4 A week. Substance use: unknown Lack of Transportation: No Lack of Food: Never True Current Housing: I Have Housing Concerned About Future Housing: No Difficulty Paying Gas/Electric Bills: No Difficulty Paying for Meds: No Currently Unemployed: No Education: High School Diploma/GED Difficulty w/ Childcare or Family Care: No Living arrangements: with family Gender identity (if verbalized by the patient): Male Agree to blood products: No Comments At time of signature, agree with nursing past medical, surgical, social and f amily history. There is no relevant family history pertinent to the presenting complaint Exam Narrative: GENERAL: Well-appearing, well-nourished, morbidly obese,and in no acute distress. HEAD: Normocephalic EYES: PERRLA, conjunctivae clear ENT: Nares clear, turbinates edematous and erythematous, clear discharge, sinus pressure.. Mucous membranes moist. TM pearly strickland with dull light reflex bilaterally; no tragal tenderness. Oropharynx erythematous without lesions. Tonsils not enlarged and without exudate, no drooling, no hoarseness, no trismus, uvula midline.post nasal drainage noted NECK: Supple. No lymphadenopathy CHEST: Clear to auscultation, breath sounds equal. No wheezing, rhonchi, rales, or stridor. No respiratory distress, speaks in full sentences.cough noted no dyspnea. SAO2 97% on room air HEART: Regular rate and rhythm. No murmur heard. SKIN: Warm, dry, no rash. NEURO: Alert and oriented x3. PSYCH: Normal mood and affect Course Course Level of Care: Express Care Visit Vital Signs Vital signs: Vital Signs Temperature 36.7 C 11/01/25 12:28 Pulse Rate 75 11/01/25 12:28 Respiratory Rate 20 11/01/25 12:28 Blood Pressure 115/64 11/01/25 12:28 Pulse Oximetry 97 11/01/25 12:28 Oxygen Delivery Room Air 11/01/25 12:28 Temperature 36.7 C 11/01/25 12:28 Pulse Rate 75 11/01/25 12:28 Respiratory Rate 20 11/01/25 12:28 Blood Pressure 115/64 11/01/25 12:28 Pulse Oximetry 97 11/01/25 12:28 Oxygen Delivery Room Air 11/01/25 12:28 [facility] Narrative Medical decision making narrative: Patient tested positive for COVID with positive exposure from family member, Patient is nontoxic in appearance recommend supportive medication to treat symptoms. Anticipatory guidance and reasons to seek care in ED reviewed with richard ortiz with understanding voiced. Differential Diagnosis Differential Diagnosis: Differential diagnostic considerations for upper respiratory infection include upper respiratory infection, croup, otitis media, sinusitis, viral infection, bronchitis, influenza, pharyngitis, strep, uvulitis.? Lab Data [facility] Lab Attestation statement: I personally reviewed the patient's lab results. Lab results narrative: Covid antigen Positive, Influenza A&B negative Labs: Lab Results 11/01/25 Range/Units 12:34 POC Influenza A Ag Negative (Negative) POC Influenza B Ag Negative (Negative) POC SARS CoV-2 Ag Positive (Negative) reviewed Critical Care Time Critical Care Time Critical Care Time: No Discharge Plan Discharge Clinical Impression: COVID-19 Patient Disposition: Home Condition: Stable Instructions: Antibiotic Form, How to Recover from COVID-19 at Home (ED) Additional Instructions: Increase fluids especially juices and water Kwzs-xyk-xzbxsdl cough and cold medicine of your choice for your symptoms Zyrtec Claritin or Cindi daily Tylenol or ibuprofen for any fever pain for package directions heat to the face 20-30 minutes 4-6 times a day for pain Salt water gargles, throat lozenges or throat sprays as desired If your symptoms persist, change or worsen significantly before you can contact your personal physician then please, without delay, go to the emergency department for further evaluation. Follow-up with PCP in 7-10 days or sooner if needed COVID-19 DISCHARGE The following recommendations have been made by the CDC and local Health Departments, regarding COVID-19: Those individuals with mild cases of COVID-19 can generally be discontinued from isolation, 5 days AFTER the onset of symptoms AND the resolution of fever for 24hrs (without the use of fever-reducing medications) Those individuals who were asymptomatic, and tested positive, are discontinued from isolation 10 days AFTER their first positive COVID-19 test Those individuals with SEVERE to CRITICAL illness or immunocompromised diseases may require up to 20 days of home isolation or hospitalization Majority of mild to moderate cases can be treated at home, without hospitalization or prescription medications You do not need a negative test result to return to work/school, assuming the above recommendations have been met and you are not symptomatic. At this time, return to work/school notes will not be provided. Guidelines from the local Health Department, CDC, and workplace are expected to be followed. All individuals in the household need to remained quarantined for up to 14 days if asymptomatic OR 10 days after the start of symptoms. Everyone in the home DOES NOT require testing, they are presumed positive and should quarantine as directed. Treating symptoms for mild to moderate cases may include: Tylenol, Flonase/nasal spray, OTC cold/flu medications recommended from your provider or any necessary prescription medications provided at your visit or from your PCP IF YOU TESTED NEGATIVE If you are symptomatic with reason to believe you have COVID-19, there is a high possibility your rapid test may not have detected the virus. Rapid testing is dependent on timing and viral load and may have a false- negative reading You should follow appropriate guidelines regarding quarantine, hand washing, mask wearing, and social distancing You may be sent for PCR testing as an outpatient to the [facility] testing site Common Adult Symptoms: Fever/chills Cough Shortness of breath Fatigue, muscle aches Headache Loss of taste/smell Sore throat, congestion, runny nose GI symptoms (nausea, vomiting, diarrhea) Common Pediatric Symptoms Cough Fever GI symptoms (diarrhea, upset stomach, nausea, vomiting) Symptoms may differ in severity however, most cases do not require hospitalization. WHEN TO SEEK ER EVALUATION/TREATMENT Severe/persistent shortness of breath or difficulty breathing Elevated, persistent fevers without resolution with fever-reducing medications Chest pain Extreme fatigue/lethargy Complications of pre-existing disease Patient Language: Estonian Prescriptions: No Action famotidine 40 mg tablet 40 mg PO DAILY lisinopril-hydrochlorothiazide 20-25 mg tablet 1 tablet PO DAILY Qty: 90 3RF fexofenadine 180 mg tablet 180 mg PO DAILY Qty: 90 0RF atorvastatin 20 mg tablet See Rx Instructions .ROUTE .COMPLEX Qty: 90 3RF Dose Instruction: Take 1 tablet by mouth once daily Rx Instructions: Take 1 tablet by mouth once daily metformin [Glucophage XR] 500 mg tablet extended release 24 hr 500 mg PO DAILY Qty: 90 3RF cholecalciferol (vitamin D3) 1,250 mcg (50,000 unit) capsule 1,250 mcg PO WEEKLY Qty: 12 1RF diclofenac sodium 50 mg tablet,delayed release (DR/EC) See Rx Instructions .ROUTE .COMPLEX Qty: 60 3RF Dose Instruction: Take 1 tablet by mouth twice daily as needed for pain Rx Instructions: Take 1 tablet by mouth twice daily as needed for pain diclofenac sodium [Voltaren Arthritis Pain] 1 % gel 4 g topical QID Qty: 100 3RF Rx Instructions: apply to single knee, ankle, foot; for foot includes sole/toes/top of foot lidocaine 5 % ointment 1 applic topical DAILY PRN (Reason: pain) Qty: 35.44 2RF trazodone 50 mg tablet 50 mg PO QHS PRN (Reason: insomnia) Qty: 60 1RF Rx Instructions: Take 1 or 2 tablets before bedtime for insomnia Follow-up/Referrals: Dali Melissa APRN [Primary Care Provider, [facility]] Time of Disposition: 12:55 Quality Caroline Coma Scale Eyes: Open Verbal: Oriented and Alert Motor: Follows Commands Caroline Coma Total Score: 15
[2025-11-01 13:01] LABS: EDCOVIDSCREEN Positive (Negative)
[2025-11-01 14:01] LABS: EDINFLUASCREEN Negative (Negative); EDINFLUBSCREEN Negative (Negative)
== END 2025-11-01 13:00 | disposition home or self-care (01) ==
PROVIDERS: Emergency Provider Registered Nurse; PCP Nurse Practitioner Adult Health
DX: U07.1 COVID-19 (principal); I10 Essential (primary) hypertension; E11.9 Type 2 diabetes mellitus without complications; Z79.85 Long-term (current) use of injectable non-insulin antidiabetic drugs; E78.5 Hyperlipidemia, unspecified; M10.9 Gout, unspecified; M19.90 Unspecified osteoarthritis, unspecified site
CPT/HCPCS: 87426; 87804; 99212; G0463